=== PATIENT | female | born 1940 | race Caucasian/White ===

== ENCOUNTER 2019-07-27 06:00 | Emergency (ER) | payer MEDICARE, SELFPAY ==
[2019-07-27 06:01] VITALS: BP 126/104; PULSE 66; RESP 16; TEMP 36.8; O2SAT 97; BMI 24.3
[2019-07-27 06:46] LABS: Absolute Lymphocyte Count 1.98 X10^3/uL (0.83-4.51); Basophil# 0.05 X10^3/uL; Basophil% 0.7 % (0-1); Eosinophil# 0.14 X10^3/uL; Eosinophils% 2.1 % (0-5); Hematocrit 36.8 % (37-47); Hemoglobin 12.5 g/dL (12.0-15.0); Lymphocyte # 1.98 X10^3/ul (4.0); Lymphocyte % 29.4 % (19-41); Mean Corpuscular Hgb 31.6 pg (27.0-32.0); Mean Corpuscular Volume 92.9 fL (81-99); Mean Platelet Vol. 10.2 fl (6.2-12.0); Monocyte# 0.56 X10^3/uL; Monocyte% 8.3 % (0-10); NRBC Flagged by Analyzer 0 % (0-5); Neutrophil # 3.98 X10^3/uL (2.7-7.7); Neutrophil % 59.2 % (47-70); Platelet Count 246 K/mm3 (150-450); RBC Distribution Width CV 11.9 % (11.6-14.6); RBC Distribution Width SD 40.7 fl (35.1-43.9); Red Blood Count 3.96 M/mm3 (4.2-5.4); White Blood Count 6.7 K/mm3 (4.4-11.0)
[2019-07-27 06:58] LABS: AST(SGOT) 17 U/L (15-37); Alanine Aminotransfer ALT/SGPT 24 U/L (13-56); Albumin, Serum 3.3 g/dL (3.2-5.0); Alkaline Phosphatase 53 U/L (45-117); Anion Gap 8 (5-15); BUN 13 mg/dL (7-18); Calcium,Total 8.3 mg/dL (8.5-10.1); Chloride 110 mmol/L (98-107); Creatinine, Serum 0.93 mg/dL (0.55-1.02); EST Glomerular Filtration Rate 62 mL/min (>60); Est Glom Filt Rate - Afr Amer 75 mL/min (>60); Estimated Creatinine Clearance 44.86 ml/min; Globulin 3.4 g/dL (2.2-4.2); Glucose 111 mg/dL (74-106); Protein, Total 6.7 g/dL (6.4-8.2); Sodium Level 143 mmol/L (136-145)
--- NOTE | 2019-07-27 07:15 | CT_ITS ---
STUDY: CT ABDOMEN AND PELVIS WITHOUT CONTRAST REASON FOR EXAM: Female, 79 years old. Lower abdominal pain and painful urination RADIATION DOSAGE (If Supplied By Facility): CTDIvol = ( 6.55 ) mGy, DLP = ( 311.01 ) mGycm TECHNIQUE: Transaxial images were obtained from the dome of the diaphragm to the symphysis pubis without oral contrast, and without intravenous contrast. Sagittal and coronal images were reconstructed. Individualized dose optimization techniques were used for this CT. COMPARISON: None. FINDINGS: The visualized lung bases are unremarkable. The visualized portions of the heart are within normal limits. Small hiatal hernia. Normal liver. There are surgical clips in the gallbladder fossa consistent with a prior cholecystectomy. Normal spleen. Normal pancreas. Normal bilateral adrenal glands. Normal right kidney. Normal left kidney. Normal visualized stomach. Normal small intestine. Acute sigmoid diverticulitis. No free air or abscess is seen. The appendix is visualized and appears normal. Normal abdominal aorta. Normal inferior vena cava. Normal retroperitoneum. Normal urinary bladder. Normal abdominal wall. Normal osseous structures. CT/Abdomen/Pelvis without Cont IMPRESSION: Acute sigmoid diverticulitis. No free air or abscess is seen. Electronically Signed: Tunde Benedict MD at 7:50 EST Tel , Service support ,
[2019-07-27 07:22] LABS: Bacteria 0 SEEN /hpf (None Seen); Mucous, Urine 0 SEEN /hpf (<or=2+); Red Blood Cells-Urine 0 SEEN /hpf (0-5); Squamous Epithelial Cells - UA 0 SEEN /hpf (5-10); White Blood Cells 0 SEEN /hpf (0-5)
--- NOTE | 2019-07-27 07:43 | ED.DCSUM_ITS ---
- ER Visit Summary Date of Service: 07/27/19 Chief Complaint: [Abdominal pain] History of Present Illness: The patient is a 79 F [presents to the emergency department complaint of abdominal pain that started mostly last evening around midnight. Patient states that she has had some mild discomfort for several days. Patient describes the pain as severe and rates it a 10 out of 10. Patient states the pain is left lower quadrant. At times she feels the pain in her back. Patient has some discomfort in her abdomen with bowel movements as well as with urination. She said no fevers. She said some nausea but no vomiting. She denies any diarrhea. She denies any blood in her stool or black tarry stools. Patient does have prior history of kidney stones. Patient had prior history of diverticulitis. Patient had prior cholecystectomy and hysterectomy.] Physical Examination: [HEENT-PERRLA, EOMI. Cranial nerves II through XII grossly intact. TMs clear. Mucous membranes moist. No adenopathy. Cardiovascular-regular rate and rhythm without murmur or ectopy Lungs-clear to auscultation, chest wall stable without crepitus or subcu emphysema Abdomen-normoactive bowel sounds, soft. Patient has tenderness palpation over the left lower quadrant with some guarding. There is no rebound, rigidity, or perineal signs. Extremities-intact ?4, normal range of motion, normal pulses, atraumatic] Test Results: [CBC with differential obtained showing a 6.7, hemoglobin 12.5, hematocrit 37, placed 246. Chemistries unremarkable. LFTs were normal.] Urinalysis was normal. CT scan of the M pelvis showed acute sigmoid diverticulitis without evidence of perforation or abscess. Emergency Department Course and Treatment: [Patient was given normal saline on arrival and was started on morphine and Zofran for pain control. Patient started on Cipro and Flagyl.] Treatment Plan: [She will be given a prescription for [place] as well as prescription for Cipro and Flagyl. Patient advised to follow-up with her primary care physician within next 3 to 5 days. Patient advised to return if worsening pain, fever, vomiting, or condition should worsen in any way.] Disposition: [Discharged home in stable condition] Impression: [Acute sigmoid diverticulitis] This note was generated with [employer] software. It may contain incorrect words, spelling, and punctuation that were not noted in review of the chart prior to signing ED Disposition - Plan for ED Patient: Referrals: Hugo Serrato MD [Primary Care Provider] -
[2019-07-27 07:47] LABS: Color, Urine Yellow (Yellow); Glucose, Dipstick Normal (Normal); Ketone-Dipstick Negative (Negative); Leukocyte Esterase-Dipstick Negative /ul (Negative); Nitrite-Dipstick Negative (Negative); Occult Blood-Urine Negative /ul (Negative); Protein-Dipstick Negative (Negative); Urine Bilirubin Dipstick Negative (Negative); Urine Clarity Clear (Clear); Urine Urobilinogen Normal (Normal)
[2019-07-27] MEDS: Morphine 4 MG/ML Syringe IV (08:04)
[2019-07-27] MEDS: Ondansetron 4 MG/2 ML Vial IV (08:05)
--- NOTE | 2019-07-27 08:07 | ED.DEP ---
ED Disposition - Plan for ED Patient: Instructions: Diverticulitis Prescriptions: Ciprofloxacin [Cipro] 500 mg PO BID #20 tab Prescription Printed metroNIDAZOLE [Flagyl] 500 mg PO Q8H #30 tab Prescription Printed Hydrocodone Bitart/Apap 5-325 [[place] 5MG-325MG] 1 tab PO Q4H PRN PRN 2 Days #14 tab PRN Reason: Pain Prescription Printed Referrals: Hugo Serrato MD [Primary Care Provider] - 3-5 Days
--- NOTE | 2019-07-27 08:09 | ED.DEP ---
ED Disposition - Plan for ED Patient: Instructions: Diverticulitis Prescriptions: Ciprofloxacin [Cipro] 500 mg PO BID #20 tab Prescription Printed metroNIDAZOLE [Flagyl] 500 mg PO Q8H #30 tab Prescription Printed Hydrocodone Bitart/Apap 5-325 [[place] 5MG-325MG] 1 tab PO Q4H PRN PRN 2 Days #14 tab PRN Reason: Pain Prescription Printed Referrals: uHgo Serrato MD [Primary Care Provider] - 3-5 Days
[2019-07-27] MEDS: metroNIDAZOLE 500 MG Tablet PO (08:33)
[2019-07-27] MEDS: Ciprofloxacin 500 MG Tablet PO (08:33)
[2019-07-27 08:36] VITALS: BP 126/54; PULSE 54; RESP 16; O2SAT 97
[2019-07-27] MEDS: Ondansetron ODT 4 MG Tablet PO (09:23)
== END 2019-07-27 09:17 | disposition home or self-care (01) ==
LOC: ED 07:21
PROVIDERS: Emergency Provider Emergency Medicine; Family Provider Family Medicine; PCP Family Medicine
DX: K57.32 Diverticulitis of large intestine without perforation or abscess without bleeding (principal); Z87.442 Personal history of urinary calculi
CPT/HCPCS: 74176; 80053; 81001; 85025; 96374; 96375; 99284; A4216; J2405

== ENCOUNTER 2020-10-05 14:06 | Outpatient (RCR) | payer MEDICARE, SELFPAY | END 2020-10-05 23:59 | LOC: IMMUN 14:06 | PROVIDERS: PCP Family Medicine; Referring Provider Family Medicine; Visit Provider Family Medicine | DX: Z23 Encounter for immunization (principal) | CPT/HCPCS: 0011A; 0012A ==

== ENCOUNTER 2020-11-12 17:26 | Observation (INO) | payer MEDICARE, SELFPAY ==
[2020-11-12] VITALS (10 sets, daily range): BP systolic 151–190; BP diastolic 64–89; PULSE 66–79; RESP 14–22; TEMP 36.2–36.7; O2SAT 96–98; BMI 23.3; BMI 23.4
--- NOTE | 2020-11-12 17:40 | EKG12_ITS ---
Test Reason : SYNCOPE Blood Pressure : / mmHG Vent. Rate : 073 BPM Atrial Rate : 073 BPM P-R Int : 218 ms QRS Dur : 072 ms QT Int : 424 ms P-R-T Axes : 022 -34 055 degrees QTc Int : 467 ms Sinus rhythm with 1st degree A-V block Left axis deviation Septal infarct , age undetermined Abnormal ECG Confirmed by MARY GRACE DELAROSA, [place] ([id number]), editor index NELDA MERCHANT ([id number]) on 11/14/2020 10:15:27 AM Referred By: KEARA Confirmed By:AZ BRODY MD
--- NOTE | 2020-11-12 17:40 | CT_ITS ---
STUDY: CT BRAIN WITHOUT CONTRAST REASON FOR EXAM: Female, 80 years old. Neuro deficit, acute, stroke suspected RADIATION DOSAGE (If Supplied By Facility): CTDIvol = ( 44.99 ) mGy, DLP = ( 779.24 ) mGycm TECHNIQUE: Transaxial CT imaging of the brain was performed without administration of intravenous contrast material. Individualized dose optimization techniques were used for this CT. COMPARISON: No relevant priors. FINDINGS: Normal soft tissue structures. Normal calvarium. There is moderate cerebral atrophy with widening of the extra-axial spaces and ventricular dilatation. There are areas of decreased attenuation within the white matter tracts of the supratentorial brain, consistent with microvascular disease changes. Normal basal ganglia and thalami. Normal brainstem. Normal cerebellum. There is no intracranial hemorrhage. There are no findings of an acute ischemic infarction. Normal visualized paranasal sinuses. CT/Brain/Head without Contrast IMPRESSION: Chronic involutional changes of the brain. Electronically Signed: Vj Duarte MD at 18:25 EDT Tel , Service support ,
--- NOTE | 2020-11-12 17:42 | ED.VIS.GEN ---
History of Present Illness Chief Complaint: Syncope Informant: Patient Onset: Today Context: Sudden Onset Current Severity: Mild Maximum Severity: Moderate Narrative: Patient is a 80-year-old female medical history significant for hypertension hyperlipidemia who presents to the emergency department with 2 episodes where she states she had transient weakness in her right leg, tingling in her right hand, and difficulty standing. She states it first happened when she was at lunch today. She states she tried to do from the table noticed that she was leaning to her right. She states she had a difficult time finding her right foot in space. She states it lasted only a few minutes. She drove home and was sitting at her kitchen table. She states she went to get up, and had the return of the weakness. She states this time involved both her right leg and her right hand. She states that she lowered herself to the ground and felt very lightheaded. Since then, her symptoms have totally resolved. She has no history of coronary vascular disease. She has no history of prior stroke. She is otherwise been in her normal state of health. Prior similar symptoms: No Recent Illness/Hospitalization: No Past Medical History - Allergies and Home Meds Allergies/Adverse Reactions: Allergies cephalexin monohydrate [From Keflex] Allergy (Verified 11/12/20 17:31) Nausea promethazine HCl [From Phenergan] Allergy (Verified 11/12/20 17:31) Other trimethoprim Allergy (Verified 11/12/20 17:31) Nausea Prior records reviewed: Yes Past Medical History: - - Hypertension, hyperlipidemia, osteoporosis Surgical History: noncontributory Smoking Status: Never smoker Review of Systems General: Denies: Chills, Fever, Sweats Eyes: Denies: Visual changes - bilaterally, Diplopia ENT: Denies: Rhinorrhea, Sore throat Cardiovascular: Denies: Chest pain, Palpitations Respiratory: Denies: Dyspnea, Cough, Dyspnea on exertion Gastrointestinal: Denies: Abdominal pain, Nausea, Vomiting, Diarrhea, Melena, Hematochezia Genitourinary: Denies: Dysuria, Hematuria, Frequency Musculoskeletal: Denies: Back pain, Extremity Pain Skin: Denies: Rash, Wounds Neurological: Denies: Headache, Weakness, Numbness Physical Exam Vital Signs/Narrative: Vital Signs Temp Pulse Resp BP Pulse Ox 11/12/20 17:27 97.8 F 79 15 190/81 H 98 Inital Vital Signs reviewed: Yes General: Well nourished, Well developed, No Acute Distress Head: Normocephalic, Atraumatic Eyes: Perrl, EOMI ENT: Moist mucous membranes, No rhinorrhea Neck: Supple, Nontender Cardiovascular: Regular rate, Regular rhythm, No murmurs Respiratory: No distress, CTA bilaterally, Chest nontender Abdomen: Soft, Nontender, Nondistended, Normal bowel sounds Back: Nontender, Normal Inspection Extremities: Nontender, No edema Skin: Normal color, No rash Neurological: Alert, Oriented x3, Cranial nerves II-XII grossly intact, Normal Strength, Normal Sensation Psychological: Normal affect, Normal Mood Diagnostic/Tx/Re-eval Clinical Impression(s) from Imaging Studies Brain CT 11/12/20 17:40 IMPRESSION: Chronic involutional changes of the brain. Electronically Signed: Vj Duarte MD at 18:25 EDT Tel , Service support , Chest X-Ray 11/12/20 18:05 IMPRESSION: Normal x-ray examination of the chest. Electronically Signed: Vj Duarte MD at 18:22 EDT Tel , Service support , Abnormal Lab Results 11/12/20 11/12/20 11/12/20 17:48 18:00 18:00 WBC 6.8 RBC 4.41 Hgb 13.6 Hct 41.5 MCV 94.1 MCH 30.8 MCHC 32.8 RDW Std Deviation 43.9 RDW Coeff of Nico 12.5 Plt Count 333 MPV 9.6 Immature Gran % (Auto) 0.300 Neut % (Auto) 71.6 H Lymph % (Auto) 20.3 [place] % (Auto) 4.9 Eos % (Auto) 1.6 Baso % (Auto) 1.3 H Absolute Neuts (auto) 4.8 Absolute Lymphs (auto) 1.37 Nucleated RBC % 0 PT Cancelled INR Cancelled APTT Cancelled Sodium Potassium Chloride Carbon Dioxide Anion Gap BUN Creatinine Estim Creat Clear Calc Est GFR (MDRD) Af Amer Est GFR (MDRD) Non-Af BUN/Creatinine Ratio Glucose Calcium Troponin I POC Glucose 174 H 11/12/20 18:00 WBC RBC Hgb Hct MCV MCH MCHC RDW Std Deviation RDW Coeff of Nico Plt Count MPV Immature Gran % (Auto) Neut % (Auto) Lymph % (Auto) [place] % (Auto) Eos % (Auto) Baso % (Auto) Absolute Neuts (auto) Absolute Lymphs (auto) Nucleated RBC % PT INR APTT Sodium 140 Potassium 3.3 L Chloride 106 Carbon Dioxide 27.0 Anion Gap 7 BUN 13 Creatinine 1.07 H Estim Creat Clear Calc 38.36 Est GFR (MDRD) Af Amer 64 Est GFR (MDRD) Non-Af 53 L BUN/Creatinine Ratio 12.1 Glucose 168 H Calcium 8.7 Troponin I < 0.015 POC Glucose - Rhythm Strip Rhythm Strip: Sinus Rhythm Rate: 80 Ectopy: None - EKG Initial EKG Interpretation: Sinus Rhythm, No Acute Injury Pattern Prior: No Prior - Medical Decision Making The patient symptoms are consistent with TIA. On arrival, her NIH is 0. She has no ataxia or nystagmus. There is no visual field cut. Patient was sent for noncontrast head CT. This was unremarkable for acute process. Chest x-ray reviewed by both myself and the radiologist shows no evidence of focal infiltrative process, pneumothorax, or evidence of volume overload. EKG was obtained. It was sinus rhythm with first-degree AV block. Metabolic work-up was unremarkable. At this point, given the patient's age and symptoms I do feel that she would benefit from admission for TIA work-up. She is comfortable with this plan of care. Impression 1. TIA ED Disposition - Plan for ED Patient:
[2020-11-12 18:01] LABS: Bedside Glucose 174 mg/dL (70-110)
--- NOTE | 2020-11-12 18:05 | RAD_ITS ---
STUDY: X-RAY CHEST REASON FOR EXAM: Female, 80 years old. Neuro deficit, acute, stroke suspected TECHNIQUE: Single AP portable view of the chest. COMPARISON: None. FINDINGS: The lungs are clear and expanded. There is no demonstrated pleural abnormality. Normal size heart. Normal mediastinum and lyssa. Normal visualized pulmonary arteries. Normal visualized aortic arch and descending thoracic aorta. Normal visualized thoracic spine. Normal visualized ribs, clavicles, and shoulders. There is no demonstrated abnormality of the visualized soft tissue structures of the upper abdomen. RAD/Chest 1 View IMPRESSION: Normal x-ray examination of the chest. Electronically Signed: Vj Duarte MD at 18:22 EDT Tel , Service support ,
[2020-11-12 18:11] LABS: Absolute Lymphocyte Count 1.37 X10^3/uL (0.83-4.51); Absolute Neutrophil Count 4.8 X10^3/uL (2.0-7.7); Basophil# 0.09 X10^3/uL; Basophil% 1.3 % (0-1); Eosinophil# 0.11 X10^3/uL; Eosinophils% 1.6 % (0-5); Hematocrit 41.5 % (37-47); Hemoglobin 13.6 g/dL (12.0-15.0); Lymphocyte # 1.37 X10^3/ul (4.0); Lymphocyte % 20.3 % (19-41); Mean Corp Hgb Conc 32.8 g/dL (32-36); Mean Corpuscular Hgb 30.8 pg (27.0-32.0); Mean Corpuscular Volume 94.1 fL (81-99); Mean Platelet Vol. 9.6 fl (6.2-12.0); Monocyte# 0.33 X10^3/uL; Monocyte% 4.9 % (0-10); NRBC Flagged by Analyzer 0 % (0-5); Neutrophil # 4.83 X10^3/uL (2.7-7.7); Neutrophil % 71.6 % (47-70); Platelet Count 333 K/mm3 (150-450); RBC Distribution Width CV 12.5 % (11.6-14.6); RBC Distribution Width SD 43.9 fl (35.1-43.9); Red Blood Count 4.41 M/mm3 (4.2-5.4); White Blood Count 6.8 K/mm3 (4.4-11.0)
[2020-11-12 18:30] LABS: Anion Gap 7 (5-15); BUN 13 mg/dL (7-18); BUN/Creat Ratio 12.1 RATIO (10-20); Calcium,Total 8.7 mg/dL (8.5-10.1); Chloride 106 mmol/L (98-107); Creatinine, Serum 1.07 mg/dL (0.55-1.02); EST Glomerular Filtration Rate 53 mL/min (>60); Est Glom Filt Rate - Afr Amer 64 mL/min (>60); Estimated Creatinine Clearance 38.36 ml/min; Glucose 168 mg/dL (74-106); Potassium 3.3 mmol/L (3.5-5.1); Sodium Level 140 mmol/L (136-145)
--- NOTE | 2020-11-12 19:23 | HP.PCM_ITS ---
Problem List (1) TIA (transient ischemic attack) Status: Acute (2) Depression Status: Chronic Qualifiers: Depression Type: unspecified Qualified Code(s): F32.9 - Major depressive disorder, single episode, unspecified (3) Hypertension Status: Chronic Qualifiers: Hypertension type: essential hypertension Qualified Code(s): I10 - Ess ential (primary) hypertension History of Present Illness Date of Admission: 11/12/20 Chief Complaint: Right lower leg weakness The patient is a 80 year old F with PMHx of Hypertension, hyperlipidemia who comes in with complaints of right lower leg weakness. She states that she was checked in a prayer group and was getting ready to go home when she felt weakness in her right lower extremity. She denied any tingling or numbness in her extremities. She felt slightly lightheaded but did not pass out. The right lower leg weakness seemed to improve after a few minutes. She was helped to her car and she drove home. Whilst at home, standing up, she felt weakness in the right lower extremity again. She felt her extremities were weak and she had to help it as she moved. She laid on the floor for about 5 minutes. She then got up and went to lie on the bed. She then called her to help her get to the emergency room. In the emergency room, her temperature was 97.8 F, heart rate 79, blood pressure 190/81, respiratory rate 15, SPO2 is 98% on room air. Her admitting blood work was unremarkable except for potassium of 3.3, creatinine of 1.07. Previous creatinine in [address] of the brain was unremarkable. Chest x-ray was also unremarkable. Patient symptoms appear to have resolved at the time of being seen. Past Medical History Past Medical History (Chronic Problems): Chronic Problems Depression (Chronic) Hypertension (Chronic) Allergies cephalexin monohydrate [From Keflex] Allergy (Verified 11/12/20 17:31) Nausea promethazine HCl [From Phenergan] Allergy (Verified 11/12/20 17:31) Other trimethoprim Allergy (Verified 11/12/20 17:31) Nausea Home Medications: Ambulatory Orders Medication Instructions Recorded Colestipol Tablet [Colestid Tablet] 1 gm PO BID 02/17/15 Ergocalciferol [Vitamin D] 50,000 unit PO MO 02/17/15 Nadolol [Corgard] 20 mg PO DAILY 02/17/15 Paroxetine HCl 10 mg PO DAILY 11/12/20 Surgical History: hysterectomy Psychiatric History: No pertinent psych hx 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 IMPERSONATOR 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 Denies: Chest Pain, Claudication, Orthopnea, Palpitations, Paroxysmal Noc. Dyspnea Respiratory: Denies: Cough, Hemoptysis, Shortness of breath at rest, Shortness of breath upon exertion, Sputum production Gastrointestinal: Denies: Abdominal Pain, Hematemesis, Hematochezia, Nausea, Vom iting Genitourinary: Denies: Dysuria, Frequency, Incontinence Musculoskeletal: Denies: Joint Pain, Joint stiffness, Joint swelling, Joint Tenderness Skin: Denies: Rash, Wounds Neurological: Reports: Focal weakness. Denies: Balance problems, Blurred vision, Slurred speech, Confusion, Numbness, Tingling, Tremor Psychiatric: Denies: Anxiety, Depression, Homicidal Ideations, Suicidal Ideations Hematologic/ Lymphatic: Denies: Easy Bruising, Easy Bleeding VTE Information - Inpt Only VTE Present on Admission: No VTE Pharm Prophylaxis ordered?: Yes - Physical Exam Vitals/I&O's: Vital Signs Temp Pulse Resp BP Pulse Ox 97.8 F 71 18 159/74 H 98 11/12/20 17:27 11/12/20 19:00 11/12/20 19:00 11/12/20 19:00 11/12/20 19:00 Oxygen Delivery Method Room Air Weight: 63.503 kg Body Mass Index (BMI) 23.3 Finger Stick Blood Glucose 174 General: Alert, Oriented x3, Cooperative, No apparent distress HEENT: Atraumatic, PERRLA, EOMI, Normocephalic Oral: Moist Mucosa Neck: Supple Lungs: Clear to auscultation, Normal air movement Cardiovascular: Regular rate, Regular Rhythm, Normal S1, Normal S2, No murmurs Abdomen: Bowel Sounds Present, Soft, Non Tender, Non-Distended, No Hepato- splenomegaly Extremities: No edema Skin: No rashes Musculoskeletal: No Tenderness to Palpation of Joints or Extremities Lymphatic: No Cervical, Supraclavicular, or Inguinal Adenopathy Neurological: Cranial nerves II-XII grossly intact, Neuro grossly intact Psych/Mental Status: Normal Affect, Appropriate Laboratory Results 11/12/20 17:48: POC Glucose 174 H 11/12/20 18:00: WBC 6.8, RBC 4.41, Hgb 13.6, Hct 41.5, MCV 94.1, MCH 30.8, MCHC 32.8, RDW Std Deviation 43.9, RDW Coeff of Nico 12.5, Plt Count 333, MPV 9.6, Immature Gran % (Auto) 0.300, Neut % (Auto) 71.6 H, Lymph % (Auto) 20.3, [place] % (Auto) 4.9, Eos % (Auto) 1.6, Baso % (Auto) 1.3 H, Absolute Neuts (auto) 4.8, Absolute Lymphs (auto) 1.37, Nucleated RBC % 0 11/12/20 18:00: PT Cancelled, INR Cancelled, APTT Cancelled 11/12/20 18:00: Sodium 140, Potassium 3.3 L, Chloride 106, Carbon Dioxide 27.0, Anion Gap 7, BUN 13, Creatinine 1.07 H, Estim Creat Clear Calc 38.36, Est GFR (MDRD) Af Amer 64, Est GFR (MDRD) Non-Af 53 L, BUN/Creatinine Ratio 12.1, Glucos e 168 H, Calcium 8.7, Troponin I < 0.015 Current Medications Labetalol HCl (Labetalol (Prefilled) 20 Mg/4 Ml) 20 mg IV X1 PRN PRN Reason: Blood Pressure Assessment/Plan All Active Problems TIA (transient ischemic attack) (Acute) 1. Acute transient right lower leg weakness, concerning for TIA Patient's initial CT of the brain was unremarkable Symptoms appear to have resolved at time of exam Admit to PCU, monitor on telemetry, MRI of the brain, MRA of the head and neck 2D echo, teleneurology consult, Lipid profile in am, HbA1c 2. Hypertension, uncontrolled, allowing for permissive hypertension Patient's home nadolol on hold 3. Acute kidney injury, admitting creatinine is 1.07, previous creatinine 0.93 Continue on IV fluids, repeat blood work in a.m. 4. Hyperlipidemia, continue on colestipol Would add atorvastatin 40 mg QHS 5. Depression, continue on Paxil 6. DVT prophylaxis?heparin subcu 7. Code Status?DNR CCA I discussed and explained in details the various types of CODE STATUS-full code, DNR CCA, DNR CC. Patient chose to be DNR CCA. She has a living will and would not like to be intubated or kept on artificial life support. Time spent discussing CODE STATUS 16 minutes OBSV E&M: [id number] Initial observation care L3 Procedures: [id number] Advncd Care Plan 30 Min
--- NOTE | 2020-11-12 20:05 | ECHOD_ITS ---
Reason For Study: TIA/CVA Procedure This was a 2D Doppler, Color Flow transthoracic echocardiogram. Exam performed portable in patient room. Left Ventricle Normal left ventricle. The estimated ejection fraction is EF 55-60% %. Right Ventricle Normal systolic function. Atria The left atrium is mildly enlarged. Normal right atrium. Mitral Valve There is mild mitral annular calcification. Tricuspid Valve Unable to estimate RV systolic pressure due to insufficient tricuspid regurgitant envelope. Aortic Valve Aortic sclerosis, no stenosis. Pulmonic Valve The pulmonic valve is not well visualized. Great Vessels Normal aortic root. Pericardium/Pleural No pericardial effusion. Medication Performed a rapid injection of agitated mix of 9 cc saline and 1cc air to assess for atrial septal defect. MMode/2D Measurements & Calculations LVIDd: 4.1 cm IVSd: 0.95 cm Ao root diam: 2.8 cm LVIDs: 2.7 cm LVPWd: 0.91 cm RVDd: 2.9 cm FS: 32.5 % LAV(MOD-bp): 65.3 ml LVAd ap4: 21.1 cm2 SV(MOD-sp4): 33.5 ml LAV(MOD-bp) Indexed: 38.4 ml/m2 EDV(MOD-sp4): 56.5 ml LAV(MOD-sp2): 65.8 ml EDV(sp4-el): 57.7 ml LAV(MOD-sp4): 60.6 ml LVAs ap4: 12.1 cm2 ESV(MOD-sp4): 23.0 ml ESV(sp4-el): 23.0 ml EF(MOD-sp4): 59.3 % EF(sp4-el): 60.1 % SV(sp4-el): 34.7 ml LA A4 area: 19.8 cm2 LA dimension(2D): 3.8 cm RA A4 area: 13.5 cm2 Time Measurements MV dec time: 0.23 sec Doppler Measurements & Calculations MV E max curt: 85.8 cm/sec Lat Peak E' Curt: 7.0 cm/sec Med Peak E' Curt: 5.4 cm/sec MV A max curt: 82.6 cm/sec E/E' lat: 12.2 E/E' med: 16.0 MV E/A: 1.0 Ao V2 max: 115.4 cm/sec LV V1 max: 80.1 cm/sec PA V2 max: 89.4 cm/sec Ao max P.3 mmHg LV V1 max P.6 mmHg TR max curt: 230.0 cm/sec TR max P.9 mmHg Interpretation Summary LV systolic function is Normal The estimated ejection fraction is EF 55-60% %. The left atrium is mildly enlarged. Ordering Physician: Anita Segura Referring Physician: CHRIS SCHMITZ Performed By: Lindsay Garcia, MABEL, RVT
[2020-11-12 20:39] LABS: AST(SGOT) 22 U/L (15-37); Alanine Aminotransfer ALT/SGPT 31 U/L (13-56); Albumin, Serum 3.8 g/dL (3.2-5.0); Alkaline Phosphatase 63 U/L (45-117); Bilirubin, Direct 0.08 mg/dL (0.00-0.30); Globulin 3.7 g/dL (2.2-4.2); Magnesium 2.1 mg/dL (1.6-2.6); Protein, Total 7.5 g/dL (6.4-8.2)
[2020-11-12 20:45] LABS: Hemoglobin A1c 5.8 % (3.8-5.6)
[2020-11-12] MEDS: 0.9% Normal Saline 1,000 ML 100 ML IV (21:19)
[2020-11-12] MEDS: Potassium Chloride Oral Tablet 20 MEQ 40 MEQ PO (21:30)
[2020-11-12] MEDS: Heparin Injection (Vial) 5,000 UNIT/ML VIAL 5000 UNIT SC (21:31)
[2020-11-12] MEDS: Atorvastatin Calcium 40 MG Tablet PO (21:31)
[2020-11-12] MEDS: 0.9% Saline Lock 10 ML Syringe IV (23:15)
[2020-11-13] VITALS (9 sets, daily range): BP systolic 142–175; BP diastolic 66–86; PULSE 60–70; RESP 16–18; TEMP 36.3–36.8; O2SAT 95–99
[2020-11-13] MEDS: Acetaminophen 325 MG Tablet 650 MG PO (00:46)
[2020-11-13 06:58] LABS: Absolute Neutrophil Count 2.5 X10^3/uL (2.0-7.7); Basophil# 0.07 X10^3/uL; Basophil% 1.3 % (0-1); Eosinophil# 0.14 X10^3/uL; Eosinophils% 2.7 % (0-5); Hematocrit 37.3 % (37-47); Hemoglobin 12.3 g/dL (12.0-15.0); Lymphocyte % 39.8 % (19-41); Mean Platelet Vol. 9.6 fl (6.2-12.0); Monocyte# 0.42 X10^3/uL; NRBC Flagged by Analyzer 0 % (0-5); Neutrophil # 2.54 X10^3/uL (2.7-7.7); Platelet Count 273 K/mm3 (150-450); RBC Distribution Width CV 12.4 % (11.6-14.6); RBC Distribution Width SD 42.7 fl (35.1-43.9); Red Blood Count 3.97 M/mm3 (4.2-5.4); White Blood Count 5.3 K/mm3 (4.4-11.0)
[2020-11-13 07:30] LABS: AST(SGOT) 17 U/L (15-37); Alanine Aminotransfer ALT/SGPT 22 U/L (13-56); Alkaline Phosphatase 48 U/L (45-117); Anion Gap 6 (5-15); BUN 10 mg/dL (7-18); BUN/Creat Ratio 11.8 RATIO (10-20); Calcium,Total 8.1 mg/dL (8.5-10.1); Chloride 111 mmol/L (98-107); Cholesterol 202 mg/dL (200); Creatinine, Serum 0.85 mg/dL (0.55-1.02); EST Glomerular Filtration Rate 69 mL/min (>60); Est Glom Filt Rate - Afr Amer 83 mL/min (>60); Estimated Creatinine Clearance 48.29 ml/min; Globulin 3.1 g/dL (2.2-4.2); Glucose 108 mg/dL (74-106); High Density Lipoprotein 54 mg/dL; Potassium 3.7 mmol/L (3.5-5.1); Protein, Total 6.1 g/dL (6.4-8.2); Sodium Level 141 mmol/L (136-145); Triglycerides 188 mg/dL; Very Low Density Lipoprotein 38 mg/dL (5-40)
[2020-11-13] MEDS: Aspirin 81 MG TAB.CHEW PO (09:00)
[2020-11-13] MEDS: Multivitamins,Therapeutic Tablet 1 TABLET PO (09:01)
[2020-11-13] MEDS: PARoxetine 10 MG Tablet PO (09:04)
[2020-11-13] MEDS: Heparin Injection (Vial) 5,000 UNIT/ML VIAL 5000 UNIT SC (09:10)
--- NOTE | 2020-11-13 09:30 | MRI_ITS ---
STUDY: MRI BRAIN WITHOUT CONTRAST REASON FOR EXAM: Female, 80 years old. neuro deficit, TIA/CVA work-up TECHNIQUE: Standardized multiplanar fat and water weighted pulse sequences were obtained. COMPARISON: CT 11/12/2020 FINDINGS: There is moderate cerebral atrophy with widening of the extra-axial spaces and ventricular dilatation. There are multiple white matter hyperintensities, distributed throughout the deep white matter tracts of the cerebral hemispheres, consistent with moderate chronic white matter ischemic changes. There is no evidence for recent intracranial ischemia or other cause of cytotoxic edema on diffusion weighted imaging (DWI). Normal T2* images of the brain without demonstrated susceptibility artifact. There is no demonstrated hemosiderin stain. Normal bilateral basal ganglia. Normal thalami. There is no extra-axial fluid accumulation. Normal flow voids within the major intracranial circulation suggesting patency by spin echo criteria. Normal sella turcica, pituitary gland, infundibular stalk, optic chiasm and hypothalamus. Normal tectal plate and pineal gland. Normal midbrain, katie and medulla. Normal cerebellum. Normal basal cisterns. Normal bilateral temporal bones. Normal bilateral internal auditory canals. There are bilateral ocular lens implants with otherwise normal intraorbital contents. Normal visualized paranasal sinuses. Normal calvarium and skull base. Normal visualized soft tissue structures. Normal visualized upper cervical spine. MRI/Brain without Contrast IMPRESSION: Involutional changes of the brain, as described above. No acute infarct. Electronically Signed: Vj Duarte MD at 13:49 EDT Tel , Service support ,
--- NOTE | 2020-11-13 09:30 | MRI_ITS ---
STUDY: MRA NECK WITH AND WITHOUT CONTRAST REASON FOR EXAM: Female, 80 years old. neuro deficit TECHNIQUE: 3-D nmsp-ly-sxzpyh (TOF) imaging was performed in an 1.5 T MRI scanner. IV DOTAREM 12ML was administered for the contrast enhanced images. COMPARISON: None. FINDINGS: RIGHT CAROTID ARTERIES: Normal right common carotid artery (CCA). Normal right common carotid bulb. Normal origin of the right internal carotid (ICA) artery without a hemodynamically significant stenosis. Normal visualized cervical portion of the right internal carotid artery. Normal origin of the right external carotid artery (ECA). LEFT CAROTID ARTERIES: Normal left common carotid artery (CCA). Normal left common carotid bulb. Normal origin of the left internal carotid (ICA) artery without a hemodynamically significant stenosis. Normal visualized cervical portion of the left internal carotid artery. Normal origin of the left external carotid artery (ECA). VERTEBRAL ARTERIES: There is antegrade flow within the bilateral vertebral arteries with a small right vertebral artery, and a dominant left vertebral artery. MRI/MRA Neck WITH and W/O Contrast IMPRESSION: Normal bilateral cervical carotid and vertebral arteries. Electronically Signed: Vj Duarte MD at 13:51 EDT Tel , Service support ,
--- NOTE | 2020-11-13 09:30 | MRI_ITS ---
STUDY: MRA OF THE HEAD WITHOUT CONTRAST REASON FOR EXAM: Female, 80 years old. neuro deficit TECHNIQUE: 3-D jigo-oh-ocjedj (TOF) imaging was performed with MIPs. The study was performed unenhanced. COMPARISON: None. FINDINGS: Normal bilateral petrous carotid arteries. Normal right cavernous carotid artery with a normal supraclinoid bifurcation. Normal left cavernous carotid artery with a normal supraclinoid bifurcation. Normal right A1 segments of the anterior cerebral artery. Normal left A1 segments of the anterior cerebral artery. Normal intact anterior communicating artery (ACOM). Normal bilateral A2 segments of the anterior cerebral arteries. Normal right M1 and M2 segments of the middle cerebral arteries, with a normal M1 bifurcation. Normal left M1 and M2 segments of the middle cerebral arteries, with a normal M1 bifurcation. Normal right posterior communicating artery (PCOM). Normal left posterior communicating artery (PCOM). Normal bilateral vertebral arteries. Normal basilar artery with a normal basilar bifurcation. The visualized bilateral superior cerebellar (SCA) arteries are normal. Normal bilateral P1, P2 and visualized P3 segments of the posterior cerebral arteries. There is no demonstrated aneurysm of the [place]. There is no major vessel occlusion or hemodynamically significant stenosis. There is no demonstrated abnormality of the visualized brain. MRI/MRA Head ONLY without Contrast IMPRESSION: Normal MRA of the head Electronically Signed: Vj Duarte MD at 13:50 EDT Tel , Service support ,
--- NOTE | 2020-11-13 09:53 | PN_ITS ---
Patient Problems: Active and Suspected Problems TIA (transient ischemic attack) (Acute) Reason for Visit: 1. Transient ischemic attack 2. Hypertension 3. Depression 4.Hyperlipidemia Subjective: Patient seen and examined. Patient symptoms have resolved. Patient denies any lightheadedness or weakness this morning. No new complaints this morning. Blood pressure 157/86, heart rate 67. Vitals/I&O's: Vital Signs Temp Pulse Resp BP Pulse Ox 97.8 F 65 17 157/86 H 96 11/13/20 08:14 11/13/20 08:35 11/13/20 08:14 11/13/20 08:14 11/13/20 08:14 Oxygen Delivery Method Room Air Weight: 145 lb 1.027 oz Body Mass Index (BMI) 23.3 Finger Stick Blood Glucose 174 Intake and Output for Last 24 Hours 11/11/20 11/12/20 11/13/20 23:59 23:59 23:59 Intake Total 496.67 / 496.67 1103.33 / 1103.33 Balance 496.67 / 496.67 1103.33 / 1103.33 General: Alert, Oriented x3, Cooperative HEENT: Atraumatic, PERRLA, EOMI, Normocephalic Neck: Supple, No JVD, Negative Carotid Bruits Lungs: Clear to auscultation, Normal air movement Cardiovascular: Regular rate, Regular Rhythm, Normal S1, Normal S2, No murmurs Abdomen: Bowel Sounds Present, Soft, Non Tender Extremities: No edema, Capillary Refill Less than 3 Seconds Skin: No rashes, No breakdown Musculoskeletal: No Tenderness to Palpation of Joints or Extremities Neurological: Cranial nerves II-XII grossly intact Psych/Mental Status: Normal Affect, Appropriate Laboratory Results 11/12/20 17:48: POC Glucose 174 H 11/12/20 18:00: WBC 6.8, RBC 4.41, Hgb 13.6, Hct 41.5, MCV 94.1, MCH 30.8, MCHC 32.8, RDW Std Deviation 43.9, RDW Coeff of Nico 12.5, Plt Count 333, MPV 9.6, Immature Gran % (Auto) 0.300, Neut % (Auto) 71.6 H, Lymph % (Auto) 20.3, [place] % (Auto) 4.9, Eos % (Auto) 1.6, Baso % (Auto) 1.3 H, Absolute Neuts (auto) 4.8, Absolute Lymphs (auto) 1.37, Nucleated RBC % 0 11/12/20 18:00: PT Cancelled, INR Cancelled, APTT Cancelled 11/12/20 18:00: Sodium 140, Potassium 3.3 L, Chloride 106, Carbon Dioxide 27.0, Anion Gap 7, BUN 13, Creatinine 1.07 H, Estim Creat Clear Calc 38.36, Est GFR (MDRD) Af Amer 64, Est GFR (MDRD) Non-Af 53 L, BUN/Creatinine Ratio 12.1, Glucose 168 H, Calcium 8.7, Troponin I < 0.015 11/12/20 18:00: Magnesium 2.1, Total Bilirubin 0.50, Direct Bilirubin 0.08, AST 22, ALT 31, Alkaline Phosphatase 63, Total Protein 7.5, Albumin 3.8, Globulin 3.7 11/12/20 18:00: Hemoglobin A1c 5.8 H 11/12/20 21:02: Troponin I < 0.015 11/13/20 00:20: Troponin I < 0.015 11/13/20 06:40: WBC 5.3, RBC 3.97 L, Hgb 12.3, Hct 37.3, MCV 94.0, MCH 31.0, MCHC 33.0, RDW Std Deviation 42.7, RDW Coeff of Nico 12.4, Plt Count 273, MPV 9.6, Immature Gran % (Auto) 0.200, Neut % (Auto) 48.0, Lymph % (Auto) 39.8, [place] % (Auto) 8.0, Eos % (Auto) 2.7, Baso % (Auto) 1.3 H, Absolute Neuts (auto) 2.5, Absolute Lymphs (auto) 2.10, Nucleated RBC % 0 11/13/20 06:40: Sodium 141, Potassium 3.7, Chloride 111 H, Carbon Dioxide 24.0, Anion Gap 6, BUN 10, Creatinine 0.85, Estim Creat Clear Calc 48.29, Est GFR (MDRD) Af Amer 83, Est GFR (MDRD) Non-Af 69, BUN/Creatinine Ratio 11.8, Glucose 108 H, Calcium 8.1 L, Total Bilirubin 0.40, AST 17, ALT 22, Alkaline Phosphatase 48, Total Protein 6.1 L, Albumin 3.0 L, Globulin 3.1, Albumin/Globulin Ratio 1.0, Triglycerides 188, Cholesterol 202 H, LDL Cholesterol 110, VLDL Cholesterol 38, HDL Cholesterol 54 Current Medications Acetaminophen (Acetaminophen 325 Mg Tablet) 650 mg PO Q6H PRN PRN PRN Reason: Pain Score 1-10/Temp > 100.7 F Last Admin: 11/13/20 00:46 Dose: 650 mg Documented by: Aspirin (Aspirin 81 Mg Tab.Chew) 81 mg PO DAILY@0800 [facility] Last Admin: 11/13/20 09:00 Dose: 81 mg Documented by: Atorvastatin Calcium (Atorvastatin Calcium 40 Mg Tablet) 40 mg PO QHS [facility] Last Admin: 11/12/20 21:31 Dose: 40 mg Documented by: Colestipol HCl (Colestipol Hcl 1 Gm Tablet) 2 gm PO DAILY [facility] Last Admin: 11/13/20 09:03 Dose: 2 gm Documented by: Ergocalciferol (Ergocalciferol 50,000 Unit Capsule) 50,000 unit PO Q7D [facility] Heparin Sodium (Porcine) (Heparin Injection (Vial) 5,000 Unit/Ml Vial) 5,000 unit SC Q12 [facility] Last Admin: 11/13/20 09:10 Dose: 5,000 unit Documented by: Multivitamins (Multivitamins,Therapeutic Tablet) 1 tablet PO DAILY@0800 [facility] Last Admin: 11/13/20 09:01 Dose: 1 tablet Documented by: Ondansetron HCl (Ondansetron 4 Mg/2 Ml Vial) 4 mg IV Q8H PRN PRN PRN Reason: NAUSEA/VOMITING Paroxetine HCl (Paroxetine 10 Mg Tablet) 10 mg PO DAILY [facility] Last Admin: 11/13/20 09:04 Dose: 10 mg Documented by: Sodium Chloride (0.9% Saline Lock 10 Ml Syringe) 10 - 40 ml IV UD PRN PRN Reason: SALINE FLUSH Last Admin: 11/12/20 23:15 Dose: 10 ml Documented by: STROKE Vital Signs/Narrative: Vital Signs Temp Pulse Resp BP Pulse Ox 11/13/20 08:35 65 11/13/20 08:14 97.8 F 67 17 157/86 H 96 11/13/20 07:00 60 Medical Necessity - Tobacco Use Smoking Status: Never smoker Tobacco Use: Non-smoker Assessment/Plan All Active Problems TIA (transient ischemic attack) (Acute) 1. Transient ischemic attack- Patient symptoms have resolved. MRI and MRA ordered, as well as an echo. Teleneurology consult pending. Weight recommendations and imaging results. 2. Hypertension-nadolol on hold for permissive hypertension. 3. Depression-continue Paxil. 4. Hyperlipidemia-continue colestipol.
--- NOTE | 2020-11-13 12:52 | TELEMED_ITS ---
[facility] has confirmed receipt of a request for visit. This document confirms receipt of the order initiating the consult. To find the results of the consultation, please view the patient's reports for the scanned Telemed Consult.
--- NOTE | 2020-11-13 13:15 | CASEMGMT ---
SW completed a PHQ 9 with patient as she may have had a TIA. She scored a 3 which indicates minimal depression. She denied any need for counseling resources. Malina BETANCUR MSW
--- NOTE | 2020-11-13 14:07 | DCINST_ITS ---
- Discharge Diagnoses Current Active Problems: Current Active and Chronic Problems TIA (transient ischemic attack) (Acute) Depression (Chronic) Hypertension (Chronic) Reason(s) for Visit for Discharge Instructions: Leg weakness You will use the following diet at home:: Cardiac Your food should be the consistency of: Regular Your liquids should be the consistency of: Regular/Thin Discharge Activity: Return to Normal Activity, No Restrictions Weight Bearing Status: Weight bearing as tolerated Call your doctor if you observe: Numbness or Tingling, Dizziness, Fainting spells Allergies/Adverse Reactions: Allergies cephalexin monohydrate [From Keflex] Allergy (Verified 11/12/20 17:31) Nausea promethazine HCl [From Phenergan] Allergy (Verified 11/12/20 17:31) Other trimethoprim Allergy (Verified 11/12/20 17:31) Nausea Medications to take at Discharge Colestipol Tablet [Colestid Tablet] 1 gm PO BID 02/17/15 Ergocalciferol [Vitamin D] 50,000 unit PO MO 02/17/15 Nadolol [Corgard] 20 mg PO DAILY 02/17/15 Paroxetine HCl 10 mg PO DAILY 11/12/20 Primary Care Physician: Hugo Serrato MD [Primary Care Provider] - Please follow up with your Primary Care Physician in: 1-2 weeks Test Results: Test results from this visit will be discussed in further detail at your follow- up appointment, if applicable. Proposed Discharge Date: 11/13/20
--- NOTE | 2020-11-13 14:10 | DS.PCM_ITS ---
<Belgica Parnell - Last Filed: 11/13/20 14:10> Discharge Date and Diagnosis - Problem List Patient Problems: Active and Suspected Problems TIA (transient ischemic attack) (Acute) Date of Admission: 11/12/20 Date of Discharge: 11/13/20 - Primary Discharge Diagnosis Acute Problems: Active Problems TIA (transient ischemic attack) (Acute) - Secondary Discharge Diagnosis Chronic Problems: Chronic Problems Depression (Chronic) Hypertension (Chronic) Hospital Course and Treatment Imaging Results: 11/13/20 09:30 Brain without Contrast [MRI] Routine MRA Head ONLY without Contrast [MRI] Routine MRA Neck WITH and W/O Contrast [MRI] Routine Operations: None Procedures: EKG Summary of Care Provided: The patient is a 80 year old F presented yesterday with leg weakness. Patient underwent brain CT, brain MRI, head and neck MRA which were negative for acute findings. An echocardiogram was performed with findings of an EF of 55 to 60% and a mildly enlarged left atrium. Patient symptoms have since resolved and she now feels normal. Denies further lower extremity weakness or lightheadedness. Patient Problems: Active and Suspected Problems TIA (transient ischemic attack) (Acute) - Physical Exam Vitals/I&O's: Vital Signs Temp Pulse Resp BP Pulse Ox 98.0 F 65 17 158/81 H 99 11/13/20 13:36 11/13/20 13:36 11/13/20 13:36 11/13/20 13:36 11/13/20 13:36 Oxygen Delivery Method Room Air Weight: 145 lb 1.027 oz Body Mass Index (BMI) 23.3 Finger Stick Blood Glucose 174 Intake and Output for Last 24 Hours 11/11/20 11/12/20 11/13/20 23:59 23:59 23:59 Intake Total 496.67 / 496.67 1343.33 / 1343.33 Balance 496.67 / 496.67 1343.33 / 1343.33 General: Alert, Oriented x3, Cooperative HEENT: Atraumatic, PERRLA, EOMI, Normocephalic Neck: Supple, No JVD, Negative Carotid Bruits Lungs: Clear to auscultation, Normal air movement Cardiovascular: Regular rate, Regular Rhythm, Normal S1, Normal S2, No murmurs Abdomen: Bowel Sounds Present, Soft, Non Tender Extremities: No edema, Capillary Refill Less than 3 Seconds Skin: No rashes, No breakdown Musculoskeletal: No Tenderness to Palpation of Joints or Extremities Neurological: Cranial nerves II-XII grossly intact Psych/Mental Status: Normal Affect, Appropriate Laboratory Results 11/12/20 17:48: POC Glucose 174 H 11/12/20 18:00: WBC 6.8, RBC 4.41, Hgb 13.6, Hct 41.5, MCV 94.1, MCH 30.8, MCHC 32.8, RDW Std Deviation 43.9, RDW Coeff of Nico 12.5, Plt Count 333, MPV 9.6, Immature Gran % (Auto) 0.300, Neut % (Auto) 71.6 H, Lymph % (Auto) 20.3, Lewis % (Auto) 4.9, Eos % (Auto) 1.6, Baso % (Auto) 1.3 H, Absolute Neuts (auto) 4.8, Absolute Lymphs (auto) 1.37, Nucleated RBC % 0 11/12/20 18:00: PT Cancelled, INR Cancelled, APTT Cancelled 11/12/20 18:00: Sodium 140, Potassium 3.3 L, Chloride 106, Carbon Dioxide 27.0, Anion Gap 7, BUN 13, Creatinine 1.07 H, Estim Creat Clear Calc 38.36, Est GFR ( MDRD) Af Amer 64, Est GFR (MDRD) Non-Af 53 L, BUN/Creatinine Ratio 12.1, Glucose 168 H, Calcium 8.7, Troponin I < 0.015 11/12/20 18:00: Magnesium 2.1, Total Bilirubin 0.50, Direct Bilirubin 0.08, AST 22, ALT 31, Alkaline Phosphatase 63, Total Protein 7.5, Albumin 3.8, Globulin 3.7 11/12/20 18:00: Hemoglobin A1c 5.8 H 11/12/20 21:02: Troponin I < 0.015 11/13/20 00:20: Troponin I < 0.015 11/13/20 06:40: WBC 5.3, RBC 3.97 L, Hgb 12.3, Hct 37.3, MCV 94.0, MCH 31.0, MCHC 33.0, RDW Std Deviation 42.7, RDW Coeff of Nico 12.4, Plt Count 273, MPV 9.6, Immature Gran % (Auto) 0.200, Neut % (Auto) 48.0, Lymph % (Auto) 39.8, Lewis % (Auto) 8.0, Eos % (Auto) 2.7, Baso % (Auto) 1.3 H, Absolute Neuts (auto) 2.5, Absolute Lymphs (auto) 2.10, Nucleated RBC % 0 11/13/20 06:40: Sodium 141, Potassium 3.7, Chloride 111 H, Carbon Dioxide 24.0, Anion Gap 6, BUN 10, Creatinine 0.85, Estim Creat Clear Calc 48.29, Est GFR (MDRD) Af Amer 83, Est GFR (MDRD) Non-Af 69, BUN/Creatinine Ratio 11.8, Glucose 108 H, Calcium 8.1 L, Total Bilirubin 0.40, AST 17, ALT 22, Alkaline Phosphatase 48, Total Protein 6.1 L, Albumin 3.0 L, Globulin 3.1, Albumin/Globulin Ratio 1.0, Triglycerides 188, Cholesterol 202 H, LDL Cholesterol 110, VLDL Cholesterol 38, HDL Cholesterol 54 Current Medications Aspirin (Aspirin 81 Mg Tab.Chew) 81 mg PO DAILY@0800 [facility] Last Admin: 11/13/20 09:00 Dose: 81 mg Documented by: Atorvastatin Calcium (Atorvastatin Calcium 40 Mg Tablet) 40 mg PO QHS [facility] Last Admin: 11/12/20 21:31 Dose: 40 mg Documented by: Colestipol HCl (Colestipol Hcl 1 Gm Tablet) 1 gm PO 0700,1900 [facility] Ergocalciferol (Ergocalciferol 50,000 Unit Capsule) 50,000 unit PO Q7D [facility] Multivitamins (Multivitamins,Therapeutic Tablet) 1 tablet PO DAILY@0800 [facility] Last Admin: 11/13/20 09:01 Dose: 1 tablet Documented by: Paroxetine HCl (Paroxetine 10 Mg Tablet) 10 mg PO DAILY [facility] Last Admin: 11/13/20 09:04 Dose: 10 mg Documented by: Discharge Diet: No Restrictions Discharge Activity: Return to Normal Activity, No Restrictions Weight Bearing Status: Weight bearing as tolerated Call your doctor if you observe: Numbness or Tingling, Dizziness, Fainting spells Home Medications: Medications to take at Discharge Colestipol Tablet [Colestid Tablet] 1 gm PO BID 02/17/15 Ergocalciferol [Vitamin D] 50,000 unit PO MO 02/17/15 Nadolol [Corgard (Beta Tra)] 20 mg PO DAILY 02/17/15 Paroxetine HCl 10 mg PO DAILY 11/12/20 Aspirin [Aspirin, Baby] 81 mg PO DAILY@0800 30 Days #30 tab.chew 11/13/20 Atorvastatin Calcium [Lipitor] 40 mg PO QHS 30 Days #30 tablet 11/13/20 Multivitamins,Therapeutic [Multivitamin] 1 tablet PO DAILY@0800 30 Days #30 tablet 11/13/20 Following Prescriptions Were Given to Patient: Aspirin [Aspirin, Baby] 81 mg PO DAILY@0800 30 Days #30 tab.chew Transmission Status: Received by TERESA MCCORMICK [facility] Atorvastatin Calcium [Lipitor] 40 mg PO QHS 30 Days #30 tablet Transmission Status: Received by TERESA MCCORMICK [facility] Multivitamins,Therapeutic [Multivitamin] 1 tablet PO DAILY@0800 30 Days #30 tablet Transmission Status: Received by TERESA MCCORMICK [facility] Primary Care Physician: Hugo Serrato MD [Primary Care Provider] - Please follow up with your Primary Care Physician in: 1-2 weeks Disposition: Home Minutes spent on discharge:: 35 Patient Condition:: Good Medical Necessity - Tobacco Use Smoking Status: Never smoker Tobacco Use: Non-smoker Meaningful Use Info Meaningful Use Diagnoses (Choose all that apply): None applicable <Gagandeep Ortega - Last Filed: 11/13/20 14:57> Discharge Date and Diagnosis - Primary Discharge Diagnosis Acute Problems: Active Problems TIA (transient ischemic attack) (Acute) - Secondary Discharge Diagnosis Chronic Problems: Chronic Problems Depression (Chronic) Hypertension (Chronic) Hospital Course and Treatment Imaging Results: 11/13/20 09:30 Brain without Contrast [MRI] Routine MRA Head ONLY without Contrast [MRI] Routine MRA Neck WITH and W/O Contrast [MRI] Routine Clinical Impression(s) from Imaging Studies Brain CT 11/12/20 17:40 IMPRESSION: Chronic involutional changes of the brain. Electronically Signed: Vj Duarte MD at 18:25 EDT Tel , Service support , Chest X-Ray 11/12/20 18:05 IMPRESSION: Normal x-ray examination of the chest. Electronically Signed: Vj Duarte MD at 18:22 EDT Tel , Service support , Brain MRI 11/13/20 09:30 IMPRESSION: Involutional changes of the brain, as described above. No acute infarct. Electronically Signed: Vj Duarte MD at 13:49 EDT Tel , Service support , Head MRA 11/13/20 09:30 IMPRESSION: Normal MRA of the head Electronically Signed: Vj Duarte MD at 13:50 EDT Tel , Service support , Neck MRA 11/13/20 09:30 IMPRESSION: Normal bilateral cervical carotid and vertebral arteries. Electronically Signed: Vj Duarte MD at 13:51 EDT Tel , Service support , Operations: None Summary of Care Provided: Patient seen and examined independently. Data reviewed. I agree with the above note by the nurse practitioner. The patient is a 80 year old F presents with the complaint of right leg weakness. Patient was in a meeting at her [employer] and was feeling slightly dizzy, stood up and felt very dizzy and felt her right leg slide out from her. Was sat back down with assistance by others. Patient said that she was at the meeting for roughly 3 hours and was sitting on a hard chair during that time. She shortly afterwards was able stand up walk out and drive herself home. While at home she was doing chores in her kitchen and her right leg slid out on her again and she was concerned and presented to the emergency room. Patient had normal strength and symptoms had resolved. Patient was noted to be hypertensive with a blood pressure 190/81. Patient dates that she is never had an issue with hypertension before. Patient was admitted and underwent a neurologic work- up with echocardiogram, that showed an EF of 55 to 60%; MRA of the head neck that was unremarkable; MRI of the brain that showed no evidence of a stroke. Spoke with the patient extensively about her symptoms. She said that during the latter part of their meeting there was a very difficult for her emotionally and said that she did get anxious with that. I informed the patient that the MRI results were normal and she was elated. I explained to her that the etiology of her right leg weakness is unclear but I am concerned it could be a transient peripheral neuropathy with her sitting on a hard chair for several hours. Other possibilities could be conversion disorder with the patient's anxiety and the topic was getting apparently uncomfortable for her. Fortunately, no evidence of a stroke. Patient be discharged home in stable condition with no further work-up. Patient was hypertensive and remained so during the hospitalization. For this may be related with anxiety. I advised her that she should follow-up with her primary care doctor to see if agents would be recommended for blood pressure control. Advised her to check her blood pressure at home as well as keep a record. [] - Physical Exam Vitals/I&O's: Vital Signs Temp Pulse Resp BP Pulse Ox 36.7 C 65 17 158/81 H 99 11/13/20 13:36 11/13/20 13:36 11/13/20 13:36 11/13/20 13:36 11/13/20 13:36 Oxygen Delivery Method Room Air Weight: 65.8 kg Body Mass Index (BMI) 23.3 Finger Stick Blood Glucose 174 Intake and Output for Last 24 Hours 11/11/20 11/12/20 11/13/20 23:59 23:59 23:59 Intake Total 496.67 / 496.67 1343.33 / 1343.33 Balance 496.67 / 496.67 1343.33 / 1343.33 General: Alert, Cooperative HEENT: Atraumatic, Normocephalic Psych/Mental Status: Normal Affect, Anxious Laboratory Results 11/12/20 17:48: POC Glucose 174 H 11/12/20 18:00: WBC 6.8, RBC 4.41, Hgb 13.6, Hct 41.5, MCV 94.1, MCH 30.8, MCHC 32.8, RDW Std Deviation 43.9, RDW Coeff of Nico 12.5, Plt Count 333, MPV 9.6, Immature Gran % (Auto) 0.300, Neut % (Auto) 71.6 H, Lymph % (Auto) 20.3, Lewis % (Auto) 4.9, Eos % (Auto) 1.6, Baso % (Auto) 1.3 H, Absolute Neuts (auto) 4.8, Absolute Lymphs (auto) 1.37, Nucleated RBC % 0 11/12/20 18:00: PT Cancelled, INR Cancelled, APTT Cancelled 11/12/20 18:00: Sodium 140, Potassium 3.3 L, Chloride 106, Carbon Dioxide 27.0, Anion Gap 7, BUN 13, Creatinine 1.07 H, Estim Creat Clear Calc 38.36, Est GFR (MDRD) Af Amer 64, Est GFR (MDRD) Non-Af 53 L, BUN/Creatinine Ratio 12.1, Glucose 168 H, Calcium 8.7, Troponin I < 0.015 11/12/20 18:00: Magnesium 2.1, Total Bilirubin 0.50, Direct Bilirubin 0.08, AST 22, ALT 31, Alkaline Phosphatase 63, Total Protein 7.5, Albumin 3.8, Globulin 3.7 11/12/20 18:00: Hemoglobin A1c 5.8 H 11/12/20 21:02: Troponin I < 0.015 11/13/20 00:20: Troponin I < 0.015 11/13/20 06:40: WBC 5.3, RBC 3.97 L, Hgb 12.3, Hct 37.3, MCV 94.0, MCH 31.0, MCHC 33.0, RDW Std Deviation 42.7, RDW Coeff of Nico 12.4, Plt Count 273, MPV 9.6, Immature Gran % (Auto) 0.200, Neut % (Auto) 48.0, Lymph % (Auto) 39.8, Lewis % (Auto) 8.0, Eos % (Auto) 2.7, Baso % (Auto) 1.3 H, Absolute Neuts (auto) 2.5, Absolute Lymphs (auto) 2.10, Nucleated RBC % 0 11/13/20 06:40: Sodium 141, Potassium 3.7, Chloride 111 H, Carbon Dioxide 24.0, Anion Gap 6, BUN 10, Creatinine 0.85, Estim Creat Clear Calc 48.29, Est GFR (MDRD) Af Amer 83, Est GFR (MDRD) Non-Af 69, BUN/Creatinine Ratio 11.8, Glucose 108 H, Calcium 8.1 L, Total Bilirubin 0.40, AST 17, ALT 22, Alkaline Phosphatase 48, Total Protein 6.1 L, Albumin 3.0 L, Globulin 3.1, Albumin/Globulin Ratio 1.0, Triglycerides 188, Cholesterol 202 H, LDL Cholesterol 110, VLDL Cholesterol 38, HDL Cholesterol 54 Current Medications Acetaminophen (Acetaminophen 325 Mg Tablet) 650 mg PO Q6H PRN PRN PRN Reason: Pain Score 1-10/Temp > 100.7 F Last Admin: 11/13/20 00:46 Dose: 650 mg Documented by: Aspirin (Aspirin 81 Mg Tab.Chew) 81 mg PO DAILY@0800 [facility] Last Admin: 11/13/20 09:00 Dose: 81 mg Documented by: Atorvastatin Calcium (Atorvastatin Calcium 40 Mg Tablet) 40 mg PO QHS [facility] Last Admin: 11/12/20 21:31 Dose: 40 mg Documented by: Colestipol HCl (Colestipol Hcl 1 Gm Tablet) 1 gm PO 0700,1900 [facility] Ergocalciferol (Ergocalciferol 50,000 Unit Capsule) 50,000 unit PO Q7D [facility] Heparin Sodium (Porcine) (Heparin Injection (Vial) 5,000 Unit/Ml Vial) 5,000 unit SC Q12 [facility] Last Admin: 11/13/20 09:10 Dose: 5,000 unit Documented by: Multivitamins (Multivitamins,Therapeutic Tablet) 1 tablet PO DAILY@0800 [facility] Last Admin: 11/13/20 09:01 Dose: 1 tablet Documented by: Ondansetron HCl (Ondansetron 4 Mg/2 Ml Vial) 4 mg IV Q8H PRN PRN PRN Reason: NAUSEA/VOMITING Paroxetine HCl (Paroxetine 10 Mg Tablet) 10 mg PO DAILY [facility] Last Admin: 11/13/20 09:04 Dose: 10 mg Documented by: Sodium Chloride (0.9% Saline Lock 10 Ml Syringe) 10 - 40 ml IV UD PRN PRN Reason: SALINE FLUSH Last Admin: 11/12/20 23:15 Dose: 10 ml Documented by: Discharge Diet: No Restrictions Discharge Activity: Return to Normal Activity, No Restrictions Weight Bearing Status: Weight bearing as tolerated Call your doctor if you observe: Numbness or Tingling, Dizziness, Fainting spells Disposition: Home Minutes spent on discharge:: 35 Patient Condition:: Good Medical Necessity - Tobacco Use Smoking Status: Never smoker Tobacco Use: Non-smoker Meaningful Use Info Meaningful Use Diagnoses (Choose all that apply): None applicable OBSV E&M: 96646 Observation care discharge
--- NOTE | 2020-11-13 14:17 | PHA.DC.MR ---
Pharmacy Service has performed discharge medication reconciliation for this patient. The patient's discharge medication list was reviewed for discrepancies and discrepancies were resolved. Home Medications Colestipol Tablet [Colestid Tablet] 1 gm PO BID 02/17/15 Ergocalciferol [Vitamin D] 50,000 unit PO MO 02/17/15 Nadolol [Corgard] 20 mg PO DAILY 02/17/15 Paroxetine HCl 10 mg PO DAILY 11/12/20
--- NOTE | 2020-11-13 14:32 | NURSING ---
Student nurse documentation reviewed.
== END 2020-11-13 14:05 | disposition home or self-care (01) ==
LOC: ED 18:19 → PCU 19:26
PROVIDERS: Admitting Provider Internal Medicine; Emergency Provider Emergency Medicine; PCP Family Medicine
DX: G45.9 Transient cerebral ischemic attack, unspecified (principal); E78.5 Hyperlipidemia, unspecified; I10 Essential (primary) hypertension; R53.1 Weakness; F32.9 Major depressive disorder, single episode, unspecified; Z79.899 Other long term (current) drug therapy; R94.31 Abnormal electrocardiogram [ECG] [EKG]; R20.2 Paresthesia of skin; R29.700 NIHSS score 0; I44.0 Atrioventricular block, first degree; Z66 Do not resuscitate
CPT/HCPCS: 36415; 70450; 70544; 70549; 70551; 71045; 80048; 80053; 80061; 80076; 82962; 83036; 83735; 84484; 85025; 92523; 93005; 93306; 96360; 96361; 96372; 97802; 99218; 99251; 99283; A9575; J7030; A4216; G0378; G0463

== ENCOUNTER → 2023-10-30 | Outpatient (CLI) | payer MEDICARE, SELFPAY ==
--- NOTE | 2023-10-30 09:45 | VDLE_ITS ---
Reason For Study: BLE Pain RIGHT LEFT GSV is normal. GSV is normal. CFV is compressible, spontaneous, phasic, CFV is compressible, spontaneous, phasic, competent and demonstrates normal competent, and demonstrates normal augmentation. augmentation. FV is compressible, spontaneous, phasic, FV is compressible, spontaneous, phasic, competent and demonstrates normal competent and demonstrates normal augmentation. augmentation. POP V is compressible, spontaneous, phasic, POP V is compressible, spontaneous, phasic, competent and demonstrates normal competent and demonstrates normal augmentation. augmentation. T/P Trunk is compressible. T/P Trunk is compressible. PTV is compressible. PTV is compressible. RT PerV is compressible. LT PerV is compressible. Procedure This is a venous duplex using B-mode, color flow and spectral Doppler. Exam performed in department. The exam was diagnostic. VL/Venous Duplex US - Andrew Extrem Interpretation Summary Deep veins of the bilateral lower extremities are patent and compressible segme ntally. There is no evidence of bilateral lower extremity deep vein thrombosis. The bilateral great saphenous veins appear patent and compressible segmentally. Ordering Physician: Tonny Ramirez Referring Physician: Tonny Ramirez Performed By: Kiko Brink, RVT
--- NOTE | 2023-10-30 09:46 | ART_ITS ---
Reason For Study: BLE Pain Procedure A bilateral lower extremity continuous wave Doppler with analog waveform analysis,segmental pressures,and ankle brachial indexes without exercise. Left Segmental Pressures Left brachial= 153mmHg. Left calf = 162mmHg. Left posterior tibial artery = 96mmHg. Left dorsalis pedis artery = 124mmHg. Left digit = 108 mmHg. The left posterior tibial artery waveforms are biphasic. The left dorsalis pedis waveforms are biphasic. Right Segmental Pressures Right brachial= 148mmHg. Right calf = 169mmHg. Right posterior tibial artery = 115mmHg. Right dorsalis pedis artery = 121mmHg. The right posterior tibial artery waveforms are biphasic. The right dorsalis pedis waveforms are biphasic. Indices The right ankle brachial index by the posterior tibial artery is 0.63. The right ankle brachial index by the dorsalis pedis is 0.81. The right digital-brachial index is 0.71. The left ankle brachial index by the posterior tibial artery is 0.75. The left ankle brachial index by the dorsalis pedis is 0.70. The left digital-brachial index is 0.79. VL/Lower Ext Art Exam w/o Exercis Interpretation Summary Right DENISE 0.81, moderate arterial insufficiency. Doppler/PVR waveforms and segm ental pressures reveal infrapopliteal disease Left DENISE 0.75, moderate arterial insufficiency. Doppler/PVR waveforms and segme ntal pressures reveal infrapopliteal disease Ordering Physician: Tonny Ramirez Referring Physician: MD Rojelio Hugo Performed By: Kiko Brink, RVT
--- OUTSIDE RECORDS SUMMARY | 2023-10-30 10:07 | XMS RPT_ITS | CCD ---
Author Name Unknown Address [address] [place] [address] Organization [facility] Care Team Providers Care Director Industrial Nursing Name Role Phone Chris Schmitz MD Primary Care Provider [phone] CHRIS SCHMITZ Primary Care Unavailable BELGICA PARNELL Referring Unavailable CHRIS SCHMITZ Primary Care Unavailable BELGICA PARNELL Referring Unavailable BELGICA PARNELL Referring Unavailable CHRIS SCHMITZ Primary Care Unavailable Chris Schmitz MD Primary Care Provider [phone] CHRIS SCHMITZ Primary Care Unavailable TENISHA ESPARZA Referring Unavailable CHRIS SCHMITZ Primary Care Unavailable TENISHA ESPARZA Attending Unavailable BELGICA PARNELL Attending Unavailable CHRIS SCHMITZ Primary Care Unavailable JORGE CALABRESE Attending Unavailable CHRIS SCHMITZ Primary Care Unavailable Allergies Allergy Classification Reported Allergen(s) Allergy Type Date of Onset Reaction(s) Facility (20 sources) Cephalexin; Translations: [CEPHALEXIN] Drug Allergy 08-05-2005 Intolerance [facility] (20 sources) Promethazine; Translations: [PROMETHAZINE HCL] Drug Allergy 08-05-2005 Mental Status Change [facility] Work Phone: (20 sources) Trimethoprim; Translations: [TRIMETHOPRIM] Drug Allergy 08-05-2005 Intolerance [facility] Medications Current Medications Medication Drug Class(es) Dates Sig (Normalized) Sig (Original) amoxicillin 875 mg / clavulanate 125 mg oral tablet (1 source) Penicillin-class Antibacterial Start: 12-01-2022 End: 12-06-2022 take 1 tablet by mouth twice daily amoxicillin-clav ulanic acid (AUGMENTIN) 875-125 mg per tablet Indications: Acute non-recurrent frontal sinusitis Take 1 tablet by mouth twice daily for 5 days. 10 tablet 0 12/01/2022 12/06/2022 Active Completed/Discontinued Medications Medication Drug Class(es) Dates Sig (Normalized) Sig (Original) cholestyramine resin 4000 mg powder for oral suspension (3 sources) Bile Acid Sequestrant Start: 12-26-2022 take 4 g by mouth twice daily at mealtime cholestyramine-s ucrose (QUESTRAN) 4 gram powder Take 4 g by mouth twice daily with meals. 348.6 g 2 12/26/2022 Active Problems Active Problems Problem Classification Problem Date Documented Da te Episodic/Chronic Abdominal pain (7 sources) Right lower quadrant pain; Translations: [Right lower quadrant pain] Onset: 2 Episodic Anxiety disorders (20 sources) Anxiety; Translations: [Anxiety disorder, unspecified] Onset: 0 07-03-2010 Chronic Disorders of lipid metabolism (19 sources) Hyperlipidemia; Translations: [Hyperlipidemia, unspecified] Onset: 2 04-08-2012 Chronic Esophageal disorders (19 sources) Gastroesophageal reflux disease; Translations: [Gastro-esophageal reflux disease without esophagitis] Onset: 0 07-03-2010 Chronic Genitourinary symptoms and ill-defined conditions (19 sources) Female stress incontinence; Translations: [Stress incontinence (female) (male)] Onset: 1 02-06-2011 Chronic Nutritional deficiencies (20 sources) Vitamin D deficiency; Translations: [Vitamin D deficiency, unspecified] Onset: 0 07-03-2010 Chronic Other connective tissue disease (1 source) Bursitis of olecranon of left elbow; Translations: [Olecranon bursitis, left elbow] Episodic Other gastrointestinal disorders (20 sources) Diarrhea; Translations: [Diarrhea, unspecified] Onset: 4 09-21-2013 Episodic Other inflammatory condition of skin (19 sources) Rosacea; Translations: [Rosacea, unspecified] Onset: 9 08-10-2009 Chronic Other upper respiratory disease (19 sources) Chronic rhinitis; Translations: [Chronic rhinitis] Onset: 0 07-03-2010 Chronic Other upper respiratory infections (1 source) Acute frontal sinusitis; Translations: [Acute frontal sinusitis, unspecified] Episodic Unclassified (19 sources) Herniated urinary bladder; Translations: [Cystocele] Onset: 02-06-2011 Past or Other Problems Problem Classification Problem Date Documented Da te Episodic/Chronic Cardiac dysrhythmias (19 sources) Palpitations; Translations: [Palpitations] Onset: 07-03-2010 07-03-2010 Episodic Other bone disease and musculoskeletal deformities (19 sources) Osteopenia; Translations: [Other specified disorders of bone density and structure, unspecified site] Onset: 07-03-2010 08-26-2021 Episodic Other gastrointestinal disorders (1 source) Diarrhea, unspecified; Translations: [Diarrhea, unspecified type] Onset: 09-21-2013 Episodic Other non-epithelial cancer of skin (19 sources) History of malignant neoplasm of skin; Translations: [Personal history of other malignant neoplasm of skin] Onset: 06-23-2006 06-23-2006 Episodic Viral infection (19 sources) Verruca vulgaris; Translations: [Viral wart, unspecified] Onset: 12-28-2013 12-28-2013 Episodic Results Test Name Value Interpretation Reference Range Facil ity Vital Signs Date Time Vital Sign Value Performing Clinician Faci lity 12-01-2022 15:35-0400 Body temperature 98.4 [degF] Belgica Parnell APRN.CNP Work Phone: [facility] 12-01-2022 15:35-0400 Body weight 62.14 kg Belgica Parnell APRN.CNP Work Phone: [facility] 12-01-2022 15:35-0400 Diastolic blood pressure 76 mm[Hg] Belgica Parnell APRN.CNP Work Phone: [facility] 12-01-2022 15:35-0400 Heart rate 75 /min Belgica Parnell APRN.HEAVY TRUCK TECHNICIAN Work Phone: [facility] 12-01-2022 15:35-0400 Respiratory rate 14 /min Belgica Parnell APRN.CNP Work Phone: [facility] 12-01-2022 15:35-0400 SaO2% (BldA) [Mass fraction] 99 % Belgica Parnell APRN.CNP Work Phone: [facility] 12-01-2022 15:35-0400 Systolic blood pressure 138 mm[Hg] Belgica Parnell PLANT BIOLOGY PROFESSOR.HEAVY TRUCK TECHNICIAN Work Phone: [facility] 11-06-2022 12:41-0500 Body weight 61.69 kg Jorge Villegashof PLANT BIOLOGY PROFESSOR.HEAVY TRUCK TECHNICIAN Work Phone: [facility] 11-06-2022 12:41-0500 Diastolic blood pressure 76 mm[Hg] Jorge Tannhof PLANT BIOLOGY PROFESSOR.HEAVY TRUCK TECHNICIAN Work Phone: [facility] 11-06-2022 12:41-0500 Heart rate 62 /min Jorge Villegashof PLANT BIOLOGY PROFESSOR.HEAVY TRUCK TECHNICIAN Work Phone: [facility] 11-06-2022 12:41-0500 Respiratory rate 16 /min Jorge Villegashof PLANT BIOLOGY PROFESSOR.HEAVY TRUCK TECHNICIAN Work Phone: [facility] 11-06-2022 12:41-0500 SaO2% (BldA) [Mass fraction] 99 % Jorge Villegashof PLANT BIOLOGY PROFESSOR.HEAVY TRUCK TECHNICIAN Work Phone: [facility] 11-06-2022 12:41-0500 Systolic blood pressure 150 mm[Hg] Jorge Villegashof PLANT BIOLOGY PROFESSOR.HEAVY TRUCK TECHNICIAN Work Phone: [facility] 08-18-2022 13:55-0500 Body weight 63.96 kg Belgica Parnell PLANT BIOLOGY PROFESSOR.HEAVY TRUCK TECHNICIAN Work Phone: [facility] 08-18-2022 13:55-0500 Diastolic blood pressure 76 mm[Hg] Belgica Parnell PLANT BIOLOGY PROFESSOR.HEAVY TRUCK TECHNICIAN Work Phone: [facility] 08-18-2022 13:55-0500 Heart rate 64 /min Belgica Mateooble PLANT BIOLOGY PROFESSOR.HEAVY TRUCK TECHNICIAN Work Phone: [facility] 08-18-2022 13:55-0500 Respiratory rate 14 /min Belgica Parmjit PLANT BIOLOGY PROFESSOR.HEAVY TRUCK TECHNICIAN Work Phone: [facility] 08-18-2022 13:55-0500 SaO2% (BldA) [Mass fraction] 99 % Belgica Parnell PLANT BIOLOGY PROFESSOR.HEAVY TRUCK TECHNICIAN Work Phone: [facility] 08-18-2022 13:55-0500 Systolic blood pressure 134 mm[Hg] Belgica Parnell APRN.HEAVY TRUCK TECHNICIAN Work Phone: [facility] 12-19-2021 13:50-0400 Body weight 63.96 kg Jorge Calabrese APRN.HEAVY TRUCK TECHNICIAN Work Phone: [facility] 12-19-2021 13:50-0400 Diastolic blood pressure 64 mm[Hg] Jorge Calabrese APRN.HEAVY TRUCK TECHNICIAN Work Phone: [facility] 12-19-2021 13:50-0400 Heart rate 62 /min Jorge Calabrese PLANT BIOLOGY PROFESSOR.HEAVY TRUCK TECHNICIAN Work Phone: [facility] 12-19-2021 13:50-0400 Respiratory rate 16 /min Jorge Calabrese APRN.HEAVY TRUCK TECHNICIAN Work Phone: [facility] 12-19-2021 13:50-0400 SaO2% (BldA) [Mass fraction] 96 % Jorge Calabrese APRN.HEAVY TRUCK TECHNICIAN Work Phone: [facility] 12-19-2021 13:50-0400 Systolic blood pressure 130 mm[Hg] Jorge Calabrese APRN.HEAVY TRUCK TECHNICIAN Work Phone: [facility] Encounters Encounter Date Encounter Type Care Provider Facility Start: 08-11-2023 End: 08-12-2023 [facility] Start: 08-10-2023 Telephone encounter Chris bill MD Work Phone: [facility] Procedures Date Procedure Procedure Detail Performing Clinician Start: 08-20-2022 Ct abdomen & pelvis w/contrast material Belgica Parnell APRN.HEAVY TRUCK TECHNICIAN Work Phone: Start: 05-20-2018 Adult depression screening assessment Jorge Calabrese APRN.HEAVY TRUCK TECHNICIAN Work Phone: Plan of Treatment Date Care Activity Detail Author Start: 11-08-2024 DIABETES SCREEN DIABETES SCREEN [facility] Start: 11-08-2024 Diabetes Screening Diabetes Screen[facility] Start: 07-27-2024 Covid-19 Vaccine ( season) Covid-19 Vaccine (2022-24 season) [facility] Immunizations Immunization Date Immunization Notes Care Provider Enmanuel meadows 06-18-2022 influenza virus vacc ine, unspecified formulation Chris Schmitz MD Work Phone: [facility] 06-17-2021 influenza, seasonal, injectable, preservative free Jorge Tannhof PLANT BIOLOGY PROFESSOR.HEAVY TRUCK TECHNICIAN Work Phone: [facility] Work Phone: 11-02-2020 COVID-19 vaccine, fu ll dose (MODERNA) Jorge Tannhof PLANT BIOLOGY PROFESSOR.HEAVY TRUCK TECHNICIAN Work Phone: [facility] 10-25-2020 COVID-19 vaccine, fu ll dose (MODERNA) Jorge Tannhof PLANT BIOLOGY PROFESSOR.HEAVY TRUCK TECHNICIAN Work Phone: [facility] 06-06-2020 influenza, seasonal, injectable, preservative free Jorge Tannhof PLANT BIOLOGY PROFESSOR.HEAVY TRUCK TECHNICIAN Work Phone: [facility] Work Phone: 07-04-2019 influenza, high dose seasonal, preservative-free Jorge Tannhof PLANT BIOLOGY PROFESSOR.HEAVY TRUCK TECHNICIAN Work Phone: [facility] 07-04-2019 influenza, seasonal, injectable, preservative free Jorge Tannhof PLANT BIOLOGY PROFESSOR.HEAVY TRUCK TECHNICIAN Work Phone: [facility] Work Phone: 06-14-2018 influenza, seasonal, injectable, preservative free Jorge Tannhof PLANT BIOLOGY PROFESSOR.HEAVY TRUCK TECHNICIAN Work Phone: [facility] Work Phone: 06-05-2017 influenza, seasonal, injectable, preservative free Jorge Tannhof PLANT BIOLOGY PROFESSOR.HEAVY TRUCK TECHNICIAN Work Phone: [facility] Work Phone: 05-30-2016 influenza, seasonal, injectable, preservative free Jorge Tannhof PLANT BIOLOGY PROFESSOR.HEAVY TRUCK TECHNICIAN Work Phone: [facility] Work Phone: 09-22-2014 pneumococcal conjuga te vaccine, 13 valent Jorge Tannhof PLANT BIOLOGY PROFESSOR.HEAVY TRUCK TECHNICIAN Work Phone: [facility] 01-08-2007 diphtheria and tetan us toxoids, adsorbed for pediatric use Jorgejess Calabrese PLANT BIOLOGY PROFESSOR.HEAVY TRUCK TECHNICIAN Work Phone: [facility] Work Phone: 01-08-2007 pneumococcal polysaccharide vaccine, 23 valent Jorge Bharati PLANT BIOLOGY PROFESSOR.HEAVY TRUCK TECHNICIAN Work Phone: [facility] Work Phone: Payers Date Payer Category Payer Medicare [employer] TH[employer] [facility] [id number] 2007-Present [phone] [address] [place] [address] [facility] [id number] 2007 Medicare [employer] MEDICARE TH[employer] [facility] [id number] 2007-Present [phone] [address] [place] [address] [facility] [id number] 2007 Unknown [id number] Social History Date Type Detail Facility Start: 11-06-2022 Tobacco smoking stat [facility] Never smoked tobacco [facility] Start: 12-19-2021 End: 07-27-2023 Alcohol intake Current non-drinker of alcohol (finding) [facility] Start: 1940 Sex Assigned At Not on file [facility] Start: 12-08-2021 End: 12-18-2021 Exposure to SARS-CoV-2 (event) Not sure [facility] Start: 11-06-2022 Tobacco use and exposure Smoke less tobacco non-user [facility] Start: 09-26-2022 End: 11-06-2022 History of Social function [facility] Start: 09-26-2022 End: 11-06-2022 Tobacco use panel [facility] Adult Depression Scr eening Assessment 0 [facility] Clinical Notes 11-29-2021 to 08-10-2023 Telephone Encounter - Mar Santos RN - 08/10/2023 5:58 PM ESTTelephone Encounter - Abigail Borja RN - 08/10/2023 4:39 PM ESTTelephone Encounter - Luis Arora Millicent - 08/04/2023 4:29 PM EST Note Date & Type Note Facility 08-10-2023 Miscellaneous Notes Spoke with patient. Given message from provider's office. Patient verbalizes understanding. Transferred to heater helper for CT scan. Made patient aware lab needs to be done before the CT scan. Mar Santos RN Called and left a voicemail for the Patient to call back and ask for a nurse to receive the providers message. Abigail Borja RN First, I would like to get stool samples to test for infection cause of diarrhea. This is all ordered. Especially with recent antibiotic use, C-diff could be a possibility. I have also ordered CT scan to further evaluate abd, especially LLQ pain. Needs creatinine as ordered first. Thank you, Tenisha Esparza APRN.HEAVY TRUCK TECHNICIAN Pt called in and reports she has been using Imodium four times a day for 2-3 days. She states she is still having diarrhea and a little pain, but diarrhea is starting to get thicker. Pt wants to know how long she should give the Imodium to work. She was also asking if she was too old to have a Colonoscopy done, she states her son was worried about her and wanted to know. Pt states Tenisha Esparza SEMICONDUCTOR ENGINEER had also talked about doing a CT when she had seen her. Please call and advise. documented in this encounter [facility] 08-04-2023 Miscellaneous Notes Detailed message left on pt identified VM. Millicent Smith Ma I would recommend using OTC Imodium for tht diarrhea and see if it improves in the next 3-4 days Chris Schmitz MD Pt seen by Tenisha Esparza CNP on 07/27/23. Provider out of the office today. Please advise. Raya Bennett Ma Patient is calling in to let provider know sharp pain is gone but she does still have the diarrhea and is asking what she should do. Please advise the patient. documented in this encounter [facility] 07-27-2023 Note HNO ID: [id number] Author: Tenisha Esparza APRN.ROBBIE Service: ? Author Type: Nurse Practitioner Type: Progress Notes Filed: 07/27/2023 10:46 AM Note Text: divChief Complaint Patient presents with: Pain: Pain in left lower abdomin for past 2 weeks . Pt states has had some accidents just could not help. Been a long time ago bouts with diverticulitis. HPI Carissa Doll is a 83 year old female who presents here today for Above Complaints.. Jeri is an established patient of Dr. Rojelio MD. She is a new patient to me today. Concerns today... Abd pain --- Pt reports intermittent LLQ abd pain x 2 weeks with diarrhea. No control when diarrhea urgently hits, 1 episode of incontinence while shopping. No blood in stool. Last diarrhea episode was > 3 days ago. Pt reports baseline BM 3-4x per day. Last night, LLQ abd pain suddenly worsened to a sharp stabbing pain. Was unable to sleep all night due to pain. Feels similar to diverticulitis episode numerous years ago. No fever/chills. Denies eating anything with seeds recently. Very tender to touch LLQ. No other concerns or complaints. Past medical history, appointments, medications, allergies reviewed. Previous Medical History PAST MEDICAL HISTORY Diagnosis Date Anxiety state, unspecified Diverticulosis of colon with hemorrhage Dysplasia of cervix, unspecified Other and unspecified hyperlipidemia Unspecified hemorrhoids without mention of complication Previous Surgical History PAST SURGICAL HISTORY Procedure Laterality Date CATARACT SURGERY, COMPLEX Right eye COLONOSCOPY FLX DX W/COLLJ SPEC WHEN PFRMD Colonoscopy COLONOSCOPY FLX DX W/COLLJ SPEC WHEN PFRMD 10/06/2013 repeat due 2023 LAPAROSCOPY SURG CHOLECYSTECTOMY Cholecystectomy, lap LASER BENIGN LESIONS On-going Several Moles Removed (benign) LIG/TRNSXJ FLP TUBE ABDL/VAG APPR UNI/BI Tubal ligation SALPINGO-OOPHORECTOMY COMPL/PRTL UNI/BI SPX Salpingo-oophorectomy/ BILATERAL TOTAL ABDOMINAL HYSTERECT W/WO RMVL TUBE OVARY Hysterectomy, REY Family History FAMILY HISTORY Problem Relation Age of Onset Breast Cancer Mother Ovarian Heart Father Pacemaker Stroke Father Bowel Blockage () Patient Allergies ALLERGIES Allergen Reactions Phenergan [Prometha* Mental Status Change Oculogyric Crisis Keflex [Cephalexin] Intolerance Trimpex [Trimethopr* Intolerance Current Medications Current Outpatient Medications on File Prior to Visit Medication Sig PARoxetine (PAXIL) 20 mg tablet Take 1 tablet by mouth once daily. colestipol (COLESTID) 1 gram tablet Take 1 tablet by mouth twice daily. nadolol (CORGARD) 20 mg tablet Take 1 tablet by mouth once daily. cholestyramine-sucrose (QUESTRAN) 4 gram powder Take 4 g by mouth twice daily with meals. VITAMIN D2 1,250 mcg (50,000 unit) capsule take 1 capsule by mouth every week colestipol (COLESTID) 1 gram tablet Take 2 tablets by mouth once daily. ketoconazole (NIZORAL) 2 % cream Apply 1 application to affected area once daily. Apply to rash and surrounding area No current facility-administered medications on file prior to visit. Social History Social History Tobacco Use Smoking status: Never Smokeless tobacco: Never Vaping Use Vaping Use: Never used Substance Use Topics Alcohol use: No Drug use: No REVIEW OF SYSTEMS: as above Reviewed relevant PMHx, PSHx, Social Hx, current medications and allergies. Review of Symptoms REVIEW OF SYSTEMS See HPI. EXAM: BP 112/60 (BP Site: Left Arm, BP Position: Sitting, BP Cuff Size: Regular Adult) Pulse 64 Resp 12 Wt 64.9 kg (143 lb) BMI 23.80 kg/m? General Appearance: Well appearing, alert, in no acute distress, well-hydrated, well nourished.. Skin: Skin color, texture, turgor normal, no suspicious rashes or lesions. Head: Normocephalic, no masses, lesions, tenderness or abnormalities. Lungs: Lungs clear to auscultation. No wheezing, rhonchi, rales.. Heart: RRR without murmur, gallop, or rubs. No ectopy. Abdomen: Positive findings: tenderness moderate and involuntary guarding LLQ. Health Maintenance List Shingrix Vaccine(1 of 2) Never done RSV Vaccine(1 - 1-dose 60+ series) Never done DTaP,Tdap,Td Vaccine(2 - Tdap) due on 01/08/2017 Advance Directive Discussion Never done Depression Assessment Never done Covid-19 Vaccine(2022- season) due on 05/01/2023 Diabetes Screening due on 11/08/2024 Bone Density Screening Completed Influenza Vaccine Completed Pneumococcal Vaccine: 65+ Completed Colorectal Cancer Screening Discontinued ASSESSMENT/PLAN: 1. LLQ abdominal pain - ICD9: 789.04, ICD10: R10.32 Likely Diverticulitis due to presentation and prior history of this. Start with antibiotic treatment of Cipro and flagyl PO. If no resolution of symptoms, will consider CT scan to further investigate. Pt agreeable to plan and opted to wait on CT scan due to radiation concern and treat rega (more content not included)... [facility] 07-13-2023 Miscellaneous Notes The following approved medication requests have been transmitted electronically. Requested Prescriptions Pending Prescriptions Disp Refills PARoxetine (PAXIL) 20 mg tablet 90 tablet 1 Sig: Take 1 tablet by mouth once daily. Farhat Hernandez APRN.ROBBIE Last office visit: 12/01/22 F/u scheduled: none Millicent Smith Ma Patient has been identified by name and date of : Yes Requested Prescriptions Pending Prescriptions Disp Refills PARoxetine (PAXIL) 20 mg tablet 90 tablet 1 Sig: Take 1 tablet by mouth once daily. RX INSTRUCTIONS: Patient aware RX will be sent to pharmacy. No need to notify patient. Gracie Carmona documented in this encounter [facility] 03-05-2023 Miscellaneous Notes The following approved medication requests have been transmitted electronically. Requested Prescriptions Signed Prescriptions Disp Refills colestipol (COLESTID) 1 gram tablet 180 tablet 3 Sig: Take 1 tablet by mouth twice daily. Authorizing Provider: CHRIS SCHMITZ MA OK to refill as ordered Chris Schmitz MD Medication refill requested by Patient Please review and advise. Requested Prescriptions Pending Prescriptions Disp Refills colestipol (COLESTID) 1 gram tablet Sig: Take 1 tablet by mouth twice daily. Last encounter with this provider: 12/01/2022 Next appt: Visit date not found Last 1 Encounter BP Readings: Date: BP: 12/01/2022 138/76 WBC (k/uL) Date Value 08/18/2022 6.81 Hemoglobin (g/dL) Date Value 08/18/2022 13.1 Platelet Count (k/uL) Date Value 08/18/2022 286 Glucose (mg/dL) Date Value 11/08/2021 151 (H) BUN (mg/dL) Date Value 11/08/2021 13 Creatinine (mg/dL) Date Value 08/18/2022 0.93 Sodium (mmol/L) Date Value 11/08/2021 141 Potassium (mmol/L) Date Value 11/08/2021 3.8 Calcium, Total (mg/dL) Date Value 11/08/2021 9.3 Alkaline Phosphatase (U/L) Date Value 11/08/2021 58 Bilirubin, Total (mg/dL) Date Value 11/08/2021 0.4 AST (U/L) Date Value 11/08/2021 16 ALT (U/L) Date Value 11/08/2021 11 Cholesterol, Total (mg/dL) Date Value 03/08/2021 254 (H) Triglyceride (mg/dL) Date Value 03/08/2021 233 (H) TSH (uU/mL) Date Value 05/01/2018 4.240 Preethi Apple RN documented in this encounter [facility] 12-26-2022 Miscellaneous Notes Pt notified via identified VM. Millicent Smith Ma OK for Questran powder as ordered Chris Schmitz MD Pt called in and reports [facility] is out of Colestipol until mid-December and had called in to have a short term supply sent to [facility], but it was sent to [facility] instead, and now [facility] is out until mid-December. She is asking if there is something that could be substituted for it and sent to [facility] for 30 days, until they have it back in stock. Pt asking if a message can be left on her cell # if she doesn't answer. documented in this encounter [facility] 12-23-2022 Miscellaneous Notes OK to refill as ordered Chris Schmitz MD Last OV: 11/06/22 Pt calls to report [facility] does not have colestipol in stock and will not until mid December. Pt is asking if a short term can be sent to [facility]. Patient has been identified by name and date of : Yes Requested Prescriptions Pending Prescriptions Disp Refills colestipol (COLESTID) 1 gram tablet 60 tablet 0 Sig: Take 1 tablet by mouth twice daily. RX INSTRUCTIONS: Patient aware RX will be sent to pharmacy. No need to notify patient. June Durant LPN documented in this encounter [facility] 12-01-2022 Note HNO ID: [id number] Author: Belgica Parnell APRN.HEAVY TRUCK TECHNICIAN Service: ? Author Type: Nurse Practitioner Type: Progress Notes Filed: 12/01/2022 3:48 PM Note Text: Chief Complaint Patient presents with: Sinusitis HPI Carissa Doll is a 82 year old female who presents here today for Above Complaints.. Patient presents for sinus congestion. Patient reports symptoms have been ongoing for 9 days. Patient states she has been taking coricidin but has not had any improvement. Past medical history, appointments, medications, allergies reviewed. Previous Medical History PAST MEDICAL HISTORY Diagnosis Date Anxiety state, unspecified Diverticulosis of colon with hemorrhage Dysplasia of cervix, unspecified Other and unspecified hyperlipidemia Unspecified hemorrhoids without mention of complication Previous Surgical History PAST SURGICAL HISTORY Procedure Laterality Date CATARACT SURGERY, COMPLEX Right eye COLONOSCOPY FLX DX W/COLLJ SPEC WHEN PFRMD Colonoscopy COLONOSCOPY FLX DX W/COLLJ SPEC WHEN PFRMD 10/06/2013 repeat due 2023 LAPAROSCOPY SURG CHOLECYSTECTOMY Cholecystectomy, lap LASER BENIGN LESIONS On-going Several Moles Removed (benign) LIG/TRNSXJ FLP TUBE ABDL/VAG APPR UNI/BI Tubal ligation SALPINGO-OOPHORECTOMY COMPL/PRTL UNI/BI SPX Salpingo-oophorectomy/ BILATERAL TOTAL ABDOMINAL HYSTERECT W/WO RMVL TUBE OVARY Hysterectomy, REY Family History FAMILY HISTORY Problem Relation Age of Onset Breast Cancer Mother Ovarian Heart Father Pacemaker Stroke Father Bowel Blockage () Patient Allergies ALLERGIES Allergen Reactions Phenergan [Prometha* Mental Status Change Oculogyric Crisis Keflex [Cephalexin] Intolerance Trimpex [Trimethopr* Intolerance Current Medications Current Outpatient Medications on File Prior to Visit Medication Sig PARoxetine (PAXIL) 20 mg tablet Take 1 tablet by mouth once daily. VITAMIN D2 1,250 mcg (50,000 unit) capsule take 1 capsule by mouth every week colestipol (COLESTID) 1 gram tablet Take 2 tablets by mouth once daily. nadolol (CORGARD) 20 mg tablet take 1 tablet by mouth once daily ketoconazole (NIZORAL) 2 % cream Apply 1 application to affected area once daily. Apply to rash and surrounding area No current facility-administered medications on file prior to visit. Social History Social History Tobacco Use Smoking status: Never Smokeless tobacco: Never Vaping Use Vaping Use: Never used Substance Use Topics Alcohol use: No Drug use: No Review of Symptoms REVIEW OF SYSTEMS SEE HPI EXAM: BP 138/76 Pulse 75 Temp 36.9 ?C (98.4 ?F) Resp 14 Wt 62.1 kg (137 lb) SpO2 99% BMI 22.80 kg/m? General Appearance: Well appearing, alert, in no acute distress, well-hydrated, well nourished.. Ears: External ears normal, canals clear. Nose/Sinuses: Positive findings: mucosa erythematous and swollen. Oropharynx: Lips, mucosa, and tongue normal, teeth and gums normal, oropharynx normal. Lungs: Lungs clear to auscultation. No wheezing, rhonchi, rales.. Heart: RRR without murmur, gallop, or rubs. No ectopy. Health Maintenance List SHINGRIX VACCINE(1 of 2) Never done DTAP,TDAP,TD(2 - Tdap) due on 01/08/2017 COVID-19 VACCINE(5 - Booster) due on 09/10/2021 ADVANCE DIRECTIVE DISCUSSION Never done DEPRESSION ASSESSMENT Never done DIABETES SCREEN due on 11/08/2024 BONE DENSITY Completed INFLUENZA Completed PNEUMOCOCCAL: 65+ Completed ASSESSMENT/PLAN: 1. Acute non-recurrent frontal sinusitis - ICD9: 461.1, ICD10: J01.10 - Will begin treatment with Augmentin 875 mg PO BID for 5 days - The patient should also be given OTC decongestants prn for the first 5-7 days of treatment. - Supportive care with plenty of fluids, rest, and analgesia prn. - Follow up in 3-5 days if symptoms persist or worsen. - AMOXICILLIN 875 MG-POTASSIUM CLAVULANATE 125 MG TABLET Belgica Parnell APRN.CNP [facility] 12-01-2022 Instructions Belgica Parnell APRN.CNP - 12/01/2022 3:48 PM EDT Start augmentin Follow up if no improvement in 5 days documented in this encounter [facility] 12-01-2022 History of Presen t illness Narrative Chief Complaint Patient presents with: Sinusitis HPI Carissa Doll is a 82 year old female who presents here today for Above Complaints.. Patient presents for sinus congestion. Patient reports symptoms have been ongoing for 9 days. Patient states she has been taking coricidin but has not had any improvement. Past medical history, appointments, medications, allergies reviewed. Previous Medical History PAST MEDICAL HISTORY Diagnosis Date Anxiety state, unspecified Diverticulosis of colon with hemorrhage Dysplasia of cervix, unspecified Other and unspecified hyperlipidemia Unspecified hemorrhoids without mention of complication Previous Surgical History PAST SURGICAL HISTORY Procedure Laterality Date CATARACT SURGERY, COMPLEX Right eye COLONOSCOPY FLX DX W/COLLJ SPEC WHEN PFRMD Colonoscopy COLONOSCOPY FLX DX W/COLLJ SPEC WHEN PFRMD 10/06/2013 repeat due 2023 LAPAROSCOPY SURG CHOLECYSTECTOMY Cholecystectomy, lap LASER BENIGN LESIONS On-going Several Moles Removed (benign) LIG/TRNSXJ FLP TUBE ABDL/VAG APPR UNI/BI Tubal ligation SALPINGO-OOPHORECTOMY COMPL/PRTL UNI/BI SPX Salpingo-oophorectomy/ BILATERAL TOTAL ABDOMINAL HYSTERECT W/WO RMVL TUBE OVARY Hysterectomy, REY Family History FAMILY HISTORY Problem Relation Age of Onset Breast Cancer Mother Ovarian Heart Father Pacemaker Stroke Father Bowel Blockage () Patient Allergies ALLERGIES Allergen Reactions Phenergan [Prometha* Mental Status Change Oculogyric Crisis Keflex [Cephalexin] Intolerance Trimpex [Trimethopr* Intolerance Current Medications Current Outpatient Medications on File Prior to Visit Medication Sig PARoxetine (PAXIL) 20 mg tablet Take 1 tablet by mouth once daily. VITAMIN D2 1,250 mcg (50,000 unit) capsule take 1 capsule by mouth every week colestipol (COLESTID) 1 gram tablet Take 2 tablets by mouth once daily. nadolol (CORGARD) 20 mg tablet take 1 tablet by mouth once daily ketoconazole (NIZORAL) 2 % cream Apply 1 application to affected area once daily. Apply to rash and surrounding area No current facility-administered medications on file prior to visit. Social History Social History Tobacco Use Smoking status: Never Smokeless tobacco: Never Vaping Use Vaping Use: Never used Substance Use Topics Alcohol use: No Drug use: No Review of Symptoms REVIEW OF SYSTEMS SEE HPI EXAM: BP 138/76 Pulse 75 Temp 36.9 C (98.4 F) Resp 14 Wt 62.1 kg (137 lb) SpO2 99% BMI 22.80 kg/m General Appearance: Well appearing, alert, in no acute distress, well-hydrated, well nourished.. Ears: External ears normal, canals clear. Nose/Sinuses: Positive findings: mucosa erythematous and swollen. Oropharynx: Lips, mucosa, and tongue normal, teeth and gums normal, oropharynx normal. Lungs: Lungs clear to auscultation. No wheezing, rhonchi, rales.. Heart: RRR without murmur, gallop, or rubs. No ectopy. Health Maintenance List SHINGRIX VACCINE(1 of 2) Never done DTAP,TDAP,TD(2 - Tdap) due on 01/08/2017 COVID-19 VACCINE(5 - Booster) due on 09/10/2021 ADVANCE DIRECTIVE DISCUSSION Never done DEPRESSION ASSESSMENT Never done DIABETES SCREEN due on 11/08/2024 BONE DENSITY Completed INFLUENZA Completed PNEUMOCOCCAL: 65+ Completed ASSESSMENT/PLAN: 1. Acute non-recurrent frontal sinusitis - ICD9: 461.1, ICD10: J01.10 - Will begin treatment with Augmentin 875 mg PO BID for 5 days - The patient should also be given OTC decongestants prn for the first 5-7 days of treatment. - Supportive care with plenty of fluids, rest, and analgesia prn. - Follow up in 3-5 days if symptoms persist or worsen. - AMOXICILLIN 875 MG-POTASSIUM CLAVULANATE 125 MG TABLET Belgica Parnell APRN.HEAVY TRUCK TECHNICIAN documented in this encounter [facility] 11-06-2022 Note HNO ID: [id number] Author: Jorge Calabrese APRN.CNP Service: ? Author Type: Nurse Practitioner Type: Progress Notes Filed: 11/06/2022 1:01 PM Note Text: This is a 82 year old female who presents today with: No chief complaint on file. HISTORY OF PRESENT ILLNESS: Carissa Doll is a 82 year old female. No chief complaint on file. Here in the office to discuss anxiety. and dog just . History of anxiety in the past, currently taking Paxil 10 mg daily. Increased in anxiety with finalizing things and doing finances. Refers she is feeling well but would like to increase Paxil if possible. Seeing counseling through hospice care. No SI/HI. PAST MEDICAL HISTORY: PAST MEDICAL HISTORY Diagnosis Date Anxiety state, unspecified Diverticulosis of colon with hemorrhage Dysplasia of cervix, unspecified Other and unspecified hyperlipidemia Unspecified hemorrhoids without mention of complication PAST SURGICAL HISTORY Procedure Laterality Date CATARACT SURGERY, COMPLEX Right eye COLONOSCOPY FLX DX W/COLLJ SPEC WHEN PFRMD Colonoscopy COLONOSCOPY FLX DX W/COLLJ SPEC WHEN PFRMD 10/06/2013 repeat due 2023 LAPAROSCOPY SURG CHOLECYSTECTOMY Cholecystectomy, lap LASER BENIGN LESIONS On-going Several Moles Removed (benign) LIG/TRNSXJ FLP TUBE ABDL/VAG APPR UNI/BI Tubal ligation SALPINGO-OOPHORECTOMY COMPL/PRTL UNI/BI SPX Salpingo-oophorectomy/ BILATERAL TOTAL ABDOMINAL HYSTERECT W/WO RMVL TUBE OVARY Hysterectomy, REY ALLERGIES Phenergan [Promethazine Hcl], Keflex [Cephalexin], and Trimpex [Trimethoprim] MEDICATIONS Current Outpatient Medications Medication Sig VITAMIN D2 1,250 mcg (50,000 unit) capsule take 1 capsule by mouth every week PARoxetine (PAXIL) 10 mg tablet take 1 tablet by mouth once daily colestipol (COLESTID) 1 gram tablet Take 2 tablets by mouth once daily. nadolol (CORGARD) 20 mg tablet take 1 tablet by mouth once daily ketoconazole (NIZORAL) 2 % cream Apply 1 application to affected area once daily. Apply to rash and surrounding area No current facility-administered medications for this visit. FAMILY HISTORY Problem Relation Age of Onset Breast Cancer Mother Ovarian Heart Father Pacemaker Stroke Father Bowel Blockage () Social History Tobacco Use Smoking status: Never Smokeless tobacco: Never Vaping Use Vaping Use: Never used Substance Use Topics Alcohol use: No Drug use: No REVIEW OF SYSTEMS GENERAL: No weight loss, malaise or fevers/chills HEENT: Negative for frequent or significant headaches, No changes in hearing or vision. NECK: Negative for lumps, goiter, pain and significant neck swelling RESPIRATORY: Negative for cough, hemoptysis, wheezing, dyspnea or shortness of breath CARDIOVASCULAR: Negative for chest pain, leg swelling, orthopnea, or palpitations GI: No nausea, vomiting, or diarrhea/constipation. No hematochezia/melena. No heartburn or reflux symptoms. : No history of dysuria, frequency or incontinence MUSCULOSKELETAL: Negative for joint pain or swelling. SKIN: Negative for lesions, rash, and itching ENDOCRINE: Negative for cold or heat intolerance, polyuria, polydipsia and goiter NEURO: No history of headaches, syncope, paralysis, seizures or tremors MOOD: + Anxiety/Grief EXAM: BP 150/76 Pulse 62 Resp 16 Wt 61.7 kg (136 lb) SpO2 99% BMI 22.63 kg/m? PHYSICAL EXAM: General Appearance: Well appearing, alert, in no acute distress, well-hydrated, well nourished. Skin: Skin color, texture, turgor normal, no suspicious rashes or lesions. Head: Normocephalic, no masses, lesions, tenderness or abnormalities. Eyes: Anicteric sclera. Extraocular movements are intact. Lungs: Lungs clear to auscultation. No wheezing, rhonchi, rales. Heart: RRR without murmur, gallop, or rubs. No ectopy. Extremities: No deformities, edema, skin discoloration, clubbing or cyanosis. Good capillary refill. Peripheral Pulses: Normal, Capillary refill <2secs, strong peripheral pulses, Pulses palpable. Neurologic: Gait normal. Sensation grossly intact. Mood: pleasant, good eye contact, engaged. ASSESSMENT/PLAN: 1. 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 - Continue therapy through hospice. - Follow-up in 1 month - PAROXETINE 20 MG TABLET Follow-up in 1 month or sooner as needed. Discussed treatment plan and patient voices understanding. Patient's questions answered appropriately. Medications and potential side effects were discussed and patient voices understanding. Jorge Calabrese APRN.ROBBIE This note was partially generated using Manflu voice recognition system. Note was reviewed for accuracy. There may be minor misspellings or grammar miscues with [employer] voice recognition. [facility] 11-06-2022 Instructions Jorge Calabrese APRN.ROBBIE - 11/06/2022 12:54 PM EST Increase Paxil 20 mg daily. Continue with counseling with hospice. Follow up in 1 month, may be a phone or virtual visit. documented in this encounter [facility] 11-06-2022 History of Presen t illness Narrative This is a 82 year old female who presents today with: No chief complaint on file. HISTORY OF PRESENT ILLNESS: Carissa Doll is a 82 year old female. No chief complaint on file. Here in the office to discuss anxiety. and dog just . History of anxiety in the past, currently taking Paxil 10 mg daily. Increased in anxiety with finalizing things and doing finances. Refers she is feeling well but would like to increase Paxil if possible. Seeing counseling through hospice care. No SI/HI. PAST MEDICAL HISTORY: PAST MEDICAL HISTORY Diagnosis Date Anxiety state, unspecified Diverticulosis of colon with hemorrhage Dysplasia of cervix, unspecified Other and unspecified hyperlipidemia Unspecified hemorrhoids without mention of complication PAST SURGICAL HISTORY Procedure Laterality Date CATARACT SURGERY, COMPLEX Right eye COLONOSCOPY FLX DX W/COLLJ SPEC WHEN PFRMD Colonoscopy COLONOSCOPY FLX DX W/COLLJ SPEC WHEN PFRMD 10/06/2013 repeat due 2023 LAPAROSCOPY SURG CHOLECYSTECTOMY Cholecystectomy, lap LASER BENIGN LESIONS On-going Several Moles Removed (benign) LIG/TRNSXJ FLP TUBE ABDL/VAG APPR UNI/BI Tubal ligation SALPINGO-OOPHORECTOMY COMPL/PRTL UNI/BI SPX Salpingo-oophorectomy/ BILATERAL TOTAL ABDOMINAL HYSTERECT W/WO RMVL TUBE OVARY Hysterectomy, REY ALLERGIES Phenergan [Promethazine Hcl], Keflex [Cephalexin], and Trimpex [Trimethoprim] MEDICATIONS Current Outpatient Medications Medication Sig VITAMIN D2 1,250 mcg (50,000 unit) capsule take 1 capsule by mouth every week PARoxetine (PAXIL) 10 mg tablet take 1 tablet by mouth once daily colestipol (COLESTID) 1 gram tablet Take 2 tablets by mouth once daily. nadolol (CORGARD) 20 mg tablet take 1 tablet by mouth once daily ketoconazole (NIZORAL) 2 % cream Apply 1 application to affected area once daily. Apply to rash and surrounding area No current facility-administered medications for this visit. FAMILY HISTORY Problem Relation Age of Onset Breast Cancer Mother Ovarian Heart Father Pacemaker Stroke Father Bowel Blockage () Social History Tobacco Use Smoking status: Never Smokeless tobacco: Never Vaping Use Vaping Use: Never used Substance Use Topics Alcohol use: No Drug use: No REVIEW OF SYSTEMS GENERAL: No weight loss, malaise or fevers/chills HEENT: Negative for frequent or significant headaches, No changes in hearing or vision. NECK: Negative for lumps, goiter, pain and significant neck swelling RESPIRATORY: Negative for cough, hemoptysis, wheezing, dyspnea or shortness of breath CARDIOVASCULAR: Negative for chest pain, leg swelling, orthopnea, or palpitations GI: No nausea, vomiting, or diarrhea/constipation. No hematochezia/melena. No heartburn or reflux symptoms. : No history of dysuria, frequency or incontinence MUSCULOSKELETAL: Negative for joint pain or swelling. SKIN: Negative for lesions, rash, and itching ENDOCRINE: Negative for cold or heat intolerance, polyuria, polydipsia and goiter NEURO: No history of headaches, syncope, paralysis, seizures or tremors MOOD: + Anxiety/Grief EXAM: BP 150/76 Pulse 62 Resp 16 Wt 61.7 kg (136 lb) SpO2 99% BMI 22.63 kg/m PHYSICAL EXAM: General Appearance: Well appearing, alert, in no acute distress, well-hydrated, well nourished. Skin: Skin color, texture, turgor normal, no suspicious rashes or lesions. Head: Normocephalic, no masses, lesions, tenderness or abnormalities. Eyes: Anicteric sclera. Extraocular movements are intact. Lungs: Lungs clear to auscultation. No wheezing, rhonchi, rales. Heart: RRR without murmur, gallop, or rubs. No ectopy. Extremities: No deformities, edema, skin discoloration, clubbing or cyanosis. Good capillary refill. Peripheral Pulses: Normal, Capillary refill <2secs, strong peripheral pulses, Pulses palpable. Neurologic: Gait normal. Sensation grossly intact. Mood: pleasant, good eye contact, engaged. ASSESSMENT/PLAN: 1. 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 - Continue therapy through hospice. - Follow-up in 1 month - PAROXETINE 20 MG TABLET Follow-up in 1 month or sooner as needed. Discussed treatment plan and patient voices understanding. Patient's questions answered appropriately. Medications and potential side effects were discussed and patient voices understanding. Jorge Calabrese APRN.ROBBIE This note was partially generated using Manflu voice recognition system. Note was reviewed for accuracy. There may be minor misspellings or grammar miscues with [employer] voice recognition. documented in this encounter [facility] 11-05-2022 Miscellaneous Notes Spoke to patient an appointment made Emily Schuster Ma Patient called to report that she has been experiencing increased anxiety in the evenings since her spouse one week ago. Please notify the patient of plan of care. documented in this encounter [facility] 08-22-2022 Miscellaneous Notes Patient returned call and went over results, notes from Belgica Parnell SEMICONDUCTOR ENGINEER with understanding. Patient said her abdominal pain is not as bad, rated at a 2 today. Left message for patient to return call to office Naty Ramos Cma Please let patient know that her abdominal CT is negative. Has her pain resolved? documented in this encounter [facility] 08-18-2022 Instructions Belgica Parnell APRN.CNP - 08/18/2022 2:[address] Complete lab work documented in this encounter [facility] 08-18-2022 History of Presen t illness Narrative Chief Complaint Patient presents with: RLQ pain HPI Carissa Doll is a 82 year old female who presents here today for Above Complaints.. Patient presents with a intermittent sharp RLQ pain. Pain is worse when walking throughout the day and only occurs with movement. Patient reports that her recently had a stroke and was helping moving him around prior to onset of pain. Patient states that the pain does not occur when she is lying or sitting still. Patient reports taking tylenol this am but otherwise has not taken anything. Denies fevers, chills, n/v/d, constipation, bruising to area. Past medical history, appointments, medications, allergies reviewed. Previous Medical History PAST MEDICAL HISTORY Diagnosis Date Anxiety state, unspecified Diverticulosis of colon with hemorrhage Dysplasia of cervix, unspecified Other and unspecified hyperlipidemia Unspecified hemorrhoids without mention of complication Previous Surgical History PAST SURGICAL HISTORY Procedure Laterality Date CATARACT SURGERY, COMPLEX Right eye COLONOSCOPY FLX DX W/COLLJ SPEC WHEN PFRMD Colonoscopy COLONOSCOPY FLX DX W/COLLJ SPEC WHEN PFRMD 10/06/2013 repeat due 2023 LAPAROSCOPY SURG CHOLECYSTECTOMY Cholecystectomy, lap LASER BENIGN LESIONS On-going Several Moles Removed (benign) LIG/TRNSXJ FLP TUBE ABDL/VAG APPR UNI/BI Tubal ligation SALPINGO-OOPHORECTOMY COMPL/PRTL UNI/BI SPX Salpingo-oophorectomy/ BILATERAL TOTAL ABDOMINAL HYSTERECT W/WO RMVL TUBE OVARY Hysterectomy, REY Family History FAMILY HISTORY Problem Relation Age of Onset Breast Cancer Mother Ovarian Heart Father Pacemaker Stroke Father Bowel Blockage () Patient Allergies ALLERGIES Allergen Reactions Phenergan [Prometha* Mental Status Change Oculogyric Crisis Keflex [Cephalexin] Intolerance Trimpex [Trimethopr* Intolerance Current Medications Current Outpatient Medications on File Prior to Visit Medication Sig VITAMIN D2 1,250 mcg (50,000 unit) capsule take 1 capsule by mouth every week PARoxetine (PAXIL) 10 mg tablet take 1 tablet by mouth once daily colestipol (COLESTID) 1 gram tablet Take 2 tablets by mouth once daily. nadolol (CORGARD) 20 mg tablet take 1 tablet by mouth once daily ketoconazole (NIZORAL) 2 % cream Apply 1 application to affected area once daily. Apply to rash and surrounding area No current facility-administered medications on file prior to visit. Social History Social History Tobacco Use Smoking status: Never Smokeless tobacco: Never Vaping Use Vaping Use: Never used Substance Use Topics Alcohol use: No Drug use: No Review of Symptoms REVIEW OF SYSTEMS SEE HPI EXAM: BP 134/76 Pulse 64 Resp 14 Wt 64 kg (141 lb) SpO2 99% BMI 23.46 kg/m General Appearance: Well appearing, alert, in no acute distress, well-hydrated, well nourished.. Lungs: Lungs clear to auscultation. No wheezing, rhonchi, rales.. Heart: RRR without murmur, gallop, or rubs. No ectopy. Abdomen: Tender with palpation of right and lower quadrants, pain increased with walking. No palpable masses, normoactive bowel sounds. Health Maintenance List SHINGRIX VACCINE(1 of 2) Never done DTAP,TDAP,TD(2 - Tdap) due on 01/08/2017 ADVANCE DIRECTIVE DISCUSSION Never done DEPRESSION ASSESSMENT Never done COVID-19 VACCINE(5 - Booster) due on 09/10/2021 DIABETES SCREEN due on 11/08/2024 BONE DENSITY Completed INFLUENZA Completed PNEUMOCOCCAL: 65+ Completed ASSESSMENT/PLAN: 1. Right lower quadrant abdominal pain - ICD9: 789.03, ICD10: R10.31 Differential Diagnosis includes Diverticulitis and Appendicitis - Work up with CT Abdomen/Pelvis - CBC + DIFF - CT ABD/PEL W IVCON - IV CONTRAST (RADIOLOGY PROCEDURE) - ENTERIC CONTRAST (RADIOLOGY PROCEDURE) - CREATININE BLD -Red flag symptoms discussed with patient including increased pain, consistent pain, n/v/d, or fever would indicate need for ER evaluation. Belgica Parnell APRN.CNP documented in this encounter [facility] 08-18-2022 Miscellaneous Notes Patient call in for right abdominal pain. Patient states that pain comes and goes for 3 days. Patient describes pain as a sharp shooting pain that gets better when patient puts pressure on it.. Patient denies nausea vomiting. Nurse Triage assessment completed with protocol recommending for disposition of See PCP in 24 hours. Care advice reviewed with patient, patient stated understanding. Patient advised to contact office or seek evaluation in urgent care or ER if symptoms persist or gets worse. Patient has appointment with Belgica garcia 08/18/2022. Reason for Disposition [1] MODERATE pain (e.g., interferes with normal activities) AND [2] pain comes and goes (cramps) AND [3] present > 24 hours (Exception: pain with Vomiting or Diarrhea - see that Guideline) Answer Assessment - Initial Assessment Questions 1. LOCATION: Right lower abdomen 2. RADIATION: Shoots to back 3. ONSET: 3 days ago 4. SUDDEN: Came on all of the sudden but it is gradually getting getting worse 5. PATTERN ) Comes and goes 6. SEVERITY: Rates pain 8 out of 10 when it comes 7. RECURRENT SYMPTOM: Denies having pain before. 8. CAUSE: Unsure 9. RELIEVING/AGGRAVATING FACTORS: Push on it makes it better 10. OTHER SYMPTOMS: Back pain Protocols used: Abdominal Pain - [id number] documented in this encounter [facility] 05-26-2022 Miscellaneous Notes The following approved medication requests have been transmitted electronically. Requested Prescriptions Pending Prescriptions Disp Refills VITAMIN D2 1,250 mcg (50,000 unit) capsule [Pharmacy Med Name: VITAMIN D2 1.25MG(50,000 UNIT)] 12 capsule 3 Sig: take 1 capsule by mouth every week Farhat Hernandez APRN.CNP Patient phones requesting refills as follows: Requested Prescriptions Pending Prescriptions Disp Refills VITAMIN D2 1,250 mcg (50,000 unit) capsule [Pharmacy Med Name: VITAMIN D2 1.25MG(50,000 UNIT)] 12 capsule 3 Sig: take 1 capsule by mouth every week SEKOU-12/19/21 Labs-11/08/21 NOV-none med filled 06/24/21 Please review and advise. Allyson Nicholas LPN documented in this encounter [facility] 05-08-2022 Miscellaneous Notes The following approved medication requests have been transmitted electronically. Requested Prescriptions Pending Prescriptions Disp Refills PARoxetine (PAXIL) 10 mg tablet [Pharmacy Med Name: PAROXETINE HCL 10 MG TABLET] 90 tablet 3 Sig: take 1 tablet by mouth once daily Farhat Hernandez APRN.ROBBIE Patient phones requesting refills as follows: Requested Prescriptions Pending Prescriptions Disp Refills PARoxetine (PAXIL) 10 mg tablet [Pharmacy Med Name: PAROXETINE HCL 10 MG TABLET] 90 tablet 3 Sig: take 1 tablet by mouth once daily SEKOU-12/19/21 Labs-11/08/21 NOV-none med filled 04/18/21 Please review and advise. Allyson Nicholas LPN documented in this encounter [facility] 05-02-2022 Miscellaneous Notes Noted Chris Schmitz MD Patient calling she had done a COVID home test Saturday 04/28 and was positive. She said her symptoms began Thursday during the night 04/27 sore throat, headache, runny nose, fever, diarrhea. She was asking what were the CDC guidelines, which I told her. She said her fever has gone away. She just wanted to make sure she would not go around anybody before she was allowed. Aware note is being sent to her PCP. documented in this encounter [facility] 03-25-2022 Miscellaneous Notes Pt called in and reported that her Colestipol went up to $170 through her insurance. Look up Pts medication on [employer] and it was $67.95 at [employer]. Pt is going to go over to her sons and have him help her print the coupon and go this route at this time. She is also going to look at the other medication coupon companies to see if any are cheaper. documented in this encounter [facility] 12-19-2021 Instructions Jorge Calabrese APRN.ROBBIE - 12/19/2021 1:59 PM EDT 1.) Schedule appointment with orthopedics to evaluate left elbow. 2.) May try NSAIDs (Ibuprofen) to help with pain/swelling, may try elbow sleeve, reduce pressure to the area. 3.) Follow up as needed. documented in this encounter [facility] 12-19-2021 History of Presen t illness Narrative This is a 81 year old female who presents today with: Patient presents with: Acute Visit: fluid filled bump on left elbow HISTORY OF PRESENT ILLNESS: Carissa Doll is a 81 year old female. Patient presents with: Acute Visit: fluid filled bump on left elbow Here in the office for complaints of left elbow pain and swelling. Noticed tenderness yesterday. No injury to the area. Has not tried any treatments. Pain only with pressure on the area. 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 PAST MEDICAL HISTORY: PAST MEDICAL HISTORY Diagnosis Date Anxiety state, unspecified Diverticulosis of colon with hemorrhage Dysplasia of cervix, unspecified Other and unspecified hyperlipidemia Unspecified hemorrhoids without mention of complication PAST SURGICAL HISTORY Procedure Laterality Date CATARACT SURGERY, COMPLEX Right eye COLONOSCOPY FLX DX W/COLLJ SPEC WHEN PFRMD Colonoscopy COLONOSCOPY FLX DX W/COLLJ SPEC WHEN PFRMD 10/06/2013 repeat due 2023 LAPAROSCOPY SURG CHOLECYSTECTOMY Cholecystectomy, lap LASER BENIGN LESIONS On-going Several Moles Removed (benign) LIG/TRNSXJ FLP TUBE ABDL/VAG APPR UNI/BI Tubal ligation SALPINGO-OOPHORECTOMY COMPL/PRTL UNI/BI SPX Salpingo-oophorectomy/ BILATERAL TOTAL ABDOMINAL HYSTERECT W/WO RMVL TUBE OVARY Hysterectomy, REY ALLERGIES Phenergan [Promethazine Hcl], Keflex [Cephalexin], and Trimpex [Trimethoprim] MEDICATIONS Current Outpatient Medications Medication Sig colestipol (COLESTID) 1 gram tablet Take 2 tablets by mouth once daily. nadolol (CORGARD) 20 mg tablet take 1 tablet by mouth once daily ergocalciferol 50,000 unit capsule (VITAMIN D2, DRISDOL) Take 1 capsule by mouth one time a week. PARoxetine (PAXIL) 10 mg tablet Take 1 tablet by mouth once daily. ketoconazole (NIZORAL) 2 % cream Apply 1 application to affected area once daily. Apply to rash and surrounding area No current facility-administered medications for this visit. FAMILY HISTORY Problem Relation Age of Onset Breast Cancer Mother Ovarian Heart Father Pacemaker Stroke Father Bowel Blockage () Social History Tobacco Use Smoking status: Never Smoker Smokeless tobacco: Never Used Vaping Use Vaping Use: Never used Substance Use Topics Alcohol use: No Drug use: No REVIEW OF SYSTEMS GENERAL: No weight loss, malaise or fevers/chills HEENT: Negative for frequent or significant headaches, No changes in hearing or vision. NECK: Negative for lumps, goiter, pain and significant neck swelling RESPIRATORY: Negative for cough, hemoptysis, wheezing, dyspnea or shortness of breath CARDIOVASCULAR: Negative for chest pain, leg swelling, orthopnea, or palpitations GI: No nausea, vomiting, or diarrhea/constipation. No hematochezia/melena. No heartburn or reflux symptoms. : No history of dysuria, frequency or incontinence MUSCULOSKELETAL: + Left Elbow Swelling/pain SKIN: Negative for lesions, rash, and itching ENDOCRINE: Negative for cold or heat intolerance, polyuria, polydipsia and goiter NEURO: No history of headaches, syncope, paralysis, seizures or tremors MOOD: Negative for depression, anxiety, or suicidal ideation. EXAM: BP 130/64 Pulse 62 Resp 16 Wt 64 kg (141 lb) SpO2 96% BMI 23.46 kg/m PHYSICAL EXAM: General Appearance: Well appearing, alert, in no acute distress, well-hydrated, well nourished. Skin: Skin color, texture, turgor normal, no suspicious rashes or lesions. Head: Normocephalic, no masses, lesions, tenderness or abnormalities. Eyes: Anicteric sclera. Extraocular movements are intact. Lungs: Lungs clear to auscultation. No wheezing, rhonchi, rales. Heart: RRR without murmur, gallop, or rubs. No ectopy. Extremities: No deformities, edema, skin discoloration, clubbing or cyanosis. Good capillary refill. Musculoskeletal: Positive findings: Olecranon bursitis on left. No erythema. Peripheral Pulses: Normal, Capillary refill <2secs, strong peripheral pulses, Pulses palpable. ASSESSMENT/PLAN: 1. Olecranon bursitis of left elbow - ICD9: 726.33, ICD10: M70.22 - Supportive care with NSAIDS. Elbow sleeve, and rest. - May schedule appointment with Orthopedics for further evaluation. - CONSULT TO ORTHOPAEDICS Up as needed or sooner if symptoms get worse or do not improve. Discussed treatment plan and patient voices understanding. Patient's questions answered appropriately. Medications and potential side effects were discussed and patient voices understanding. Jorge Calabrese APRN.ROBBIE This note was partially generated using Manflu voice recognition system. Note was reviewed for accuracy. There may be minor misspellings or grammar miscues with [employer] voice recognition. documented in this encounter [facility] documented as of this encounter (statuses as of 12/19/2021) [facility]04-01-2022 History of Past illness Narrative* Problem Noted Date Resolved Date Dermatochalasis of both upper eyelids 11/29/2021 11/29/2021 Cutaneous skin tags 09/09/2013 11/27/2016 Irritated//Inflamed Seborrheic Keratosis 013 11/27/2016 Other Seborrheic Keratoses 05/25/201311/27 Postinflammatory skin changes 04/02/2012 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 05/25/2013 Actinic skin damage 02/19/2012 11/27/2016 Other and unspecified hyperlipidemia 07/03/2010 09/22/2014 HTN (hypertension) 07/03/2010 07/03/2010 Solar Lentigines 08/10/2009 11/27/2016 Perioral dermatitis 08/10/2009 11/27/2016 Dyschromia, unspecified 02/28/2008 05/25/20 13 Sebaceous cyst 09/24/2007 05/25/2013 SEBORRHEIC KERATOSES IRRITATED//INFLAMED 007 05/25/2013 Viral warts, unspecified 04/12/2007 013 Keloid scar 09/24/2006 05/25/2013 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 09/22/2014 Other seborrheic keratosis 06/23/200605/25 Scar condition and fibrosis of skin 06/23/2006 05/25/2013 ACTINIC DAMAGE///CHR SOLAR SKIN DAMAGE NOS 06/2305/25/2013 SOLAR LENTIGINES 06/23/2006 05/25/2013 documented as of this encounter (statuses as of 03/25/2022) [facility] History of Past illness Narrative* Problem Noted Date Resolved Date Dermatochalasis of both upper eyelids 11/29/2021 11/29/2021 Cutaneous skin tags 09/09/2013 11/27/2016 Irritated//Inflamed Seborrheic Keratosis 013 11/27/2016 Other Seborrheic Keratoses 05/25/201311/27 Postinflammatory skin changes 04/02/2012 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 05/25/2013 Actinic skin damage 02/19/2012 11/27/2016 Other and unspecified hyperlipidemia 07/03/2010 09/22/2014 HTN (hypertension) 07/03/2010 07/03/2010 Solar Lentigines 08/10/2009 11/27/2016 Perioral dermatitis 08/10/2009 11/27/2016 Dyschromia, unspecified 02/28/2008 05/25/20 13 Sebaceous cyst 09/24/2007 05/25/2013 SEBORRHEIC KERATOSES IRRITATED//INFLAMED 007 05/25/2013 Viral warts, unspecified 04/12/2007 013 Keloid scar 09/24/2006 05/25/2013 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 09/22/2014 Other seborrheic keratosis 06/23/200605/25 Scar condition and fibrosis of skin 06/23/2006 05/25/2013 ACTINIC DAMAGE///CHR SOLAR SKIN DAMAGE NOS 06/2305/25/2013 SOLAR LENTIGINES 06/23/2006 05/25/2013 documented as of this encounter (statuses as of 05/02/2022) [facility] History of Past illness Narrative* Problem Noted Date Resolved Date Dermatochalasis of both upper eyelids 11/29/2021 11/29/2021 Cutaneous skin tags 09/09/2013 11/27/2016 Irritated//Inflamed Seborrheic Keratosis 013 11/27/2016 Other Seborrheic Keratoses 05/25/201311/27 Postinflammatory skin changes 04/02/2012 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 05/25/2013 Actinic skin damage 02/19/2012 11/27/2016 Other and unspecified hyperlipidemia 07/03/2010 09/22/2014 HTN (hypertension) 07/03/2010 07/03/2010 Solar Lentigines 08/10/2009 11/27/2016 Perioral dermatitis 08/10/2009 11/27/2016 Dyschromia, unspecified 02/28/2008 05/25/20 13 Sebaceous cyst 09/24/2007 05/25/2013 SEBORRHEIC KERATOSES IRRITATED//INFLAMED 007 05/25/2013 Viral warts, unspecified 04/12/2007 013 Keloid scar 09/24/2006 05/25/2013 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 09/22/2014 Other seborrheic keratosis 06/23/200605/25 Scar condition and fibrosis of skin 06/23/2006 05/25/2013 ACTINIC DAMAGE///CHR SOLAR SKIN DAMAGE NOS 06/2305/25/2013 SOLAR LENTIGINES 06/23/2006 05/25/2013 documented as of this encounter (statuses as of 05/08/2022) [facility] History of Past illness Narrative* Problem Noted Date Resolved Date Dermatochalasis of both upper eyelids 11/29/2021 11/29/2021 Cutaneous skin tags 09/09/2013 11/27/2016 Irritated//Inflamed Seborrheic Keratosis 013 11/27/2016 Other Seborrheic Keratoses 05/25/201311/27 Postinflammatory skin changes 04/02/2012 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 05/25/2013 Actinic skin damage 02/19/2012 11/27/2016 Other and unspecified hyperlipidemia 07/03/2010 09/22/2014 HTN (hypertension) 07/03/2010 07/03/2010 Solar Lentigines 08/10/2009 11/27/2016 Perioral dermatitis 08/10/2009 11/27/2016 Dyschromia, unspecified 02/28/2008 05/25/20 13 Sebaceous cyst 09/24/2007 05/25/2013 SEBORRHEIC KERATOSES IRRITATED//INFLAMED 007 05/25/2013 Viral warts, unspecified 04/12/2007 013 Keloid scar 09/24/2006 05/25/2013 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 09/22/2014 Other seborrheic keratosis 06/23/200605/25 Scar condition and fibrosis of skin 06/23/2006 05/25/2013 ACTINIC DAMAGE///CHR SOLAR SKIN DAMAGE NOS 06/2305/25/2013 SOLAR LENTIGINES 06/23/2006 05/25/2013 documented as of this encounter (statuses as of 05/26/2022) [facility] History of Past illness Narrative* Problem Noted Date Resolved Date Dermatochalasis of both upper eyelids 11/29/2021 11/29/2021 Cutaneous skin tags 09/09/2013 11/27/2016 Irritated//Inflamed Seborrheic Keratosis 013 11/27/2016 Other Seborrheic Keratoses 05/25/201311/27 Postinflammatory skin changes 04/02/2012 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 05/25/2013 Actinic skin damage 02/19/2012 11/27/2016 Other and unspecified hyperlipidemia 07/03/2010 09/22/2014 HTN (hypertension) 07/03/2010 07/03/2010 Solar Lentigines 08/10/2009 11/27/2016 Perioral dermatitis 08/10/2009 11/27/2016 Dyschromia, unspecified 02/28/2008 05/25/20 13 Sebaceous cyst 09/24/2007 05/25/2013 SEBORRHEIC KERATOSES IRRITATED//INFLAMED 007 05/25/2013 Viral warts, unspecified 04/12/2007 013 Keloid scar 09/24/2006 05/25/2013 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 09/22/2014 Other seborrheic keratosis 06/23/200605/25 Scar condition and fibrosis of skin 06/23/2006 05/25/2013 ACTINIC DAMAGE///CHR SOLAR SKIN DAMAGE NOS 06/2305/25/2013 SOLAR LENTIGINES 06/23/2006 05/25/2013 documented as of this encounter (statuses as of 08/18/2022) [facility] History of Past illness Narrative* Problem Noted Date Resolved Date Dermatochalasis of both upper eyelids 11/29/2021 11/29/2021 Cutaneous skin tags 09/09/2013 11/27/2016 Irritated//Inflamed Seborrheic Keratosis 013 11/27/2016 Other Seborrheic Keratoses 05/25/201311/27 Postinflammatory skin changes 04/02/2012 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 05/25/2013 Actinic skin damage 02/19/2012 11/27/2016 Other and unspecified hyperlipidemia 07/03/2010 09/22/2014 HTN (hypertension) 07/03/2010 07/03/2010 Solar Lentigines 08/10/2009 11/27/2016 Perioral dermatitis 08/10/2009 11/27/2016 Dyschromia, unspecified 02/28/2008 05/25/20 13 Sebaceous cyst 09/24/2007 05/25/2013 SEBORRHEIC KERATOSES IRRITATED//INFLAMED 007 05/25/2013 Viral warts, unspecified 04/12/2007 013 Keloid scar 09/24/2006 05/25/2013 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 09/22/2014 Other seborrheic keratosis 06/23/200605/25 Scar condition and fibrosis of skin 06/23/2006 05/25/2013 ACTINIC DAMAGE///CHR SOLAR SKIN DAMAGE NOS 06/2305/25/2013 SOLAR LENTIGINES 06/23/2006 05/25/2013 documented as of this encounter (statuses as of 08/20/2022) [facility] History of Past illness Narrative* Problem Noted Date Resolved Date Dermatochalasis of both upper eyelids 11/29/2021 11/29/2021 Cutaneous skin tags 09/09/2013 11/27/2016 Irritated//Inflamed Seborrheic Keratosis 013 11/27/2016 Other Seborrheic Keratoses 05/25/201311/27 Postinflammatory skin changes 04/02/2012 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 05/25/2013 Actinic skin damage 02/19/2012 11/27/2016 Other and unspecified hyperlipidemia 07/03/2010 09/22/2014 HTN (hypertension) 07/03/2010 07/03/2010 Solar Lentigines 08/10/2009 11/27/2016 Perioral dermatitis 08/10/2009 11/27/2016 Dyschromia, unspecified 02/28/2008 05/25/20 13 Sebaceous cyst 09/24/2007 05/25/2013 SEBORRHEIC KERATOSES IRRITATED//INFLAMED 007 05/25/2013 Viral warts, unspecified 04/12/2007 013 Keloid scar 09/24/2006 05/25/2013 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 09/22/2014 Other seborrheic keratosis 06/23/200605/25 Scar condition and fibrosis of skin 06/23/2006 05/25/2013 ACTINIC DAMAGE///CHR SOLAR SKIN DAMAGE NOS 06/2305/25/2013 SOLAR LENTIGINES 06/23/2006 05/25/2013 documented as of this encounter (statuses as of 08/21/2022) [facility] History of Past illness Narrative* Problem Noted Date Resolved Date Dermatochalasis of both upper eyelids 11/29/2021 11/29/2021 Cutaneous skin tags 09/09/2013 11/27/2016 Irritated//Inflamed Seborrheic Keratosis 013 11/27/2016 Other Seborrheic Keratoses 05/25/201311/27 Postinflammatory skin changes 04/02/2012 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 05/25/2013 Actinic skin damage 02/19/2012 11/27/2016 Other and unspecified hyperlipidemia 07/03/2010 09/22/2014 HTN (hypertension) 07/03/2010 07/03/2010 Solar Lentigines 08/10/2009 11/27/2016 Perioral dermatitis 08/10/2009 11/27/2016 Dyschromia, unspecified 02/28/2008 05/25/20 13 Sebaceous cyst 09/24/2007 05/25/2013 SEBORRHEIC KERATOSES IRRITATED//INFLAMED 007 05/25/2013 Viral warts, unspecified 04/12/2007 013 Keloid scar 09/24/2006 05/25/2013 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 09/22/2014 Other seborrheic keratosis 06/23/200605/25 Scar condition and fibrosis of skin 06/23/2006 05/25/2013 ACTINIC DAMAGE///CHR SOLAR SKIN DAMAGE NOS 06/2305/25/2013 SOLAR LENTIGINES 06/23/2006 05/25/2013 documented as of this encounter (statuses as of 08/21/2022) [facility] History of Past illness Narrative* Problem Noted Date Resolved Date Dermatochalasis of both upper eyelids 11/29/2021 11/29/2021 Cutaneous skin tags 09/09/2013 11/27/2016 Irritated//Inflamed Seborrheic Keratosis 013 11/27/2016 Other Seborrheic Keratoses 05/25/201311/27 Postinflammatory skin changes 04/02/2012 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 05/25/2013 Actinic skin damage 02/19/2012 11/27/2016 Other and unspecified hyperlipidemia 07/03/2010 09/22/2014 HTN (hypertension) 07/03/2010 07/03/2010 Solar Lentigines 08/10/2009 11/27/2016 Perioral dermatitis 08/10/2009 11/27/2016 Dyschromia, unspecified 02/28/2008 05/25/20 13 Sebaceous cyst 09/24/2007 05/25/2013 SEBORRHEIC KERATOSES IRRITATED//INFLAMED 007 05/25/2013 Viral warts, unspecified 04/12/2007 013 Keloid scar 09/24/2006 05/25/2013 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 09/22/2014 Other seborrheic keratosis 06/23/200605/25 Scar condition and fibrosis of skin 06/23/2006 05/25/2013 ACTINIC DAMAGE///CHR SOLAR SKIN DAMAGE NOS 06/2305/25/2013 SOLAR LENTIGINES 06/23/2006 05/25/2013 documented as of this encounter (statuses as of 08/23/2022) [facility] History of Past illness Narrative* Problem Noted Date Resolved Date Dermatochalasis of both upper eyelids 11/29/2021 11/29/2021 Cutaneous skin tags 09/09/2013 11/27/2016 Irritated//Inflamed Seborrheic Keratosis 013 11/27/2016 Other Seborrheic Keratoses 05/25/201311/27 Postinflammatory skin changes 04/02/2012 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 05/25/2013 Actinic skin damage 02/19/2012 11/27/2016 Other and unspecified hyperlipidemia 07/03/2010 09/22/2014 HTN (hypertension) 07/03/2010 07/03/2010 Solar Lentigines 08/10/2009 11/27/2016 Perioral dermatitis 08/10/2009 11/27/2016 Dyschromia, unspecified 02/28/2008 05/25/20 13 Sebaceous cyst 09/24/2007 05/25/2013 SEBORRHEIC KERATOSES IRRITATED//INFLAMED 007 05/25/2013 Viral warts, unspecified 04/12/2007 013 Keloid scar 09/24/2006 05/25/2013 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 09/22/2014 Other seborrheic keratosis 06/23/200605/25 Scar condition and fibrosis of skin 06/23/2006 05/25/2013 ACTINIC DAMAGE///CHR SOLAR SKIN DAMAGE NOS 06/2305/25/2013 SOLAR LENTIGINES 06/23/2006 05/25/2013 documented as of this encounter (statuses as of 11/05/2022) [facility] History of Past illness Narrative* Problem Noted Date Resolved Date Dermatochalasis of both upper eyelids 11/29/2021 11/29/2021 Cutaneous skin tags 09/09/2013 11/27/2016 Irritated//Inflamed Seborrheic Keratosis 013 11/27/2016 Other Seborrheic Keratoses 05/25/201311/27 Postinflammatory skin changes 04/02/2012 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 05/25/2013 Actinic skin damage 02/19/2012 11/27/2016 Other and unspecified hyperlipidemia 07/03/2010 09/22/2014 HTN (hypertension) 07/03/2010 07/03/2010 Solar Lentigines 08/10/2009 11/27/2016 Perioral dermatitis 08/10/2009 11/27/2016 Dyschromia, unspecified 02/28/2008 05/25/20 13 Sebaceous cyst 09/24/2007 05/25/2013 SEBORRHEIC KERATOSES IRRITATED//INFLAMED 007 05/25/2013 Viral warts, unspecified 04/12/2007 013 Keloid scar 09/24/2006 05/25/2013 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 09/22/2014 Other seborrheic keratosis 06/23/200605/25 Scar condition and fibrosis of skin 06/23/2006 05/25/2013 ACTINIC DAMAGE///CHR SOLAR SKIN DAMAGE NOS 06/2305/25/2013 SOLAR LENTIGINES 06/23/2006 05/25/2013 documented as of this encounter (statuses as of 11/06/2022) [facility] History of Past illness Narrative* Problem Noted Date Resolved Date Dermatochalasis of both upper eyelids 11/29/2021 11/29/2021 Cutaneous skin tags 09/09/2013 11/27/2016 Irritated//Inflamed Seborrheic Keratosis 013 11/27/2016 Other Seborrheic Keratoses 05/25/201311/27 Postinflammatory skin changes 04/02/2012 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 05/25/2013 Actinic skin damage 02/19/2012 11/27/2016 Other and unspecified hyperlipidemia 07/03/2010 09/22/2014 HTN (hypertension) 07/03/2010 07/03/2010 Solar Lentigines 08/10/2009 11/27/2016 Perioral dermatitis 08/10/2009 11/27/2016 Dyschromia, unspecified 02/28/2008 05/25/20 13 Sebaceous cyst 09/24/2007 05/25/2013 SEBORRHEIC KERATOSES IRRITATED//INFLAMED 007 05/25/2013 Viral warts, unspecified 04/12/2007 013 Keloid scar 09/24/2006 05/25/2013 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 09/22/2014 Other seborrheic keratosis 06/23/200605/25 Scar condition and fibrosis of skin 06/23/2006 05/25/2013 ACTINIC DAMAGE///CHR SOLAR SKIN DAMAGE NOS 06/2305/25/2013 SOLAR LENTIGINES 06/23/2006 05/25/2013 documented as of this encounter (statuses as of 12/02/2022) [facility] History of Past illness Narrative* Problem Noted Date Resolved Date Dermatochalasis of both upper eyelids 11/29/2021 11/29/2021 Cutaneous skin tags 09/09/2013 11/27/2016 Irritated//Inflamed Seborrheic Keratosis 013 11/27/2016 Other Seborrheic Keratoses 05/25/201311/27 Postinflammatory skin changes 04/02/2012 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 05/25/2013 Actinic skin damage 02/19/2012 11/27/2016 Other and unspecified hyperlipidemia 07/03/2010 09/22/2014 HTN (hypertension) 07/03/2010 07/03/2010 Solar Lentigines 08/10/2009 11/27/2016 Perioral dermatitis 08/10/2009 11/27/2016 Dyschromia, unspecified 02/28/2008 05/25/20 13 Sebaceous cyst 09/24/2007 05/25/2013 SEBORRHEIC KERATOSES IRRITATED//INFLAMED 007 05/25/2013 Viral warts, unspecified 04/12/2007 013 Keloid scar 09/24/2006 05/25/2013 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 09/22/2014 Other seborrheic keratosis 06/23/200605/25 Scar condition and fibrosis of skin 06/23/2006 05/25/2013 ACTINIC DAMAGE///CHR SOLAR SKIN DAMAGE NOS 06/2305/25/2013 SOLAR LENTIGINES 06/23/2006 05/25/2013 documented as of this encounter (statuses as of 12/24/2022) [facility] History of Past illness Narrative* Problem Noted Date Resolved Date Dermatochalasis of both upper eyelids 11/29/2021 11/29/2021 Cutaneous skin tags 09/09/2013 11/27/2016 Irritated//Inflamed Seborrheic Keratosis 013 11/27/2016 Other Seborrheic Keratoses 05/25/201311/27 Postinflammatory skin changes 04/02/2012 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 05/25/2013 Actinic skin damage 02/19/2012 11/27/2016 Other and unspecified hyperlipidemia 07/03/2010 09/22/2014 HTN (hypertension) 07/03/2010 07/03/2010 Solar Lentigines 08/10/2009 11/27/2016 Perioral dermatitis 08/10/2009 11/27/2016 Dyschromia, unspecified 02/28/2008 05/25/20 13 Sebaceous cyst 09/24/2007 05/25/2013 SEBORRHEIC KERATOSES IRRITATED//INFLAMED 007 05/25/2013 Viral warts, unspecified 04/12/2007 013 Keloid scar 09/24/2006 05/25/2013 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 09/22/2014 Other seborrheic keratosis 06/23/200605/25 Scar condition and fibrosis of skin 06/23/2006 05/25/2013 ACTINIC DAMAGE///CHR SOLAR SKIN DAMAGE NOS 06/2305/25/2013 SOLAR LENTIGINES 06/23/2006 05/25/2013 documented as of this encounter (statuses as of 12/26/2022) [facility] History of Past illness Narrative* Problem Noted Date Resolved Date Dermatochalasis of both upper eyelids 11/29/2021 11/29/2021 Cutaneous skin tags 09/09/2013 11/27/2016 Irritated//Inflamed Seborrheic Keratosis 013 11/27/2016 Other Seborrheic Keratoses 05/25/201311/27 Postinflammatory skin changes 04/02/2012 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 05/25/2013 Actinic skin damage 02/19/2012 11/27/2016 Other and unspecified hyperlipidemia 07/03/2010 09/22/2014 HTN (hypertension) 07/03/2010 07/03/2010 Solar Lentigines 08/10/2009 11/27/2016 Perioral dermatitis 08/10/2009 11/27/2016 Dyschromia, unspecified 02/28/2008 05/25/20 13 Sebaceous cyst 09/24/2007 05/25/2013 SEBORRHEIC KERATOSES IRRITATED//INFLAMED 007 05/25/2013 Viral warts, unspecified 04/12/2007 013 Keloid scar 09/24/2006 05/25/2013 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 09/22/2014 Other seborrheic keratosis 06/23/200605/25 Scar condition and fibrosis of skin 06/23/2006 05/25/2013 ACTINIC DAMAGE///CHR SOLAR SKIN DAMAGE NOS 06/2305/25/2013 SOLAR LENTIGINES 06/23/2006 05/25/2013 documented as of this encounter (statuses as of 03/05/2023) [facility] History of Past illness Narrative* Problem Noted Date Diagnosed Date Resolved Date Dermatochalasis of both upper eyelids 11/29/2021 11/29/2021 Cutaneous skin tags 09/09/2013 11/28/19 17 Irritated//Inflamed Seborrheic Keratosis 05/25/2013 11/27/2016 Other Seborrheic Keratoses 05/25/2013 0 11/27/2016 Postinflammatory skin changes 04/02/2012 11/27/2016 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 2 05/25/2013 Actinic skin damage 02/19/2012 11/28/19 17 Other and unspecified hyperlipidemia 07/03/2010 09/22/2014 HTN (hypertension) 07/03/2010 0 Solar Lentigines 08/10/2009 11/27/2016 Perioral dermatitis 08/10/2009 11/28/19 17 Dyschromia, unspecified 02/28/200805/02 Sebaceous cyst 09/24/2007 05/25/2013 SEBORRHEIC KERATOSES IRRITATED//INFLAMED 04/12/2007 05/25/2013 Viral warts, unspecified 04/12/2007 Keloid scar 09/24/2006 05/25/2013 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 09/22/2014 Other seborrheic keratosis 06/23/2006 0 05/25/2013 Scar condition and fibrosis of skin 06/23/2006 05/25/2013 ACTINIC DAMAGE///CHR SOLAR SKIN DAMAGE NOS 06/23/2006 05/25/2013 SOLAR LENTIGINES 06/23/2006 05/25/2013 documented as of this encounter (statuses as of 07/13/2023) [facility] History of Past illness Narrative* Problem Noted Date Diagnosed Date Resolved Date Dermatochalasis of both upper eyelids 11/29/2021 11/29/2021 Cutaneous skin tags 09/09/2013 11/28/19 17 Irritated//Inflamed Seborrheic Keratosis 05/25/2013 11/27/2016 Other Seborrheic Keratoses 05/25/2013 0 11/27/2016 Postinflammatory skin changes 04/02/2012 11/27/2016 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 2 05/25/2013 Actinic skin damage 02/19/2012 11/28/19 17 Other and unspecified hyperlipidemia 07/03/2010 09/22/2014 HTN (hypertension) 07/03/2010 0 Solar Lentigines 08/10/2009 11/27/2016 Perioral dermatitis 08/10/2009 11/28/19 17 Dyschromia, unspecified 02/28/200805/02 Sebaceous cyst 09/24/2007 05/25/2013 SEBORRHEIC KERATOSES IRRITATED//INFLAMED 04/12/2007 05/25/2013 Viral warts, unspecified 04/12/2007 Keloid scar 09/24/2006 05/25/2013 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 09/22/2014 Other seborrheic keratosis 06/23/2006 0 05/25/2013 Scar condition and fibrosis of skin 06/23/2006 05/25/2013 ACTINIC DAMAGE///CHR SOLAR SKIN DAMAGE NOS 06/23/2006 05/25/2013 SOLAR LENTIGINES 06/23/2006 05/25/2013 documented as of this encounter (statuses as of 08/05/2023) [facility] History of Past illness Narrative* Problem Noted Date Diagnosed Date Resolved Date Dermatochalasis of both upper eyelids 11/29/2021 11/29/2021 Cutaneous skin tags 09/09/2013 11/28/19 17 Irritated//Inflamed Seborrheic Keratosis 05/25/2013 11/27/2016 Other Seborrheic Keratoses 05/25/2013 0 11/27/2016 Postinflammatory skin changes 04/02/2012 11/27/2016 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 2 05/25/2013 Actinic skin damage 02/19/2012 11/28/19 17 Other and unspecified hyperlipidemia 07/03/2010 09/22/2014 HTN (hypertension) 07/03/2010 0 Solar Lentigines 08/10/2009 11/27/2016 Perioral dermatitis 08/10/2009 11/28/19 17 Dyschromia, unspecified 02/28/200805/02 Sebaceous cyst 09/24/2007 05/25/2013 SEBORRHEIC KERATOSES IRRITATED//INFLAMED 04/12/2007 05/25/2013 Viral warts, unspecified 04/12/2007 Keloid scar 09/24/2006 05/25/2013 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 09/22/2014 Other seborrheic keratosis 06/23/2006 0 05/25/2013 Scar condition and fibrosis of skin 06/23/2006 05/25/2013 ACTINIC DAMAGE///CHR SOLAR SKIN DAMAGE NOS 06/23/2006 05/25/2013 SOLAR LENTIGINES 06/23/2006 05/25/2013 documented as of this encounter (statuses as of 08/11/2023) [facility] Diagnosis Olecranon bursitis of left elbow- Primary Olecranon bursitis [facility] Diagnosis Vitamin D deficiency Unspecified vitamin D deficiency [facility] Diagnosis Right lower quadrant abdominal pain- Primary Abdominal pain, right lower quadrant [facility] Diagnosis Right lower quadrant abdominal pain Abdominal pain, right lower quadrant [facility] Diagnosis Anxiety with depression- Primary documented in this encounter [facility] note* Diagnosis Acute non-recurrent frontal sinusitis- Primary documented in this encounter [facility] note* Diagnosis Anxiety with depression documented in this encounter [facility] note* Diagnosis Diarrhea, unspecified type- Primary LLQ abdominal pain Abdominal pain, left lower quadrant Left lower quadrant abdominal pain documented in this encounter [facility] Summary Purpose Family History No Family History Records FoundNo Family History Records FoundNo Family History Records Found Advance Directives No Advanced Directives Records FoundDocuments on File Type Date Recorded 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 Advance Directive(s) 11/29/2021 10:57 AM Documents on File Type Date Recorded 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 Advance Directive(s) 11/29/2021 10:57 AM Reason for Referral Specialty Diagnoses / Procedures Referred By Buffyac t Referred To Contact Orthopedics Diagnoses Olecranon bursitis of left elbow Procedures CONSULT TO ORTHOPAEDICS OFFICE/OUTPATIENT [facility] 60-74 MINUTES Jorge Calabrese, PLANT BIOLOGY PROFESSOR.HEAVY TRUCK TECHNICIAN [address] [place] [address] Referral ID Status Reason Start Date Expiration Date Visits Requested Visits Authorized [id number] Authorized PCP Requested Referral 12/19/2021 12/19/2022 1 1 Specialty Diagnoses / Procedures Referred By Claire t Referred To Contact CT IMAGING Diagnoses Right lower quadrant abdominal pain Procedures CT ABD/PEL W IVCON CT ABD & PELVIS W/CONTRAST Belgica Parnell, PLANT BIOLOGY PROFESSOR.HEAVY TRUCK TECHNICIAN [address] [place] [address] Ct Imaging Referral ID Status Reason Start Date Expiration Date Visits Requested Visits Authorized [id number] Pending Review Auto-Genera brianne Referral Patient Cleared - Admin/Chair man/Directo r advise to proceed 2 09/17/2023 1 1 Referral ID Status Reason Start Date Expiration Date Visits Requested Visits Authorized [id number] Authorized Auto-Generat ed Referral Patient Cleared - Admin/Chairm an/Director advise to proceed 2 10/03/2022 4 4 Specialty Diagnoses / Procedures Referred By Contac t Referred To Contact CT IMAGING Diagnoses Left lower quadrant abdominal pain Procedures CT ABD/PEL W IVCON CT ABD & PELVIS W/CONTRAST Tenisha Esparza, PLANT BIOLOGY PROFESSOR.HEAVY TRUCK TECHNICIAN [address] [facility] [place] [address] [place] [id number] Referral ID Status Reason Start Date Expiration Date Visits Requested Visits Authorized [id number] Pending Review Auto-Generat ed Referral 3 09/08/2024 1 1 Additional Source Comments INFORMATION SOURCE (unrecogn ized section and content) DATE CREATED AUTHOR AUTHOR'S ORGANIZ ATION 08/23/2022 [facility] DATE CREATED AUTHOR AUTHOR'S ORGANIZ ATION 08/29/2023 [facility] Source Comments (unrecognize d section and content) In the event this informatio n is protected by the Federal Confidentiality of Alcohol and Drug Abuse Patient Records regulations: The Federal rules restrict any use of the information to criminally investigate or prosecute any alcohol or drug abuse patient.[facility] the event this information is protected by the Federal Confidentiality of Alcohol and Drug Abuse Patient Records regulations: The Federal rules restrict any use of the information to criminally investigate or prosecute any alcohol or drug abuse patient.[facility] the event this information is protected by the Federal Confidentiality of Alcohol and Drug Abuse Patient Records regulations: The Federal rules restrict any use of the information to criminally investigate or prosecute any alcohol or drug abuse patient.[facility] the event this information is protected by the Federal Confidentiality of Alcohol and Drug Abuse Patient Records regulations: The Federal rules restrict any use of the information to criminally investigate or prosecute any alcohol or drug abuse patient.[facility] the event this information is protected by the Federal Confidentiality of Alcohol and Drug Abuse Patient Records regulations: The Federal rules restrict any use of the information to criminally investigate or prosecute any alcohol or drug abuse patient.[facility] the event this information is protected by the Federal Confidentiality of Alcohol and Drug Abuse Patient Records regulations: The Federal rules restrict any use of the information to criminally investigate or prosecute any alcohol or drug abuse patient.[facility] the event this information is protected by the Federal Confidentiality of Alcohol and Drug Abuse Patient Records regulations: The Federal rules restrict any use of the information to criminally investigate or prosecute any alcohol or drug abuse patient.[facility] the event this information is protected by the Federal Confidentiality of Alcohol and Drug Abuse Patient Records regulations: The Federal rules restrict any use of the information to criminally investigate or prosecute any alcohol or drug abuse patient.[facility] the event this information is protected by the Federal Confidentiality of Alcohol and Drug Abuse Patient Records regulations: The Federal rules restrict any use of the information to criminally investigate or prosecute any alcohol or drug abuse patient.[facility] the event this information is protected by the Federal Confidentiality of Alcohol and Drug Abuse Patient Records regulations: The Federal rules restrict any use of the information to criminally investigate or prosecute any alcohol or drug abuse patient.[facility] the event this information is protected by the Federal Confidentiality of Alcohol and Drug Abuse Patient Records regulations: The Federal rules restrict any use of the information to criminally investigate or prosecute any alcohol or drug abuse patient.[facility] the event this information is protected by the Federal Confidentiality of Alcohol and Drug Abuse Patient Records regulations: The Federal rules restrict any use of the information to criminally investigate or prosecute any alcohol or drug abuse patient.[facility] the event this information is protected by the Federal Confidentiality of Alcohol and Drug Abuse Patient Records regulations: The Federal rules restrict any use of the information to criminally investigate or prosecute any alcohol or drug abuse patient.[facility] the event this information is protected by the Federal Confidentiality of Alcohol and Drug Abuse Patient Records regulations: The Federal rules restrict any use of the information to criminally investigate or prosecute any alcohol or drug abuse patient.[facility] the event this information is protected by the Federal Confidentiality of Alcohol and Drug Abuse Patient Records regulations: The Federal rules restrict any use of the information to criminally investigate or prosecute any alcohol or drug abuse patient.[facility] the event this information is protected by the Federal Confidentiality of Alcohol and Drug Abuse Patient Records regulations: The Federal rules restrict any use of the information to criminally investigate or prosecute any alcohol or drug abuse patient.[facility] the event this information is protected by the Federal Confidentiality of Alcohol and Drug Abuse Patient Records regulations: The Federal rules restrict any use of the information to criminally investigate or prosecute any alcohol or drug abuse patient.[facility] the event this information is protected by the Federal Confidentiality of Alcohol and Drug Abuse Patient Records regulations: The Federal rules restrict any use of the information to criminally investigate or prosecute any alcohol or drug abuse patient.[facility] the event this information is protected by the Federal Confidentiality of Alcohol and Drug Abuse Patient Records regulations: The Federal rules restrict any use of the information to criminally investigate or prosecute any alcohol or drug abuse patient.[facility] Reason for Visit (unrecogniz ed section and content) Reason Comments Medication Problem Reason Comments Patient Update Reason Comments Refill Request Reason Comments RLQ pain Reason Comments Right Lower abdomen Pain Specialty Diagnoses / Procedures Referred By Contac t Referred To Contact CT IMAGING Diagnoses Right lower quadrant abdominal pain Procedures CT ABD/PEL W IVCON CT ABD & PELVIS W/CONTRAST Belgica Parnell, JEN.HEAVY TRUCK TECHNICIAN [address] [place] [address] Ct Imaging Referral ID Status Reason Start Date Expiration Date Visits Requested Visits Authorized [id number] Authorized Auto-Generat ed Referral Patient Cleared - Admin/Chairm an/Director advise to proceed 2 10/03/2022 4 4 Reason Comments Results Reason Comments Medication Request Reason Comments Acute Visit anxiety, Reason Comments Sinusitis Reason Onset Date Comments Refill Request 12/23/2022 Reason Onset Date Comments Refill Request 03/04/2023 Reason Onset Date Comments Refill Request 07/13/2023 SEE RX NOTES Reason Comments Patient Update Patient Question Care Teams (unrecognized sec tion and content) Director Industrial Nursing Relationship Specialty Start Date End Date Chris Schmitz MD [address] [place], [place] [id number] PCP - General Family Practice 10/07/16 Director Industrial Nursing Relationship Specialty Start Date End Date Chris Schmitz MD [address] [place] [address] PCP - General Family Practice 10/07/16 Director Industrial Nursing Relationship Specialty Start Date End Date Chris Schmitz MD [address] [facility] [place] [address] PCP - General Family Medicine 10/07/16 Director Industrial Nursing Relationship Specialty Start Date End Date Chris Schmitz MD [address] [facility] [place] [address] PCP - General Family Medicine 10/07/16 Director Industrial Nursing Relationship Specialty Start Date End Date Chris Schmitz MD [address] [facility] [place] [address] PCP - General Family Medicine 10/07/16 Director Industrial Nursing Relationship Specialty Start Date End Date Chris Schmitz MD [address] [facility] [place] [address] PCP - General Family Medicine 10/07/16 Director Industrial Nursing Relationship Specialty Start Date End Date Chris Schmitz MD [address] [facility] [place] [address] PCP - General Family Medicine 10/07/16 Director Industrial Nursing Relationship Specialty Start Date End Date Chris Schmitz MD [address] [facility] [place] [address] PCP - General Family Medicine 10/07/16 Director Industrial Nursing Relationship Specialty Start Date End Date Chris Schmitz MD [address] [facility] [place] [address] PCP - General Family Medicine 10/07/16 Director Industrial Nursing Relationship Specialty Start Date End Date Chris Schmitz MD [address] [facility] [place] [address] PCP - General Family Medicine 10/07/16 Director Industrial Nursing Relationship Specialty Start Date End Date Chris Schmizt MD [address] [facility] [place] [address] PCP - General Family Medicine 10/07/16 Director Industrial Nursing Relationship Specialty Start Date End Date Chris Schmitz MD [address] [place], [place] [id number] PCP - General [facility] 10/07/16 Director Industrial Nursing Relationship Specialty Start Date End Date Chris Schmitz MD [address] [place], [place] [address] PCP - General [facility] 10/07/16 Director Industrial Nursing Relationship Specialty Start Date End Date Chris Schmitz MD [address] [place], [place] [address] PCP - General Family [facility] 10/07/16 FOR RECORDS PERTAINING TO PATIENTS WHO ARE OR HAVE BEEN ENROLLED IN A CHEMICAL DEPENDENCY/SUBSTANCEABUSE PROGRAM, SOME INFORMATION MAY BE OMITTED. This clinical summary was aggregated from multiple sources. Caution should be exercised in using it in the provision of clinical care. This summary normalizes information from multiple sources, and as a consequence, information in this document may materially change the coding, format and clinical context of patient data. In addition, data may be omitted in some cases. CLINICAL DECISIONS SHOULD BE BASED ON THE PRIMARY CLINICAL RECORDS. [facility] [employer] provides no warranty or guarantee of the accuracy or completeness of information in this document.
== END | disposition home or self-care (01) ==
PROVIDERS: PCP Family Medicine; Referring Provider Podiatrist Foot & Ankle Surgery; Visit Provider Podiatrist Foot & Ankle Surgery
DX: I73.89 Other specified peripheral vascular diseases (principal); M79.605 Pain in left leg; M79.604 Pain in right leg
CPT/HCPCS: 93923; 93970

== ENCOUNTER 2023-12-31 13:14 | Emergency (ER) | payer MEDICARE, SELFPAY ==
[2023-12-31 13:15] VITALS: BP 167/65; PULSE 64; RESP 16; TEMP 36.6; O2SAT 98; BMI 22.5
--- NOTE | 2023-12-31 13:30 | EX.ED.UPPERE ---
HPI History of Present Illness Chief Complaint: Upper Extremity Injury Narrative Narrative: Patient presenting today with pain to her right wrist after an injury that occurred this afternoon. She reports that she was standing on a stool trying to hang up a plant when the stool broke and she fell onto an outstretched right hand. She did not hit her head, there was no LOC, she is not on any blood thinners. She denies any other injury. She is right-handed. PFSH PFSH Home Medications colestipol 1 gram tablet (Colestid) 1 g PO BID cholesterol 02/17/15 [History Last Taken 11/12/20] ergocalciferol (vitamin D2) 1,250 mcg (50,000 unit) capsule (Vitamin D2) 50,000 unit PO MO supplement 02/17/15 [History Last Taken 11/12/20] nadolol 20 mg tablet 20 mg PO DAILY heart 02/17/15 [History Last Taken 11/12/20] Paroxetine Hcl 10 mg PO DAILY depression 11/12/20 [History Last Taken 11/12/20] oxycodone 5 mg tablet 5 mg PO Q8H PRN pain 3 days #7 tabs 12/31/23 [Rx Last Taken Unknown] Allergy/AdvReac Type Severity Reaction Status Date / Time cephalexin monohydrate Allergy Nausea Verified 12/31/23 13:16 [From Keflex] promethazine HCl Allergy Other Verified 12/31/23 13:16 [From Phenergan] trimethoprim Allergy Nausea Verified 12/31/23 13:16 Social History Smoking Status: Never smoker ROS ROS ED Constitutional Constitutional ED: Denies chills or fever(s) Cardiovascular Cardiovascular: Denies chest pain Respiratory/Chest Respiratory/Chest: Denies cough or dyspnea Gastrointestinal Gastrointestinal: Denies abdominal pain, nausea or vomiting Musculoskeletal Musculoskeletal: Reports arthralgias; Denies myalgias Integumentary Denies Abrasions Neurologic Neurologic: Denies paresthesias EXAM Physical Exam Const Vital Signs: 12/31/23 13:15 Temperature 97.8 F Temperature Source Temporal Pulse Rate 64 Respiratory Rate 16 Blood Pressure 167/65 H Blood Pressure Mean 99 Pulse Ox 98 Oxygen Delivery Method Room Air Positive well nourished, well developed and no apparent distress General Appearance ED: well developed HEENT Reports normocephalic and head/scalp atraumatic Mouth ED: Yes moist mucous membranes normal Eyes PERRL and EOMs intact bilaterally Neck full ROM and supple Chest Wall inspection of chest normal Resp normal respiratory effort and clear to auscultation bilaterally Cardio regular rate and regular rhythm GI soft to palpation, non-tender, non-distended and no masses Back/Spine normal ROM and normal to inspection Extremity normal to inspection and full ROM Extremity Narrative: Swelling and pain to the radial and dorsal aspect of the right wrist. Limited range of motion to the right wrist due to pain. Right radial pulse 2+, good capillary refill, sensation intact. Neuro oriented x3, CN's II-XII intact bilaterally, moves all extremities, no focal motor deficits and no sensory deficits noted Sensorium / Orientation: awake and alert Psych mental status grossly normal and thought process normal Skin no rashes or lesions noted and no wounds MDM MDM MDM Narrative Medical decision making narrative: Patient presenting today due to a right wrist injury after falling off of a stool onto an outstretched right arm. No head injury. She has swelling and pain to the radial aspect of the right wrist. X-ray obtained to rule out fracture, she has a comminuted right distal radial metaphysis fracture. She was placed in a AP well-padded splint, good capillary refill post splint. RICE instructions discussed. She will be given a prescription for oxycodone to use in addition to Tylenol as needed. She has been given an orthopedic referral and will be discharged home in stable condition. Procedures Upper Extremity Splints Upper Extremity Splint: Orthoglass and - (AP) Location: Right Discharge Plan Triage Chief Complaint: Upper Extremity Injury ED Midlevel Provider: Padmini Brambila ED Provider: Cass Rose Dx/Rx/DC Orders Clinical Impression: Right wrist fracture, Fall Instructions: ED Fracture, Wrist, General Prescriptions: New oxycodone 5 mg tablet 5 mg PO Q8H PRN (Reason: pain) 3 Days Qty: 7 0RF No Action nadolol 20 MG tablet 20 mg PO DAILY ergocalciferol (vitamin D2) [Vitamin D2] 50,000 UNIT capsule 50,000 unit PO MO colestipol [Colestid] 1 GM tablet 1 g PO BID Paroxetine Hcl 10 MG tablet 10 mg PO DAILY Primary Care Provider: Hugo Serrato Referrals: Hugo Serrato MD [Primary Care Provider] - Deshaun Richards DO [Med Staff - Active Staff] - 5-7 Days Activity Restrictions/Additional Instructions: Follow-up with orthopedics. You can take 650 mg Tylenol as needed for your pain every 6 hours. You can take the oxycodone every 8 hours as needed. Keep your arm elevated, return for any worsening of your symptoms. Disposition Disposition: Home, Self Care
[2023-12-31] MEDS: Acetaminophen 325 MG Tablet 650 MG PO (13:35)
--- NOTE | 2023-12-31 13:36 | RAD_ITS ---
STUDY: X-RAY - RIGHT WRIST REASON FOR EXAM: Female, 83 years old. Injury. TECHNIQUE: 3 view(s) of the wrist were obtained. COMPARISON: None. FINDINGS: There is evidence of a comminuted transverse fracture of the distal radial metaphysis. The alignment is maintained. Normal radiocarpal articulation. Normal distal radioulnar articulation. Normal carpal bones. Normal carpal articulations. There is degenerative arthrosis of the carpometacarpal articulation of the thumb. Normal second through fifth carpometacarpal articulations. Normal visualized metacarpal bones. Soft tissue swelling. RAD/Wrist min 3 Views IMPRESSION: Comminuted transverse fracture of the distal radial metaphysis. The alignment is maintained. Soft tissue swelling. Electronically Signed: Natanael Delgado MD at 14:03 EDT ,
--- NOTE | 2023-12-31 15:02 | ED.RN ---
pt refused sling
[2023-12-31 15:06] VITALS: BP 158/76; PULSE 97; RESP 14; TEMP 36.6; O2SAT 100
== END 2023-12-31 15:06 | disposition home or self-care (01) ==
PROVIDERS: Emergency Provider Emergency Medicine; PCP Family Medicine; Visit Provider Emergency Medicine
DX: S52.351A Displaced comminuted fracture of shaft of radius, right arm, initial encounter for closed fracture (principal); W08.XXXA Fall from other furniture, initial encounter
CPT/HCPCS: 73110; 99282

== ENCOUNTER 2025-07-18 20:00 | Emergency (ER) | payer MEDICARE, SELFPAY ==
[2025-07-18 20:02] VITALS: BP 138/102; PULSE 80; RESP 18; TEMP 36.2; O2SAT 99; BMI 23.6
[2025-07-18 20:06] VITALS: BP 192/79
[2025-07-18 20:08] VITALS: BP 184/79
--- NOTE | 2025-07-18 21:43 | EKG12_ITS ---
Test Reason : DYSRHYTHMIA Blood Pressure : */* mmHG Vent. Rate : 66 BPM Atrial Rate : 66 BPM P-R Int : 256 ms QRS Dur : 70 ms QT Int : 444 ms P-R-T Axes : 66 -36 118 degrees QTcB Int : 465 ms Sinus rhythm with 1st degree A-V block Left axis deviation Septal infarct (cited on or before 12-Nov-2020) Abnormal ECG Confirmed by MARY GRACE DELAROSA, [place] ([id number]), newspaper editor managing REN OLSEN ([id number]) on 07/19/2025 7:31:19 AM Referred By: Confirmed By: [place] BRODY MD
--- NOTE | 2025-07-18 21:43 | CT_ITS ---
PROCEDURE: STROKE BRAIN/HEAD WITHOUT CONT; STROKE CTA HEAD AND NECK W/CON 07/18/2025 REASON FOR EXAM: NEURO DEFICIT, ACUTE, STROKE SUSPECTED TECHNIQUE: Procedure Code: CTBR.ST; CTCTA.ST.HN Modality: CT Procedure: STROKE BRAIN/HEAD WITHOUT CONT; STROKE CTA HEAD AND NECK W/CON 97 mL of Isovue 370. 3D reformations were utilized. Coronal and Sagittal reconstruction series were provided. One or more dose reduction techniques were used (e.g., Automated exposure control, adjustment of the mA and/or kV according to patient size, use of iterative reconstruction technique. RADIATION DOSE SUMMARY: CTDlvol: 44+ 13+ 12 mGy DLP: 846+ 6+ 476 mGycm FINDINGS: CT head: Mild global parenchymal atrophy. Periventricular white matter hypodensity likely representing moderate chronic microvascular ischemia. No evidence of acute hemorrhage or infarction. No extra-axial blood or fluid collections. The paranasal sinuses and mastoid air cells are clear. The calvarial vault and skull base are intact. CTA head and neck: Mild atherosclerosis of the aortic arch. The common carotid arteries are patent. Atherosclerosis of the proximal right internal carotid artery with a proximally 50% stenosis. Atherosclerosis of the proximal left internal carotid artery with less than 50% stenosis. Dominant left cervical vertebral artery, an anatomic variant. The bilateral cervical vertebral arteries are patent. Atherosclerosis of the carotid siphons with less than 50% stenosis. The anterior cerebral, anterior communicating, middle cerebral, and posterior cerebral arteries are patent. The superior cerebellar, anterior inferior, and posterior inferior cerebellar arteries are patent. The lung apices are clear. CT/STROKE Brain/Head without Cont IMPRESSION: No acute intracranial abnormality. No acute arterial abnormality of the head or neck. Atherosclerosis as above. Critical results were communicated to Dr. Levi at 11:18 p.m.. Reading Location: [address]
--- NOTE | 2025-07-18 21:44 | CT_ITS ---
PROCEDURE: STROKE BRAIN/HEAD WITHOUT CONT; STROKE CTA HEAD AND NECK W/CON 07/18/2025 REASON FOR EXAM: NEURO DEFICIT, ACUTE, STROKE SUSPECTED TECHNIQUE: Procedure Code: CTBR.ST; CTCTA.ST.HN Modality: CT Procedure: STROKE BRAIN/HEAD WITHOUT CONT; STROKE CTA HEAD AND NECK W/CON 97 mL of Isovue 370. 3D reformations were utilized. Coronal and Sagittal reconstruction series were provided. One or more dose reduction techniques were used (e.g., Automated exposure control, adjustment of the mA and/or kV according to patient size, use of iterative reconstruction technique. RADIATION DOSE SUMMARY: CTDlvol: 44+ 13+ 12 mGy DLP: 846+ 6+ 476 mGycm FINDINGS: CT head: Mild global parenchymal atrophy. Periventricular white matter hypodensity likely representing moderate chronic microvascular ischemia. No evidence of acute hemorrhage or infarction. No extra-axial blood or fluid collections. The paranasal sinuses and mastoid air cells are clear. The calvarial vault and skull base are intact. CTA head and neck: Mild atherosclerosis of the aortic arch. The common carotid arteries are patent. Atherosclerosis of the proximal right internal carotid artery with a proximally 50% stenosis. Atherosclerosis of the proximal left internal carotid artery with less than 50% stenosis. Dominant left cervical vertebral artery, an anatomic variant. The bilateral cervical vertebral arteries are patent. Atherosclerosis of the carotid siphons with less than 50% stenosis. The anterior cerebral, anterior communicating, middle cerebral, and posterior cerebral arteries are patent. The superior cerebellar, anterior inferior, and posterior inferior cerebellar arteries are patent. The lung apices are clear. CT/STROKE CTA Head AND Neck W/Con IMPRESSION: No acute intracranial abnormality. No acute arterial abnormality of the head or neck. Atherosclerosis as above. Critical results were communicated to Dr. Levi at 11:18 p.m.. Reading Location: [id number]
--- NOTE | 2025-07-18 21:46 | EX.ED.DYSGE1 ---
HPI History of Present Illness Chief Complaint: Hypertension Informant: patient Onset/Context/Timing Onset: Today Context: Sudden Onset Timing: Continuous Narrative Narrative: 85-year-old female history of hypertension anxiety. Said today around 3:00 she had some dizziness. She describes as lightheadedness. Not vertiginous. Not room spinning. She denies recent illness. She denies any nausea vomiting diarrhea. She denies headache. She denies chest pain. She denies shortness of breath. She denies any vision change or trouble speaking. Prior similar symptoms: Yes Recent Illness/Hospitalization: No PFSH PFSH Home Medications ?Medication ?Instructions ?Recorded ?Last Taken ?Type colestipol 1 gram tablet (Colestid) 1 g PO BID cholesterol 02/17/15 11/12/20 History ergocalciferol (vitamin D2) 1,250 50,000 unit PO MO supplement 02/17/15 11/12/20 History mcg (50,000 unit) capsule (Vitamin D2) nadolol 20 mg tablet 20 mg PO DAILY heart 02/17/15 11/12/20 History Paroxetine Hcl 10 mg PO DAILY depression 11/12/20 11/12/20 History oxycodone 5 mg tablet 5 mg PO Q8H PRN pain 3 days #7 tabs 12/31/23 Unknown Rx Allergy/AdvReac Type Severity Reaction Status Date / Time cephalexin monohydrate (From Allergy Nausea Verified 07/18/25 20:02 Keflex) promethazine HCl (From Allergy Other Verified 07/18/25 20:02 Phenergan) trimethoprim Allergy Nausea Verified 07/18/25 20:02 Social History Smoking Status: Never smoker ROS ROS ED ROS Narrative Denies recent illness. Constitutional Constitutional ED: Denies chills or fever(s) Eyes Eyes: Denies blurry vision ENT ENT ED: Denies ear pain Cardiovascular Cardiovascular: Denies chest pain Respiratory/Chest Respiratory/Chest: Denies cough or dyspnea Gastrointestinal Gastrointestinal: Denies abdominal pain Genitourinary Genitourinary ED: Denies dysuria or hematuria Musculoskeletal Musculoskeletal: Denies arthralgias Integumentary Denies abscess or Abrasions Neurologic Neurologic: Denies headache(s) Psychiatric Psychiatric: Reports anxiety Endocrine Endocrinology: Denies cold intolerance Hematologic/Lymphatic Hematologic/Lymphatic: Reports none Allergic/Immunologic Allergic/Immunologic ED: Denies mouth swelling, tongue swelling or urticaria EXAM Physical Exam Narrative Exam Narrative: 85-year-old female vital signs stable afebrile initial blood pressure 138/102. She does not look septic toxic or in acute distress her pulse ox 99% on room air. Family at bedside. H EENT exam pupils round react to light. Moist mucous membranes. No facial droop. Normal speech. No trauma to her face or scalp. Neck nontender no JVD no lymphadenopathy. Back nontender. Lungs clear to auscultation bilaterally. Heart regular rhythm rate about 80 no murmur. Chest wall ribs nontender. Abdomen soft nontender. Moving all 4 extremities. 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 Dorsi plantarflexion intact. Neurologic exam normal NIH 0. Fingertip to nose within normal limits no drift of either upper or lower extremities. Negative Hallpike maneuver. TMs unremarkable bilaterally. Const Vital Signs: 07/18/25 20:02 07/18/25 20:06 07/18/25 20:08 Temperature 97.2 F L Temperature Source Temporal Pulse Rate 80 Respiratory Rate 18 Respiratory Effort Respiratory Pattern Blood Pressure 138/102 H 192/79 H 184/79 H Blood Pressure Mean 114 116 114 Pulse Ox 99 Oxygen Delivery Method Room Air 07/18/25 21:23 07/18/25 22:01 07/18/25 22:37 Temperature Temperature Source Pulse Rate 64 Respiratory Rate 18 Respiratory Effort Normal Respiratory Pattern Normal Blood Pressure 153/81 H Blood Pressure Mean 105 Pulse Ox 96 Oxygen Delivery Method Room Air Room Air MDM MDM MDM Narrative Medical decision making narrative: 85-year-old female with lightheadedness and dizziness today at 3:00 exam benign no signs of stroke NIH 0. She undergo stroke workup. Repeat exam around 11:25 PM. Patient doing well. Ambulated to bathroom without any difficulty. Her initial test look good we are waiting on her chemistry panel. Repeat neurologic exam is normal. Repeat exam at 11:59 PM patient is doing well. Awake alert. Repeat neurologic exam normal. Again she ambulated without any difficulty. We discussed differential diagnosis for dizziness. We do not have a specific cause. She has no signs of a stroke. She be discharged to home with close follow-up with her primary care physician. She knows to return if worse. If she has continued symptoms without improvement she may need an MRI. She and her son is with her comfortable with the plan. I ambulated in the hallway and she did well. History & Record Review Discussion w/independent historian: Patient and Family Additional record(s) reviewed:: Prior outpatient record, Prior ED visit and Prior labs Lab Data Attestation: I reviewed the patient's lab results. Lab results narrative: CBC shows white count 6. H&H 11.9 and 36. Platelets 223. BMP unremarkable. Gap 12. BUN and creatinine are normal at 17 and 0.9. Glucose 99. Initial troponin is less than 6. CT brain and CTA head and neck read as negative per the radiologist. Chronic changes. Labs: Laboratory Results - last 24 hr 07/18/25 07/18/25 07/18/25 22:25 23:00 23:20 WBC 6.3 RBC 3.84 L Hgb 11.9 L Hct 36.0 L MCV 93.8 MCH 31.0 MCHC 33.1 RDW Std Deviation 42.7 RDW Coeff of Nico 12.4 Plt Count 223 MPV 9.8 Immature Gran % (Auto) 0.200 Neut % (Auto) 48.8 Lymph % (Auto) 38.3 Tripp % (Auto) 9.5 Eos % (Auto) 2.2 Baso % (Auto) 1.0 Absolute Neuts (auto) 3.1 Absolute Lymphs (auto) 2.41 Nucleated RBC % 0 PT 13.4 INR 1.0 APTT 25.2 Sodium Cancelled 137 Potassium Cancelled 4.4 Chloride Cancelled 103 Carbon Dioxide Cancelled 21.9 Anion Gap Cancelled 12 BUN Cancelled 17 Creatinine Cancelled 0.95 Estim Creat Clear Calc Not Reportable 39.67 L Est GFR (MDRD) Non-Af Cancelled 59 L BUN/Creatinine Ratio Cancelled 18.0 Glucose Cancelled 99 Calcium Cancelled 8.8 Troponin T High Sens < 6 Radiography Diagnostic Testing: Clinical Impression(s) from Imaging Studies Brain CT 07/18/25 21:43 IMPRESSION: No acute intracranial abnormality. No acute arterial abnormality of the head or neck. Atherosclerosis as above. Critical results were communicated to Dr. Levi at 11:18 p.m.. Reading Location: [address] Head/Neck CTA 11/18/25 21:44 IMPRESSION: No acute intracranial abnormality. No acute arterial abnormality of the head or neck. Atherosclerosis as above. Critical results were communicated to Dr. Levi at 11:18 p.m.. Reading Location: [address] Rhythm Strip Rhythm Strip: Sinus Rhythm Rate: 66 Ectopy: None EKG Initial EKG: Attestation: I personally reviewed and interpreted this EKG as follows: Interpretation: Sinus Rhythm and No Acute Injury Pattern Comments: Normal sinus rhythm rate of 66 no acute signs of NH or ischemia. First-degree AV block CT interval 256. Discharge Plan Triage Chief Complaint: Hypertension ED Provider: Yg Levi Dx/Rx/DC Orders Clinical Impression: Dizziness, nonspecific, History of hypertension Instructions: ED Dizziness, Uncertain Cause Prescriptions: No Action nadolol 20 MG tablet 20 mg PO DAILY ergocalciferol (vitamin D2) [Vitamin D2] 50,000 UNIT capsule 50,000 unit PO MO colestipol [Colestid] 1 GM tablet 1 g PO BID Paroxetine Hcl 10 MG tablet 10 mg PO DAILY oxycodone 5 mg tablet 5 mg PO Q8H PRN (Reason: pain) 3 Days Qty: 7 0RF Primary Care Provider: Hugo Serrato Referrals: Hugo Serrato MD [Primary Care Provider, Family Practice] - As soon as possible Activity Restrictions/Additional Instructions: No specific cause for your dizziness. Your exam is normal. Your CAT scan of your head and the CAT scan of your head and neck show no signs of stroke or acute abnormality. Your lab work and EKG look good. This should progressively improve. If not you may need an MRI. Follow-up your primary care physician for repeat evaluation. If you get worse return to the emergency department. Print Language: Argentine Disposition Disposition: Home, Self Care
--- OUTSIDE RECORDS SUMMARY | 2025-07-18 21:52 | XMS RPT_ITS | CCD ---
Author Organization [facility] Care Team Providers Care Construction Manager Name Role Phone Chris Serrato MD Primary Care Provider CHRIS SERRATO Primary Care Unavailable DELROY KATZ Referring Unavailable CHRIS SERRATO Primary Care Unavailable DELROY KATZ Referring Unavailable DELROY KATZ Referring Unavailable CHRIS SERRATO Primary Care Unavailable Chris Serrato MD Primary Care Provider Dr. Chris Serrato Primary Care Provider Dr. Gagandeep Stinson Attending Provider Chris Serrato MD Primary Care Provider Dr. Chris Serrato Primary Care Provider Dr. Gagandeep Stinson Attending Provider Dr. Tonny Ramirez Referring Provider Tonny Ramirez Referring Unavailable Gagandeep Stinson Attending Unavailable Chris Serrato Primary Care Unavailable Tonny Ramirez Attending Unavailable Chris Serrato Primary Care Unavailable Tonny Ramirez Referring Unavailable Chris Serrato Primary Care Unavailable Cass Rose Attending Unavailable Tannhosharon MITER SAW OPERATOR.Shaista AVALOS Unavailable David MITER SAW OPERATOR.ROBBIE Farhat Unavailable Tannhof MITER SAW OPERATOR.ROBBIE, Shaista Unavailable JUSTINA ADAMS Referring Unavailable CHRIS SERRATO Primary Care Unavailable FLAQUITA VEGA Attending Unavailable CHRIS SERRATO Primary Care Unavailable ROSALBA MCWILLIAMSSSE Attending Unavailable CHRIS SERRATO Primary Care Unavailable CHRIS SERRATO Referring Unavailable CHRIS SERRATO Primary Care Unavailable CHRIS SERRATO Primary Care Unavailable CHRIS SERRATO Attending Unavailable SELF Referring Unavailable ELVIRACHRIS WILSON Primary Care Unavailable ELVIRACHRIS WILSON Primary Care Unavailable VIKTORIYA IGLESIAS Attending Unavailable ELVIRACHRIS WILSON Primary Care Unavailable MIMI GROSS Attending Unavailable MIMI GROSS Referring Unavailable ELDERKATIE, CHRIS Carrillo Primary Care Unavailable CHRIS SERRATO Attending Unavailable CHRIS SERRATO Primary Care Unavailable JOSEPH STUART Attending Unavailable CHRIS SERRATO Primary Care Unavailable KALESSA, JUSTINA Attending Unavailable SWCADENCE JOSEPH Referring Unavailable NADIR, CHRIS D Primary Care Unavailable KALESSA, JUSTINA Referring Unavailable ELVIRAKATIE CHRIS D Primary Care Unavailable KALESSA, JUSTINA Referring Unavailable CHRIS SERRATO D Primary Care Unavailable Allergies Allergy Classification Reported Allergen(s) Allergy Type Date of Onset Reaction(s) Facility Cephalosporins (antibiotic) (2 sources) Cephalexin Drug Allergy 5 Intolerance Dihydrofolate Reductase Inhibitors (antibiotic) (2 sources) Trimethoprim Drug Allergy 5 Intolerance Promethazine (2 sources) Promethazine Drug Allergy 5 Mental Status Change Work Phone: (20 sources) Cephalexin; Translations: [CEPHALEXIN] Drug Allergy 5 Intolerance (20 sources) Promethazine; Translations: [PROMETHAZINE HCL] Drug Allergy 5 Mental Status Change Work Phone: (20 sources) Trimethoprim; Translations: [TRIMETHOPRIM] Drug Allergy 5 Intolerance (3 sources) Cephalexin; Translations: [cephalexin monohydrate] Drug Allergy 1 Nausea [facility] (1 source) Promethazine Drug Allergy 4 [facility] Repository (1 source) Trimethoprim Drug Allergy 4 [facility] Repository Medications Current Medications Medication Drug Class(es) Dates Sig (Normalized) Sig (Original) amoxicillin 875 mg / clavulanate 125 mg oral tablet (2 sources) Penicillin-class Antibacterial Start: 12-23-2023 End: 12-28-2023 take 1 tablet by mouth twice daily amoxicillin-clav ulanate potassium (AUGMENTIN) 875-125 mg per tablet Take 1 tablet by mouth two times a day for 5 days. 10 tablet 0 12/23/2023 12/28/2023 Active Start: 12-01-2022 End: 12-06-2022 take 1 tablet by mouth twice daily amoxicillin-clavulanic acid (AUGMENTIN) 875-125 mg per tablet Indications: Acute non-recurrent frontal sinusitis Take 1 tablet by mouth twice daily for 5 days. 10 tablet 0 12/01/2022 12/06/2022 Active Comment on above: Take 1 tablet by [facility] twice daily for 5 days. azithromycin 250 mg oral tablet (2 sources) Macrolide Antimicrobial Start: End: take 2 tablets by mouth once daily, then take 1 tablet by mouth once daily azithromycin (ZITHROMAX) 250 mg tablet Indications: Rhinosinusitis Take 2 tablets by mouth once daily for 1 day, THEN 1 tablet once daily for 4 days. 6 tablet 09/23/2024 09/28/2024 Active budesonide 0.032 mg/actuat metered dose nasal spray (2 sources) Corticosteroid Start: End: take 2 spray(s) by mouth once daily budesonide (RHINOCORT AQ) 32 mcg/actuation nasal spray Indications: Rhinosinusitis Use 2 Sprays in each nostril once daily for 14 days. Rinse mouth after use. 8.43 mL 09/23/2024 10/07/2024 Active colestipol hydrochloride 1000 mg oral tablet (20 sources) Bile Acid Sequestrant Start: take 2 tablets by mouth once daily colestipol (COLESTID) 1 gram tablet Take 2 tablets by mouth once daily. 180 tablet 3 12/17/2021 Active Start: 10-17-2019 End: 11-28-2020 take 2 tablets by mouth once daily colestipol (COLESTID) 1 gram tablet Take 2 tablets by mouth once daily. 180 tablet 3 10/17/2019 11/28/2020 Discontinued Start: 02-17-2015 End: 02-27-2025 take 1 tablet by mouth twice daily colestipol (COLESTID) 1 gram tablet Take 1 tablet by mouth two times a day. 180 tablet 3 02/27/2025 Active Comment on above: Take 2 tablets by mo arh once daily. Take 1 tablet by randa th twice daily. doxycycline hyclate 100 mg oral tablet (2 sources) Tetracycline-clas s Drug Start: 5 End: 5 take 1 tablet by mouth twice daily doxycycline (VIBRA-TABS) 100 mg tablet Indications: Sinobronchitis Take 1 tablet by mouth two times a day for 10 days. 20 tablet 09/16/2024 09/26/2024 Active enteric contrast (will be provided with radiology test) (2 sources) Start: 3 End: 3 enteric contrast (will be provided with radiology test) For CT CHESTABD/PEL W IVCON Routine order Administer, As Directed One Time Only, via Oral, Rectal, both Oral and Rectal, Enteric Tube, Stoma or Indwelling Catheter, Enteric Contrast as designated per enteric contrast guidelines 1 Each 0 08/10/2023 08/11/2023 Active Start: 08-18-2022 End: 08-19-2022 enteric contrast (will be pr ovided with radiology test) Indications: Right lower quadrant abdominal pain For CT ABD/PEL W IVCON Routine order Administer, As Directed One Time Only, via Oral, Rectal, both Oral and Rectal, Enteric Tube, Stoma or Indwelling Catheter, Enteric Contrast as designated per enteric contrast guidelines 1 Each 0 08/18/2022 08/19/2022 Active Comment on above: For CT ABD/PEL W IVC ON Routine order Administer, As Directed One Time Only, via Oral, Rectal, both Oral and Rectal, Enteric Tube, Stoma or Indwelling Catheter, Enteric Contrast as designated per enteric contrast guidelines For CT CHESTABD/PEL W IVCON Routine order Administer, As Directed One Time Only, via Oral, Rectal, both Oral and Rectal, Enteric Tube, Stoma or Indwelling Catheter, Enteric Contrast as designated per enteric contrast guidelines iv contrast (will be provided with radiology test) (2 sources) Start: 08-10-2023 End: 08-11-2023 iv contrast (will be provided with radiology test) CT Chest ABD/PEL-Inject, intravenously, once for 1 dose.No IV access, insert saline lock prior to the beginning of sedation, infusion, injection of imaging exam. Discontinue saline lock post exam. If Pt. has a central line or IVAD, may access for administration according to line specific nursing protocol. Once exam is complete flush line and de-access according to line specific nursing protocol in the CT contrast administration guidelines link. 1 Each 0 08/10/2023 08/11/2023 Active Start: 08-18-2022 End: 08-19-2022 iv contrast (will be provide d with radiology test) Indications: Right lower quadrant abdominal pain CT ABD/PEL -Inject, intravenously, once for 1 dose.No IV access, insert saline lock prior to the beginning of sedation, infusion, injection of imaging exam. Discontinue saline lock post exam. If Pt. has a central line or IVAD, may access for administration according to line specific nursing protocol. Once exam is complete flush line and de-access according to line specific nursing protocol in the CT contrast administration guidelines link. 1 Each 0 08/18/2022 08/19/2022 Active Comment on above: CT ABD/PEL -Inject, intravenously, once for 1 dose.No IV access, insert saline lock prior to the beginning of sedation, infusion, injection of imaging exam. Discontinue saline lock post exam. If Pt. has a central line or IVAD, may access for administration according to line specific nursing protocol. Once exam is complete flush line and de-access according to line specific nursing protocol in the CT contrast administration guidelines link. CT Chest ABD/PEL-Inj ect, intravenously, once for 1 dose.No IV access, insert saline lock prior to the beginning of sedation, infusion, injection of imaging exam. Discontinue saline lock post exam. If Pt. has a central line or IVAD, may access for administration according to line specific nursing protocol. Once exam is complete flush line and de-access according to line specific nursing protocol in the CT contrast administration guidelines link. loratadine 10 mg oral tablet (10 sources) Start: 09-23-19 25 take 1 tablet by mouth once daily loratadine (CLARITIN) 10 mg tablet Indications: Rhinosinusitis Take 1 tablet by mouth once daily. 30 tablet 11 09/23/2024 Active nadolol 20 mg oral tablet (20 sources) beta-Adrenergic Tra Start: 02-15-20 24 End: 02-28-20 25 take 1 tablet by mouth once daily nadolol (CORGARD) 20 mg tablet Indications: Palpitations Take 1 tablet by mouth once daily. 90 tablet 3 02/27/2025 Active Start: 02-17-2015 End: 02-12-2024 take 1 tablet by mouth once daily nadolol (CORGARD) 20 mg tablet Indications: Palpitations Take 1 tablet by mouth once daily. 90 tablet 3 07/05/2019 10/17/2020 Discontinued Comment on above: take 1 tablet by randa th once daily Take 1 tablet by randa th once daily. nitrofurantoin, macrocrystals 25 mg / nitrofurantoin, monohydrate 75 mg oral capsule (2 sources) Nitrofuran Antibacterial Start: 01-10-20 End: 01-15-20 take 1 capsule by mouth twice daily nitrofurantoin monohydrate and macrocrystal (MACROBID) 100 mg capsule Take 1 capsule by mouth two times a day for 5 days. 10 capsule 01/09/2025 01/14/2025 Active oxyCODONE hydrochloride 5 mg oral tablet (1 source) Opioid Agonist Start: 12-31-19 take 5 mg by mouth every eight hours Oxycodone Active 5 MG PO Q8H 7 December 31, 2023 PARoxetine hydrochloride 20 mg oral tablet (20 sources) Serotonin Reuptake Inhibitor Start: 05-15-20 End: 11-12-19 take 1 tablet by mouth once daily PARoxetine (PAXIL) 20 mg tablet Indications: Anxiety with depression Take 1 tablet by mouth once daily. 90 tablet 1 05/15/2025 11/11/2025 Active Start: 02-15-2024 End: 05-11-2025 take 1 tablet by mouth once daily PARoxetine (PAXIL) 20 mg tablet Indications: Anxiety with depression Take 1 tablet by mouth once daily. 90 tablet 1 09/07/2024 05/11/2025 Discontinued Start: 11-06-2022 End: 02-12-2024 take 1 tablet by mouth once daily PARoxetine (PAXIL) 20 mg tablet Indications: Anxiety with depression Take 1 tablet by mouth once daily. 90 tablet 1 07/13/2023 02/12/2024 Discontinued Start: 11-12-2020 take 10 mg by mouth once daily Paroxetine Hcl Active 10 MG PO DAILY November 12, 2020 12:00am Start: 02-13-2020 End: 11-06-2022 take 1 tablet by mouth once daily PARoxetine (PAXIL) 10 mg tablet take 1 tablet by mouth once daily 90 tablet 3 05/08/2022 11/06/2022 Discontinued Comment on above: Take 1 tablet by randa th once daily. take 1 tablet by randa th once daily predniSONE 10 mg oral tablet (2 sources) Start: 09-27-2024 End: 10-06-2024 predniSONE (DELTASONE) 10 mg tablet Indications: Acute non-recurrent frontal sinusitis Take 4 tabs daily for 3 days, then 2 tabs daily for 3 days, then 1 tab daily for 3 days with food. 21 tablet 09/27/2024 10/06/2024 Active Start: 09-16-2024 End: 09-21-2024 take 2 tablets by mouth once daily at mealtime predniSONE (DELTASONE) 20 mg tablet Indications: Sinobronchitis Take 2 tablets by mouth once daily for 5 days. Take daily with food. 10 tablet 09/16/2024 09/21/2024 Active Completed/Discontinued Medications Medication Drug Class(es) Dates Sig (Normalized) Sig (Original) aspirin 81 mg chewable tablet (2 sources) Platelet Aggregation Inhibitor, Nonsteroidal Anti-inflammatory Drug Start: 11-13-2020 End: 12-13-2020 take 81 mg by mouth once daily Aspirin Discontinued 81 MG PO DAILY@0800 30 November 13, 2020 12:00am December 13, 2020 12:03am atorvastatin 40 mg oral tablet (2 sources) HMG-CoA Reductase Inhibitor Start: 11-13-2020 End: 12-13-2020 take 40 mg by mouth at bedtime Atorvastatin Discontinued 40 MG PO AT BEDTIME November 13, 2020 12:00am December 13, 2020 12:03am bismuth subsalicylate 262 mg chewable tablet (20 sources) Bismuth Start: 08-12-2023 End: 03-31-2025 take 1 tablet by mouth four times daily bismuth subsalicylate (PEPTO-BISMOL) 262 mg chewable tablet Indications: H. pylori infection Take 1 tablet by mouth four times daily for 10 days. 40 tablet 08/12/2023 03/31/2025 Discontinued Comment on above: Take 1 tablet by randa th four times daily for 10 days. cholestyramine resin 4000 mg powder for oral suspension (3 sources) Bile Acid Sequestrant Start: 12-26-2022 take 4 g by mouth twice daily at mealtime cholestyramine-suc sumaya (QUESTRAN) 4 gram powder Take 4 g by mouth twice daily with meals. 348.6 g 2 12/26/2022 Active Comment on above: Take 4 g by mouth tw ice daily with meals. ergocalciferol 1.25 mg oral capsule (20 sources) Provitamin D2 Compound Start: 04-11-2020 End: 05-26-2022 take 1 capsule by mouth every week VITAMIN D2 1,250 mcg (50,000 unit) capsule Indications: Vitamin D deficiency take 1 capsule by mouth every week 12 capsule 3 05/26/2022 Active Start: 02-17-2015 take 1 capsule by mouth once E rgocalciferol (Vitamin D2) (Vitamin D2) 50,000 UNIT capsule Active 07474 UNIT PO MO February 17, 2015 12:00am Comment on above: Take 1 capsule by mo ut one time a week. take 1 capsule by mo ut every week hydrocortisone 25 mg/ml topical cream (1 source) Corticosteroid Start: End: hydrocortisone (ANUSOL-HC) 2.5 % rectal cream by RECTAL route twice daily. 60 g 08/04/2019 03/15/2021 Discontinued (Course of therapy completed) ketoconazole 20 mg/ml topical cream (18 sources) Azole Antifungal Start: End: ketoconazole (NIZORAL) 2 % cream Apply 1 application to affected area once daily. Apply to rash and surrounding area 30 g 11/11/2018 07/27/2023 Discontinued Comment on above: Apply 1 application to affected area once daily. Apply to rash and surrounding area Multivitamin preparation (2 sources) Start: End: take 1 tablet by mouth once daily Multivitamin Discontinued 1 TABLET PO DAILY@0800 30 November 13, 2020 12:00am December 13, 2020 12:03am Start: 11-13-2020 End: 12-13-2020 take 1 tablet by mouth once daily Multivitamin Discontinued 1 TABLET PO DAILY@0800 30 30 November 12, 2020 11:00pm December 12, 2020 11:03pm Xtqfuodtivbdo-Inkeypzw-Cimvy n (CENTRUM SILVER) ORAL Tab (1 source) Start: 12-31-2006 End: 11-29-2021 take 1 tablet by mouth once daily Bkzckqvwgbkqx-Oxcpjjsq-Nharsv (CENTRUM SILVER) ORAL Tab Take one(1) tablet daily. 1 0 12/31/2006 11/29/2021 Discontinued pantoprazole 40 mg delayed release oral tablet (4 sources) Proton Pump Inhibit or Start: 08-12-2023 End: 02-20-2024 take 1 tablet by mouth twice daily pantoprazole DR (PROTONIX) 40 mg tablet Indications: H. pylori infection Take 1 tablet by mouth two times a day for 10 days. 20 tablet 0 08/12/2023 02/20/2024 Discontinued Comment on above: Take 1 tablet by randa th two times a day for 10 days. Problems Active Problems Problem Classification Problem Date Documented Date Episodic/Chronic Abdominal pain (8 sources) Right lower quadrant pain; Translations: [Right lower quadrant pain] Onset: 08-19-2022 Episodic Anxiety disorders (20 sources) Anxiety; Translations: [Anxiety disorder, unspecified] Onset: 07-03-2010 07-03-2010 Chronic Chronic kidney disease (1 source) Chronic kidney disease; Translations: [Stage 3a chronic kidney disease (HCC)] Onset: 06-28-2025 Disorders of lipid metabolism (20 sources) Hyperlipidemia; Translations: [Hyperlipidemia, unspecified] Onset: 07-03-2010 Resolved: 09-22-2014 04-08-2012 Chronic Esophageal disorders (20 sources) Gastroesophageal reflux disease; Translations: [Gastro-esophageal reflux disease without esophagitis] Onset: 07-03-2010 07-03-2010 Chronic Esophageal disorders (1 source) Esophageal disorders; Translations: [Gastroesophageal reflux disease with esophagitis without hemorrhage] Onset: 07-03-2010 Fracture of upper limb (2 sources) Fracture at wrist and/or hand level; Translations: [Fracture of unspecified carpal bone, right wrist, initial encounter for closed fracture] Onset: 01-07-2024 12-31-2023 Episodic Genitourinary symptoms and ill-defined conditions (20 sources) Female stress incontinence; Translations: [Stress incontinence (female) (male)] Onset: 02-06-2011 02-06-2011 Chronic Genitourinary symptoms and ill-defined conditions (4 sources) Increased frequency of urination; Translations: [Frequency of micturition] Onset: 01-09-2025 01-09-2025 Episodic Mood disorders (2 sources) Depressive disorder; Translations: [Depression] 11-12-2020 Chronic Nutritional deficiencies (20 sources) Vitamin D deficiency; Translations: [Vitamin D deficiency, unspecified] Onset: 07-03-2010 07-03-2010 Chronic Osteoarthritis (1 source) Bilateral primary osteoarthritis of knee; Translations: [Primary osteoarthritis of both knees] Onset: 06-28-2025 Chronic Other circulatory disease (1 source) Other specified peripheral vascular diseases; Translations: [Other specified peripheral vascular diseases] Onset: 11-04-2023 Chronic Other connective tissue disease (1 source) Bursitis of olecranon of left elbow; Translations: [Olecranon bursitis, left elbow] Episodic Other inflammatory condition of skin (20 sources) Rosacea; Translations: [Rosacea, unspecified] Onset: 08-10-2009 08-10-2009 Chronic Other injuries and conditions due to external causes (1 source) Injury of left knee; Translations: [Unspecified injury of left lower leg, initial encounter] 09-13-2020 Episodic Other nervous system disorders (2 sources) Other chronic pain; Translations: [Abdominal pain, chronic, generalized] Onset: 06-12-2025 Chronic Other non-traumatic joint disorders (1 source) Pain in right knee; Translations: [Acute pain of both knees] Onset: 06-28-2025 Episodic Other non-traumatic joint disorders (1 source) Pain in left knee; Translations: [Acute pain of both knees] Onset: 06-28-2025 Episodic Other screening for suspected conditions (not mental disorders or infectious disease) (3 sources) Patient encounter status; Translations: [Encounter for screening for osteoporosis] 03-10-2024 Episodic Other upper respiratory disease (20 sources) Chronic rhinitis; Translations: [Chronic rhinitis] Onset: 07-03-2010 07-03-2010 Chronic Other upper respiratory infections (2 sources) Chronic sinusitis; Translations: [Chronic sinusitis, unspecified] 09-16-2024 Chronic Transient cerebral ischemia (2 sources) Transient cerebral ischemia; Translations: [Transient cerebral ischemic attack, unspecified] 11-12-2020 Chronic Unclassified (20 sources) Herniated urinary bladder; Translations: [Cystocele] Onset: 02-06-2011 02-06-2011 Past or Other Problems Problem Classification Problem Date Documented Da te Episodic/Chronic Allergic reactions (20 sources) Radiation-induced dermatosis; 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 radiation] Onset: 06-23-2006 Resolved: 11-27-2016 05-25-2013 Episodic Cardiac dysrhythmias (20 sources) Palpitations; Translations: [Palpitations] Onset: 07-03-2010 07-03-2010 Episodic Diabetes mellitus without complication (4 sources) Increased glucose level; Translations: [Other abnormal glucose] Onset: 09-22-2024 02-20-2024 Episodic E Codes: Fall (4 sources) Fall; Translations: [Unspecified fall, initial encounter] Onset: 01-15-2025 12-31-2023 Episodic E Codes: Fall (3 sources) Fall on same level from slipping, tripping or stumbling 01-15-2025 Essential hypertension (20 sources) Hypertensive disorder; Translations: [Essential (primary) hypertension] Onset: 07-03-2010 Resolved: 07-03-2010 11-12-2020 Chronic Neoplasms of unspecified nature or uncertain behavior (20 sources) Neoplasm of uncertain behavior of skin; Translations: [Neoplasm of uncertain behavior of skin] Onset: 02-19-2012 Resolved: 05-25-2013 05-25-2013 Episodic Other bone disease and musculoskeletal deformities (20 sources) Osteopenia; Translations: [Other specified disorders of bone density and structure, unspecified site] Onset: 07-03-2010 08-26-2021 Episodic Other eye disorders (20 sources) Dermatochalasis of right upper eyelid; Translations: [Dermatochalasis] Onset: 11-29-2021 Resolved: 11-29-2021 11-29-2021 Episodic Other gastrointestinal disorders (20 sources) Diarrhea; Translations: [Diarrhea, unspecified] Onset: 09-21-2013 09-21-2013 Episodic Other gastrointestinal disorders (1 source) Diarrhea, unspecified; Translations: [Diarrhea, unspecified type] Onset: 09-21-2013 Episodic Other inflammatory condition of skin (20 sources) Perioral dermatitis; Translations: [Perioral dermatitis] Onset: 08-10-2009 Resolved: 11-27-2016 11-27-2016 Chronic Other non-epithelial cancer of skin (20 sources) History of malignant neoplasm of skin; Translations: [Personal history of other malignant neoplasm of skin] Onset: 06-23-2006 06-23-2006 Episodic Other skin disorders (20 sources) Actinic keratosis; Translations: [Actinic keratosis] Onset: 06-23-2006 Resolved: 09-22-2014 09-22-2014 Episodic Other skin disorders (20 sources) Seborrheic keratosis; Translations: [Other seborrheic keratosis] Onset: 06-23-2006 Resolved: 11-27-2016 05-25-2013 Episodic Other skin disorders (20 sources) Scar conditions and fibrosis of skin; Translations: [Scar conditions and fibrosis of skin] Onset: 06-23-2006 Resolved: 05-25-2013 05-25-2013 Episodic Other skin disorders (20 sources) Disorder of skin pigmentation; Translations: [Disorder of pigmentation, unspecified] Onset: 06-23-2006 Resolved: 05-25-2013 05-25-2013 Episodic Other skin disorders (20 sources) Keloid scar; Translations: [Hypertrophic scar] Onset: 09-24-2006 Resolved: 05-25-2013 05-25-2013 Episodic Other skin disorders (20 sources) Inflamed seborrheic keratosis; Translations: [Inflamed seborrheic keratosis] Onset: 04-12-2007 Resolved: 11-27-2016 05-25-2013 Episodic Other skin disorders (20 sources) Sebaceous cyst of skin; Translations: [Sebaceous cyst] Onset: 09-24-2007 Resolved: 05-25-2013 05-25-2013 Episodic Other skin disorders (20 sources) Disorder of pigmentation; Translations: [Disorder of pigmentation, unspecified] Onset: 02-28-2008 Resolved: 05-25-2013 05-25-2013 Episodic Other skin disorders (20 sources) Solar lentigo; Translations: [Other melanin hyperpigmentation] Onset: 08-10-2009 Resolved: 11-27-2016 11-27-2016 Episodic Other skin disorders (20 sources) Changes in skin texture; Translations: [Other skin changes] Onset: 04-02-2012 Resolved: 11-27-2016 11-27-2016 Episodic Other skin disorders (20 sources) Skin tag; Translations: [Other hypertrophic disorders of the skin] Onset: 09-09-2013 Resolved: 11-27-2016 11-27-2016 Episodic Other upper respiratory infections (5 sources) Acute frontal sinusitis; Translations: [Acute frontal sinusitis, unspecified] Onset: 09-16-2024 Episodic Urinary tract infections (2 sources) Urinary tract infectious disease; Translations: [Urinary tract infection, site not specified] Onset: 01-09-2025 01-09-2025 Episodic Viral infection (20 sources) Verruca vulgaris; Translations: [Viral wart, unspecified] Onset: 04-12-2007 Resolved: 05-25-2013 12-28-2013 Episodic Results Test Name Value Interpretation Reference Range Facility OV 06-28-2025 [facility] Office Visit ([facility] ) RUPERT DOLL ([id number]) 1940 F Date Time Provider Department 06/28/25 3:00 PM FLAQUITA VEGA During your visit today, we recorded the following information about you: Pulse Blood pressure Weight 72/minute 128/72 63 kg Flaquita Vega 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 No injury. Recording using Mor.sl software for draft documentation of the visit was discussed with the patient/authorized canvas products sales representative; all questions welcomed and answered. Patient/authorized canvas products sales representative agreed to proceed SUBJECTIVE: This is a 85 year old that is here today for Above Complaints. TOYA Doll is an 85-year-old female presenting with bilateral knee pain. Bilateral Knee Pain: - Onset: Approximately 1.5 weeks ago. - Location: Posterior aspect of both knees. - Quality: Described as very sharp and throbbing. - Aggravating Factors: Standing up, bending over. - Alleviating Factors: Tylenol provides minimal relief. - Associated Symptoms: Burning sensation; denies swelling or bruising. - Recent Activity: Spent 1.5 hours cutting hostas, involving repetitive bending and reaching. - Treatment: Taking two extra strength Tylenol tablets once daily for the past two days. - Denies previous knee problems or surgeries. - Recent Fall: Fell in December, resulting in wrist fracture; denies knee injury at that time. - Recent Imaging: X-rays of both knees in December showed moderate tricompartmental osteoarthritis; no fractures or dislocations. PAST MEDICAL HISTORY Diagnosis Date Anxiety state, unspecified Diverticulosis of colon with hemorrhage Dysplasia of cervix, unspecified Other and unspecified hyperlipidemia Unspecified hemorrhoids without mention of complication ALLERGIES Phenergan [Promethazine Hcl], Keflex [Cephalexin], and Trimpex [Trimethoprim] MEDICATIONS Current Outpatient Medications Medication Sig PARoxetine (PAXIL) 20 mg tablet Take 1 tablet by mouth once daily. colestipol (COLESTID) 1 gram tablet Take 1 tablet by mouth two times a day. nadolol (CORGARD) 20 mg tablet Take 1 tablet by mouth once daily. loratadine (CLARITIN) 10 mg tablet Take 1 tablet by mouth once daily. (Patient not taking: Reported on 03/31/2025) No current facility-administered medications for this visit. Medications and allergies reviewed by this provider. SOCIAL HISTORY SOCIAL HISTORY[1] REVIEW OF SYSTEMS All other reviewed and negative other than HPI. OBJECTIVE: BP 128/72 Pulse 72 Wt 63 kg (139 lb) SpO2 97% BMI 23.13 kg/m? . Vital signs reviewed by this provider. APPEARANCE Well appearing, alert, in no acute distress, well-hydrated, well nourished. KNEE: No obvious deformity, swelling or ecchymosis. FROM without difficulty. Negative anterior/posterior drawer test. Negative Sree. No crepitus EXTREMITIES Extremities normal, No deformities, No skin discoloration, No edema, SKIN Skin color, texture, turgor normal, no suspicious rashes or lesions 1. Acute pain of both knees (M25.561) 2. Primary osteoarthritis of both knees (M17.0) - Bilateral posterior knee pain for 1.5 weeks, sharp and throbbing, worsened by standing and bending; no swelling or bruising. - Recent overuse injury likely from prolonged gardening activity; reviewed prior X-rays from January 22 showing moderate tricompartmental osteoarthritis in both knees. - Advised against NSAIDs due to CKD; instructed on safe use of Tylenol Extra Strength 500 mg, 2 tablets every 6 hours, not to exceed 6 tablets (3 grams) per day. - Recommended topical muscle cream (e.g., Biofreeze, Bengay) and application of heat or ice for 15 minutes to each knee, with topical applied after heat/ice. - Advised to continue stationary biking but avoid activities that strain the knees; explained expected course of muscle strain and when to seek further evaluation. 3. Stage 3a chronic kidney disease (HCC) (N18.31) - Advised to avoid NSAIDs (ibuprofen, naproxen, Motrin) due to risk of worsening renal function. - Explained difference between Tylenol (liver metabolism) and NSAIDs (renal metabolism) and rationale for avoiding NSAIDs. Flaquita Podlogar, MITER SAW OPERATOR.TOLL COLLECTOR SUPERVISOR Prescription instructions reviewed with patient as applicable. Patient advised if symptoms do not improve or if symptoms worsen sooner, to contact their primary care physician. Potential red flag symptoms discussed with the patient. Reviewed appropriate action plan to take if red flag symptoms occur. Patient agreeable to treatment plan. 47[address] OVERALL COMPLEXITY Problem Complexity: Moderate Data Level: Straightforward Risk Level: Low Overall MDM complexity (2/3 must be met or exceeded): Low PROBLEMS SECTION: 1. Acute pain of both knees - Acute, uncomplicated illness or injury 2 (more content not included)... Normal [facility] CT ABD/PEL W IVCONon 06-27-[address] ABD/PEL W IVCON * * *Final Report* * * DATE OF EXAM: Jun 27 2025 11:11AM [facility] 0530 - CT ABD/PEL W IVCON / PROCEDURE REASON: multiple diagnoses * * * * Physician Interpretation * * * * EXAMINATION: CT ABDOMEN AND PELVIS WITH IV CONTRAST CLINICAL HISTORY: Generalized abdominal pain. TECHNIQUE: CT of the abdomen and pelvis was performed using standard technique, scanning from just above the dome of the diaphragm to the symphysis pubis. MQ: CTAP_3 Contrast: IV: 100 ml of Omnipaque 350 Oral: 10 ml of Omni 240 10-25ml diluted with water CT Radiation dose: Integrated Dose-length product (DLP) for this visit = 427 mGy*cm. CT Dose Reduction Employed: Automated exposure control(AEC) and iterative recon COMPARISON: CT 2021. RESULT: Liver: No mass. Mild hepatic steatosis. Biliary: No bile duct dilation. Cholecystectomy. Spleen: No mass. No splenomegaly. Pancreas: No mass or duct dilation. Adrenals: No mass. Kidneys: No solid mass, calculus or hydronephrosis. GI tract: Small hiatal hernia. No dilation or wall thickening. Colonic diverticulosis without acute diverticulitis. Normal appendix. Lymph nodes: No enlarged abdominal or pelvic lymphadenopathy. Mesentery/Peritoneum: No ascites or mass. Retroperitoneum: No mass. Vasculature: - Abdominal aorta and iliac arteries: Atherosclerotic calcifications without aneurysm. - Celiac and SMA: Atherosclerotic calcifications at the origins. - Portal venous system (SMV, splenic vein, portal vein and branches): Patent. - Hepatic veins: Patent. Pelvis: No mass, ascites or fluid collection. Hysterectomy. Bones/Soft Tissues: Degenerative changes. Lower thorax: Unremarkable. Localizer images: No additional findings. IMPRESSION: No acute abdominopelvic process. Aitchbone Breaker: ELISA Transcribe Date/Time: Jul 03 2025 12:50A Dictated by : KIRTI LIZAMA MD This examination was interpreted and the report reviewed and electronically signed by: KIRTI LIZAMA MD on Jul 03 2025 1:00AM EST [id number] Normal [facility]UPERT [facility] ([id number]) 1940 F Date Time Provider Department 06/22/25 [facility] During your visit today, we recorded the following information about you: Irma Vasquez RN 06/22/2025 8:59 AM Signed Patient is currently taking Cipro and flagyl and has developed a yeast infection (burning, itching, discharge). Patient asking if provider would send a prescription to [facility] for something. Pended fluconazole. NARAYAN Cruz Mark D, MD 06/22/2025 10:07 AM Signed OK for Diflucan as ordered Chris Serrato MD Allergies As of Date: 06/22/2025 Noted Allergy Reaction PHENERGAN (PROMETHAZINE HCL) 08/05/2005 1 - Mental Status Change Comments: Oculogyric Crisis KEFLEX (CEPHALEXIN) 08/05/2005 5 - Intolerance TRIMPEX (TRIMETHOPRIM) 08/05/2005 5 - Intolerance Date Reviewed: 06/12/2025 Reviewed by: Justina Adams APRN.TOLL COLLECTOR SUPERVISOR - Fully Assessed Reason for Visit: Patient Update [1234] Order(s):fluconazole (DIFLUCAN) 150 mg tabletTake 1 tablet by mouth one time only for 1 dose.Disp: 1 tabletRfl: 0 Prescriptions as of 06/22/2025 - fluconazole (DIFLUCAN) 150 mg tablet Take 1 tablet by mouth one time only for 1 dose. - metroNIDAZOLE (FLAGYL) 500 mg tablet Take 1 tablet by mouth three times a day for 10 days. - ciprofloxacin HCl (CIPRO) 500 mg tablet Take 1 tablet by mouth two times a day for 10 days. - PARoxetine (PAXIL) 20 mg tablet Take 1 tablet by mouth once daily. - colestipol (COLESTID) 1 gram tablet Take 1 tablet by mouth two times a day. - nadolol (CORGARD) 20 mg tablet Take 1 tablet by mouth once daily. - loratadine (CLARITIN) 10 mg tablet Take 1 tablet by mouth once daily. 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] 06/23/2006 09/22/2014 PERS HX SKIN MALIGNANCY NEC [Z85.828] 06/23/2006 Other seborrheic keratosis [L82.1] 06/23/2006 05/25/2013 Scar condition and fibrosis of skin [L90.5] 06/23/2006 05/25/2013 ACTINIC DAMAGE///CHR SOLAR SKIN DAMAGE NOS [L57*06/23/2006 05/25/2013 SOLAR LENTIGINES [L81.9] 06/23/2006 05/25/2013 Keloid scar [L91.0] 09/24/2006 05/25/2013 SEBORRHEIC KERATOSES IRRITATED//INFLAMED [L82.0]04/12/2007 05/25/2013 Viral warts, unspecified [B07.9] 04/12/2007 05/25/2013 Sebaceous cyst [L72.3] 09/24/2007 05/25/2013 Dyschromia, unspecified [L81.9] 02/28/2008 05/25/2013 Solar Lentigines [L81.4] 08/10/2009 11/27/2016 Rosacea [L71.9] 08/10/2009 Perioral dermatitis [L71.0] 08/10/2009 11/27/2016 Other and unspecified hyperlipidemia [E78.5] 07/03/2010 09/22/2014 Vitamin D deficiency [E55.9] 07/03/2010 Osteopenia [M85.80] 07/03/2010 HTN (hypertension) [I10] 07/03/2010 07/03/2010 Anxiety [F41.9] 07/03/2010 Chronic rhinitis [J31.0] 07/03/2010 GERD (gastroesophageal reflux disease) [K21.9] 07/03/2010 Palpitations [R00.2] 07/03/2010 Cystocele [QZR6555] 02/06/2011 Female stress incontinence [N39.3] 02/06/2011 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 [D*02/19/2012 05/25/2013 Actinic skin damage [L57.8] 02/19/2012 11/27/2016 Postinflammatory skin changes [R23.8] 04/02/2012 11/27/2016 Hyperlipidemia [E78.5] 04/08/2012 Irritated//Inflamed Seborrheic Keratosis [L82.0]05/25/2013 11/27/2016 Other Seborrheic Keratoses [L82.1] 05/25/2013 11/27/2016 Cutaneous skin tags [L91.8] 09/09/2013 11/27/2016 Diarrhea [R19.7] 09/21/2013 Viral wart [B07.9] 12/28/2013 Dermatochalasis of both upper eyelids [H02.831,*11/29/2021 11/29/2021 Abdominal pain, chronic, generalized [R10.84, G*06/12/2025 Prescriptions ordered this encounter Disp Refills Start End FLUCONAZOLE 150 MG TABLET 1 ta* 0 06/22/2025 06/22/2025 Route: PO Sig: Take 1 tablet by mouth one time only for 1 dose. Encounter Status:Closed by MILLICENT SMITH on 06/22/25 Normal [facility] Creatinine and Glomerular fi ltration rate.predicted panel (S/P/Bld)on 06-22-2025 Creatinine [Mass/Vol] 1.15 mg/dL High 0.58-0.96 [facility] Comment on above: Order Comment: Speci pierce Type: BLOOD SPECIMENOrdering Facility: [facility] Address: [address] [place] [address] Performed By: #### 4 5066-8 ####[facility] LABIA [id number] [address] [place] eGFRcr SerPlBld CKD-EPI 2020 47 mL/min/1.73m??? Low >=60 [facility] Comment on above: Order Comment: Specflorecita pelayo Type: BLOOD SPECIMENOrdering Facility: [facility] Address: [address] [place] [address] Result Comment: Floridalma mated Glomerular Filtration Rate (eGFR) is calculated using the 2020 CKD-EPI creatinine equation. This equation utilizes serum creatinine, sex, and age as parameters. The creatinine assay has traceable calibration to isotope dilution-mass spectrometry. Refer to KDIGO guidelines for clinical interpretation. In patients with unstable renal function, e.g. those with acute kidney injury, the eGFR may not accurately reflect actual GFR. Performed By: #### 4 5066-8 ####[facility] LABIA [id number] [address] [facility] CNPScarlett 06-19-2025 CNPN Telephone (ASCNOR) RUPERT DOLL ([id number]) 1940 F Date Time Provider Department 06/19/25 JUSTINA ADAMS During your visit today, we recorded the following information about you: Kendall CarmonaCaridadni 06/19/2025 8:46 AM Signed Patient called she's having burning , watery diarrhea, she thinks the Cipro and Flagyl are the cause. Please contact patient for recommendations. Justina Adams APRN.ROBBIE 06/21/2025 10:59 AM Signed We should know more if patient has diverticulitis after her CT scan that is coming up. Patient has an allergy to keflex, therefore unable to use Augmentin, or bactrim. She can still keep taking the flagyl (metronidazole). If things are worsening she should go to the ED for evaluation. Justina Adams, MSN, MITER SAW OPERATOR, MAIL EXAMINER-C Certified Family Nurse Practitioner [facility]astro[facility]ology Office June 21, 2025 10:42 AM Nannette Cosme RN 06/21/2025 11:14 AM Signed LVM for pt with advice from Justina below To call back with questions Nannette Cosme RN 06/21/2025 2:22 PM Signed Pt lvm that diarrhea has subsided and stomach pain is almost gone. She is going tomorrow to get lab work done No further questions Allergies As of Date: 06/19/2025 Noted Allergy Reaction PHENERGAN (PROMETHAZINE HCL) 08/05/2005 1 - Mental Status Change Comments: Oculogyric Crisis KEFLEX (CEPHALEXIN) 08/05/2005 5 - Intolerance TRIMPEX (TRIMETHOPRIM) 08/05/2005 5 - Intolerance Date Reviewed: 06/12/2025 Reviewed by: Justina Adams APRN.TOLL COLLECTOR SUPERVISOR - Fully Assessed Reason for Visit: Medication Problem [65] Prescriptions as of 06/21/2025 - metroNIDAZOLE (FLAGYL) 500 mg tablet Take 1 tablet by mouth three times a day for 10 days. - ciprofloxacin HCl (CIPRO) 500 mg tablet Take 1 tablet by mouth two times a day for 10 days. - PARoxetine (PAXIL) 20 mg tablet Take 1 tablet by mouth once daily. - colestipol (COLESTID) 1 gram tablet Take 1 tablet by mouth two times a day. - nadolol (CORGARD) 20 mg tablet Take 1 tablet by mouth once daily. - loratadine (CLARITIN) 10 mg tablet Take 1 tablet by mouth once daily. 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] 06/23/2006 09/22/2014 PERS HX SKIN MALIGNANCY NEC [Z85.828] 06/23/2006 Other seborrheic keratosis [L82.1] 06/23/2006 05/25/2013 Scar condition and fibrosis of skin [L90.5] 06/23/2006 05/25/2013 ACTINIC DAMAGE///CHR SOLAR SKIN DAMAGE NOS [L57*06/23/2006 05/25/2013 SOLAR LENTIGINES [L81.9] 06/23/2006 05/25/2013 Keloid scar [L91.0] 09/24/2006 05/25/2013 SEBORRHEIC KERATOSES IRRITATED//INFLAMED [L82.0]04/12/2007 05/25/2013 Viral warts, unspecified [B07.9] 04/12/2007 05/25/2013 Sebaceous cyst [L72.3] 09/24/2007 05/25/2013 Dyschromia, unspecified [L81.9] 02/28/2008 05/25/2013 Solar Lentigines [L81.4] 08/10/2009 11/27/2016 Rosacea [L71.9] 08/10/2009 Perioral dermatitis [L71.0] 08/10/2009 11/27/2016 Other and unspecified hyperlipidemia [E78.5] 07/03/2010 09/22/2014 Vitamin D deficiency [E55.9] 07/03/2010 Osteopenia [M85.80] 07/03/2010 HTN (hypertension) [I10] 07/03/2010 07/03/2010 Anxiety [F41.9] 07/03/2010 Chronic rhinitis [J31.0] 07/03/2010 GERD (gastroesophageal reflux disease) [K21.9] 07/03/2010 Palpitations [R00.2] 07/03/2010 Cystocele [RTV2105] 02/06/2011 Female stress incontinence [N39.3] 02/06/2011 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 [D*02/19/2012 05/25/2013 Actinic skin damage [L57.8] 02/19/2012 11/27/2016 Postinflammatory skin changes [R23.8] 04/02/2012 11/27/2016 Hyperlipidemia [E78.5] 04/08/2012 Irritated//Inflamed Seborrheic Keratosis [L82.0]05/25/2013 11/27/2016 Other Seborrheic Keratoses [L82.1] 05/25/2013 11/27/2016 Cutaneous skin tags [L91.8] 09/09/2013 11/27/2016 Diarrhea [R19.7] 09/21/2013 Viral wart [B07.9] 12/28/2013 Dermatochalasis of both upper eyelids [H02.831,*11/29/2021 11/29/2021 Abdominal pain, chronic, generalized [R10.84, G*06/12/2025 Encounter Status:Closed by JUSTINA ADAMS on 06/21/25 [facility] CNOVon 06-12-2025 CNOV Office Visit (GSTNOR ) RUPERT DOLL ([id number]) 1940 Date Time Provider Department 06/12/25 2:15 PM JUSTINA ADAMS GSTNOR During your visit today, we recorded the following information about you: Pulse Blood pressure Weight Height 60/minute 118/68 63 kg 1.651 m Justina Adams APRN.CNP 06/12/2025 2:53 PM Signed [facility] New Patient Consult June 12, 2025 CHIEF COMPLAINT: Patient presents with: GERD Abdominal Pain This consult was requested by Joseph Stuart APRN.CNP for an opinion regarding abdominal pain. My final recommendations will be communicated to the requesting health care provider by way of the shared medical record for internal providers or letter via the [employer] for external providers. Rupert Doll is a 84 year old female who presents for GERD and Abdominal Pain. HPI: The patient is an 84-year-old female with a history of diverticulitis, presenting for evaluation of abdominal pain. Abdominal Pain: - Dull abdominal pain localized to the LLQ, x2 weeks. - Similar feeling and pain to previous episodes of diverticulitis. - Last episode of diverticulitis was treated with antibiotics flagyl and cipro; no surgery required. - she reports that her last episode was from eating chocolate covered peanuts. - Last colonoscopy in 2013 was unremarkable. - Denies diarrhea. - she reports some abdominal bloating. - she has BM's 3-4 times a day, that are number 4 on the bristool. Colonosocpy: 2013: Status post cholecystectomy Diverticula RESULT: Liver: No mass. Biliary: No bile duct dilation. Status post cholecystectomy. Spleen: No mass. No splenomegaly. Pancreas: No mass or duct dilation. Adrenals: No mass. Kidneys: No renal or ureteral stone. No hydronephrosis seen on either side. Renal parenchyma appears unremarkable. GI tract: No dilation or wall thickening. Appendix is visualized and is unremarkable. Multiple diverticula are seen in the cecum and ascending colon. No radiographic evidence for acute diverticulitis. Multiple diverticula seen in the descending and sigmoid colon. No radiographic evidence for acute diverticulitis. Sliding-type hiatal hernia. Lymph nodes: No abdominal or pelvic lymphadenopathy. Mesentery/Peritoneum: No ascites or mass. Retroperitoneum: No mass. Vasculature: Abdominal aorta is not aneurysmally dilated. The celiac artery, SMA, renal arteries, and PEEWEE are patent. Portal vein, hepatic veins, splenic vein, and SMV are patent. Pelvis: No mass, ascites or fluid collection. Status post hysterectomy. Bones/Soft Tissues: No significant additional findings. Lower thorax: No significant additional findings. Fur Machine Operator (topogram) images: No significant additional findings. 08/20/2022 11:45 AM - Radiology, Oru In Impression IMPRESSION: 1. Diverticula noted throughout the ascending, descending, and sigmoid colon without radiographic evidence for acute diverticulitis. 2. The appendix is visualized and is unremarkable. 3. Status post cholecystectomy. 4. No acute findings noted within the abdomen and pelvis. Record Review: [facility] / Outside records reviewed. PAST MEDICAL HISTORY Diagnosis Date Anxiety state, [...] HYSTERECT W/WO RMVL TUBE OVARY Hysterectomy, REY Allergies: ALLERGIES Allergen Reactions Phenergan [Prometha* Mental Status Change Oculogyric Crisis Keflex [Cephalexin] Intolerance Trimpex [Trimethopr* Intolerance Medications: PARoxetine (PAXIL) 20 mg tablet Take 1 tablet by mouth once daily. colestipol (COLESTID) 1 gram tablet Take 1 tablet by mouth two times a day. nadolol (CORGARD) 20 mg tablet Take 1 tablet by mouth once daily. iv contrast (will be provided with radiology test) CT ABD/PEL -Inject, intravenously, once for 1 dose.No IV access, insert saline lock prior to the beginning of sedation, infusion, injection of imaging exam. Discontinue saline lock post exam. If Pt. has a central line or IVAD, may access for administration according to line specific nursing protocol. Once exam is complete flush line and de-access according to line specific nursing protocol in theCT contrast administration guidelines (more content not included)... Normal [facility] Bacteria Ur Culton Bacteria identified Cx Nom (U) ORGANISM ID: 1 <10,000 CFU/ml Normal urogenital brittnee Normal [facility] Comment on above: Performed By: #### 6 30-4 ####[facility] LABCLIA [id number] [place] [address] [place] CNOVon 06-11-2025 CNOV Office Visit (WOUCA) ODESSARUPERT STOVER ([id number]) 1940 F Date Time Provider Department 06/11/25 1:15 PM JOSEPH STUART During your visit today, we recorded the following information about you: Temperature Pulse Respiration Blood pressure 98 degrees 66/minute 16/minute 118/70 Weight 63.1 kg Joseph Stuart APRN.TOLL COLLECTOR SUPERVISOR 06/11/2025 2:26 PM Signed [facility] Subjective Rupert Doll is a 84 year old female. Patient presents with: UTI UTI The patient is an 84-year-old female presenting with generalized lower abdominal pain. Generalized Lower Abdominal Pain: - Location: Generalized lower abdomen, has come and gone for multiple months. History of IBS but has not seen anyone for it. Dr. Serrato is retiring. - Diarrhea and constipation, history of GERD does not take anything for it. Denies any blood in her stools. - Intermittent episodes lasting a few seconds, occurring sporadically. - Denies dysuria, urinary retention, or changes in bowel movements. - PMHx of IBS during a divorce 30 years ago Gastrointestinal: (+) lower abdominal pain, (-) change in bowel habits Genitourinary: (+) urinary frequency, (-) dysuria, (-) incomplete bladder emptying PAST MEDICAL HISTORY Diagnosis Date Anxiety state, [...] Hcl], Keflex [Cephalexin], and Trimpex [Trimethoprim] MEDICATIONS PARoxetine (PAXIL) 20 mg tablet Take 1 tablet by mouth once daily. colestipol (COLESTID) 1 gram tablet Take 1 tablet by mouth two times a day. nadolol (CORGARD) 20 mg tablet Take 1 tablet by mouth once daily. loratadine (CLARITIN) 10 mg tablet Take 1 tablet by mouth once daily. (Patient not taking: Reported on 03/31/2025) FAMILY HISTORY Problem Relation Age of Onset Breast Cancer Mother Ovarian Heart Father Pacemaker Stroke Father Bowel Blockage () SOCIAL HISTORY[1] Objective BP 118/70 Pulse 66 Temp 36.7 ?C (98 ?F) (Tympanic) Resp 16 Wt 63.1 kg (139 lb 1.8 oz) SpO2 99% BMI 23.88 kg/m? Physical Exam Constitutional: General: She is not in acute distress. Appearance: Normal appearance. She is normal weight. She is not ill-appearing or toxic-appearing. HENT: Head: Normocephalic and atraumatic. Eyes: Pupils: Pupils are equal, round, and reactive to light. Cardiovascular: Rate and Rhythm: Normal rate and regular rhythm. Pulses: Normal pulses. Heart sounds: Normal heart sounds. Pulmonary: Effort: Pulmonary effort is normal. Breath sounds: Normal breath sounds. Abdominal: General: Abdomen is flat. Bowel sounds are normal. There is no distension. Palpations: Abdomen is soft. There is no mass. Tenderness: There is no abdominal tenderness. There is no right CVA tenderness, left CVA tenderness, guarding or rebound. Hernia: No hernia is present. Lymphadenopathy: Cervical: No cervical adenopathy. Neurological: Mental Status: She is alert. { 1. Dysuria (R30.0) - Urinalysis negative for leukocytes and nitrites; no evidence of urinary tract infection. 2. Gastroesophageal reflux disease with esophagitis without hemorrhage (K21.00) 3. Abdominal pain, chronic, generalized (R10.84) - Lower abdominal pain rated 5/10, intermittent, present for one week; no dysuria, no sensation of incomplete bladder emptying, and no irregular bowel movements. - Referred to GI specialist within the System for further evaluation; appointment scheduled for tomorrow at 2:00 PM in [place]. - Discussed that further imaging may be necessary to determine the cause of abdominal pain. and Recording using Mor.sl software for draft documentation of the visit was discussed with the patient/authorized canvas products sales representative; all questions welcomed and answered. Patient/authorized canvas products sales representative agreed to proceed Disposition The patient was discharged. Transfer to ED was considered. Reason for not transferring: Abdominal exam normal, patient declined ER tranfer disucssed risk and benefits and if worsening to seek emergency care. [1] Social History Tobacco Use Smoking status: Never Smokeless tobacco: Never Vaping Use (more content not included)... [facility] [facility]OVon 03-31-2025 CNOV Office Visit (FAMPWS ) RUPERT DOLL ([id number]) 1940 F Date Time Provider Department 03/31/25 2:00 PM [facility] During your visit today, we recorded the following information about you: Pulse Respiration Blood pressure Weight 78/minute 14/minute 122/70 62.5 kg Chris Serrato MD 03/31/2025 2:31 PM Signed Chief Complaint Patient presents with: 6 Month Exam HPI TOYA Romero Rodrickdandy is a 84-year-old female presenting for a 6-month follow-up visit. TOYA reports a decline in balance, noting that if she begins to fall, she is unable to stop herself. She has experienced falls at home, including one incident where she tripped over a loose object on a stable in the dark, resulting in minor injuries. She attributes her balance issues to aging and the need to be more cautious of her surroundings, including the shoes she wears and the presence of her cat, which she has nearly tripped over several times. She denies performing specific balance exercises but does ride a stationary bike at home and can get up and down from the floor without difficulty. She is currently taking Paxil 20 mg for anxiety, which she has been on since experiencing a severe anxiety attack in the . She reports that the medication is effective in managing her anxiety. She is also taking nadolol for heart-related issues and colestipol for cholesterol and diarrhea, noting that the colestipol is effective in managing her bowel movements, which occur approximately four times a day. She recently experienced food poisoning, which caused significant illness for a day. She was previously taking Claritin for allergies but was unable to obtain it from her new pharmacy and did not know which alternative to choose. She has a sweet tooth but does eat vegetables and salads. She has recently gained weight and is pleased with this. She has recently started using hearing aids, which she finds very helpful. Past medical history, appointments, medications, allergies reviewed. [...] on File Prior to Visit Medication Sig colestipol (COLESTID) 1 gram tablet Take 1 tablet by mouth two times a day. nadolol (CORGARD) 20 mg tablet Take 1 tablet by mouth once daily. loratadine (CLARITIN) 10 mg tablet Take 1 tablet by mouth once daily. PARoxetine (PAXIL) 20 mg tablet Take 1 tablet by mouth once daily. bismuth subsalicylate (PEPTO-BISMOL) 262 mg chewable tablet Take 1 tablet by mouth four times daily for 10 days. (Patient not taking: Reported on 01/15/2025) No current facility-administered medications on file prior to visit. Social History Social History Tobacco Use Smoking status: Never Smokeless tobacco: Never Vaping Use Vaping status: Never Used Substance Use Topics Alcohol use: No Drug use: No EXAM: BP 122/70 Pulse 78 Resp 14 Wt 62.5 kg (137 lb 12.6 oz) BMI 23.65 kg/m? General Appearance: Well appearing, alert, in no acute distress, well-hydrated, well nourished.. Lungs: Lungs clear to auscultation. No wheezing, rhonchi, rales.. Heart: RRR without murmur, gallop, or rubs. No ectopy. Health Maintenance List Shingrix Vaccine(1 of 2) Never done RSV Vaccine(1 - 1-dose 75+ series) Never done DTaP,Tdap,Td Vaccine(2 - Tdap) due on 01/08/2017 Advance Directive Discussion Never done Influenza Vaccine(1) due on 05/01/2025 Depression Screening due on 09/27/2025 Diabetes Screening due on 09/22/2027 Bone Density Screening Completed Medicare Advantage Annual Wellness Visit Completed Pneumococcal Vaccine: 50+ Completed Colorectal Cancer Screening Discontinued Data reviewed none 1. Other hyperlipid (more content not included)... Normal [facility] XR KNEE 4V AP/PA BOTH+LAT/ME R LTon 01-16-2025 XR KNEE 4V AP/PA BOTH+LAT/MARS LT * * *Final Report* * * DATE OF EXAM: Jan 16 2025 8:42AM WOX 5202 - XR KNEE 4V AP/PA BOTH+LAT/MARS LT / PROCEDURE REASON: Fall on same level from slipping, tripping and stumbling without subsequent stri * * * * Physician Interpretation * * * * PROCEDURE: Left knee INDICATION: Fall on same level from slipping, tripping and stumbling without subsequent striking against object, initial encounter .posterior left knee pain x 2 days. Pt fell and twister her knee. TECHNIQUE: XR KNEE 4V AP/PA BOTH+LAT/MARS LT COMPARISON: 09/13/2020 FINDINGS: Moderate tricompartment osteoarthritis, showing only mild interval progression. No fracture or dislocation. No joint effusion. Moderate tricompartment right knee osteoarthrosis as well. IMPRESSION: No acute abnormality Aitchbone Breaker: PSCB Transcribe Date/Time: Jan 16 2025 8:48A Dictated by : GINNY PATRICK MD This examination was interpreted and the report reviewed and electronically signed by: GINNY APTRICK MD on Jan 16 2025 8:49AM EST [id number] Normal [facility] XR Knee - left 4 Viewson IMPRESSION: No acute abnormality Aitchbone Breaker: PSCB Transcribe Date/Time: Jan 16 2025 8:48A Dictated by : GINNY PATRICK MD This examination was interpreted and the report reviewed and electronically signed by: GINNY PATRICK MD on Jan 16 2025 8:49AM EST DIVISION OF RADIOLOGY * * *Final Report* * * DATE OF EXAM: Jan 16 2025 8:42AM WOX 5202 - XR KNEE 4V AP/PA BOTH+LAT/MARS LT / PROCEDURE REASON: Fall on same level from slipping, tripping and stumbling without subsequent stri * * * * Physician Interpretation * * * * PROCEDURE: Left knee INDICATION: Fall on same level from slipping, tripping and stumbling without subsequent striking against object, initial encounter .posterior left knee pain x 2 days. Pt fell and twister her knee. TECHNIQUE: XR KNEE 4V AP/PA BOTH+LAT/MARS LT COMPARISON: 09/13/2020 FINDINGS: Moderate tricompartment osteoarthritis, showing only mild interval progression. No fracture or dislocation. No joint effusion. Moderate tricompartment right knee osteoarthrosis as well. DIVISION OF RADIOLOGY Provider, [facility] - 01/16/2025 * * *Final Report* * * DATE OF EXAM: Jan 16 2025 8:42AM WOX 5202 - XR KNEE 4V AP/PA BOTH+LAT/MARS LT / PROCEDURE REASON: Fall on same level from slipping, tripping and stumbling without subsequent stri * * * * Physician Interpretation * * * * PROCEDURE: Left knee INDICATION: Fall on same level from slipping, tripping and stumbling without subsequent striking against object, initial encounter .posterior left knee pain x 2 days. Pt fell and twister her knee. TECHNIQUE: XR KNEE 4V AP/PA BOTH+LAT/MARS LT COMPARISON: 09/13/2020 FINDINGS: Moderate tricompartment osteoarthritis, showing only mild interval progression. No fracture or dislocation. No joint effusion. Moderate tricompartment right knee osteoarthrosis as well. IMPRESSION IMPRESSION: No acute abnormality Aitchbone Breaker: ELISA Transcribe Date/Time: Jan 16 2025 8:48A Dictated by : GINNY PATRICK MD This examination was interpreted and the report reviewed and electronically signed by: GINNY PATRICK MD on Jan 16 2025 8:49AM EST Radiology Study observation (narrative) XR Knee - left 4 ViewsOrdere d By: [facility] Provider on 01-16-2025 CNOVon 01-15-2025 CNOV Office Visit (UCWSTR ) RUPERT DOLL ([id number]) 1940 F Date Time Provider Department 01/15/25 11:00 AM MIMI GROSS [facility] During your visit today, we recorded the following information about you: Temperature Pulse Respiration Blood pressure 98.9 degrees 81/minute 20/minute 134/71 Weight 63 kg Mimi Gross APRN.[facility] 01/15/2025 11:35 AM Signed [facility] Subjective Rupertluis Mensahtamekasara is a 84 year old female. Patient presents with: Fall: States she fell last night and L knee twisted, pain, swelling in area HPI Left Knee Pain: - Fell last night at 23:00 while wearing Crocs, tripping on carpet. - Landed on left knee, twisting it during the fall. - Reports severe pain in the left knee, especially in the posterior aspect. - Pain is exacerbated by both extension and flexion, with flexion causing more discomfort. - No pain in the right knee. - Denies numbness, tingling, or weakness in the legs. - No hip pain; able to sit cross-legged without discomfort. - Denies having loose rugs in the house. Review of Systems Musculoskeletal: (+) left knee pain, (+) left knee swelling, (+) back pain, (-) hip pain Neurological: (+) gait imbalance, (-) numbness, (-) tingling, (-) weakness Objective BP 134/71 Pulse 81 Temp 37.2 ?C (98.9 ?F) Resp 20 Wt 63 kg (138 lb 14.2 oz) SpO2 98% BMI 23.84 kg/m? Physical Exam General: No acute distress. MSK/Ext: Left knee swelling; tenderness in posterior and inferior anterior aspects of left knee; pain with flexion and extension of left knee, worse with flexion; negative anterior drawer test. {1. Fall on same level from slipping, tripping and stumbling without subsequent striking against object, initial encounter (W01.0XXA) - Patient experienced a fall at home last night, resulting in left knee pain and swelling, particularly in the posterior aspect. No numbness, tingling, or weakness reported. - Physical exam reveals mild swelling on the left knee, with tenderness primarily in the posterior region. Pain is exacerbated by both extension and flexion, with greater discomfort during flexion. - Anterior drawer test elicited significant pain, raising concern for potential ligament or tendon involvement. - Ordered X-ray of the left knee to be performed tomorrow morning at 08:00 at the current facility. - Referral to orthopedics for further evaluation and management of potential ligament or tendon injury. - Advised patient on the importance of wearing sturdy, well-fitting shoes to prevent future falls. - Patient understands and agrees with the treatment plan. and Recording using Mor[employer]sl software for draft documentation of the visit was discussed with the patient/authorized canvas products sales representative; all questions welcomed and answered. Patient/authorized [employer] products sales representative agreed to proceed I did put an orthopedic referral and patient will make her own appointment. Patient will come in on Thursday and get the x-ray of the knee. If anything is wrong and requires treatment sooner than her follow-up is scheduled please treat accordingly. MDM Procedures Allergies As of Date: 01/15/2025 Noted Allergy Reaction PHENERGAN (PROMETHAZINE HCL) 08/05/2005 1 - Mental Status Change Comments: Oculogyric Crisis KEFLEX (CEPHALEXIN) 08/05/2005 5 - Intolerance TRIMPEX (TRIMETHOPRIM) 08/05/2005 5 - Intolerance Date Reviewed: 01/15/2025 Reviewed by: Hallie Juarez LPN - Fully Assessed Reason for Visit: Fall [218] Cmt: States she fell last night and L knee twisted, pain, swelling in area Visit Diagnosis:Fall on same level from slipping, tripping and stumbling without subsequent striking against object, initial encounter [W01.0XXA] Order(s):XR KNEE GENERAL 4V AP BOTH/PA BOTH/LAT/MERC LEFT [7251222] Order #: [id number] FUTURE CONSULT PANEL TO ORTHOPAEDICS [803445] Order #: [id number]: 1 FUTURE Prescriptions as of 01/15/2025 - loratadine (CLARITIN) 10 mg tablet Take 1 tablet by mouth once daily. - PARoxetine (PAXIL) 20 mg tablet Take 1 tablet by mouth once daily. - colestipol (COLESTID) 1 gram tablet Take 1 tablet by mouth two times a day. - nadolol (CORGARD) 20 mg tablet Take 1 tablet by mouth once daily. - bismuth subsalicylate (PEPTO-BISMOL) 262 mg chewable tablet Take 1 tablet by mouth four times daily for 10 days. 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 Normal [facility] Bacteria Ur Culton 5 Bacteria identified Cx Nom (U) ORGANISM ID: 1 <10,000 CFU/ml Normal urogenital brittnee Normal [facility] Comment on above: Performed By: #### 6 30-4 ####[facility] MAGUI [id number] KATINA ARVIZU [address] [place] [facility] CNOVon 01-09-2025 CNOV Office Visit (UCWSTR ) RUPERT DOLL ([id number]) 1940 F Date Time Provider Department 01/09/25 5:15 PM VIKTORIYA IGLESIAS WS During your visit today, we recorded the following information about you: Temperature Pulse Respiration Blood pressure 98.8 degrees 80/minute 18/minute 142/82 Weight 64.1 kg Viktoriya Iglesias APRN.TOLL COLLECTOR SUPERVISOR 01/09/2025 6:46 PM Signed Subjective Patient ID: TOYA is a 84 year old female who presents for Urinary Frequency (Frequency, lower back pain and pressure x 2 days). Patient presents to clinic with UTI s/s x2d h/o HLD, HTN and anxiety/panic attack The history is provided by the patient. No reverberatory skimmer was used. +burning with urination +frequency +tenderness in lower abd and lower back Denies OTC meds, N/V/D LBM today Denies sexual activity Denies fever, chills nor body aches PAST MEDICAL HISTORY Diagnosis Date Anxiety state, [...] Hcl], Keflex [Cephalexin], and Trimpex [Trimethoprim] MEDICATIONS loratadine (CLARITIN) 10 mg tablet Take 1 tablet by mouth once daily. PARoxetine (PAXIL) 20 mg tablet Take 1 tablet by mouth once daily. colestipol (COLESTID) 1 gram tablet Take 1 tablet by mouth two times a day. (Patient taking differently: Take 1 g by mouth once daily.) nadolol (CORGARD) 20 mg tablet Take 1 tablet by mouth once daily. bismuth subsalicylate (PEPTO-BISMOL) 262 mg chewable tablet Take 1 tablet by mouth four times daily for 10 days. FAMILY HISTORY Problem Relation Age of Onset Breast Cancer Mother Ovarian Heart Father Pacemaker Stroke Father Bowel Blockage () Social History Tobacco Use Smoking status: Never Smokeless tobacco: Never Vaping Use Vaping status: Never Used Substance Use Topics Alcohol use: No Drug use: No Objective BP 142/82 Pulse 80 Temp 37.1 ?C (98.8 ?F) (Tympanic) Resp 18 Wt 64.1 kg (141 lb 5 oz) SpO2 98% BMI 24.26 kg/m? Physical Exam Constitutional: Appearance: Normal appearance. She is normal weight. HENT: Head: Normocephalic. Nose: Nose normal. Mouth/Throat: Mouth: Mucous membranes are moist. Eyes: Extraocular Movements: Extraocular movements intact. Conjunctiva/sclera: Conjunctivae normal. Pupils: Pupils are equal, round, and reactive to light. Cardiovascular: Rate and Rhythm: Normal rate. Pulses: Normal pulses. Heart sounds: Normal heart sounds. Pulmonary: Effort: Pulmonary effort is normal. Breath sounds: Normal breath sounds and air entry. Abdominal: General: Bowel sounds are normal. Palpations: Abdomen is soft. Tenderness: There is abdominal tenderness in the right lower quadrant, suprapubic area and left lower quadrant. Genitourinary: Vagina: No vaginal discharge. Musculoskeletal: General: Normal range of motion. Cervical back: Normal range of motion. Skin: General: Skin is warm and dry. Capillary Refill: Capillary refill takes less than 2 seconds. Neurological: General: No focal deficit present. Mental Status: She is alert and oriented to person, place, and time. Psychiatric: Mood and Affect: Mood normal. Behavior: Behavior normal. Thought Content: Thought content normal. Judgment: Judgment normal. Assessment AND Plan Urinary frequency Orders: UA DIP, URINE (POC) Urinary tract infection with hematuria, site unspecified ASSESSMENT/PLAN: 1. Urinary frequency - ICD9: 788.41, ICD10: R35.0 (primary diagnosis) acute - UA positive for hematuria and proteinuria - Patient education for prevention given - UA DIP, URINE (POC) - BACTERIAL CULTURE, URINE 2. Urinary tract infection with hematuria, site unspecified - ICD9: 599.0, 599.70, ICD10: N39.0, R31.9 acute - UA positive for bilirubin, hematuria and proteinuria - Begin treatment with Macrobid 100 mg BID for 5 days - Patient education for prevention given Yeny Martínez TEACHING PROVIDER (Physician/PA/MITER SAW OPERATOR) NOTE OF PERSONAL INVOLVEMENT IN CARE: I have personally seen and examined the patient and performed the medical decision-making components. I have reviewed the Advanced Practice Registered Nurse (MITER SAW OPERATOR) Student's docum (more content not included)... Normal [facility] UA DIP, URINE (POC)on 2024 BILIRUBIN UA (POCT) Small Abnormal Negative [facility] CLARITY UA (POCT) Clear [facility] COLOR UA (POCT) Yellow GLUCOSE UA (POCT) Negative Negative mg/dL [facility] Hemoglobin Ql (U) Trace-intact Abnormal Negative [facility] Interpretation and review of laboratory results Abnormal KETONE UA (POCT) Negative Negative mg/dL [facility] LEUKOCYTES UA (POCT) Negative Negative [facility] NITRITE UA (POCT) Negative Negative [facility] PH UA (POCT) 5.5 4.5 - 8.0 Protein Ql (U) 30 mg/dL Abnormal Negative SPECIFIC GRAVITY UA (POCT) >=1.030 1.005 - 1.030 UROBILINOGEN UA (POCT) 0.2 Normal E.U./dL Location:[address], [place], [place], [address] [place] [address] POINT OF CARE CNOVon 09-27-2024 CNOV Office Visit (FAMPWS ) RUPERT DOLL ([id number]) 1940 F Date Time Provider Department 09/27/24 1:20 PM CHRIS SERRATO FAMPWS During your visit today, we recorded the following information about you: Pulse Respiration Blood pressure Weight 70/minute 16/minute 130/80 62.3 kg Height 1.626 m Chris Serrato MD 09/27/2024 2:08 PM Signed Rupert Nick Doll is a 84 year old female here for a Medicare wellness visit. Medicare Health Risk Assessment General Health Good Exercise: Minutes/Day 10 min Exercise: Days/Week 7 days Alcohol: Daily Use Never Alcohol: Drinks/Day Patient does not drink Alcohol: 6 or more drinks Never Feel off balance No Concerns: Teeth/Dentures No Concerns: Sexual function No Troubled by feelings Lonely Frequency: Eating healthy diet Several days ADLs requiring help None of the above Safety precautions in home/vehicle Yes Smoke, vape, chews tobacco No Difficulty hearing Yes, I wear a hearing aid Difficulty seeing No Current Providers Specialists: I have reviewed specialist-related care of the patient in the medical record. Current care team: Patient Care Team: Chris Serrato MD as PCP - General (Family Medicine) Shaista Calabrese APRN.CNP as Activities Attendant (Family Medicine) Farhat Mcwilliams APRN.CNP as Activities Attendant (Family Medicine) Outside specialists seen: Dr. Pham-Twin and Dr. Malik-Eye Medical/Family history review Reviewed and updated problem list, medical/surgical/famil y/social history, medications, and allergies. Opioid use review Opioid Medications (last 90 days) No data to display Anxiety/Depression screening PHQ-2 Score: 0 (Lower risk for depression) Recommendation: no further intervention at this time Cognitive screening Mini Cog Score: 3 Cognitive screening reviewed and No further action needed (score 3-5). Functional Observation Was the patient's Timed Up AND Go test unsteady or >= 12 seconds? No Advance Care Planning Surrogate decision maker and/or advance care plan documented Measurements BP 130/80 Pulse 70 Resp 16 Ht 162.6 cm (5' 4) Wt 62.3 kg (137 lb 5.6 oz) SpO2 96% BMI 23.58 kg/m? Vision Screening: Follows with optometry/ophthalmolog y Assessment/Plan Medicare annual wellness visit, initial () - Counseled on healthy diet and regular exercise - Fall avoidance information provided - Personalized prevention plan provided Chief Complaint Medicare Wellness and follow up HPI Rupert Doll is a 84 year old female who presents here today for follow up, cough/sinus. No bowel, Gi, or urinary issues. She feels that the Colestid helps with the loose stools, better controlled when taking 2 a day. Pt states she has been ill x 1 month. Pt was in UC on 09/23/24 for sore throat, tested for strep. No covid, flu, or RSV test was done. She was treated with zpak which she will finish today, allergy pill, and nasal spray. Saw Farhat Mcwilliams on 09/16/24, was treated with Prednisone 20 mg 2 pills once daily x 5 days and Doxycycline 100 mg 1 pill BID x 10 days. She stated that she didn't realize she was supposed to take Doxycycline twice a day, was only taking it once a day. She was feeling better up until this morning. Started with sore throat but has not had any further issues with that. She has some head congestion, headache, facial pressure, cough, ear popping but no pain. She denies any fevers. She states that the air is dry in her house and at night she seems to get worse with the coughing. Wonders if she should use a humidifier. She doesn't really feel sick but doesn't have much energy. Pt felt that the prednisone did help. Lipid: Has been taking Colestid 1 gram once a day, she cut back from twice a day about 4 months ago. Is trying to watch diet. She does like sweets but she tries to eat healthy. Drinks Gatorade. Could drink more water. She admits she should eat more fruit. She eats frozen meals that have portions of vegetables and fruits. Depression/VADIM: Stable, taking Paxil 20 mg daily. Comfortable at this dose, would like to stay on this. Taking Nadolol 20 mg daily. Denies any chest pains, dizziness, SOB, Palpitations. Past medical history, appointments, medications, allergies reviewed. [...] CHOLECYSTECTOMY Cholecystectomy, lap LASER BENIGN LESIONS On-going Severa (more content not included)... Normal [facility] CNOVon 09-23-2024 CNOV Office Visit (UCWSTR ) RUPERT DOLL ([id number]) 1940 F Date Time Provider Department 09/23/24 4:15 PM MIMI GROSS [facility] During your visit today, we recorded the following information about you: Temperature Pulse Respiration Blood pressure 97.2 degrees 86/minute 16/minute 147/84 Weight 62.1 kg Mimi Gross APRN.TOLL COLLECTOR SUPERVISOR 09/23/2024 4:56 PM Addendum CC: Patient presents with: Cough: With sinus pressure AND congestion x2 weeks HPI: Rupert Doll is a 84 year old female who presents to the office with complaint of head congestion, sore throat, and sinus symptoms for 2 weeks. Symptoms are worsening Associated symptoms includes nasal congestion and facial pain/pressure. Denies wheezing, dyspnea, nausea, vomiting , and diarrhea. Treatments tried include nothing so far. with no relief of symptoms. Sick contacts: unknown. History of asthma, frequent episodes of bronchitis, chronic bronchitis, bronchiectasis or COPD: No Smoker: No Seasonal/environmental allergies: No The ROS is otherwise negative. The patient's pmh, medications, allergies, and past visits are reviewed. PHYSICAL EXAM: BP 147/84 Pulse 86 Temp 36.2 ?C (97.2 ?F) (Left Tympanic) Resp 16 Wt 62.1 kg (136 lb 14.5 oz) SpO2 97% BMI 22.78 kg/m? General appearance: alert, cooperative, pleasant, in no acute distress Head: Normocephalic Eyes: EOM's intact, conjunctiva pink and moist, no icterus, sclera white, non-injected Ears: Right ear: External ear/canal- Normal, TM - clear with good landmarks. Left ear: External ear/canal- Normal, TM - clear with good landmarks Oropharynx:mild erythema, without exudates present Heart: Negative. RRR without obvious murmur, gallop, or rubs. No ectopy. Lungs: clear to auscultation, without rales or wheeze, good air exchange PAST MEDICAL HISTORY Diagnosis Date Anxiety state, [...] Hcl], Keflex [Cephalexin], and Trimpex [Trimethoprim] MEDICATIONS doxycycline (VIBRA-TABS) 100 mg tablet Take 1 tablet by mouth two times a day for 10 days. PARoxetine (PAXIL) 20 mg tablet Take 1 tablet by mouth once daily. colestipol (COLESTID) 1 gram tablet Take 1 tablet by mouth two times a day. (Patient taking differently: Take 1 g by mouth once daily.) nadolol (CORGARD) 20 mg tablet Take 1 tablet by mouth once daily. bismuth subsalicylate (PEPTO-BISMOL) 262 mg chewable tablet Take 1 tablet by mouth four times daily for 10 days. FAMILY HISTORY Problem Relation Age of Onset Breast Cancer Mother Ovarian Heart Father Pacemaker Stroke Father Bowel Blockage () Social History Tobacco Use Smoking status: Never Smokeless tobacco: Never Vaping Use Vaping status: Never Used Substance Use Topics Alcohol use: No Drug use: No ASSESSMENT/PLAN: 1. Sore throat - ICD9: 462, ICD10: J02.9 (primary diagnosis) - STREP A MOLECULAR (POC) - neg 2. Rhinosinusitis - ICD9: 473.9, ICD10: J32.9 - BUDESONIDE 32 MCG/ACTUATION NASAL SPRAY - LORATADINE 10 MG TABLET Changed her antibiotic to a Z-David. Patient had only been taking the doxycycline once a day. I believe this is why she has not had significant improvement. Hopefully the Z-David will be a little more simple. Prescription instructions reviewed with patient as applicable. Potential red flag symptoms discussed with the patient. Reviewed appropriate action plan to take if red flag symptoms occur. Patient agreeable to treatment plan. Mimi Gross APRN.Mimi Connor APRN.CNP 09/23/2024 4:56 PM Signed Addended by: MIMI GROSS on: 09/23/2024 04:56 PM Modules accepted: Orders Allergies As of Date: 09/23/2024 Noted Allergy Reaction PHENERGAN (PROMETHAZINE HCL) 08/05/2005 1 - Mental Status Change Comments: Oculogyric Crisis KEFLEX (CEPHALEXIN) 08/05/2005 5 - Intolerance TRIMPEX (TRIMETHOPRIM) 08/05/2005 5 - Intolerance Date Reviewed: 09/23/2024 Reviewed by: Naty Solitario MA - Fully Assessed Reason for Visit: Cough [28] Cmt: With sinus pressure AND congestion x2 weeks Primary Visit Diagnosis:Sore throat [J02.9] Other Visit Diagnosis:Rhinosinusit is [J3 (more content not included)... Normal [facility] STREP A MOLECULAR (POC)on Procedural Control Valid [facility] Strep A (POCT) Negative Negative [facility] Comprehensive metabolic 2000 panelon 09-22-2024 Albumin [Mass/Vol] 4.2 g/dL Normal 3.9-4.9 [facility] Comment on above: Order Comment: Speci men Type: BLOOD SPECIMENOrdering Facility: [facility] Address: [address] [id number] Performed By: #### 2 4331-1, 69792-6 ####[facility] LABCLIA [id number] [place] [address] [place] ALP [Catalytic activity/Vol] 61 U/L Normal 34-123 [facility] Comment on above: Order Comment: Speci men Type: BLOOD SPECIMENOrdering Facility: [facility] Address: [address] [place] [address] Performed By: #### 2 4331-1, ####[facility] LABCLIA [id number] [place] [address] [place] ALT [Catalytic activity/Vol] 14 U/L Normal 7-38 [facility] Comment on above: Order Comment: Speci men Type: BLOOD SPECIMENOrdering Facility: [facility] Address: [address] [place], [place] [address] Performed By: #### 2 4331-1, 30245-5 ####[facility] LABCLIA [id number] [place] [address] [place] Anion gap [Moles/Vol] 12 mmol/L Normal 8-15 [facility] Comment on above: Order Comment: Speci men Type: BLOOD SPECIMENOrdering Facility: [facility] Address: [address] [place] [address] Performed By: #### 2 4331-1, 99110-1 ####[facility] LABCLIA [id number] [place] [address] [place] AST [Catalytic activity/Vol] 13 U/L Normal 13-35 [facility] Comment on above: Order Comment: Speci men Type: BLOOD SPECIMENOrdering Facility: [facility] Address: [address] [place] [address] Performed By: #### 2 4331-1, ####[facility] LABCLIA [id number] [address] [address] [place] Bilirubin [Mass/Vol] 0.6 mg/dL Normal 0.2-1.3 [facility] Comment on above: Order Comment: Speci men Type: BLOOD SPECIMENOrdering Facility: [facility] Address: [address] [place], [place] [address] Performed By: #### 2 433-, ####[facility] LABCLIA [id number] [place] [address] [place] Calcium [Mass/Vol] 9.4 mg/dL Normal 8.5-10.2 [facility] Comment on above: Order Comment: Speci men Type: BLOOD SPECIMENOrdering Facility: [facility] Address: [address] [place] [address] Performed By: #### 2 43308-31, ####[facility] LABCLIA [id number] [place] [address] [place] Chloride [Moles/Vol] 101 mmol/L Normal 98-107 [facility] Comment on above: Order Comment: Speci men Type: BLOOD SPECIMENOrdering Facility: [facility] Address: [address] [place], [place] [address] Performed By: #### 2 43308-31, ####[facility] LABCLIA [id number] [place] [id number] [place] CO2 [Moles/Vol] 27 mmol/L Normal 22-30 [facility] Comment on above: Order Comment: Speci men Type: BLOOD SPECIMENOrdering Facility: [facility] Address: [address] [place], [place] [address] Performed By: #### 2 4331-1, 01319-6 ####[facility] LABCLIA [id number] [place] [address] [place] Creatinine [Mass/Vol] 1.17 mg/dL High 0.58-0.96 [facility] Comment on above: Order Comment: Abigail pelayo Type: BLOOD SPECIMENOrdering Facility: [facility] Address: [address] [place] [address] Performed By: #### 2 4331-1, 58576-8 ####[facility] [id number] [address] Creatinine and Glomerular filtration rate.predicted panel (S/P/Bld) 46 mL/min/1.73m??? Low >=60 [facility] Comment on above: Order Comment: Abigail pelayo Type: BLOOD SPECIMENOrdering Facility: [facility] Address: [address] [place] [address] Result Comment: Floridalma mated Glomerular Filtration Rate (eGFR) is calculated using the 2020 CKD-EPI creatinine equation. This equation utilizes serum creatinine, sex, and age as parameters. The creatinine assay has traceable calibration to isotope dilution-mass spectrometry. Refer to KDIGO guidelines for clinical interpretation. In patients with unstable renal function, e.g. those with acute kidney injury, the eGFR may not accurately reflect actual GFR. Performed By: #### 2 4331-1, 09303-2 ####[facility] LABIA [id number] [place] [address] [place] Glucose [Mass/Vol] 110 mg/dL High 74-99 [facility] Comment on above: Order Comment: Abigail pelayo Type: BLOOD SPECIMENOrdering Facility: [facility] Address: [address] [place] [address] Result Comment: The [place] Diabetes Association (ADA) provides guidance for cutoff values for fasting glucose and random glucose. The ADA defines fasting as no caloric intake for at least 8 hours. Fasting plasma glucose results between 100 to 125 mg/dL indicate increased risk for diabetes (prediabetes). Fasting plasma glucose results greater than or equal to 126 mg/dL meet the criteria for diagnosis of diabetes. In the absence of unequivocal hyperglycemia, results should be confirmed by repeat testing. In a patient with classic symptoms of hyperglycemia or hyperglycemic crisis, random plasma glucose results greater than or equal to 200 mg/dL meet the criteria for diagnosis of diabetes. Reference: Standards of Medical Care in Diabetes 2016, [place] Diabetes Association. Diabetes Care. 2016.39(Suppl 1). Performed By: #### 2 4331-1, ####[facility] LABCLIA [id number] [place] [address] [place] Potassium [Moles/Vol] 4.2 mmol/L Normal 3.7-5.1 [facility] Comment on above: Order Comment: Speci men Type: BLOOD SPECIMENOrdering Facility: [facility] Address: [address] [place] [address] Performed By: #### 2 4331-, ####[facility] LABCLIA [id number] [place] [address] [place] Protein [Mass/Vol] 7.2 g/dL Normal 6.3-8.0 [facility] Comment on above: Order Comment: Speci men Type: BLOOD SPECIMENOrdering Facility: [facility] Address: [address] [place] [address] Performed By: #### 2 433-, ####[facility] LABCLIA [id number] [place] [address] [place] Sodium [Moles/Vol] 140 mmol/L Normal 136-144 [facility] Comment on above: Order Comment: Speci men Type: BLOOD SPECIMENOrdering Facility: [facility] Address: [address] [place] [address] Performed By: #### 2 4331-, ####[facility] LABCLIA [id number] [address] [address] [place] Urea nitrogen [Mass/Vol] 21 mg/dL Normal 7-21 [facility] Comment on above: Order Comment: Speci men Type: BLOOD SPECIMENOrdering Facility: [facility] Address: [address] [place] [address] Performed By: #### 2 4331-1, 39135-6 ####[facility] LABCLIA [id number] [place] [address] [place] HbA1c (Bld)on 09-22-2024 Average glucose Estimated from glycated hemoglobin (Bld) [Mass/Vol] 128 mg/dL Normal [facility] Comment on above: Order Comment: Speci men Type: BLOOD SPECIMENOrdering Facility: [facility] Address: [address] [place] [address] Result Comment: eAG: (Estimated average glucose) is a calculated value from HgbA1c and is canvas products sales representative of the average blood glucose level in the last 2-3 month period. Performed By: #### 5 5454-3 ####[facility] LABIA [id number] [place] [address] [place] HbA1c (Bld) [Mass fraction] 6.1 % High 4.3-5.6 [facility] Comment on above: Order Comment: Abigail [facility] Type: BLOOD SPECIMENOrdering Facility: [facility] Address: [address] [place] [address] Result Comment: [place] Diabetes Association guidelines indicate that patients with HgbA1c in the range 5.7-6.4% are at increased risk for development of diabetes, and intervention by lifestyle modification may be beneficial. HgbA1c greater or equal to 6.5% is considered diagnostic of diabetes. Performed By: #### 5 5454-3 ####[facility] LABIA [id number] [place] [address] [place] Lipid 1996 panelon Cholesterol [Mass/Vol] 258 mg/dL High <200 [facility] Comment on above: Order Comment: Abigail men Type: BLOOD SPECIMENOrdering Facility: [facility] Address: [address] [place] [address] Result Comment: <200 mg/dL, Desirable 200-239 mg/dL, Borderline high >239 mg/dL, High Performed By: #### 2 4331-1, ####[facility] LABCLIA [id number] [place] [address] [place] Cholesterol in HDL [Mass/Vol] 66 mg/dL Normal >39 [facility] Comment on above: Order Comment: Speci men Type: BLOOD SPECIMENOrdering Facility: [facility] Address: [address] [place] [address] Result Comment: 40-5 9 mg/dL, Acceptable >59 mg/dL, High: Negative risk factor for coronary heart disease <40 mg/dL, Low: Positive risk factor for coronary heart disease Performed By: #### 2 4331-1, ####[facility] LABCLIA [id number] [address] [place] Cholesterol in LDL [Mass/Vol] 147 mg/dL High <100 [facility] Comment on above: Order Comment: Abigail [facility] Type: BLOOD SPECIMENOrdering Facility: [facility] Address: [address] [place] [address] Result Comment: <100 mg/dL, Optimal 100-129 mg/dL, Near optimal/above optimal 130-159 mg/dL, Borderline high 160-189 mg/dL, High >189 mg/dL, Very high Secondary prevention optimal LDL Cholesterol levels are recommended to be < 70 mg/dL Performed By: #### 2 4331-1, ####[facility] LABCLIA [id number] [address] [place] Cholesterol in LDL/Cholesterol in HDL [Mass ratio] 2.23 {ratio} Normal <2.54 [facility] Comment on above: Order Comment: Speci men Type: BLOOD SPECIMENOrdering Facility: [facility] Address: [address] [place] [address] Result Comment: Refe rence: 1. National Cholesterol Education Program ATP III Guideline At-A-Glance Quick Desk Reference: National Heart, Lung, and Blood Moneta. National Institutes of Health. 2001: NIH Publication No. 01-3305. 2. An International Atherosclerosis Society position paper: global recommendations for the management of dyslipidemia: executive summary, Atherosclerosis. 2014: 232(2):410-413. Performed By: #### 2 433-1, ####[facility] LABCLIA [id number] [address] [address] [place] Cholesterol in VLDL [Mass/Vol] 45 mg/dL High <30 [facility] Comment on above: Order Comment: Speci men Type: BLOOD SPECIMENOrdering Facility: [facility] Address: [address] [place] [address] Performed By: #### 2 4330-, ####[facility] LABCLIA [id number] [address] [place] Cholesterol non HDL [Mass/Vol] 192 mg/dL High <130 [facility] Comment on above: Order Comment: Tali men Type: BLOOD SPECIMENOrdering Facility: [facility] Address: [address] [place] [address] Result Comment: <130 mg/dL, Optimal 130-159 mg/dL, Near optimal/above optimal 160-189 mg/dL, Borderline high 190-219 mg/dL, High >219 mg/dL, Very high Secondary prevention optimal non HDL Cholesterol levels are recommended to be <100 mg/dL Performed By: #### 2 433-, ####[facility] LABCLIA [id number] [address] [address] [place] Cholesterol.total/Ch olesterol in HDL [Mass ratio] 3.91 {ratio} Normal <5.10 [facility] Comment on above: Order Comment: Tali men Type: BLOOD SPECIMENOrdering Facility: [facility] Address: [address] [place] [address] Performed By: #### 2 4331-1, ####[facility] LABCLIA [id number] [place] [id number] [place] FASTING TIME 12 hrs Normal [facility] Comment on above: Order Comment: Speci men Type: BLOOD SPECIMENOrdering Facility: [facility] Address: [address] [place] [address] Performed By: #### 2 4331-1, 32718-2 ####[facility] LABCLIA [id number] [address] [place] Triglyceride [Mass/Vol] 227 mg/dL High <150 [facility] Comment on above: Order Comment: Speci men Type: BLOOD SPECIMENOrdering Facility: [facility] Address: [address] [place] [address] Result Comment: <150 mg/dL, Normal 150-199 mg/dL, Borderline high 200-499 mg/dL, High >499 mg/dL, Very high Performed By: #### 2 4331-1, 09659-1 ####[facility] LABCLIA [id number] [address] [facility] CNOVon 09-16-2024 CNOV Office Visit (FAMPWS ) RUPERT DOLL ([id number]) 1940 F Date Time Provider Department 09/16/24 1:40 PM FARHAT MCWILLIAMS FAMPWS During your visit today, we recorded the following information about you: Temperature Pulse Respiration Blood pressure 98.6 degrees 93/minute 18/minute 140/88 Weight 62.6 kg Farhat Mcwilliams APRN.TOLL COLLECTOR SUPERVISOR 09/16/2024 1:38 PM Signed Chief Complaint Patient presents with: Cough: With sinus issues, PAULINO, no energy, fatigue x 1 week HPI Rupert Doll is a 84 year old female who presents here today for above complaints. ENT: Patient complains of sinus pressure. Duration: 1 week Fever: No. Headache: Yes. Pressure behind/below both eyes Sore throat: No. Ear pain: No. Nasal drainage: Yes. Cough: Yes Shortness of breath: No. Nausea: No. Vomiting: No. Diarrhea: No. Previous treatment: No. Treating at home with Coricidin and Mucinex DM Co-worker came to work with similar symptoms last week and then she developed symptoms. Past medical history, appointments, medications, allergies reviewed. EXAM: BP 140/88 Pulse 93 Temp 37 ?C (98.6 ?F) Resp 18 Wt 62.6 kg (138 lb) SpO2 98% BMI 22.96 kg/m? General Appearance: Well appearing, alert, in no acute distress, well-hydrated, well nourished.. Head: Normocephalic, no masses, lesions, tenderness or abnormalities. Eyes: Anicteric sclera. Pupils are equally round and reactive to light. Extraocular movements are intact. . Ears: External ears normal, canals clear. Nose/Sinuses: Positive findings: mucosa erythematous and swollen, tenderness of the maxillary sinus . Oropharynx: Lips, mucosa, and tongue normal, teeth and gums normal, oropharynx normal. Neck: Supple, no adenopathy Lungs: Lungs clear to auscultation. No wheezing, rhonchi, rales.. Cough Heart: RRR without murmur, gallop, or rubs. No ectopy. ASSESSMENT/PLAN: 1. Sinobronchitis - ICD9: 473.9, 490, ICD10: J32.9, J40 - Will begin treatment with Doxycycline - The patient should also be given OTC decongestants prn, OTC cough and cold meds as needed, and warm salt water gargles, throat lozenges and/or OTC throat spray as needed for the first 5-7 days of treatment. - Supportive care with plenty of fluids, rest, and analgesia prn. - DOXYCYCLINE HYCLATE 100 MG TABLET - PREDNISONE 20 MG TABLET Farhat Mcwilliams APRN.TOLL COLLECTOR SUPERVISOR RTO as scheduled on 09/27 for routine care. Sooner if needed. This note was partly generated using [employer] voice recognition dictation and may contain some misspelled or inaccurate words missed on review. Allergies As of Date: 09/16/2024 Noted Allergy Reaction PHENERGAN (PROMETHAZINE HCL) 08/05/2005 1 - Mental Status Change Comments: Oculogyric Crisis KEFLEX (CEPHALEXIN) 08/05/2005 5 - Intolerance TRIMPEX (TRIMETHOPRIM) 08/05/2005 5 - Intolerance Date Reviewed: 09/16/2024 Reviewed by: She Wu LPN - Fully Assessed Reason for Visit: Cough [28] Cmt: With sinus issues, PAULINO, no energy, fatigue x 1 week Primary Visit Diagnosis:Sinobronchit is [J32.9, J40] Order(s):doxycycline (VIBRA-TABS) 100 mg tabletTake 1 tablet by mouth two times a day for 10 days.Disp: 20 tabletRfl: 0 predniSONE (DELTASONE) 20 mg tabletTake 2 tablets by mouth once daily for 5 days. Take daily with food.Disp: 10 tabletRfl: 0 Prescriptions as of 09/16/2024 - doxycycline (VIBRA-TABS) 100 mg tablet Take 1 tablet by mouth two times a day for 10 days. - predniSONE (DELTASONE) 20 mg tablet Take 2 tablets by mouth once daily for 5 days. Take daily with food. - PARoxetine (PAXIL) 20 mg tablet Take 1 tablet by mouth once daily. - colestipol (COLESTID) 1 gram tablet Take 1 tablet by mouth two times a day. - nadolol (CORGARD) 20 mg tablet Take 1 tablet by mouth once daily. - bismuth subsalicylate (PEPTO-BISMOL) 262 mg chewable tablet Take 1 tablet by mouth four times daily for 10 days. 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] 06/23/2006 09/22/2014 PERS HX SKIN MALIGNANCY NEC [Z85.828] 06/23/2006 Other seborrheic keratosis [L82.1] 06/23/2006 05/25/2013 Scar condition and fibrosis of skin [L90.5] 06/23/2006 05/25/2013 ACTINIC DAMAGE///CHR SOLAR SKIN DAMAGE NOS [L57*06/23/2006 05/25/2013 SOLAR LENTIGINES [L81.9] 06/23/2006 05/25/2013 Keloid scar [L91.0] 09/24/2006 05/25/2013 SEBORRHEIC KERATOSES IRRITATED//INFLAMED [L82.0]04/12/2007 05/25/2013 Viral warts, unspecified [B07.9] 04/12/2007 05/25/2013 Sebaceous cyst [L72.3] 09/24/2007 05/25/2013 Dyschromia, unspecified [L81.9] 02/28/2008 05/25/2013 Solar Lentigines [L81.4] 08/10/2009 11/27/2016 Rosacea [L71.9] 08/10/2009 Perioral dermatitis [L71.0] 08/10/2009 11/27/2016 Other and unspecified hyperlipidemia [E78.5] 07/03/2010 09/22/2014 Vitamin D deficiency [E55.9] 07/03/2010 Osteopenia [M85.80] 07/03/2010 HTN (hypertension) [I10] 07/03/2010 11 (more content not included)... Normal [facility] RUPERT [facility]LL ([id number]) 1940 F Date Time Provider Department 07/04/24 [facility] During your visit today, we recorded the following information about you: Chris Serrato MD 07/04/2024 6:28 PM Signed Please notify patient that her bone density test looks OK; some thinning of her bones but not quite to the point of osteoporosis. Nothing further needs done at this time. MD Luis Chandra Kathryn, MA 07/05/2024 8:51 AM Signed Message left for pt to call back for results. June Petty MA, LPN 07/05/2024 9:42 AM Signed Pt notified of results and provider message. June Chase LPN Allergies As of Date: 07/04/2024 Noted Allergy Reaction PHENERGAN (PROMETHAZINE HCL) 08/05/2005 1 - Mental Status Change Comments: Oculogyric Crisis KEFLEX (CEPHALEXIN) 08/05/2005 5 - Intolerance TRIMPEX (TRIMETHOPRIM) 08/05/2005 5 - Intolerance Date Reviewed: 02/20/2024 Reviewed by: Allyson Nicholas LPN - Fully Assessed Reason for Visit: Results [95] Prescriptions as of 07/05/2024 - colestipol (COLESTID) 1 gram tablet Take 1 tablet by mouth two times a day. - nadolol (CORGARD) 20 mg tablet Take 1 tablet by mouth once daily. - PARoxetine (PAXIL) 20 mg tablet Take 1 tablet by mouth once daily. - bismuth subsalicylate (PEPTO-BISMOL) 262 mg chewable tablet Take 1 tablet by mouth four times daily for 10 days. 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] 06/23/2006 09/22/2014 PERS HX SKIN MALIGNANCY NEC [Z85.828] 06/23/2006 Other seborrheic keratosis [L82.1] 06/23/2006 05/25/2013 Scar condition and fibrosis of skin [L90.5] 06/23/2006 05/25/2013 ACTINIC DAMAGE///CHR SOLAR SKIN DAMAGE NOS [L57*06/23/2006 05/25/2013 SOLAR LENTIGINES [L81.9] 06/23/2006 05/25/2013 Keloid scar [L91.0] 09/24/2006 05/25/2013 SEBORRHEIC KERATOSES IRRITATED//INFLAMED [L82.0]04/12/2007 05/25/2013 Viral warts, unspecified [B07.9] 04/12/2007 05/25/2013 Sebaceous cyst [L72.3] 09/24/2007 05/25/2013 Dyschromia, unspecified [L81.9] 02/28/2008 05/25/2013 Solar Lentigines [L81.4] 08/10/2009 11/27/2016 Rosacea [L71.9] 08/10/2009 Perioral dermatitis [L71.0] 08/10/2009 11/27/2016 Other and unspecified hyperlipidemia [E78.5] 07/03/2010 09/22/2014 Vitamin D deficiency [E55.9] 07/03/2010 Osteopenia [M85.80] 07/03/2010 HTN (hypertension) [I10] 07/03/2010 07/03/2010 Anxiety [F41.9] 07/03/2010 Chronic rhinitis [J31.0] 07/03/2010 GERD (gastroesophageal reflux disease) [K21.9] 07/03/2010 Palpitations [R00.2] 07/03/2010 Cystocele [HPH6665] 02/06/2011 Female stress incontinence [N39.3] 02/06/2011 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 [D*02/19/2012 05/25/2013 Actinic skin damage [L57.8] 02/19/2012 11/27/2016 Postinflammatory skin changes [R23.8] 04/02/2012 11/27/2016 Hyperlipidemia [E78.5] 04/08/2012 Irritated//Inflamed Seborrheic Keratosis [L82.0]05/25/2013 11/27/2016 Other Seborrheic Keratoses [L82.1] 05/25/2013 11/27/2016 Cutaneous skin tags [L91.8] 09/09/2013 11/27/2016 Diarrhea [R19.7] 09/21/2013 Viral wart [B07.9] 12/28/2013 Dermatochalasis of both upper eyelids [H02.831,*11/29/2021 11/29/2021 Encounter Status:Closed by JUNE CHASE on 07/05/24 Normal [facility] Emergency Department Summary on 12-31-2023 Emergency Department Summary [facility] Medical Records Department [address] [place] [address] Emergency Department Summary 12/31/23 MR#: [id number] Acct: [id number] Name: RUPERT DOLL Rep #: [id number] : 1940 83 From: Padmini WAGONER PCP: Dr. Chris Serrato MD Status:DEP ER Location: ED I have personally performed a face to face assessment of the patient and have reviewed the ARMIDA Note. Patient present secondary to right wrist injury. Patient states she was standing on a small stool to hang a plant when the stool broke and she fell landing on her right outstretched arm. She is right-hand dominant. She states she did hit her head slightly but has no headache. She does not take anticoagulants. She did drive herself to the emergency room. Patient sitting upright in bed no acute distress. Head neck examination unremarkable with no external sign of trauma. Heart is regular rate and rhythm. Lung sounds are clear. Abdomen is soft and nontender. Right upper extremity examination feels mild tenderness and edema at the right wrist. She does have good range of motion. Good cap refill and sensation distally. No tenderness at the elbow. Right wrist x-rays per my interpretation reveal distal radius fracture. Radiology interpretation reviewed and agrees. Test results discussed with the patient and imaging reviewed with her. She is placed in an AP splint. She will follow-up with orthopedics. Return instructions provided. HPI History of Present Illness Chief Complaint: Upper Extremity Injury Narrative Narrative: Patient presenting today with pain to her right wrist after an injury that occurred this afternoon. She reports that she was standing on a stool trying to hang up a plant when the stool broke and she fell onto an outstretched right hand. She did not hit her head, there was no LOC, she is not on any blood thinners. She denies any other injury. She is right-handed. [facility] Home Medications colestipol 1 gram tablet (Colestid) 1 g PO BID cholesterol 02/17/15 [History Last Taken 11/12/20] ergocalciferol (vitamin D2) 1,250 mcg (50,000 unit) capsule (Vitamin D2) 50,000 unit PO MO supplement 02/17/15 [History Last Taken 11/12/20] nadolol 20 mg tablet 20 mg PO DAILY heart 02/17/15 [History Last Taken 11/12/20] Paroxetine Hcl 10 mg PO DAILY depression 11/12/20 [History Last Taken 11/12/20] oxycodone 5 mg tablet 5 mg PO Q8H PRN pain 3 days #7 tabs 12/31/23 [Rx Last Taken Unknown] Allergy/AdvReac Type Severity Reaction Status Date / Time cephalexin monohydrate Allergy Nausea Verified 12/31/23 13:16 [From Keflex] promethazine HCl Allergy Other Verified 12/31/23 13:16 [From Phenergan] trimethoprim Allergy Nausea Verified 12/31/23 13:16 Social History Smoking Status: Never smoker ROS ROS ED Constitutional Constitutional ED: Denies chills or fever(s) Cardiovascular Cardiovascular: Denies chest pain Respiratory/Chest Respiratory/Chest: Denies cough or dyspnea Gastrointestinal Gastrointestinal: Denies abdominal pain, nausea or vomiting Musculoskeletal Musculoskeletal: Reports arthralgias; Denies myalgias Integumentary Denies Abrasions Neurologic Neurologic: Denies paresthesias EXAM Physical Exam Const Vital Signs: 12/31/23 13:15 Temperature 97.8 F Temperature Source Temporal Pulse Rate 64 Respiratory Rate 16 Blood Pressure 167/65 H Blood Pressure Mean 99 Pulse Ox 98 Oxygen Delivery Method Room Air Positive well nourished, well developed and no apparent distress General Appearance ED: well developed HEENT Reports normocephalic and head/scalp atraumatic Mouth ED: Yes moist mucous membranes normal Eyes PERRL and EOMs intact bilaterally Neck full ROM and supple Chest Wall inspection of chest normal Resp normal respiratory effort and clear to auscultation bilaterally Cardio regular rate and regular rhythm GI soft to palpation, non-tender, non-distended and no masses Back/Spine normal ROM and normal to inspection Extremity normal to inspection and full ROM Extremity Narrative: Swelling and pain to the radial and dorsal aspect of the right wrist. Limited range of motion to the right wrist due to pain. Right radial pulse 2+, good capillary refill, sensation intact. Neuro oriented x3, CN's II-XII intact bilaterally, moves all extremities, no focal motor deficits and no sensory deficits noted Sensorium / Orientation: awake and alert Psych mental status grossly normal and thought process normal Skin no rashes or lesions noted and no wounds MDM MDM MDM Narrative Medical decision making narrative: Patient presenting today due to a right wrist injury after falling off of a stool onto an outstretched right arm. No head injury. She h (more content not included)... Normal [facility] Wrist min 3 Viewson 12-31-19 24 Wrist min 3 Views [facility] Imaging Services [address] [place] [address] Wrist min 3 Views MR#: [id number] Acct: [id number] Name: RUPERT DOLL Rep #: [id number] : 1940 F 83 From: Natanael garcia MD PCP: Dr. Chris Serrato MD Status: REG ER Study: Wrist min 3 Views Date of Exam: 12/31/23 Exam# [id number] Ordering Dr: Padmini Brambila [id number] STUDY: X-RAY - RIGHT WRIST REASON FOR EXAM: Female, 83 years old. Injury. TECHNIQUE: 3 view(s) of the wrist were obtained. COMPARISON: None. FINDINGS: There is evidence of a comminuted transverse fracture of the distal radial metaphysis. The alignment is maintained. Normal radiocarpal articulation. Normal distal radioulnar articulation. Normal carpal bones. Normal carpal articulations. There is degenerative arthrosis of the carpometacarpal articulation of the thumb. Normal second through fifth carpometacarpal articulations. Normal visualized metacarpal bones. Soft tissue swelling. RAD/Wrist min 3 Views IMPRESSION: Comminuted transverse fracture of the distal radial metaphysis. The alignment is maintained. Soft tissue swelling. Electronically Signed: Natanael Delgado MD at 14:03 EDT , CC: Dr. Chris Serrato MD; CIARAN Pereira Aitchbone Breaker: Signed Normal [facility] Lower Ext Art Exam w/o Exerc jj 10-30-2023 Lower Ext Art Exam w/o Exercis [facility] [address] [place] [address] Lower Ext Art Exam w/o Exercis 10/30/23 1008 MR#: [id number] Acct: [id number] Name: RUPERT DOLL Rep #: [id number] : 1940 83 From: Gagandeep Stinson MD Attending Dr: Dr. Tonny Ramirez DPM Status: RE G CLI Ordering Dr: Tonny Ramirez DPM Date: 10/30/23 Location: [facility] Sex: F C Admitted: Reason For Study: BLE Pain Procedure A bilateral lower extremity continuous wave Doppler with analog waveform analysis,segmental pressures,and ankle brachial indexes without exercise. Left Segmental Pressures Left brachial= 153mmHg. Left calf = 162mmHg. Left posterior tibial artery = 96mmHg. Left dorsalis pedis artery = 124mmHg. Left digit = 108 mmHg. The left posterior tibial artery waveforms are biphasic. The left dorsalis pedis waveforms are biphasic. Right Segmental Pressures Right brachial= 148mmHg. Right calf = 169mmHg. Right posterior tibial artery = 115mmHg. Right dorsalis pedis artery = 121mmHg. The right posterior tibial artery waveforms are biphasic. The right dorsalis pedis waveforms are biphasic. Indices The right ankle brachial index by the posterior tibial artery is 0.63. The right ankle brachial index by the dorsalis pedis is 0.81. The right digital-brachial index is 0.71. The left ankle brachial index by the posterior tibial artery is 0.75. The left ankle brachial index by the dorsalis pedis is 0.70. The left digital-brachial index is 0.79. VL/Lower Ext Art Exam w/o Exercis Interpretation Summary Right DENISE 0.81, moderate arterial insufficiency. Doppler/PVR waveforms and segmental pressures reveal infrapopliteal disease Left DENISE 0.75, moderate arterial insufficiency. Doppler/PVR waveforms and segmental pressures reveal infrapopliteal disease Ordering Physician: Tonny Ramirez Referring Physician: MD Chris Serrato Performed By: Kiko Brink, RVT 11/02/23 0751 Date Gagandeep Stinson MD CC: DPM Dr. Tonny Ramirez; Dr. Chris Serrato MD Date Dictated: 10/30/23 1008 Date Transcribed: 11/02/23 0751 Aitchbone Breaker: Signed Normal [facility] Venous Duplex US - Andrew Extre mon 10-30-2023 Venous Duplex US - Andrew Extrem [facility] [address] [place] [address] Venous Duplex US - Andrew Extrem 10/30/23 1012 MR#: [id number] Acct: [id number] Name: RUPERT DOLL Rep #: [id number] : 1940 83 From: Gagandeep Stinson MD Attending Dr: Dr. Tonny Ramirez, ARISTEOM Status: RE G CLI Ordering Dr: Tonny Ramirez DPM Date: 10/30/23 Location: [facility] Sex: F C Admitted: Reason For Study: BLE Pain RIGHT LEFT GSV is normal. GSV is normal. CFV is compressible, spontaneous, phasic, CFV is compressible, spontaneous, phasic, competent and demonstrates normal competent, and demonstrates normal augmentation. augmentation. FV is compressible, spontaneous, phasic, FV is compressible, spontaneous, phasic, competent and demonstrates normal competent and demonstrates normal augmentation. augmentation. POP V is compressible, spontaneous, phasic, POP V is compressible, spontaneous, phasic, competent and demonstrates normal competent and demonstrates normal augmentation. augmentation. T/P Trunk is compressible. T/P Trunk is compressible. PTV is compressible. PTV is compressible. RT PerV is compressible. LT PerV is compressible. Procedure This is a venous duplex using B-mode, color flow and spectral Doppler. Exam performed in department. The exam was diagnostic. VL/Venous Duplex US - Andrew Extrem Interpretation Summary Deep veins of the bilateral lower extremities are patent and compressible segmentally. There is no evidence of bilateral lower extremity deep vein thrombosis. The bilateral great saphenous veins appear patent and compressible segmentally. Ordering Physician: Tonny Ramirez Referring Physician: Tonny Ramirez Performed By: Kiko Brink, T 11/02/23751 Date Gagandeep Stinson MD CC: DPM Dr. Tonny Ramirez; Dr. Chris Serrato MD Date Dictated: 10/30/23 1012 Date Transcribed: 11/02/23751 Aitchbone Breaker: Signed [facility] CT ABD/PEL W IVCONon 022 CT ABD/PEL W IVCON * * *Final Report* * * DATE OF EXAM: Aug 20 2022 11:23AM [facility] 0530 - CT ABD/PEL W IVCON / PROCEDURE REASON: Right lower quadrant abdominal pain * * * * Physician Interpretation * * * * EXAMINATION: CT ABDOMEN AND PELVIS WITH IV CONTRAST CLINICAL HISTORY: Right lower quadrant pain. Nausea and vomiting. TECHNIQUE: CT of the abdomen and pelvis was performed using standard technique, scanning from just above the dome of the diaphragm to the symphysis pubis. MQ: CTAP_3 Contrast: IV: 100 ml of Omnipaque 300 Oral: 450 ml of Omni 300 10-25ml diluted with water CT Radiation dose: Integrated Dose-length product (DLP) for this visit = 304.10 mGy*cm. CT Dose Reduction Employed: Automated exposure control (AEC) COMPARISON: None. RESULT: Liver: No mass. Biliary: No bile duct dilation. Status post cholecystectomy. Spleen: No mass. No splenomegaly. Pancreas: No mass or duct dilation. Adrenals: No mass. Kidneys: No renal or ureteral stone. No hydronephrosis seen on either side. Renal parenchyma appears unremarkable. GI tract: No dilation or wall thickening. Appendix is visualized and is unremarkable. Multiple diverticula are seen in the cecum and ascending colon. No radiographic evidence for acute diverticulitis. Multiple diverticula seen in the descending and sigmoid colon. No radiographic evidence for acute diverticulitis. Sliding-type hiatal hernia. Lymph nodes: No abdominal or pelvic lymphadenopathy. Mesentery/Peritoneum: No ascites or mass. Retroperitoneum: No mass. Vasculature: Abdominal aorta is not aneurysmally dilated. The celiac artery, SMA, renal arteries, and PEEWEE are patent. Portal vein, hepatic veins, splenic vein, and SMV are patent. Pelvis: No mass, ascites or fluid collection. Status post hysterectomy. Bones/Soft Tissues: No significant additional findings. Lower thorax: No significant additional findings. Fur Machine Operator (topogram) images: No significant additional findings. IMPRESSION: 1. Diverticula noted throughout the ascending, descending, and sigmoid colon without radiographic evidence for acute diverticulitis. 2. The appendix is visualized and is unremarkable. 3. Status post cholecystectomy. 4. No acute findings noted within the abdomen and pelvis. Aitchbone Breaker[facility] Transcribe Date/Time: Aug 20 2022 11:35A Dictated by : DANIELLE LÓPEZ MD This examination was interpreted and the report reviewed and electronically signed by: DANIELLE LÓPEZ MD on Aug 20 2022 11:42AM EST [id number] Normal [facility] ANES POSTPROC EVALon 022 ANES POSTPROC EVAL HNO ID: [id number] Author: Valentín Masters MD Service: Anesthesiology Author Type: Anesthesiologist Type: Anesthesia Postprocedure Evaluation Filed: 11/29/2021 2:16 PM Note Text: POST ANESTHESIA EVALUATION NOTE : 1940 Procedure Summary Date: 11/29/21 Room / Location: [place] [address] [facility] Anesthesia Start: 1258 Anesthesia Stop: 1338 Procedure: BLEPHAROPLASTY UPPER MEDICALLY NECESSARY (Bilateral Eye lid) Diagnosis: Dermatochalasis of both upper eyelids (Dermatochalasis of both upper eyelids [H02.831, H02.834]) Surgeons: Jones Su MD Responsible Provider: Valentín Masters MD Anesthesia Type: MAC ASA Status: 3 Anesthesia Type: MAC Last Vitals Vitals Value Taken Time BP 142/61 11/29/21 1336 Temp 35.7 ?C (96.2 ?F) 11/29/21 1336 Pulse 59 11/29/21 1336 Resp 17 11/29/21 1336 SpO2 100 % 11/29/21 1336 Post Anesthesia Patient Status Patient Evaluation: PACU. PACU/ICU Patient Condition: stable. Anticipated Disposition: phase 2 then home. Neurological Status: aware and responsive. Pulmonary Status: breathing comfortably on room air Airway Control: returned to baseline unsupported. Cardiovascular Status: stable. Pain Management: clinically adequate - multimodal analgesia pain management approach Postoperative Hydration: acceptable. Intraoperative Events: no significant anesthesia events Recommendation: continue current plan of care. Anesthesia Observations No Documentation SIGNATURE: Valentín Masters MD PATIENT NAME: Rupert Doll DATE: November 29, 2021 TIME: 2:16 PM CSN: [id number] [facility] ANES PRE-OPon 11-29-2021 ANES PRE-OP HNO ID: [id number] Author: Valentín Masters MD Service: Anesthesiology Author Type: Anesthesiologist Type: Anesthesia Preprocedure Evaluation Filed: 11/29/2021 12:28 PM Note Text: ANESTHESIOLOGY DAY OF SURGERY NOTE : 1940 Procedure Information Date/Time: 11/29/21 1200 Procedure: BLEPHAROPLASTY UPPER MEDICALLY NECESSARY (Bilateral Eye lid) Location: [place] [address] [facility] Surgeons: Jones Su MD Estimated body mass index is 23.46 kg/m? as calculated from the following: Height as of this encounter: 165.1 cm (5' 5). Weight as of this encounter: 64 kg (141 lb). Most recent hematocrit and potassium results: Hematocrit 43.8 11/08/2021 Potassium 3.8 11/08/2021 Relevant Problems GI (+) GERD (gastroesophageal reflux disease) NEURO-PSYCH (+) Personal history of other malignant neoplasm of skin I - PHYSICAL EVALUATION AIRWAY Patient intubated: No. Tracheostomy tube not present Mallampati: II. TM distance: >3 FB. Neck ROM: full ROM without neurological symptoms. Mouth opening: adequate. Short neck: no. Thick neck: no DENTAL Dental findings: poor dentition. Additional exam findings: no II - ANESTHESIA PLAN ASA Score: 3 Anesthetic Plan: MAC NPO Status: adequate Monitoring plan: standard ASA. Postoperative analgesic plan: parenteral or oral opioids and multimodal analgesia. Patient / Surrogate agrees to blood products: blood products not planned Significant changes in the patient condition since the History and Physical, not otherwise documented in primary service progress note: no. Vitals Value Taken Time BP 141/57 11/29/21 1139 Pulse 58 11/29/21 1139 Resp 16 11/29/21 1139 Temp 36.3 ?C (97.4 ?F) 11/29/21 1139 SpO2 98 % 11/29/21 1139 Facility-Administered Medications as of 11/29/2021 Medication Dose Route Frequency - lactated ringers iv infusion 30 mL/hr INTRAVENOUS CONTINUOUS Outpatient Medications as of 11/29/2021 Medication Sig - ergocalciferol 50,000 unit capsule (VITAMIN D2, DRISDOL) Take 1 capsule by mouth one time a week. - PARoxetine (PAXIL) 10 mg tablet Take 1 tablet by mouth once daily. - doxycycline 20 mg tablet Take 20 mg by mouth twice daily. - triamcinolone acetonide (KENALOG) 0.1 % cream Apply 1 application to affected area twice daily. Apply to affected area. Location: chest wall, abdomen (Patient not taking: Reported on 11/08/2021 ) - aspirin, enteric coated (ADULT LOW DOSE ASPIRIN) 81 mg EC tablet Take 1 tablet by mouth once daily. Prescribed at [facility] (Patient not taking: Reported on 11/08/2021 ) - ketoconazole (NIZORAL) 2 % cream Apply 1 application to affected area once daily. Apply to rash and surrounding area - Multivitamins-Minerals -Lutein (CENTRUM SILVER) ORAL Tab Take one(1) tablet daily. I have interviewed and examined the patient. I have reviewed the medical record and/or the pre-anesthesia evaluation, pertinent labs, and test results. This contains updated information obtained within 48 hours of Surgery/Procedure. SIGNATURE: Valentín Masters MD PATIENT NAME: Rupert Doll DATE: November 29, 2021 TIME: 12:28 PM CSN: [id number] Normal [facility] HISTORY PHYSICALon HISTORY PHYSICAL HNO ID: [id number] Author: Jones Su MD Service: Ophthalmology Author Type: Physician Type: HANDP Filed: 11/29/2021 11:55 AM Note Text: UPDATED HISTORY AND PHYSICAL EXAMINATION SERVICE DATE: 11/29/2021 SERVICE TIME: 11:55 AM PHYSICAL EXAM MUST BE COMPLETED ON ADMISSION The History and Physical (completed in the past 30 days) has been reviewed and the patient has been examined. The contents accurately reflect the patient's condition with the following additions or revisions since the HANDP was completed. Examination indicates no changes. This HANDP can be found in the scanned documents dated 11/08/21. SIGNATURE: Jones Su MD PATIENT NAME: Rupert Doll DATE: November 29, 2021 TIME: 11:55 AM PAGER: [facility] OPERATIVE NOon 11-29-2021 OPERATIVE NO HNO ID: [id number] Author: Jones Su MD Service: Ophthalmology Author Type: Physician Type: Operative Report Filed: 11/29/2021 1:32 PM Note Text: OPERATIVE/PROCEDURE REPORT OPHTHAMOLOGY LOG ID: [id number] Surgery/Procedure Date: 11/29/2021 Incision/Procedure Start Time: 1:10 PM Incision Close/Procedure End Time: 1:31 PM Surgeon(s)/Procedurali st(s) and Chip Mucker(s): Surgeon(s) and Role: * Jones Su MD - Primary Procedure(s): Procedure(s) (LRB): BLEPHAROPLASTY UPPER MEDICALLY NECESSARY (Bilateral) Preoperative Diagnosis: Dermatochalasis of both upper eyelids [H02.831, H02.834] Postoperative Diagnosis: Same as Preop Operative Indications: The patient has a history of upper eyelid skin blocking their vision resulting in a visually significant scotoma of greater than 25 degrees which improves on eyelid taping. The skin hangs over the lid margins resulting in limited peripheral vision and difficulty with driving, along with fatigue with reading. Based on their symptoms, the surgery was planned. Blurry vision, fatigue with reading Anesthesia: Monitored Anesthesia Care Procedure Details: The patient was brought into the operating room, and placed under adequate local anesthesia following demarcation of the upper eyelids in the sitting position. A skin incision was made with a #15 blade, and the skin muscle flap was dissected from the temporal to nasal direction using unipolar cautery. Bleeding was controlled with bipolar cautery. Middle and medial fat pads were debulked. Several dog-ear adjustments were made along the medial aspect of the upper lid to achieve a good contour to the crease. Once this was done, the incision was closed using a combination of interrupted and running suture of 6-0 Prolene. A similar procedure was carried out on the opposite upper eyelid. Antibiotic ointment and ice compresses were placed over the eyes at the end of the case. The patient was returned to the recovery room in satisfactory condition. Estimated Blood Loss: Minimal unless noted here. Specimens: * No specimens in log * Implantable Devices: * No implants in log * Drains: None unless noted here. Complications: None I performed the entire procedure. SIGNATURE: Jones Su MD PATIENT NAME: Rupert Doll DATE: November 29, 2021 TIME: 1:32 PM PAGER/CONTACT #: [facility] XR Knee - left 4 Viewson IMPRESSION: No acute osseous abnormality. 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 Aitchbone Breaker: ELISA Transcribe Date/Time: Sep 13 2020 4:39P Dictated by : BRENNA GONZALEZ DO This examination was interpreted and the report reviewed and electronically signed by: BRENNA GONZALEZ DO on Sep 13 2020 4:42PM [facility] DIVISION OF RADIOLOGY * * *Final Report* * * DATE OF EXAM: Sep 13 2020 4:37PM WOX [id number] - XR KNEE 4V AP/PA BOTH+LAT/MARS LT / PROCEDURE REASON: Left knee injury, initial encounter * * * * Physician Interpretation * * * * EXAMINATION: XR KNEE 4V AP/PA BOTH+LAT/MARS LT PATIENT/TECHNOLOGIST PROVIDED HISTORY: Fell twisted left anterior patella injury CLINICAL INFORMATION: 80 years old Female with Left knee injury, initial encounter TECHNIQUE: XR KNEE 4V AP/PA BOTH+LAT/MARS LT Laterality: LEFT Number of different views (projections): 4 COMPARISON: Left knee radiographs 05/08/2020 RESULT: Small tricompartmental osteophytes with mild medial compartment joint space narrowing. Mild degenerative subchondral cystic change in the patella. No joint effusion. No fracture. Vascular calcifications. Bones appear demineralized. Images of the RIGHT knee demonstrate tricompartmental osteophytes with mild medial compartment joint space narrowing. DIVISION OF RADIOLOGY Provider, Chandni Greer [facility] - 09/13/2020 * * *Final Report* * * DATE OF EXAM: Sep 13 2020 4:37PM WOX 5202 - XR KNEE 4V AP/PA BOTH+LAT/MARS LT / PROCEDURE REASON: Left knee injury, initial encounter * * * * Physician Interpretation * * * * EXAMINATION: XR KNEE 4V AP/PA BOTH+LAT/MARS LT PATIENT/TECHNOLOGIST PROVIDED HISTORY: Fell twisted left anterior patella injury CLINICAL INFORMATION: 80 years old Female with Left knee injury, initial encounter TECHNIQUE: XR KNEE 4V AP/PA BOTH+LAT/MARS LT Laterality: LEFT Number of different views (projections): 4 COMPARISON: Left knee radiographs 05/08/2020 RESULT: Small tricompartmental osteophytes with mild medial compartment joint space narrowing. Mild degenerative subchondral cystic change in the patella. No joint effusion. No fracture. Vascular calcifications. Bones appear demineralized. Images of the RIGHT knee demonstrate tricompartmental osteophytes with mild medial compartment joint space narrowing. IMPRESSION IMPRESSION: No acute osseous abnormality. 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 Aitchbone Breaker: [facility] Transcribe Date/Time: Sep 13 2020 4:39P Dictated by : BRENNA GONZALEZ DO This examination was interpreted and the report reviewed and electronically signed by: BRENNA GONZALEZ DO on Sep 13 2020 4:42PM EST Radiology Study observation (narrative) XR Knee - left 4 ViewsOrdere d By: [facility] Provider on 09-13-2020 Vital Signs Date Time Vital Sign Value Performing Clinician Facility 03-31-2025 13:59-0400 Body mass index (BMI) [Ratio] 23.65 kg/m2 Chris Serrato MD Work Phone: 03-31-2025 13:59-0400 Body weight 62.5 kg Chris Serrato MD Work Phone: 03-31-2025 13:59-0400 Diastolic blood pressure 70 mm[Hg] Chris Serrato MD Work Phone: 03-31-2025 13:59-0400 Heart rate 78 /min Chris Serrato MD Work Phone: 03-31-2025 13:59-0400 Respiratory rate 14 /min Chris Serrato MD Work Phone: 03-31-2025 13:59-0400 Systolic blood pressure 122 mm[Hg] Chris Serrato MD Work Phone: 01-15-2025 11:20-0400 Body mass index (BMI) [Ratio] 23.84 kg/m2 Mimi Gross APRN.TOLL COLLECTOR SUPERVISOR Work Phone: 01-15-2025 11:20-0400 Body temperature 98.91 [degF] Mimi Gross APRN.TOLL COLLECTOR SUPERVISOR Work Phone: 01-15-2025 11:20-0400 Body weight 63 kg Mimi Gross APRN.TOLL COLLECTOR SUPERVISOR Work Phone: 01-15-2025 11:20-0400 Diastolic blood pressure 71 mm[Hg] Mimi Gross APRN.TOLL COLLECTOR SUPERVISOR Work Phone: 01-15-2025 11:20-0400 Heart rate 81 /min Mimi Gross APRN.TOLL COLLECTOR SUPERVISOR Work Phone: 01-15-2025 11:20-0400 Respiratory rate 20 /min Mimi Gross APRN.TOLL COLLECTOR SUPERVISOR Work Phone: 01-15-2025 11:20-0400 SaO2% (BldA) [Mass fraction] 98 % Mimi Gross APRN.TOLL COLLECTOR SUPERVISOR Work Phone: 01-15-2025 11:20-0400 Systolic blood pressure 134 mm[Hg] Mimi Gross APRN.TOLL COLLECTOR SUPERVISOR Work Phone: 01-09-2025 17:17-0400 Body mass index (BMI) [Ratio] 24.26 kg/m2 Viktoriya Iglesias APRN.TOLL COLLECTOR SUPERVISOR Work Phone: 01-09-2025 17:17-0400 Body temperature 98.8 [degF] Viktoriya Iglesias MITER SAW OPERATOR.TOLL COLLECTOR SUPERVISOR Work Phone: 01-09-2025 17:17-0400 Body weight 64.1 kg Viktoriya Iglesias MITER SAW OPERATOR.TOLL COLLECTOR SUPERVISOR Work Phone: 01-09-2025 17:17-0400 Diastolic blood pressure 82 mm[Hg] Viktoriya Iglesias MITER SAW OPERATOR.TOLL COLLECTOR SUPERVISOR Work Phone: 01-09-2025 17:17-0400 Heart rate 80 /min Viktoriya Iglesias MITER SAW OPERATOR.TOLL COLLECTOR SUPERVISOR Work Phone: 01-09-2025 17:17-0400 Respiratory rate 18 /min Viktoriya Iglesias MITER SAW OPERATOR.TOLL COLLECTOR SUPERVISOR Work Phone: 01-09-2025 17:17-0400 SaO2% (BldA) [Mass fraction] 98 % Viktoriya Iglesias MITER SAW OPERATOR.TOLL COLLECTOR SUPERVISOR Work Phone: 01-09-2025 17:17-0400 Systolic blood pressure 142 mm[Hg] Viktoriya Iglesias MITER SAW OPERATOR.TOLL COLLECTOR SUPERVISOR Work Phone: 09-27-2024 13:34-0500 Body height 162.6 cm Chris Serrato MD Work Phone: 09-27-2024 13:34-0500 Body mass index (BMI) [Ratio] 23.58 kg/m2 Chris Serrato MD Work Phone: 09-27-2024 13:34-0500 Body weight 62.3 kg Chris Serrato MD Work Phone: 09-27-2024 13:34-0500 Diastolic blood pressure 80 mm[Hg] hCris Serrato MD Work Phone: 09-27-2024 13:34-0500 Heart rate 70 /min Chris Serrato MD Work Phone: 01-28-2025 13:34-0500 Respiratory rate 16 /min Chris Serrato MD Work Phone: 09-27-2024 13:34-0500 SaO2% (BldA) [Mass fraction] 96 % Chris Serrato MD Work Phone: 09-27-2024 13:34-0500 Systolic blood pressure 130 mm[Hg] Chris Serrato MD Work Phone: 09-23-2024 16:08-0500 Body mass index (BMI) [Ratio] 22.78 kg/m2 Mimi Gross APRN.TOLL COLLECTOR SUPERVISOR Work Phone: 09-23-2024 16:08-0500 Body temperature 97.2 [degF] Mimi Gross APRN.TOLL COLLECTOR SUPERVISOR Work Phone: 09-23-2024 16:08-0500 Body weight 62.1 kg Mimi Gross APRN.TOLL COLLECTOR SUPERVISOR Work Phone: 09-23-2024 16:08-0500 Diastolic blood pressure 84 mm[Hg] Mimi Gross APRN.TOLL COLLECTOR SUPERVISOR Work Phone: 09-23-2024 16:08-0500 Heart rate 86 /min Mimi Gross APRN.TOLL COLLECTOR SUPERVISOR Work Phone: 09-23-2024 16:08-0500 Respiratory rate 16 /min Mimi Gross APRN.TOLL COLLECTOR SUPERVISOR Work Phone: 09-23-2024 16:08-0500 SaO2% (BldA) [Mass fraction] 97 % Mimi Gross APRN.TOLL COLLECTOR SUPERVISOR Work Phone: 09-23-2024 16:08-0500 Systolic blood pressure 147 mm[Hg] Mimi Gross APRN.TOLL COLLECTOR SUPERVISOR Work Phone: 09-16-2024 13:22-0500 Body mass index (BMI) [Ratio] 22.96 kg/m2 Farhat Mcwilliams APRN.TOLL COLLECTOR SUPERVISOR Work Phone: 09-16-2024 13:22-0500 Body temperature 98.6 [degF] Farhat David MITER SAW OPERATOR.TOLL COLLECTOR SUPERVISOR Work Phone: 09-16-2024 13:22-0500 Body weight 62.6 kg Farhat David MITER SAW OPERATOR.TOLL COLLECTOR SUPERVISOR Work Phone: 09-16-2024 13:22-0500 Diastolic blood pressure 88 mm[Hg] Farhat David MITER SAW OPERATOR.TOLL COLLECTOR SUPERVISOR Work Phone: 09-16-2024 13:22-0500 Heart rate 93 /min Farhat David MITER SAW OPERATOR.TOLL COLLECTOR SUPERVISOR Work Phone: 09-16-2024 13:22-0500 Respiratory rate 18 /min Afrhat David MITER SAW OPERATOR.TOLL COLLECTOR SUPERVISOR Work Phone: 09-16-2024 13:22-0500 SaO2% (BldA) [Mass fraction] 98 % Farhat David MITER SAW OPERATOR.TOLL COLLECTOR SUPERVISOR Work Phone: 09-16-2024 13:22-0500 Systolic blood pressure 140 mm[Hg] Farhat David MITER SAW OPERATOR.TOLL COLLECTOR SUPERVISOR Work Phone: 02-20-2024 09:23-0400 Body mass index (BMI) [Ratio] 23.13 kg/m2 Chris Serrato MD Work Phone: 02-20-2024 09:23-0400 Body weight 63.05 kg Chris Serrato MD Work Phone: 02-20-2024 09:23-0400 Diastolic blood pressure 66 mm[Hg] Chris Serrato MD Work Phone: 02-20-2024 09:23-0400 Heart rate 72 /min Chris Serrato MD Work Phone: 02-20-2024 09:23-0400 Respiratory rate 16 /min Chris Serrato MD Work Phone: 02-20-2024 09:23-0400 SaO2% (BldA) [Mass fraction] 97 % Chris Serrato MD Work Phone: 02-20-2024 09:23-0400 Systolic blood pressure 130 mm[Hg] Chris Serrato MD Work Phone: 12-31-2023 15:06-0400 Body temperature 98 [degF] Dr. Chris Serrato Work Phone: [facility] 12-31-2023 15:06-0400 Diastolic blood pressure 76 mm[Hg] Dr. Chris Serrato Work Phone: [facility] 12-31-2023 15:06-0400 Heart rate 97 /min Dr. Chris Serrato Work Phone: [facility] 12-31-2023 15:06-0400 Respiratory rate 14 /min Dr. Chris Serrato Work Phone: [facility] 12-31-2023 15:06-0400 SaO2% (BldA) [Mass fraction] 100 % Dr. Chris Serrato Work Phone: [facility] 12-31-2023 15:06-0400 Systolic blood pressure 158 mm[Hg] Dr. Chris Serrato Work Phone: [facility] 12-31-2023 13:15-0400 Body height 165.[address] Chris Serrato Work Phone: [facility] 12-31-2023 13:15-0400 Body mass index (BMI) [Ratio] 22.5 kg/m2 Dr. Chris Serrato Work Phone: [facility] 12-31-2023 13:15-0400 Body weight 61.[address] Chris Serrato Work Phone: [facility] 12-23-2023 18:59-0400 Body mass index (BMI) [Ratio] 23.3 kg/m2 Salvador Daniels MD Work Phone: 12-23-2023 18:59-0400 Body temperature 97.81 [degF] Salvador Daniels MD Work Phone: 12-23-2023 18:59-0400 Body weight 63.5 kg Salvador Daniels MD Work Phone: 12-23-2023 18:59-0400 Diastolic blood pressure 82 mm[Hg] Salvador Daniels MD Work Phone: 12-23-2023 18:59-0400 Heart rate 89 /min Salvador Daniels MD Work Phone: 12-23-2023 18:59-0400 Respiratory rate 18 /min Salvador Daniels MD Work Phone: 12-23-2023 18:59-0400 SaO2% (BldA) [Mass fraction] 98 % Salvador Daniels MD Work Phone: 12-23-2023 18:59-0400 Systolic blood pressure 142 mm[Hg] Salvador Daniels MD Work Phone: 12-01-2022 15:35-0400 Body temperature 98.4 [degF] Delroy Katz APRN.TOLL COLLECTOR SUPERVISOR Work Phone: 12-01-2022 15:35-0400 Body weight 62.14 kg Delroy Katz APRN.TOLL COLLECTOR SUPERVISOR Work Phone: 12-01-2022 15:35-0400 Diastolic blood pressure 76 mm[Hg] Delroy Katz APRN.TOLL COLLECTOR SUPERVISOR Work Phone: 12-01-2022 15:35-0400 Heart rate 75 /min Delroy Katz APRN.TOLL COLLECTOR SUPERVISOR Work Phone: 12-01-2022 15:35-0400 Respiratory rate 14 /min Delroy Katz APRN.TOLL COLLECTOR SUPERVISOR Work Phone: 12-01-2022 15:35-0400 SaO2% (BldA) [Mass fraction] 99 % Delroy Knoble MITER SAW OPERATOR.TOLL COLLECTOR SUPERVISOR Work Phone: 12-01-2022 15:35-0400 Systolic blood pressure 138 mm[Hg] Delroy Knoble MITER SAW OPERATOR.TOLL COLLECTOR SUPERVISOR Work Phone: 11-06-2022 12:41-0500 Body weight 61.69 kg Shaista Tannhof MITER SAW OPERATOR.TOLL COLLECTOR SUPERVISOR Work Phone: 11-06-2022 12:41-0500 Diastolic blood pressure 76 mm[Hg] Shaista Tannhof MITER SAW OPERATOR.TOLL COLLECTOR SUPERVISOR Work Phone: 11-06-2022 12:41-0500 Heart rate 62 /min Shaista Tannhof MITER SAW OPERATOR.TOLL COLLECTOR SUPERVISOR Work Phone: 11-06-2022 12:41-0500 Respiratory rate 16 /min Shaista Tannhof MITER SAW OPERATOR.TOLL COLLECTOR SUPERVISOR Work Phone: 11-06-2022 12:41-0500 SaO2% (BldA) [Mass fraction] 99 % Shaista Tannhof MITER SAW OPERATOR.TOLL COLLECTOR SUPERVISOR Work Phone: 11-06-2022 12:41-0500 Systolic blood pressure 150 mm[Hg] Shaista Tannhof MITER SAW OPERATOR.TOLL COLLECTOR SUPERVISOR Work Phone: 08-18-2022 13:55-0500 Body weight 63.96 kg Delroy Parmjit MITER SAW OPERATOR.TOLL COLLECTOR SUPERVISOR Work Phone: 08-18-2022 13:55-0500 Diastolic blood pressure 76 mm[Hg] Delroy Mateooble MITER SAW OPERATOR.TOLL COLLECTOR SUPERVISOR Work Phone: 08-18-2022 13:55-0500 Heart rate 64 /min Delroy Knoble MITER SAW OPERATOR.TOLL COLLECTOR SUPERVISOR Work Phone: 08-18-2022 13:55-0500 Respiratory rate 14 /min Delroy Knoble MITER SAW OPERATOR.TOLL COLLECTOR SUPERVISOR Work Phone: 08-18-2022 13:55-0500 SaO2% (BldA) [Mass fraction] 99 % Delroy Katz MITER SAW OPERATOR.TOLL COLLECTOR SUPERVISOR Work Phone: 08-18-2022 13:55-0500 Systolic blood pressure 134 mm[Hg] Delroy Katz MITER SAW OPERATOR.TOLL COLLECTOR SUPERVISOR Work Phone: 12-19-2021 13:50-0400 Body weight 63.96 kg Shaista Villegashof MITER SAW OPERATOR.TOLL COLLECTOR SUPERVISOR Work Phone: 12-19-2021 13:50-0400 Diastolic blood pressure 64 mm[Hg] Shaista Villegashof MITER SAW OPERATOR.TOLL COLLECTOR SUPERVISOR Work Phone: 12-19-2021 13:50-0400 Heart rate 62 /min Shaista Villegashof MITER SAW OPERATOR.TOLL COLLECTOR SUPERVISOR Work Phone: 12-19-2021 13:50-0400 Respiratory rate 16 /min Shaista Villegashof MITER SAW OPERATOR.TOLL COLLECTOR SUPERVISOR Work Phone: 12-19-2021 13:50-0400 SaO2% (BldA) [Mass fraction] 96 % Shaista Villegashof MITER SAW OPERATOR.TOLL COLLECTOR SUPERVISOR Work Phone: 12-19-2021 13:50-0400 Systolic blood pressure 130 mm[Hg] Shaista Villegashof MITER SAW OPERATOR.TOLL COLLECTOR SUPERVISOR Work Phone: Encounters Encounter Date Encounter Type Care Provider Facility Start: 06-28-2025 End: 06-28-2025 ambulatory FLAQUITA VALDEZLOGJOSE Facility:[facility] Start: 06-27-2025 ambulatory JUSTINA KALESSA Facilit y:[facility] Start: 06-22-2025 End: 06-22-2025 ambulatory JUSTINA KALESSA Facility:[facility] Start: 06-12-2025 End: 06-12-2025 ambulatory JUSTINA KALESSA Facility:[facility] Start: 06-11-2025 End: 06-11-2025 ambulatory JOSEPH STUART Facility:[facility] Start: 05-11-2025 End: 05-15-2025 Refmiranda Serrato MD Work Phone: [facility] [place] Comment on above: Refill Request Start: 03-31-2025 End: 03-31-2025 Office outpatient visit 25 minutes Chris Serrato MD Work Phone: [facility] [place] Comment on above: Other hyperlipidemia (Primary Dx); Anxiety; Palpitations; Diarrhea, unspecified type; Elevated glucose Start: 03-31-2025 End: 03-31-[address]25 [address] [facility] Facility:[facility] Start: 02-27-2025 End: 02-27-2025 Refill Chris Serrato MD Work Phone: [facility] [place] Comment on above: Refill Request Start: 01-16-2025 ambulatory MIMI GROSS Facilit y:[facility] Start: 01-16-2025 End: 01-16-2025 Subsequent hospital visit by physician Xr [facility] [place] Work Phone: Radiology Comment on above: Fall on same level f rom slipping, tripping and stumbling without subsequent striking against object, initial encounter [W01.0XXA] Start: 01-15-2025 End: 01-15-2025 Patient encounter procedure Mimi Gross MITER SAW OPERATOR.TOLL COLLECTOR SUPERVISOR Work Phone: [facility] Comment on above: Fall on same level f rom slipping, tripping and stumbling without subsequent striking against object, initial encounter Start: 01-15-2025 End: 01-15-2025 [address] [facility] Facility:[facility] Start: 01-11-2025 End: 01-11-2025 Follow-up encounter Berenice WAGONER Work Phone: [facility] Comment on above: Results Start: 01-09-2025 End: 01-09-2025 Patient encounter procedure Viktoriya Iglesias MITER SAW OPERATOR.TOLL COLLECTOR SUPERVISOR Work Phone: [facility] Comment on above: Urinary frequency (P rimary Dx); Urinary tract infection with hematuria, site unspecified Start: 01-09-2025 End: 01-09-2025 ambulatory Chris Serrato MD Work Phone: [facility] [place] Comment on above: UTI Start: 09-27-2024 End: 09-27-2024 ambulatory CHRIS SERRATO Facility:[facility] Start: 09-27-2024 End: 09-27-2024 Patient encounter procedure Chris Serrato MD Work Phone: [facility] Comment on above: Encounter for Medica re annual wellness exam (Primary Dx); Screening for depression; Anxiety; Palpitations; Other hyperlipidemia; Diarrhea, unspecified type; Acute non-recurrent frontal sinusitis Start: 09-23-2024 End: 09-23-2024 ambulatory CHRIS SERRATO Facility:[facility] Start: 09-23-2024 End: 09-23-2024 Patient encounter procedure Mimi Gross APRN.TOLL COLLECTOR SUPERVISOR Work Phone: [facility] Comment on above: Sore throat (Primary Dx); Rhinosinusitis Start: 09-22-2024 End: 09-22-2024 ambulatory CHRIS SERRATO Facility:[facility] Start: 09-16-2024 End: 09-16-2024 ambulatory FARHAT MCWILLIAMS Facility:[facility] Start: 09-16-2024 End: 09-16-2024 Office outpatient visit 15 minutes Farhat Mcwilliams APRN.TOLL COLLECTOR SUPERVISOR Work Phone: [facility] Comment on above: Sinobronchitis (Prim cecile Dx) Start: 09-14-2024 End: 09-14-2024 ambulatory Chris Serrato MD Work Phone: [facility] Comment on above: Sinus Congestion Start: 09-07-2024 End: 09-07-2024 Refill Chris Serrato MD Work Phone: [facility] Comment on above: Refill Request Start: 07-04-2024 End: 07-05-2024 Telephone encounter Chris Serrato MD Work Phone: [facility] Comment on above: Results Start: 06-27-2024 End: 06-27-2024 Subsequent hospital visit by physician Bone Density [facility] Work Phone: Radiology Comment on above: Screening for osteop orosis [Z13.820] Start: 05-16-2024 End: 05-16-2024 ambulatory Chris Serrato MD Work Phone: [facility] Comment on above: Covid19 Concern Start: 03-18-2024 ambulatory Chris cruz MD Work Phone: [facility] Comment on above: Headache Start: 03-10-2024 Telephone encounter Chris bill MD Work Phone: [facility] Comment on above: Information re: Dexa scan (Pt's insurance calling.) Start: 02-26-2024 Telephone encounter Chris bill MD Work Phone: [facility] Comment on above: Results Start: 02-20-2024 End: 02-20-2024 Patient encounter procedure Chris Serrato MD Work Phone: [facility] Comment on above: Other hyperlipidemia (Primary Dx); Palpitations; Anxiety with depression; Elevated glucose Start: 02-12-2024 Refill Chris cruz MD Work Phone: [facility] Comment on above: Refill Request Start: 01-09-2024 Refill Farhat JUAREZ RN.TOLL COLLECTOR SUPERVISOR Work Phone: [facility] Comment on above: Refill Request Start: 12-31-2023 End: 12-31-2023 Emergency department patient visit Chris Serrato Facility:[facility] Start: 12-31-2023 End: 12-31-2023 Emergency department patient visit Dr. Chris Serrato Work Phone: [facility] Work Phone: Start: 12-23-2023 End: 12-23-2023 Patient encounter procedure Salvador Daniels MD Work Phone: [facility] Comment on above: Acute non-recurrent sinusitis, unspecified location (Primary Dx) Start: 12-18-2023 ambulatory Chris cruz MD Work Phone: [facility] Comment on above: Cough Start: 10-30-2023 ambulatory Tonny Ramirez Facility: [facility] Start: 10-30-2023 Non-patient / Non-visit Dr. Ulysses Serrato Work Phone: [facility] Start: 10-30-2023 End: 10-30-[address] Chris Serrato Work Phone: [facility] Work Phone: Start: 10-30-2023 End: 10-30-[address] Chris Serrato Work Phone: [facility] Work Phone: Start: 08-10-2023 Telephone encounter Chris bill MD Work Phone: [facility] [place] Comment on above: Patient Update; Liudmila ent Question Start: 08-04-2023 Telephone encounter Chris bill MD Work Phone: [address] [place] [address] Comment on above: Patient Update Start: 07-13-2023 Refill Chris cruz MD Work Phone: [facility] Comment on above: Refill Request (SEE RX NOTES) Start: 03-04-2023 Refill Chris cruz MD Work Phone: [facility] Comment on above: Refill Request Start: 12-26-2022 Telephone encounter Chris bill MD Work Phone: [facility] [place] Comment on above: Medication Problem Start: 12-23-2022 Refill Chris cruz MD Work Phone: [facility] [place] Comment on above: Refill Request Start: 12-01-2022 End: 12-01-2022 Patient encounter procedure Delroy Katz APRN.TOLL COLLECTOR SUPERVISOR Work Phone: [facility] [place] Comment on above: Acute non-recurrent frontal sinusitis (Primary Dx) Start: 11-06-2022 End: 11-06-2022 Patient encounter procedure Shaista Calabrese APRN.TOLL COLLECTOR SUPERVISOR Work Phone: [facility] [place] Comment on above: Anxiety with depress ion (Primary Dx) Start: 11-05-2022 Telephone encounter Chris bill MD Work Phone: [facility] [place] Comment on above: Medication Request Start: 08-21-2022 Telephone encounter Delroy ashley APRN.TOLL COLLECTOR SUPERVISOR Work Phone: [facility] [place] Comment on above: Results Start: [facility] Start: 08-20-2022 End: 08-20-2022 Subsequent hospital visit by physician [facility] Comment on above: Right lower quadrant pain [R10.31] Right lower quadrant abdominal pain [R10.31] Start: 08-19-2022 ambulatory CHRIS SERRATO Facil ity:[facility] Start: 08-18-2022 ambulatory Chris cruz MD Work Phone: [facility] [place] Comment on above: Right Lower abdomen Pain Start: 08-18-2022 End: 08-18-2022 Patient encounter procedure Delroy Katz APRN.TOLL COLLECTOR SUPERVISOR Work Phone: [facility] Comment on above: Right lower quadrant abdominal pain (Primary Dx) Start: 05-25-2022 Refill Farhat JUAREZ RN.TOLL COLLECTOR SUPERVISOR Work Phone: [facility] Comment on above: Refill Request Start: 05-08-2022 Refill Shaista Calabrese APRN.TOLL COLLECTOR SUPERVISOR Work Phone: [facility] [place] Comment on above: Refill Request Start: 05-02-2022 Telephone encounter Chris bill MD Work Phone: [facility] [place] Comment on above: Patient Update Start: 03-25-2022 Telephone encounter Chris bill MD Work Phone: [facility] [place] Comment on above: Medication Problem Start: 12-19-2021 End: 12-19-2021 Patient encounter procedure Shaista Calabrese APRN.TOLL COLLECTOR SUPERVISOR Work Phone: [facility] [place] Comment on above: Olecranon bursitis o f left elbow (Primary Dx) Start: 09-13-2020 End: 09-13-2020 Subsequent hospital visit by physician Jaime [facility] [place] Work Phone: Radiology Comment on above: Left knee injury, in itial encounter [S89.92XA] Procedures Date Procedure Procedure Detail Performing Clinician Start: 01-16-2025 Radiologic exam knee complete 4/more views Mimi Gross APRN.TOLL COLLECTOR SUPERVISOR Work Phone: Start: 01-09-2025 Urnls dip stick/tabl et rgnt auto w/o microscopy Viktoriya Iglesias MITER SAW OPERATOR.TOLL COLLECTOR SUPERVISOR Work Phone: Start: 09-27-2024 Adult depression screening assessment Chris Serrato MD Work Phone: Start: 09-23-2024 STREP A MOLECULAR (POC) Mimi Gross APRN.TOLL COLLECTOR SUPERVISOR Work Phone: Start: 12-31-2023 Plain x-ray of wrist Dr James Serrato Work Phone: Start: 08-20-2022 Ct abdomen & pelvis w/contrast material Delroy Katz MITER SAW OPERATOR.TOLL COLLECTOR SUPERVISOR Work Phone: Start: 09-13-2020 Radiologic exam knee complete 4/more views Jaci Garza MITER SAW OPERATOR.TOLL COLLECTOR SUPERVISOR Work Phone: Start: 05-20-2018 Adult depression screening assessment Shaista Calabrese MITER SAW OPERATOR.TOLL COLLECTOR SUPERVISOR Work Phone: Plan of Treatment Date Care Activity Detail Author Start: 09-22-2027 Diabetes Screening Diabetes Screenin g Start: 02-23-2027 Diabetes Screening Diabetes Screenin g Start: 10-04-2025 End: 10-04-2025 Patient encounter procedure 10/04/2025 4:20 PM EST Office Visit [facility] [address] [place] [address] Parvin Sanches MD [address] [place] [id number] transfer care/6 month follow up [facility] Comment on above: transfer care/6 tamiko h follow up Start: 10-01-2025 End: 12-31-2025 Comprehensive metabolic 2000 panel - Serum or Plasma COMPREHENSIVE METABOLIC PANEL Lab Routine Other hyperlipidemia Elevated glucose Expected: 10/01/2025 (Approximate), Expires: 12/31/2025 [facility] Work Phone: Comment on above: Expected: 10/01/2025 (Approximate), Expires: 12/31/2025 Start: 10-01-2025 End: 12-31-2025 Hemoglobin A1c in Blood HEMOGLOBIN A1C Lab Routine Elevated glucose Expected: 10/01/2025 (Approximate), Expires: 12/31/2025 Comment on above: Expected: 10/01/2025 (Approximate), Expires: 12/31/2025 Start: 10-01-2025 End: 12-31-2025 Lipid 1996 panel - Serum or Plasma LIPID PANEL, FASTING Lab Routine Other hyperlipidemia Elevated glucose Expected: 10/01/2025 (Approximate), Expires: 12/31/2025 Comment on above: Expected: 10/01/2025 (Approximate), Expires: 12/31/2025 Start: 09-27-2025 Depression Screening Depression Scre ening Start: 05-01-2025 Influenza vaccination Influenza Vacc ine (#1) Start: 03-31-2025 End: 03-31-2025 Patient encounter procedure 03/31/2025 2:00 PM EDT Office Visit [facility] [address] [place] [id number] Chris Serrato MD [address] [place], [place] [id number] 6 month follow up [facility] Comment on above: 6 month follow up Start: 03-28-2025 End: 03-28-2025 Patient encounter procedure 03/28/2025 2:00 PM EDT Office Visit [facility] [address] [place] [id number] Chris Serrato MD [address] [facility] [place] [address] 6 month follow up [facility] Comment on above: 6 month follow up Start: 11-08-2024 DIABETES SCREEN DIABETES SCREEN [facility] Start: 11-08-2024 Diabetes Screening Diabetes Screenmirta casper Start: 09-27-2024 End: 09-27-2024 Patient encounter procedure 09/27/2024 1:20 PM EST Office Visit [facility] [place] [address] [place] [address] Chris Serrato MD [address] [facility] [place] [address] Physical [facility] [place] Comment on above: Physical Start: 09-15-2024 End: 09-15-2024 Patient encounter procedure 09/15/2024 11:40 AM EST Office Visit [facility] [place] [address] [place] [address] Shaista Calabrese, JEN.TOLL COLLECTOR SUPERVISOR [address] [place] [address] Sinus Congestion. See triage 09/14/2024 [facility] [place] Comment on above: Sinus Congestion. Se e triage 09/14/2024 Start: 08-31-2024 Advance Directive Discussion Advance Directive Discussion Start: 08-23-2024 End: 11-22-2024 Comprehensive metabolic 2000 panel - Serum or Plasma COMPREHENSIVE METABOLIC PANEL Lab Routine Other hyperlipidemia Elevated glucose Expected: 08/23/2024 (Approximate), Expires: 11/22/2024 Comment on above: Expected: 08/23/2024 (Approximate), Expires: 11/22/2024 Start: 08-23-2024 End: 11-22-2024 Hemoglobin A1c in Blood HEMOGLOBIN A1C Lab Routine Other hyperlipidemia Elevated glucose Expected: 08/23/2024 (Approximate), Expires: 11/22/2024 Comment on above: Expected: 08/23/2024 (Approximate), Expires: 11/22/2024 Start: 08-23-2024 End: 11-22-2024 Lipid 1996 panel - Serum or Plasma LIPID PANEL BASIC Lab Routine Other hyperlipidemia Elevated glucose Expected: 08/23/2024 (Approximate), Expires: 11/22/2024 [facility] Work Phone: Comment on above: Expected: 08/23/2024 (Approximate), Expires: 11/22/2024 Start: 08-22-2024 End: 08-22-2024 Patient encounter procedure 08/22/2024 1:00 PM EST Office Visit [facility] [place] [address] [place] [address] Chris Serrato MD [address] [place] [address] 6 month follow up [facility] [place] Comment on above: 6 month follow up Start: 08-21-2024 End: 11-20-2024 Comprehensive metabolic 2000 panel - Serum or Plasma COMPREHENSIVE METABOLIC PANEL Lab Routine Other hyperlipidemia Elevated glucose Expected: 08/21/2024 (Approximate), Expires: 11/20/2024 [facility] Work Phone: Comment on above: Expected: 08/21/2024 (Approximate), Expires: 11/20/2024 Start: 07-27-2024 Covid-19 Vaccine ( season) Covid-19 Vaccine ( - season) Comment on above: Postponed from 05/01 (Declined at this time) Start: 07-27-2024 RSV Vaccine (1 - 1-d ose 60+ series) RSV Vaccine (1 - 1-dose 60+ series) Comment on above: Postponed from 06/26 (Declined at this time) Start: 07-27-2024 RSV Vaccine (1 - 1-d ose 75+ series) RSV Vaccine (1 - 1-dose 75+ series) Comment on above: Postponed from 06/26 (Declined at this time) Start: 07-27-2024 Shingrix Vaccine (1 of 2) Shingrix Vaccine (1 of 2) Comment on above: Postponed from 06/26 (Declined at this time) Start: 07-27-2024 Urine microalbumin profile DTaP,Tdap,Td Vaccine (2 - Tdap) Comment on above: Postponed from 01/08 (Declined at this time) Start: 06-27-2024 End: 06-27-2024 Patient encounter procedure 06/27/2024 8:55 AM EDT Appointment Radiology [address] [place] [phone] DXA Axial Skeleton Radiology Comment on above: DXA Axial Skeleton Start: 05-20-2024 End: 05-20-2024 Patient encounter procedure 05/20/2024 3:25 PM EDT Appointment Radiology [address] [place] [phone] DXA Axial Skeleton Radiology Comment on above: DXA Axial Skeleton Start: 05-01-2024 Covid-19 Vaccine ( season) Covid-19 Vaccine () Start: 05-01-2024 Covid-19 Vaccine () Covid-19 Vaccine () Start: 05-01-2024 Influenza vaccination Influenza Vacc ine (#1) Start: 04-29-2024 End: 04-29-2024 Patient encounter procedure 04/29/2024 8:55 AM EDT Appointment Radiology [address] [place] [phone] Screening for osteoporosis [Z13.820] Radiology Comment on above: Screening for osteop orosis [Z13.820] Start: 02-20-2024 End: 05-21-2024 Hemoglobin A1c in Blood HEMOGLOBIN A1C Lab Routine Elevated glucose Expected: 02/20/2024, Expires: 05/21/2024 Comment on above: Expected: 02/20/2024 , Expires: 05/21/2024 Start: 02-20-2024 End: 05-21-2024 Lipid 1996 panel - Serum or Plasma LIPID PANEL BASIC Lab Routine Other hyperlipidemia Expected: 02/20/2024, Expires: 05/21/2024 Comment on above: Expected: 02/20/2024 , Expires: 05/21/2024 Start: 02-20-2024 End: 02-20-2024 Patient encounter procedure 02/20/2024 9:40 AM EDT Office Visit [facility] [address] [place] [address] Chris Serrato MD [address] [facility] [place] [address] Follow Up for refills [facility] Comment on above: Follow Up for refill s Start: 12-31-2023 [facility] Start: 08-31-2023 Advance Directive Discussion Advance Directive Discussion Start: 08-31-2023 Behavioral Health Screening Behavioral Health Screening Start: 08-10-2023 End: 11-09-2023 CREATININE BLD CREATININE BLD Lab Routine Diarrhea, unspecified type LLQ abdominal pain Expected: 08/10/2023, Expires: 11/09/2023 [facility] Work Phone: Comment on above: Expected: 08/10/2023 , Expires: 11/09/2023 Start: 05-01-2023 Covid-19 Vaccine () Covid-19 Vaccine () Start: 05-01-2023 Influenza vaccination C [facility] Start: 08-31-2022 ADVANCE DIRECTIVE DISCUSSION ADVANCE DIRECTIVE DISCUSSION Start: 08-31-2022 DEPRESSION ASSESSMENT DEPRESSION ASS ESSMENT Start: 08-18-2022 End: 10-18-2022 CBC W Auto Differential panel - Blood [facility] Work Phone: Comment on above: Expected: 08/18/2022 , Expires: 10/18/2022 Start: 08-18-2022 End: 10-18-2022 CREATININE BLD [facility] Work Phone: Comment on above: Expected: 08/18/2022 , Expires: 10/18/2022 Start: 05-01-2022 Influenza vaccination INFLUENZA (#1) Start: 09-10-2021 COVID-19 VACCINE (5 - Booster for Moderna series) COVID-19 VACCINE (5 - Booster for Moderna series) Start: 09-10-2021 COVID-19 VACCINE (5 - Booster) COVID-19 VACCINE (5 - Booster) Start: 08-31-2021 ADVANCE DIRECTIVE DISCUSSION ADVANCE DIRECTIVE DISCUSSION Start: 08-31-2021 DEPRESSION ASSESSMENT DEPRESSION ASS ESSMENT Start: 05-20-2019 Adult depression screening assessment DEPRESSION SCREENING Start: 01-08-2017 Urine microalbumin profile Start: 2016 RSV Vaccine (1 - 1-d ose 75+ series) RSV Vaccine (1 - 1-dose 75+ series) Start: 2001 RSV Vaccine (1 - 1-d ose 60+ series) RSV Vaccine (1 - 1-dose 60+ series) Start: 1991 SHINGRIX VACCINE (1 of 2) SHINGRIX VACCINE (1 of 2) Start: 1959 Depression Screening Depression Scre ening Bacteria identified in Urine by Culture BACTERIAL CULTURE, URINE Microbiology Routine Urinary frequency Ordered: 01/09/2025 [facility] Work Phone: Comment on above: Ordered: 01/09/2025 End: 04-09-2025 BD DXA TRABECULAR BONE SCORE (TBS) BD DXA TRABECULAR BONE SCORE (TBS) Radiology Routine Screening for osteoporosis 1 Occurrences starting 03/10/2024 until 04/09/2025 Comment on above: 1 Occurrences starti ng 03/10/2024 until 04/09/2025 BD DXA TRABECULAR JACKIE NE SCORE (TBS) BD DXA TRABECULAR BONE SCORE (TBS) Radiology Routine Screening for osteoporosis 06/27/2024 9:17 AM EDT Clostridioides diffi cile toxin genes [Presence] in Stool by LLOYD with probe detection C. DIFFICILE PCR Lab Routine Diarrhea, unspecified type LLQ abdominal pain Ordered: 08/10/2023 [facility] Work Phone: Comment on above: Ordered: 08/10/2023 End: 09-17-2023 Ct abdomen & pelvis w/contrast material CT ABD/PEL W IVCON Radiology STAT Right lower quadrant abdominal pain 1 Occurrences starting 08/18/2022 until 09/17/2023 [facility] Work Phone: Comment on above: 1 Occurrences starti ng 08/18/2022 until 09/17/2023 End: 09-08-2024 Ct abdomen & pelvis w/contrast material CT ABD/PEL W IVCON Radiology Routine Left lower quadrant abdominal pain 1 Occurrences starting 08/10/2023 until 09/08/2024 [facility] Work Phone: Comment on above: 1 Occurrences starti ng 08/10/2023 until 09/08/2024 End: 04-09-2025 DXA Skeletal system.axial Views for bone density DXA-AXIAL SKELETON Radiology Routine Screening for osteoporosis 1 Occurrences starting 03/10/2024 until 04/09/2025 [facility] Work Phone: Comment on above: 1 Occurrences starti ng 03/10/2024 until 04/09/2025 DXA Skeletal system.axial Views for bone density DXA-AXIAL SKELETON Radiology Routine Screening for osteoporosis 06/27/2024 9:17 AM EDT [facility] Work Phone: ENTERIC BACTERIAL PA LIBRA BY PCR ENTERIC BACTERIAL PANEL BY PCR Lab Routine Diarrhea, unspecified type LLQ abdominal pain Ordered: 08/10/2023 [facility] Work Phone: Comment on above: Ordered: 08/10/2023 Helicobacter pylori Ag [Presence] in Stool by Immunoassay H PYLORI AG BY EIA,STOOL Microbiology Routine Diarrhea, unspecified type LLQ abdominal pain Ordered: 08/10/2023 [facility] Work Phone: Comment on above: Ordered: 08/10/2023 Ova and parasites identified in Unspecified specimen by Light microscopy OVA + PARA MICROSCOPIC Microbiology Routine Diarrhea, unspecified type LLQ abdominal pain Ordered: 08/10/2023 [facility] Work Phone: Comment on above: Ordered: 08/10/2023 Patient Education ED Fracture, W rist, General [facility] Work Phone: Patient referral [facility] Work Phone: End: 02-14-2026 XR Knee - left 4 Views XR KNEE GENERAL 4V AP BOTH/PA BOTH/LAT/MERC LEFT Radiology STAT Fall on same level from slipping, tripping and stumbling without subsequent striking against object, initial encounter 1 Occurrences starting 01/15/2025 until 02/14/2026 [facility] Work Phone: Comment on above: 1 Occurrences starti ng 01/15/2025 until 02/14/2026 [facility] Immunizations Immunization Date Immunization Notes Care Provider Enmanuel emadows 06-20-2024 influenza virus vacc ine, unspecified formulation Chris Serrato MD Work Phone: 06-18-2023 influenza, injectabl e, quadrivalent, preservative free Dr. Chris Serrato Work Phone: [facility] 06-18-2023 influenza virus vacc ine, unspecified formulation Chris Serrato MD Work Phone: 06-18-2022 influenza, injectabl e, quadrivalent, preservative free Dr. Chris Serrato Work Phone: [facility] 06-18-2022 influenza virus vacc ine, unspecified formulation Chris Serrato MD Work Phone: 07-16-2021 Covid (Moderna) Dr. Chris bill Work Phone: [facility] 06-17-2021 influenza, injectabl e, quadrivalent, preservative free Dr. Chris Serrato Work Phone: [facility] 06-17-2021 influenza, seasonal, injectable, preservative free Shaista Calabrese MITER SAW OPERATOR.TOLL COLLECTOR SUPERVISOR Work Phone: Work Phone: 11-02-2020 COVID-19 vaccine, fu ll dose (MODERNA) Shaista Villegashosharon MITER SAW OPERATOR.TOLL COLLECTOR SUPERVISOR Work Phone: 10-25-2020 COVID-19 vaccine, fu ll dose (MODERNA) Shaista Villegashof MITER SAW OPERATOR.TOLL COLLECTOR SUPERVISOR Work Phone: 10-05-2020 Covid (Moderna) Dr. Chris bill Work Phone: [facility] 06-06-2020 influenza, injectabl e, quadrivalent, preservative free Dr. Chris Serrato Work Phone: [facility] 06-06-2020 influenza, seasonal, injectable, preservative free Shaista Tannhof MITER SAW OPERATOR.TOLL COLLECTOR SUPERVISOR Work Phone: Work Phone: 07-04-2019 influenza, high dose seasonal, preservative-free Shaista Tannhof MITER SAW OPERATOR.TOLL COLLECTOR SUPERVISOR Work Phone: 07-04-2019 influenza, injectabl e, quadrivalent, preservative free Dr. Chris Serrato Work Phone: [facility] 07-04-2019 influenza, seasonal, injectable, preservative free Shiasta Tannhof MITER SAW OPERATOR.TOLL COLLECTOR SUPERVISOR Work Phone: Work Phone: 06-14-2018 influenza, injectabl e, quadrivalent, preservative free Dr. Chris Serrato Work Phone: [facility] 06-14-2018 influenza, seasonal, injectable, preservative free Shaista Tannhof MITER SAW OPERATOR.TOLL COLLECTOR SUPERVISOR Work Phone: Work Phone: 06-05-2017 influenza, injectabl e, quadrivalent, preservative free Dr. Chris Serrato Work Phone: [facility] 06-05-2017 influenza, seasonal, injectable, preservative free Shaista Tannhof MITER SAW OPERATOR.TOLL COLLECTOR SUPERVISOR Work Phone: Work Phone: 05-30-2016 influenza, injectabl e, quadrivalent, preservative free Dr. Chris Serrato Work Phone: [facility] 05-30-2016 influenza, seasonal, injectable, preservative free Shaista Tannhof MITER SAW OPERATOR.TOLL COLLECTOR SUPERVISOR Work Phone: Work Phone: 09-22-2014 pneumococcal conjuga te vaccine, 13 valent [facility] MITER SAW OPERATOR.TOLL COLLECTOR SUPERVISOR Work Phone: 01-08-2007 diphtheria and tetan us toxoids, adsorbed for pediatric use Shaista Calabrese MITER SAW OPERATOR.TOLL COLLECTOR SUPERVISOR Work Phone: Work Phone: 01-08-2007 pneumococcal polysaccharide vaccine, 23 valent Shaista Calabrese MITER SAW OPERATOR.TOLL COLLECTOR SUPERVISOR Work Phone: Work Phone: Payers Date Payer Category Payer Self-pay [id number] 2007 Medicare [employer] [facility] [id number] 2007-Present [phone] [address] [place] [address] [facility] [id number] 2007 Medicare [employer] [place]IC[employer] [place] [facility] [place] [id number] 2007-Present [phone] [address] [place] [address] [facility] [id number] 2007 Medicare (Managed Care) [facility] [place] [id number] 2007 Unknown [id number] Medicare MEDICARE PART A B [id number] Unknown [id number] Unknown [id number] Unknown [id number] Social History Date Type Detail Facility Start: 11-06-2022 Tobacco smoking stat us [facility]IS Never smoked tobacco Start: 12-19-2021 End: 03-31-2025 Alcohol intake Current non-drinker of alcohol (finding) Start: 1940 Sex Assigned At Not on file [facility] Start: 08-14-2020 End: 12-18-2021 Exposure to SARS-CoV-2 (event) Not sure Start: 11-06-2022 Tobacco use and exposure Smokeless tobacco non-user Start: 11-06-2022 End: 02-20-2024 History of Social function Start: 11-06-2022 End: 02-20-2024 Tobacco use panel Start: 08-01-2012 Adult Depression Screening Assessment 0 Start: 11-13-2020 End: 12-31-2023 Tobacco smoking status NHIS Unknown if ever smoked [facility] Start: 11-12-2020 None [facility] Start: 11-12-2020 Spouse/ Signif icant Other [facility] Start: 11-13-2020 Non-smoker [facility] Start: 1940 Sex Assigned At Female [facility] How often to you hav e a drink containing alcohol? Never Functional Status Date Assessment Result Facility 03-16-2015 Are you deaf, or do you have serious difficulty hearing No 03/16/2015 7:39 AM Shaun Deal LPN No 03-16-2015 Are you blind, or do you have serious difficulty seeing, even when wearing glasses No 03/16/2015 7:39 AM Shaun Deal LPN No 03-16-2015 Do you have serious difficulty walking or climbing stairs No 03/16/2015 7:39 AM Shaun Deal LPN No 03-16-2015 Do you have difficul ty dressing or bathing No 03/16/2015 7:39 AM EDT Shaun Roberts LPN No 03-16-2015 Because of a physica l, mental, or emotional condition, do you have difficulty doing errands alone such as visiting a physician's office or shopping No 03/16/2015 7:39 AM EDT Shaun Roberts LPN No Mental Status Date Assessment Result Facility 03-16-2015 Because of a physica l, mental, or emotional condition, do you have serious difficulty concentrating, remembering, or making decisions No 03/16/2015 7:39 AM EDT Shaun Roberts LPN No Clinical Notes 09-13-2020 to 06-28-2025 Telephone Encounter - Farhat Mcwilliams APRN.ROBBIE - 05/15/2025 7:14 AM EDTTelephone Encounter - Farhat Mcwilliams APRN.ROBBIE - 05/15/2025 7:14 AM EDTPatient InstructionsPatient InstructionsPatient Instructions Note Date & Type Note Facility 06-28-2025 Note HNO ID: [id number] Author: PODFLAQUITA MCNALLY APRN.TOLL COLLECTOR SUPERVISOR Service: ? Author Type: Nurse Practitioner Type: Progress Notes Filed: 06/28/2025 16:11 Note Text: 06/28/2025 Patient presents with: Bilateral Knee Pain: For about a week and a half. No injury. Recording using Mor.sl software for draft documentation of the visit was discussed with the patient/authorized canvas products sales representative; all questions welcomed and answered. Patient/authorized canvas products sales representative agreed to proceed SUBJECTIVE: This is a 85 year old that is here today for Above Complaints. TOYA Doll is an 85-year-old female presenting with bilateral knee pain. Bilateral Knee Pain: - Onset: Approximately 1.5 weeks ago. - Location: Posterior aspect of both knees. - Quality: Described as very sharp and throbbing. - Aggravating Factors: Standing up, bending over. - Alleviating Factors: Tylenol provides minimal relief. - Associated Symptoms: Burning sensation; denies swelling or bruising. - Recent Activity: Spent 1.5 hours cutting hostas, involving repetitive bending and reaching. - Treatment: Taking two extra strength Tylenol tablets once daily for the past two days. - Denies previous knee problems or surgeries. - Recent Fall: Fell in December, resulting in wrist fracture; denies knee injury at that time. - Recent Imaging: X-rays of both knees in December showed moderate tricompartmental osteoarthritis; no fractures or dislocations. PAST MEDICAL HISTORY Diagnosis Date Anxiety state, unspecified Diverticulosis of colon with hemorrhage Dysplasia of cervix, unspecified Other and unspecified hyperlipidemia Unspecified hemorrhoids without mention of complication ALLERGIES Phenergan [Promethazine Hcl], Keflex [Cephalexin], and Trimpex [Trimethoprim] MEDICATIONS Current Outpatient Medications Medication Sig PARoxetine (PAXIL) 20 mg tablet Take 1 tablet by mouth once daily. colestipol (COLESTID) 1 gram tablet Take 1 tablet by mouth two times a day. nadolol (CORGARD) 20 mg tablet Take 1 tablet by mouth once daily. loratadine (CLARITIN) 10 mg tablet Take 1 tablet by mouth once daily. (Patient not taking: Reported on 03/31/2025) No current facility-administered medications for this visit. Medications and allergies reviewed by this provider. SOCIAL HISTORY SOCIAL HISTORY[1] REVIEW OF SYSTEMS All other reviewed and negative other than HPI. OBJECTIVE: BP 128/72 Pulse 72 Wt 63 kg (139 lb) SpO2 97% BMI 23.13 kg/m? . Vital signs reviewed by this provider. APPEARANCE Well appearing, alert, in no acute distress, well-hydrated, well nourished. KNEE: No obvious deformity, swelling or ecchymosis. FROM without difficulty. Negative anterior/posterior drawer test. Negative Sree. No crepitus EXTREMITIES Extremities normal, No deformities, No skin discoloration, No edema, SKIN Skin color, texture, turgor normal, no suspicious rashes or lesions 1. Acute pain of both knees (M25.561) 2. Primary osteoarthritis of both knees (M17.0) - Bilateral posterior knee pain for 1.5 weeks, sharp and throbbing, worsened by standing and bending; no swelling or bruising. - Recent overuse injury likely from prolonged gardening activity; reviewed prior X-rays from January 22 showing moderate tricompartmental osteoarthritis in both knees. - Advised against NSAIDs due to CKD; instructed on safe use of Tylenol Extra Strength 500 mg, 2 tablets every 6 hours, not to exceed 6 tablets (3 grams) per day. - Recommended topical muscle cream (e.g., Biofreeze, Bengay) and application of heat or ice for 15 minutes to each knee, with topical applied after heat/ice. - Advised to continue stationary biking but avoid activities that strain the knees; explained expected course of muscle strain and when to seek further evaluation. 3. Stage 3a chronic kidney disease (HCC) (N18.31) - Advised to avoid NSAIDs (ibuprofen, naproxen, Motrin) due to risk of worsening renal function. - Explained difference between Tylenol (liver metabolism) and NSAIDs (renal metabolism) and rationale for avoiding NSAIDs. Flaquita Podlogar, MITER SAW OPERATOR.TOLL COLLECTOR SUPERVISOR Prescription instructions reviewed with patient as applicable. Patient advised if symptoms do not improve or if symptoms worsen sooner, to contact their primary care physician. Potential red flag symptoms discussed with the patient. Reviewed appropriate action plan to take if red flag symptoms occur. Patient agreeable to treatment plan. 15[address] OVERALL COMPLEXITY Problem Complexity: Moderate Data Level: Straightforward Risk Level: Low Overall MDM complexity (2/3 must be met or exceeded): Low PROBLEMS SECTION: 1. Acute pain of both knees - Acute, uncomplicated illness or injury 2. Primary osteoarthritis of both knees - Stable, Chronic Illness 3. Stage 3a chronic kidney disease (HCC) - Stable, Chronic Illness Two or more stable chronic illnesses (Moderate complexity) Problem complexity level: Moderate DATA SECTIO (more content not included)... [facility] 06-27-2025 Note HNO ID: [id number] Author: MARK ELLIS RT(R) Service: ? Author Type: Residential Real Estate Sales Manager Type: Progress Notes Filed: 06/27/2025 12:52 Note Text: Radiology Service Progress Note DATE OF SERVICE: June 27, 2025 TIME: 12:51 PM PATIENT IDENTITY VERIFICATION COMPLETED USING TWO (2) STANDARD IDENTIFIERS: Name and Date of confirmed by patient verbally. FALL SCREENING: Has the patient had 2 falls in the last year or 1 fall with injury or currently using an Ambulatory Assistive Device (Walker, Cane, Wheelchair, Crutches, etc.)? No PATIENT GENDER DATA: Assigned female at . status: : No status: NO. PATIENT RELEVANT IMPLANT DATA REVIEWED: Yes PATIENT PRESENTS WITH AN IMPLANTABLE OR ATTACHED DRY COLOR TESTER: No ALLERGIES: Reviewed and unchanged CONTRAST ALLERGY: NO. EXAM: CT -CONTRAST INDUCED NEPHROPATHY RISK FACTORS: Patient age > 60 years CREATININE: Creatinine Date Value Ref Range Status 06/22/2025 1.15 (H) 0.58 - 0.96 mg/dL Final 09/22/2024 1.17 (H) 0.58 - 0.96 mg/dL Final 08/11/2023 1.15 (H) 0.58 - 0.96 mg/dL Final Estimated Glomerular Filtration Rate Date Value Ref Range Status 06/22/2025 47 (L) >=60 mL/min/1.73m? Final Comment: Estimated Glomerular Filtration Rate (eGFR) is calculated using the 2020 CKD-EPI creatinine equation. This equation utilizes serum creatinine, sex, and age as parameters. The creatinine assay has traceable calibration to isotope dilution-mass spectrometry. Refer to KDIGO guidelines for clinical interpretation. In patients with unstable renal function, e.g. those with acute kidney injury, the eGFR may not accurately reflect actual GFR. eGFR- Date Value Ref Range Status 03/08/2021 >60 Final P.O.C.T. RESULTS: POC done: Yes, See Lab Tab June 27, 2025 TREATMENT: N/A PERIPHERAL IV DATA: Ambulatory: A peripheral IV was started in the Right antecubital site with a Angio cath: 22 gauge. RADIOLOGY DEPARTMENT: CT; Exam(s) Completed: Abdomen/Pelvis . Anesthesia: No SIGNATURE: RT Cathryn(R) PATIENT NAME: Rupert Doll DATE: June 27, 2025 TIME: 12:51 PM [facility] 06-12-2025 Note HNO ID: [id number] Author: JUSTINA ADAMS APRN.CNP Service: ? Author Type: Nurse Practitioner Type: Progress Notes Filed: 06/12/2025 14:53 Note Text: [facility] New Patient Consult June 12, 2025 CHIEF COMPLAINT: Patient presents with: GERD Abdominal Pain This consult was requested by Joseph Stuart APRN.CNP for an opinion regarding abdominal pain. My final recommendations will be communicated to the requesting health care provider by way of the shared medical record for internal providers or letter via the [employer] for external providers. Rupert J Fairhurst is a 84 year old female who presents for GERD and Abdominal Pain. HPI: The patient is an 84-year-old female with a history of diverticulitis, presenting for evaluation of abdominal pain. Abdominal Pain: - Dull abdominal pain localized to the LLQ, x2 weeks. - Similar feeling and pain to previous episodes of diverticulitis. - Last episode of diverticulitis was treated with antibiotics flagyl and cipro; no surgery required. - she reports that her last episode was from eating chocolate covered peanuts. - Last colonoscopy in 2013 was unremarkable. - Denies diarrhea. - she reports some abdominal bloating. - she has BM's 3-4 times a day, that are number 4 on the bristool. Colonosocpy: 2014: Status post cholecystectomy Diverticula RESULT: Liver: No mass. Biliary: No bile duct dilation. Status post cholecystectomy. Spleen: No mass. No splenomegaly. Pancreas: No mass or duct dilation. Adrenals: No mass. Kidneys: No renal or ureteral stone. No hydronephrosis seen on either side. Renal parenchyma appears unremarkable. GI tract: No dilation or wall thickening. Appendix is visualized and is unremarkable. Multiple diverticula are seen in the cecum and ascending colon. No radiographic evidence for acute diverticulitis. Multiple diverticula seen in the descending and sigmoid colon. No radiographic evidence for acute diverticulitis. Sliding-type hiatal hernia. Lymph nodes: No abdominal or pelvic lymphadenopathy. Mesentery/Peritoneum: No ascites or mass. Retroperitoneum: No mass. Vasculature: Abdominal aorta is not aneurysmally dilated. The celiac artery, SMA, renal arteries, and PEEWEE are patent. Portal vein, hepatic veins, splenic vein, and SMV are patent. Pelvis: No mass, ascites or fluid collection. Status post hysterectomy. Bones/Soft Tissues: No significant additional findings. Lower thorax: No significant additional findings. Fur Machine Operator (topogram) images: No significant additional findings. 08/20/2022 11:45 AM - Radiology, Oru In Impression IMPRESSION: 1. Diverticula noted throughout the ascending, descending, and sigmoid colon without radiographic evidence for acute diverticulitis. 2. The appendix is visualized and is unremarkable. 3. Status post cholecystectomy. 4. No acute findings noted within the abdomen and pelvis. Record Review: [facility] / Outside records reviewed. PAST MEDICAL HISTORY Diagnosis Date Anxiety state, [...] HYSTERECT W/WO RMVL TUBE OVARY Hysterectomy, REY Allergies: ALLERGIES Allergen Reactions Phenergan [Prometha* Mental Status Change Oculogyric Crisis Keflex [Cephalexin] Intolerance Trimpex [Trimethopr* Intolerance Medications: PARoxetine (PAXIL) 20 mg tablet Take 1 tablet by mouth once daily. colestipol (COLESTID) 1 gram tablet Take 1 tablet by mouth two times a day. nadolol (CORGARD) 20 mg tablet Take 1 tablet by mouth once daily. iv contrast (will be provided with radiology test) CT ABD/PEL -Inject, intravenously, once for 1 dose.No IV access, insert saline lock prior to the beginning of sedation, infusion, injection of imaging exam. Discontinue saline lock post exam. If Pt. has a central line or IVAD, may access for administration according to line specific nursing protocol. Once exam is complete flush line and de-access according to line specific nursing protocol in theCT contrast administration guidelines link. enteric contrast (will be provided with radiology test) For CT ABD/PEL W IVCON Routine order Administer, As Directed One Time Only, via Oral, Rectal, both Oral and Rectal, Enteric Tube, Stoma or Indwelling Catheter, Enteric Contrast as designated (more content not included)... [facility] 06-11-2025 Note HNO ID: [id number] Author: JOSEPH STUART APRN.TOLL COLLECTOR SUPERVISOR Service: ? Author Type: Nurse Practitioner Type: Progress Notes Filed: 06/11/2025 14:26 Note Text: [facility] Doll is a 84 year old female. Patient presents with: UTI UTI The patient is an 84-year-old female presenting with generalized lower abdominal pain. Generalized Lower Abdominal Pain: - Location: Generalized lower abdomen, has come and gone for multiple months. History of IBS but has not seen anyone for it. Dr. Serrato is retiring. - Diarrhea and constipation, history of GERD does not take anything for it. Denies any blood in her stools. - Intermittent episodes lasting a few seconds, occurring sporadically. - Denies dysuria, urinary retention, or changes in bowel movements. - PMHx of IBS during a divorce 30 years ago Gastrointestinal: (+) lower abdominal pain, (-) change in bowel habits Genitourinary: (+) urinary frequency, (-) dysuria, (-) incomplete bladder emptying PAST MEDICAL HISTORY Diagnosis Date Anxiety state, [...] Hcl], Keflex [Cephalexin], and Trimpex [Trimethoprim] MEDICATIONS PARoxetine (PAXIL) 20 mg tablet Take 1 tablet by mouth once daily. colestipol (COLESTID) 1 gram tablet Take 1 tablet by mouth two times a day. nadolol (CORGARD) 20 mg tablet Take 1 tablet by mouth once daily. loratadine (CLARITIN) 10 mg tablet Take 1 tablet by mouth once daily. (Patient not taking: Reported on 03/31/2025) FAMILY HISTORY Problem Relation Age of Onset Breast Cancer Mother Ovarian Heart Father Pacemaker Stroke Father Bowel Blockage () SOCIAL HISTORY[1] Objective BP 118/70 Pulse 66 Temp 36.7 ?C (98 ?F) (Tympanic) Resp 16 Wt 63.1 kg (139 lb 1.8 oz) SpO2 99% BMI 23.88 kg/m? Physical Exam Constitutional: General: She is not in acute distress. Appearance: Normal appearance. She is normal weight. She is not ill-appearing or toxic-appearing. HENT: Head: Normocephalic and atraumatic. Eyes: Pupils: Pupils are equal, round, and reactive to light. Cardiovascular: Rate and Rhythm: Normal rate and regular rhythm. Pulses: Normal pulses. Heart sounds: Normal heart sounds. Pulmonary: Effort: Pulmonary effort is normal. Breath sounds: Normal breath sounds. Abdominal: General: Abdomen is flat. Bowel sounds are normal. There is no distension. Palpations: Abdomen is soft. There is no mass. Tenderness: There is no abdominal tenderness. There is no right CVA tenderness, left CVA tenderness, guarding or rebound. Hernia: No hernia is present. Lymphadenopathy: Cervical: No cervical adenopathy. Neurological: Mental Status: She is alert. { 1. Dysuria (R30.0) - Urinalysis negative for leukocytes and nitrites; no evidence of urinary tract infection. 2. Gastroesophageal reflux disease with esophagitis without hemorrhage (K21.00) 3. Abdominal pain, chronic, generalized (R10.84) - Lower abdominal pain rated 5/10, intermittent, present for one week; no dysuria, no sensation of incomplete bladder emptying, and no irregular bowel movements. - Referred to GI specialist within the System for further evaluation; appointment scheduled for tomorrow at 2:00 PM in [place]. - Discussed that further imaging may be necessary to determine the cause of abdominal pain. and Recording using ambient [employer] software for draft documentation of the visit was discussed with the patient/authorized canvas products sales representative; all questions welcomed and answered. Patient/authorized canvas products sales representative agreed to proceed Disposition The patient was discharged. Transfer to ED was considered. Reason for not transferring: Abdominal exam normal, patient declined ER tranfer disucssed risk and benefits and if worsening to seek emergency care. [1] Social History Tobacco Use Smoking status: Never Smokeless tobacco: Never Vaping Use Vaping status: Never Used Substance Use Topics Alcohol use: No Drug use: No [facility] 05-15-2025 Telephone encounter Note The following approved medication requests have been transmitted electronically. Requested Prescriptions Pending Prescriptions Disp Refills PARoxetine (PAXIL) 20 mg tablet 90 tablet 1 Sig: Take 1 tablet by mouth once daily. Farhat Mcwilliams APRN.CNP 05-15-2025 Miscellaneous Notes The following approved medication requests have been transmitted electronically. Requested Prescriptions Pending Prescriptions Disp Refills PARoxetine (PAXIL) 20 mg tablet 90 tablet 1 Sig: Take 1 tablet by mouth once daily. Farhat Mcwilliams APRN.CNP The patient has been identified by name and date of : Yes Caregiver verified no other encounters exist for this prescription request: Yes Caregiver confirmed with patient/requestor that no other refills are due, in the near future, with this provider at this time: Yes The last office visit in the department: 03/31/2025 Does the patient have a future office visit with this provider/department: Yes 10/04/2025 Requested Prescriptions Pending Prescriptions Disp Refills PARoxetine (PAXIL) 20 mg tablet 90 tablet 1 Sig: Take 1 tablet by mouth once daily. Radha Contreras RN May 11, 2025 9:23 AM documented in this encounter 05-11-2025 Telephone encounter Note The patient has been identified by name and date of : Yes Caregiver verified no other encounters exist for this prescription request: Yes Caregiver confirmed with patient/requestor that no other refills are due, in the near future, with this provider at this time: Yes The last office visit in the department: 03/31/2025 Does the patient have a future office visit with this provider/department: Yes 10/04/2025 Requested Prescriptions Pending Prescriptions Disp Refills PARoxetine (PAXIL) 20 mg tablet 90 tablet 1 Sig: Take 1 tablet by mouth once daily. Radha Contreras RN May 11, 2025 9:23 AM 03-31-2025 Instructions Chris Serrato MD - 03/31/2025 2:20 PM EDT May get Rani to use for allergies rather than Claritin documented in this encounter 03-31-2025 History of Presen t illness Narrative Chief Complaint Patient presents with: 6 Month Exam HPI TOYA Doll is a 84-year-old female presenting for a 6-month follow-up visit. TOYA reports a decline in balance, noting that if she begins to fall, she is unable to stop herself. She has experienced falls at home, including one incident where she tripped over a loose object on a stable in the dark, resulting in minor injuries. She attributes her balance issues to aging and the need to be more cautious of her surroundings, including the shoes she wears and the presence of her cat, which she has nearly tripped over several times. She denies performing specific balance exercises but does ride a stationary bike at home and can get up and down from the floor without difficulty. She is currently taking Paxil 20 mg for anxiety, which she has been on since experiencing a severe anxiety attack in the 1980s. She reports that the medication is effective in managing her anxiety. She is also taking nadolol for heart-related issues and colestipol for cholesterol and diarrhea, noting that the colestipol is effective in managing her bowel movements, which occur approximately four times a day. She recently experienced food poisoning, which caused significant illness for a day. She was previously taking Claritin for allergies but was unable to obtain it from her new pharmacy and did not know which alternative to choose. She has a sweet tooth but does eat vegetables and salads. She has recently gained weight and is pleased with this. She has recently started using hearing aids, which she finds very helpful. Past medical history, appointments, medications, allergies reviewed. [...] on File Prior to Visit Medication Sig colestipol (COLESTID) 1 gram tablet Take 1 tablet by mouth two times a day. nadolol (CORGARD) 20 mg tablet Take 1 tablet by mouth once daily. loratadine (CLARITIN) 10 mg tablet Take 1 tablet by mouth once daily. PARoxetine (PAXIL) 20 mg tablet Take 1 tablet by mouth once daily. bismuth subsalicylate (PEPTO-BISMOL) 262 mg chewable tablet Take 1 tablet by mouth four times daily for 10 days. (Patient not taking: Reported on 01/15/2025) No current facility-administered medications on file prior to visit. Social History Social History Tobacco Use Smoking status: Never Smokeless tobacco: Never Vaping Use Vaping status: Never Used Substance Use Topics Alcohol use: No Drug use: No EXAM: BP 122/70 Pulse 78 Resp 14 Wt 62.5 kg (137 lb 12.6 oz) BMI 23.65 kg/m General Appearance: Well appearing, alert, in no acute distress, well-hydrated, well nourished.. Lungs: Lungs clear to auscultation. No wheezing, rhonchi, rales.. Heart: RRR without murmur, gallop, or rubs. No ectopy. Health Maintenance List Shingrix Vaccine(1 of 2) Never done RSV Vaccine(1 - 1-dose 75+ series) Never done DTaP,Tdap,Td Vaccine(2 - Tdap) due on 01/08/2017 Advance Directive Discussion Never done Influenza Vaccine(1) due on 05/01/2025 Depression Screening due on 09/27/2025 Diabetes Screening due on 09/22/2027 Bone Density Screening Completed Medicare Advantage Annual Wellness Visit Completed Pneumococcal Vaccine: 50+ Completed Colorectal Cancer Screening Discontinued Data reviewed none 1. Other hyperlipidemia (E78.49) Clinically stable on colestipol. Continue colestipol as prescribed. 2. Anxiety (F41.9) Well-controlled on Paxil 20 mg daily. Continue Paxil 20 mg daily. 3. Palpitations (R00.2) Well-controlled on nadolol. Continue nadolol as prescribed. 4. Diarrhea, unspecified type (R19.7) Well-controlled on colestipol. Continue colestipol as prescribed. 5. Elevated glucose (R73.09) Reduce sweets Check labs in 6 months Follow up in 6 months I agree with the Chief Complaint, ROS, and Past Histories independently gathered by the clinical field support representative and the remaining scribed note accurately describes my personal service to the patient. Recording using [employer] software for draft documentation of the visit was discussed with the patient/authorized canvas products sales representative; all questions welcomed and answered. Patient/authorized [employer] products sales representative agreed to proceed Medical Decision Making: Problems: Moderate: 2+ stable chronic illnesses Data: Unique test(s) ordered: 3+ Risk: Moderate: Drug management Medical Decision Making Level: 4 - Moderate Chris Serrato MD The documentation for this note was completed by Millicent Smith MA acting as scribe for Chris Serrato MD. March 31, 2025 2:03 PM. Millicent Smith MA documented in this encounter 03-31-2025 Note HNO ID: [id number] Author: CHRIS SERRATO MD Service: ? Author Type: Physician Type: Progress Notes Filed: 03/31/2025 14:31 Note Text: Chief Complaint Patient presents with: 6 Month Exam HPI TOYA Doll is a 84-year-old female presenting for a 6-month follow-up visit. TOYA reports a decline in balance, noting that if she begins to fall, she is unable to stop herself. She has experienced falls at home, including one incident where she tripped over a loose object on a stable in the dark, resulting in minor injuries. She attributes her balance issues to aging and the need to be more cautious of her surroundings, including the shoes she wears and the presence of her cat, which she has nearly tripped over several times. She denies performing specific balance exercises but does ride a stationary bike at home and can get up and down from the floor without difficulty. She is currently taking Paxil 20 mg for anxiety, which she has been on since experiencing a severe anxiety attack in the . She reports that the medication is effective in managing her anxiety. She is also taking nadolol for heart-related issues and colestipol for cholesterol and diarrhea, noting that the colestipol is effective in managing her bowel movements, which occur approximately four times a day. She recently experienced food poisoning, which caused significant illness for a day. She was previously taking Claritin for allergies but was unable to obtain it from her new pharmacy and did not know which alternative to choose. She has a sweet tooth but does eat vegetables and salads. She has recently gained weight and is pleased with this. She has recently started using hearing aids, which she finds very helpful. Past medical history, appointments, medications, allergies reviewed. [...] on File Prior to Visit Medication Sig colestipol (COLESTID) 1 gram tablet Take 1 tablet by mouth two times a day. nadolol (CORGARD) 20 mg tablet Take 1 tablet by mouth once daily. loratadine (CLARITIN) 10 mg tablet Take 1 tablet by mouth once daily. PARoxetine (PAXIL) 20 mg tablet Take 1 tablet by mouth once daily. bismuth subsalicylate (PEPTO-BISMOL) 262 mg chewable tablet Take 1 tablet by mouth four times daily for 10 days. (Patient not taking: Reported on 01/15/2025) No current facility-administered medications on file prior to visit. Social History Social History Tobacco Use Smoking status: Never Smokeless tobacco: Never Vaping Use Vaping status: Never Used Substance Use Topics Alcohol use: No Drug use: No EXAM: BP 122/70 Pulse 78 Resp 14 Wt 62.5 kg (137 lb 12.6 oz) BMI 23.65 kg/m? General Appearance: Well appearing, alert, in no acute distress, well-hydrated, well nourished.. Lungs: Lungs clear to auscultation. No wheezing, rhonchi, rales.. Heart: RRR without murmur, gallop, or rubs. No ectopy. Health Maintenance List Shingrix Vaccine(1 of 2) Never done RSV Vaccine(1 - 1-dose 75+ series) Never done DTaP,Tdap,Td Vaccine(2 - Tdap) due on 01/08/2017 Advance Directive Discussion Never done Influenza Vaccine(1) due on 05/01/2025 Depression Screening due on 09/27/2025 Diabetes Screening due on 09/22/2027 Bone Density Screening Completed Medicare Advantage Annual Wellness Visit Completed Pneumococcal Vaccine: 50+ Completed Colorectal Cancer Screening Discontinued Data reviewed none 1. Other hyperlipidemia (E78.49) Clinically stable on colestipol. Continue colestipol as prescribed. 2. Anxiety (F41.9) Well-controlled on Paxil 20 mg daily. Continue Paxil 20 mg daily. 3. Palpitations (R00.2) Well-controlled on nadolol. Continue nadolol as prescribed. 4. Diarrhe (more content not included)... [facility] 02-27-2025 Telephone encounter Note OK to refill as ordered Chris Serrato MD 02-27-2025 Miscellaneous Notes OK to refill as ordered Chris Serrato MD The patient has been identified by name and date of : Yes Caregiver verified no other encounters exist for this prescription request: Yes Caregiver confirmed with patient/requestor that no other refills are due, in the near future, with this provider at this time: Yes The last office visit in the department: 09/27/2024 Does the patient have a future office visit with this provider/department: 03/31/2025 Requested Prescriptions Pending Prescriptions Disp Refills colestipol (COLESTID) 1 gram tablet 180 tablet 3 Sig: Take 1 tablet by mouth two times a day. nadolol (CORGARD) 20 mg tablet 90 tablet 3 Sig: Take 1 tablet by mouth once daily. Irma Vasquez RN February 27, 2025 11:36 AM documented in this encounter 02-27-2025 Telephone encounter Note The patient has been identified by name and date of : Yes Caregiver verified no other encounters exist for this prescription request: Yes Caregiver confirmed with patient/requestor that no other refills are due, in the near future, with this provider at this time: Yes The last office visit in the department: 09/27/2024 Does the patient have a future office visit with this provider/department: 03/31/2025 Requested Prescriptions Pending Prescriptions Disp Refills colestipol (COLESTID) 1 gram tablet 180 tablet 3 Sig: Take 1 tablet by mouth two times a day. nadolol (CORGARD) 20 mg tablet 90 tablet 3 Sig: Take 1 tablet by mouth once daily. Irma Vasquez RN February 27, 2025 11:36 AM 01-16-2025 History of Presen t illness Narrative Radiology Service Progress Note PATIENT NAME: Rupert Doll DATE OF SERVICE: January 16, 2025 TIME: 8:25 AM PATIENT IDENTITY VERIFICATION COMPLETED USING TWO (2) IDENTIFIERS: Name and Date of confirmed by patient verbally. FALL SCREENING: Has the patient had 2 falls in the last year or 1 fall with injury or currently using an Ambulatory Assistive Device (Walker, Cane, Wheelchair, Crutches, etc.)? No PATIENT GENDER DATA: Assigned female at . status: : No status: NO. PATIENT RELEVANT IMPLANT DATA REVIEWED: Not Applicable PATIENT PRESENTS WITH AN IMPLANTABLE OR ATTACHED DRY COLOR TESTER: No RADIOLOGY DEPARTMENT: General X-ray: Exam(s) Completed: Lower Extremity X-Ray(s): Knee, AP / Lat / Tunne / Merchant Left PERIPHERAL IV DATA: Not applicable SIGNED BY: Emely Moss January 16, 2025 8:25 AM documented in this encounter 01-16-2025 Note HNO ID: [id number] Author: MARCELINA LEWIS Tech Service: ? Author Type: Technologist Type: Progress Notes Filed: 01/16/2025 08:42 Note Text: Radiology Service Progress Note PATIENT NAME: Rupert Doll DATE OF SERVICE: January 16, 2025 TIME: 8:25 AM PATIENT IDENTITY VERIFICATION COMPLETED USING TWO (2) IDENTIFIERS: Name and Date of confirmed by patient verbally. FALL SCREENING: Has the patient had 2 falls in the last year or 1 fall with injury or currently using an Ambulatory Assistive Device (Walker, Cane, Wheelchair, Crutches, etc.)? No PATIENT GENDER DATA: Assigned female at . status: : No status: NO. PATIENT RELEVANT IMPLANT DATA REVIEWED: Not Applicable PATIENT PRESENTS WITH AN IMPLANTABLE OR ATTACHED DRY COLOR TESTER: No RADIOLOGY DEPARTMENT: General X-ray: Exam(s) Completed: Lower Extremity X-Ray(s): Knee, AP / Lat / Tunne / Merchant Left PERIPHERAL IV DATA: Not applicable SIGNED BY: Emely Moss January 16, 2025 8:25 AM [facility] 01-15-2025 Note HNO ID: [id number] Author: MIMI GROSS APRN.TOLL COLLECTOR SUPERVISOR Service: ? Author Type: Nurse Practitioner Type: Progress Notes Filed: 01/15/2025 11:35 Note Text: [facility] Subjective Rupert Doll is a 84 year old female. Patient presents with: Fall: States she fell last night and L knee twisted, pain, swelling in area HPI Left Knee Pain: - Fell last night at 23:00 while wearing Crocs, tripping on carpet. - Landed on left knee, twisting it during the fall. - Reports severe pain in the left knee, especially in the posterior aspect. - Pain is exacerbated by both extension and flexion, with flexion causing more discomfort. - No pain in the right knee. - Denies numbness, tingling, or weakness in the legs. - No hip pain; able to sit cross-legged without discomfort. - Denies having loose rugs in the house. Review of Systems Musculoskeletal: (+) left knee pain, (+) left knee swelling, (+) back pain, (-) hip pain Neurological: (+) gait imbalance, (-) numbness, (-) tingling, (-) weakness Objective BP 134/71 Pulse 81 Temp 37.2 ?C (98.9 ?F) Resp 20 Wt 63 kg (138 lb 14.2 oz) SpO2 98% BMI 23.84 kg/m? Physical Exam General: No acute distress. MSK/Ext: Left knee swelling; tenderness in posterior and inferior anterior aspects of left knee; pain with flexion and extension of left knee, worse with flexion; negative anterior drawer test. {1. Fall on same level from slipping, tripping and stumbling without subsequent striking against object, initial encounter (W01.0XXA) - Patient experienced a fall at home last night, resulting in left knee pain and swelling, particularly in the posterior aspect. No numbness, tingling, or weakness reported. - Physical exam reveals mild swelling on the left knee, with tenderness primarily in the posterior region. Pain is exacerbated by both extension and flexion, with greater discomfort during flexion. - Anterior drawer test elicited significant pain, raising concern for potential ligament or tendon involvement. - Ordered X-ray of the left knee to be performed tomorrow morning at 08:00 at the current facility. - Referral to orthopedics for further evaluation and management of potential ligament or tendon injury. - Advised patient on the importance of wearing sturdy, well-fitting shoes to prevent future falls. - Patient understands and agrees with the treatment plan. and Recording using ambient [employer] software for draft documentation of the visit was discussed with the patient/authorized canvas products sales representative; all questions welcomed and answered. Patient/authorized canvas products sales representative agreed to proceed I did put an orthopedic referral and patient will make her own appointment. Patient will come in on Thursday and get the x-ray of the knee. If anything is wrong and requires treatment sooner than her follow-up is scheduled please treat accordingly. MDM Procedures [facility] 01-15-2025 History of Presen t illness Narrative [facility] Subjective Rupert Doll is a 84 year old female. Patient presents with: Fall: States she fell last night and L knee twisted, pain, swelling in area HPI Left Knee Pain: - Fell last night at 23:00 while wearing Crocs, tripping on carpet. - Landed on left knee, twisting it during the fall. - Reports severe pain in the left knee, especially in the posterior aspect. - Pain is exacerbated by both extension and flexion, with flexion causing more discomfort. - No pain in the right knee. - Denies numbness, tingling, or weakness in the legs. - No hip pain; able to sit cross-legged without discomfort. - Denies having loose rugs in the house. Review of Systems Musculoskeletal: (+) left knee pain, (+) left knee swelling, (+) back pain, (-) hip pain Neurological: (+) gait imbalance, (-) numbness, (-) tingling, (-) weakness Objective BP 134/71 Pulse 81 Temp 37.2 C (98.9 F) Resp 20 Wt 63 kg (138 lb 14.2 oz) SpO2 98% BMI 23.84 kg/m Physical Exam General: No acute distress. MSK/Ext: Left knee swelling; tenderness in posterior and inferior anterior aspects of left knee; pain with flexion and extension of left knee, worse with flexion; negative anterior drawer test. {1. Fall on same level from slipping, tripping and stumbling without subsequent striking against object, initial encounter (W01.0XXA) - Patient experienced a fall at home last night, resulting in left knee pain and swelling, particularly in the posterior aspect. No numbness, tingling, or weakness reported. - Physical exam reveals mild swelling on the left knee, with tenderness primarily in the posterior region. Pain is exacerbated by both extension and flexion, with greater discomfort during flexion. - Anterior drawer test elicited significant pain, raising concern for potential ligament or tendon involvement. - Ordered X-ray of the left knee to be performed tomorrow morning at 08:00 at the current facility. - Referral to orthopedics for further evaluation and management of potential ligament or tendon injury. - Advised patient on the importance of wearing sturdy, well-fitting shoes to prevent future falls. - Patient understands and agrees with the treatment plan. and Recording using ambient [employer] software for draft documentation of the visit was discussed with the patient/authorized canvas products sales representative; all questions welcomed and answered. Patient/authorized canvas products sales representative agreed to proceed I did put an orthopedic referral and patient will make her own appointment. Patient will come in on Thursday and get the x-ray of the knee. If anything is wrong and requires treatment sooner than her follow-up is scheduled please treat accordingly. MDM Procedures documented in this encounter 01-11-2025 Telephone encounter Note Patient returns call and reviewed message below again. Patient reports Urinary Symptoms are resolving and will continue antibiotic. Mentions mild neck pain and headache. Feels it might be related to recent changing of pillows. Patient going to try adjusting them again and if feels pain is from more than that will give us a call back to schedule an appointment. Did review OTC medication and care patient could try with verbalized understanding. Irma Vasquez RN 01-11-2025 Miscellaneous Notes Patient returns call and reviewed message below again. Patient reports Urinary Symptoms are resolving and will continue antibiotic. Mentions mild neck pain and headache. Feels it might be related to recent changing of pillows. Patient going to try adjusting them again and if feels pain is from more than that will give us a call back to schedule an appointment. Did review OTC medication and care patient could try with verbalized understanding. Irma Vasquez RN Patient given results and verbalized understanding of instructions given. Justina Carbone MA Please contact patient let her know urine culture reveals no UTI. Please follow-up with PCP to ensure resolution of blood in the urine documented in this encounter 01-11-2025 Telephone encounter Note Patient given results and verbalized understanding of instructions given. Justina Carbone MA 01-11-2025 Telephone encounter Note Please contact patient let her know urine culture reveals no UTI. Please follow-up with PCP to ensure resolution of blood in the urine Work Phone: 01-09-2025 Note HNO ID: [id number] Author: VIKTORIYA IGLESIAS APRN.TOLL COLLECTOR SUPERVISOR Service: ? Author Type: Nurse Practitioner Type: Progress Notes Filed: 01/09/2025 18:46 Note Text: Subjective Patient ID: TOYA is a 84 year old female who presents for Urinary Frequency (Frequency, lower back pain and pressure x 2 days). Patient presents to clinic with UTI s/s x2d h/o HLD, HTN and anxiety/panic attack The history is provided by the patient. No reverberatory skimmer was used. +burning with urination +frequency +tenderness in lower abd and lower back Denies OTC meds, N/V/D LBM today Denies sexual activity Denies fever, chills nor body aches PAST MEDICAL HISTORY Diagnosis Date Anxiety state, [...] Hcl], Keflex [Cephalexin], and Trimpex [Trimethoprim] MEDICATIONS loratadine (CLARITIN) 10 mg tablet Take 1 tablet by mouth once daily. PARoxetine (PAXIL) 20 mg tablet Take 1 tablet by mouth once daily. colestipol (COLESTID) 1 gram tablet Take 1 tablet by mouth two times a day. (Patient taking differently: Take 1 g by mouth once daily.) nadolol (CORGARD) 20 mg tablet Take 1 tablet by mouth once daily. bismuth subsalicylate (PEPTO-BISMOL) 262 mg chewable tablet Take 1 tablet by mouth four times daily for 10 days. FAMILY HISTORY Problem Relation Age of Onset Breast Cancer Mother Ovarian Heart Father Pacemaker Stroke Father Bowel Blockage () Social History Tobacco Use Smoking status: Never Smokeless tobacco: Never Vaping Use Vaping status: Never Used Substance Use Topics Alcohol use: No Drug use: No Objective BP 142/82 Pulse 80 Temp 37.1 ?C (98.8 ?F) (Tympanic) Resp 18 Wt 64.1 kg (141 lb 5 oz) SpO2 98% BMI 24.26 kg/m? Physical Exam Constitutional: Appearance: Normal appearance. She is normal weight. HENT: Head: Normocephalic. Nose: Nose normal. Mouth/Throat: Mouth: Mucous membranes are moist. Eyes: Extraocular Movements: Extraocular movements intact. Conjunctiva/sclera: Conjunctivae normal. Pupils: Pupils are equal, round, and reactive to light. Cardiovascular: Rate and Rhythm: Normal rate. Pulses: Normal pulses. Heart sounds: Normal heart sounds. Pulmonary: Effort: Pulmonary effort is normal. Breath sounds: Normal breath sounds and air entry. Abdominal: General: Bowel sounds are normal. Palpations: Abdomen is soft. Tenderness: There is abdominal tenderness in the right lower quadrant, suprapubic area and left lower quadrant. Genitourinary: Vagina: No vaginal discharge. Musculoskeletal: General: Normal range of motion. Cervical back: Normal range of motion. Skin: General: Skin is warm and dry. Capillary Refill: Capillary refill takes less than 2 seconds. Neurological: General: No focal deficit present. Mental Status: She is alert and oriented to person, place, and time. Psychiatric: Mood and Affect: Mood normal. Behavior: Behavior normal. Thought Content: Thought content normal. Judgment: Judgment normal. Assessment AND Plan Urinary frequency Orders: UA DIP, URINE (POC) Urinary tract infection with hematuria, site unspecified ASSESSMENT/PLAN: 1. Urinary frequency - ICD9: 788.41, ICD10: R35.0 (primary diagnosis) acute - UA positive for hematuria and proteinuria - Patient education for prevention given - UA DIP, URINE (POC) - BACTERIAL CULTURE, URINE 2. Urinary tract infection with hematuria, site unspecified - ICD9: 599.0, 599.70, ICD10: N39.0, R31.9 acute - UA positive for bilirubin, hematuria and proteinuria - Begin treatment with Macrobid 100 mg BID for 5 days - Patient education for prevention given Yeny Martínez TEACHING PROVIDER (Physician/PA/MITER SAW OPERATOR) NOTE OF PERSONAL INVOLVEMENT IN CARE: I have personally seen and examined the patient and performed the medical decision-making components. I have reviewed the Advanced Practice Registered Nurse (MITER SAW OPERATOR) Student's documentation and verified the findings in the note as written. Any additions or changes are noted in bold/italics. Signature: Viktoriya Iglesias Date: 01/09/2025 Time: 6:45 PM [facility] 01-09-2025 History of Presen t illness Narrative Subjective Patient ID: TOYA is a 84 year old female who presents for Urinary Frequency (Frequency, lower back pain and pressure x 2 days). Patient presents to clinic with UTI s/s x2d h/o HLD, HTN and anxiety/panic attack The history is provided by the patient. No reverberatory skimmer was used. +burning with urination +frequency +tenderness in lower abd and lower back Denies OTC meds, N/V/D LBM today Denies sexual activity Denies fever, chills nor body aches PAST MEDICAL HISTORY Diagnosis Date Anxiety state, [...] Hcl], Keflex [Cephalexin], and Trimpex [Trimethoprim] MEDICATIONS loratadine (CLARITIN) 10 mg tablet Take 1 tablet by mouth once daily. PARoxetine (PAXIL) 20 mg tablet Take 1 tablet by mouth once daily. colestipol (COLESTID) 1 gram tablet Take 1 tablet by mouth two times a day. (Patient taking differently: Take 1 g by mouth once daily.) nadolol (CORGARD) 20 mg tablet Take 1 tablet by mouth once daily. bismuth subsalicylate (PEPTO-BISMOL) 262 mg chewable tablet Take 1 tablet by mouth four times daily for 10 days. FAMILY HISTORY Problem Relation Age of Onset Breast Cancer Mother Ovarian Heart Father Pacemaker Stroke Father Bowel Blockage () Social History Tobacco Use Smoking status: Never Smokeless tobacco: Never Vaping Use Vaping status: Never Used Substance Use Topics Alcohol use: No Drug use: No Objective BP 142/82 Pulse 80 Temp 37.1 C (98.8 F) (Tympanic) Resp 18 Wt 64.1 kg (141 lb 5 oz) SpO2 98% BMI 24.26 kg/m Physical Exam Constitutional: Appearance: Normal appearance. She is normal weight. HENT: Head: Normocephalic. Nose: Nose normal. Mouth/Throat: Mouth: Mucous membranes are moist. Eyes: Extraocular Movements: Extraocular movements intact. Conjunctiva/sclera: Conjunctivae normal. Pupils: Pupils are equal, round, and reactive to light. Cardiovascular: Rate and Rhythm: Normal rate. Pulses: Normal pulses. Heart sounds: Normal heart sounds. Pulmonary: Effort: Pulmonary effort is normal. Breath sounds: Normal breath sounds and air entry. Abdominal: General: Bowel sounds are normal. Palpations: Abdomen is soft. Tenderness: There is abdominal tenderness in the right lower quadrant, suprapubic area and left lower quadrant. Genitourinary: Vagina: No vaginal discharge. Musculoskeletal: General: Normal range of motion. Cervical back: Normal range of motion. Skin: General: Skin is warm and dry. Capillary Refill: Capillary refill takes less than 2 seconds. Neurological: General: No focal deficit present. Mental Status: She is alert and oriented to person, place, and time. Psychiatric: Mood and Affect: Mood normal. Behavior: Behavior normal. Thought Content: Thought content normal. Judgment: Judgment normal. Assessment & Plan Urinary frequency Orders: UA DIP, URINE (POC) Urinary tract infection with hematuria, site unspecified ASSESSMENT/PLAN: 1. Urinary frequency - ICD9: 788.41, ICD10: R35.0 (primary diagnosis) acute - UA positive for hematuria and proteinuria - Patient education for prevention given - UA DIP, URINE (POC) - BACTERIAL CULTURE, URINE 2. Urinary tract infection with hematuria, site unspecified - ICD9: 599.0, 599.70, ICD10: N39.0, R31.9 acute - UA positive for bilirubin, hematuria and proteinuria - Begin treatment with Macrobid 100 mg BID for 5 days - Patient education for prevention given Yeny Martínez TEACHING PROVIDER (Physician/PA/MITER SAW OPERATOR) NOTE OF PERSONAL INVOLVEMENT IN CARE: I have personally seen and examined the patient and performed the medical decision-making components. I have reviewed the Advanced Practice Registered Nurse (MITER SAW OPERATOR) Student's documentation and verified the findings in the note as written. Any additions or changes are noted in bold/italics. Signature: Viktoriya Iglesias Date: 01/09/2025 Time: 6:45 PM documented in this encounter 01-09-2025 Telephone encounter Note Pt reports s/s UTI for 1 1/2 days. Protocol recommends see provider in 24 hours. Pt states she will go to [facility] for evaluation after work today. Reason for Disposition Urinating more frequently than usual (i.e., frequency) OR new-onset of the feeling of an urgent need to urinate (i.e., urgency) Answer Assessment - Initial Assessment Questions 1. SYMPTOM: Pt thinks she has a UTI for 1 1/2 days having urgency, frequency, pressure in lower abdomen and lower back, incontinence of urine. 2. ONSET: 1 1/2 days ago 3. PAIN: Pressure in lower abdomen and lower back. No pain or burning with urination. 4. CAUSE: UTI 5. OTHER SYMPTOMS: Pressure, urgency, frequency, urinary incontinence. 6. : N/A Protocols used: Urinary [id number] 01-09-2025 Miscellaneous Notes Pt reports s/s UTI for 1 1/2 days. Protocol recommends see provider in 24 hours. Pt states she will go to [facility] for evaluation after work today. Reason for Disposition Urinating more frequently than usual (i.e., frequency) OR new-onset of the feeling of an urgent need to urinate (i.e., urgency) Answer Assessment - Initial Assessment Questions 1. SYMPTOM: Pt thinks she has a UTI for 1 1/2 days having urgency, frequency, pressure in lower abdomen and lower back, incontinence of urine. 2. ONSET: 1 1/2 days ago 3. PAIN: Pressure in lower abdomen and lower back. No pain or burning with urination. 4. CAUSE: UTI 5. OTHER SYMPTOMS: Pressure, urgency, frequency, urinary incontinence. 6. : N/A Protocols used: Urinary [id number] documented in this encounter 09-27-2024 Instructions Millicent Smith MA - 09/27/2024 1:58 PM EST Finish the Zpak. Continue with the allergy pill and the nasal spray. May try using a humidifier. Start Prednisone taper dosage today. Follow up if not improving. documented in this encounter 09-27-2024 History of Presen t illness Narrative Images from the original note were not included. Rupert Doll is a 84 year old female here for a Medicare wellness visit. Medicare Health Risk Assessment General Health Good Exercise: Minutes/Day 10 min Exercise: Days/Week 7 days Alcohol: Daily Use Never Alcohol: Drinks/Day Patient does not drink Alcohol: 6 or more drinks Never Feel off balance No Concerns: Teeth/Dentures No Concerns: Sexual function No Troubled by feelings Lonely Frequency: Eating healthy diet Several days ADLs requiring help None of the above Safety precautions in home/vehicle Yes Smoke, vape, chews tobacco No Difficulty hearing Yes, I wear a hearing aid Difficulty seeing No Current Providers Specialists: I have reviewed specialist-related care of the patient in the medical record. Current care team: Patient Care Team: Chris Serrato MD as PCP - General (Family Medicine) Shaista Calabrese APRN.CNP as Activities Attendant (Family Medicine) Farhat Mcwilliams APRN.CNP as Activities Attendant (Family Medicine) Outside specialists seen: Dr. Pham-Derm and Dr. Malik-Eye Medical/Family history review Reviewed and updated problem list, medical/surgical/family/social history, medications, and allergies. Opioid use review Opioid Medications (last 90 days) No data to display Anxiety/Depression screening PHQ-2 Score: 0 (Lower risk for depression) Recommendation: no further intervention at this time Cognitive screening Mini Cog Score: 3 Cognitive screening reviewed and No further action needed (score 3-5). Functional Observation Was the patient's Timed Up & Go test unsteady or >= 12 seconds? No Advance Care Planning Surrogate decision maker and/or advance care plan documented Measurements BP 130/80 Pulse 70 Resp 16 Ht 162.6 cm (5' 4) Wt 62.3 kg (137 lb 5.6 oz) SpO2 96% BMI 23.58 kg/m Vision Screening: Follows with optometry/ophthalmology Assessment/Plan Medicare annual wellness visit, initial (Z00.00) - Counseled on healthy diet and regular exercise - Fall avoidance information provided - Personalized prevention plan provided Chief Complaint Medicare Wellness and follow up HPI Rupert Doll is a 84 year old female who presents here today for follow up, cough/sinus. No bowel, Gi, or urinary issues. She feels that the Colestid helps with the loose stools, better controlled when taking 2 a day. Pt states she has been ill x 1 month. Pt was in UC on 09/23/24 for sore throat, tested for strep. No covid, flu, or RSV test was done. She was treated with zpak which she will finish today, allergy pill, and nasal spray. Saw Farhat David on 09/16/24, was treated with Prednisone 20 mg 2 pills once daily x 5 days and Doxycycline 100 mg 1 pill BID x 10 days. She stated that she didn't realize she was supposed to take Doxycycline twice a day, was only taking it once a day. She was feeling better up until this morning. Started with sore throat but has not had any further issues with that. She has some head congestion, headache, facial pressure, cough, ear popping but no pain. She denies any fevers. She states that the air is dry in her house and at night she seems to get worse with the coughing. Wonders if she should use a humidifier. She doesn't really feel sick but doesn't have much energy. Pt felt that the prednisone did help. Lipid: Has been taking Colestid 1 gram once a day, she cut back from twice a day about 4 months ago. Is trying to watch diet. She does like sweets but she tries to eat healthy. Drinks Gatorade. Could drink more water. She admits she should eat more fruit. She eats frozen meals that have portions of vegetables and fruits. Depression/VADIM: Stable, taking Paxil 20 mg daily. Comfortable at this dose, would like to stay on this. Taking Nadolol 20 mg daily. Denies any chest pains, dizziness, SOB, Palpitations. Past medical history, appointments, medications, allergies reviewed. [...] on File Prior to Visit Medication Sig budesonide (RHINOCORT AQ) 32 mcg/actuation nasal spray Use 2 Sprays in each nostril once daily for 14 days. Rinse mouth after use. loratadine (CLARITIN) 10 mg tablet Take 1 tablet by mouth once daily. azithromycin (ZITHROMAX) 250 mg tablet Take 2 tablets by mouth once daily for 1 day, THEN 1 tablet once daily for 4 days. PARoxetine (PAXIL) 20 mg tablet Take 1 tablet by mouth once daily. colestipol (COLESTID) 1 gram tablet Take 1 tablet by mouth two times a day. (Patient taking differently: Take 1 g by mouth once daily.) nadolol (CORGARD) 20 mg tablet Take 1 tablet by mouth once daily. bismuth subsalicylate (PEPTO-BISMOL) 262 mg chewable tablet Take 1 tablet by mouth four times daily for 10 days. No current facility-administered medications on file prior to visit. Social History Social History Tobacco Use Smoking status: Never Smokeless tobacco: Never Vaping Use Vaping status: Never Used Substance Use Topics Alcohol use: No Drug use: No EXAM: BP 130/80 Pulse 70 Resp 16 Ht 162.6 cm (5' 4) Wt 62.3 kg (137 lb 5.6 oz) SpO2 96% BMI 23.58 kg/m General Appearance: Well appearing, alert, in no acute distress, well-hydrated, well nourished.. Head: Normocephalic, no masses, lesions, tenderness or abnormalities. Ears: External ears normal, canals clear. Oropharynx: Lips, mucosa, and tongue normal, teeth and gums normal, oropharynx normal. Neck: Supple, no adenopathy; thyroid symmetric, normal size. Lungs: Lungs clear to auscultation. No wheezing, rhonchi, rales.. Heart: RRR without murmur, gallop, or rubs. No ectopy. Health Maintenance List Depression Screening Never done Shingrix Vaccine(1 of 2) Never done RSV Vaccine(1 - 1-dose 75+ series) Never done DTaP,Tdap,Td Vaccine(2 - Tdap) due on 01/08/2017 Covid-19 Vaccine() due on 05/01/2024 Advance Directive Discussion Never done Diabetes Screening due on 09/22/2027 Bone Density Screening Completed Influenza Vaccine Completed Pneumococcal Vaccine: 50+ Completed Colorectal Cancer Screening Discontinued Data reviewed Office Visit on 09/23/2024 Component Date Value Strep A (POCT) 09/23/2024 Negative Procedural Control 09/23/2024 Valid Appointment on 09/22/2024 Component Date Value Protein, Total 09/22/2024 7.2 Albumin 09/22/2024 4.2 Calcium, Total 09/22/2024 9.4 Bilirubin, Total 09/22/2024 0.6 Alkaline Phosphatase 09/22/2024 61 AST 09/22/2024 13 ALT 09/22/2024 14 Glucose 09/22/2024 110 (H) BUN 09/22/2024 21 Creatinine 09/22/2024 1.17 (H) Sodium 09/22/2024 140 Potassium 09/22/2024 4.2 Chloride 09/22/2024 101 CO2 09/22/2024 27 Anion Gap 09/22/2024 12 Estimated Glomerular Kenny* 09/22/2024 46 (L) Cholesterol, Total 09/22/2024 258 (H) Triglyceride 09/22/2024 227 (H) HDL Cholesterol 09/22/2024 66 Non HDL Cholesterol 09/22/2024 192 (H) Fasting Time 09/22/2024 12 VLDL Cholesterol 09/22/2024 45 (H) TC:HDL Ratio 09/22/2024 3.91 LDL Cholesterol 09/22/2024 147 (H) LDL:HDL Ratio 09/22/2024 2.23 Hemoglobin A1C 09/22/2024 6.1 (H) Estimated Average Glucose 09/22/2024 128 ASSESSMENT/PLAN: 1. Medicare annual wellness visit, initial - ICD9: V70.0, ICD10: Z00.00 (primary diagnosis) - Counseled on healthy diet and regular exercise - Follow up for annual exam in one year 2. Screening for depression - ICD9: V79.0, ICD10: Z13.31 - DEPRESSION SCREENING 3. Anxiety - ICD9: 300.00, ICD10: F41.9 Stable Continue current medications. 4. Palpitations - ICD9: 785.1, ICD10: R00.2 Controlled Continue current medications. 5. Other hyperlipidemia - ICD9: 272.4, ICD10: E78.49 Continue current medications. Recommend healthy diet 6. Diarrhea, unspecified type - ICD9: 787.91, ICD10: R19.7 Controlled Continue current medications. 7. Acute non-recurrent frontal sinusitis - ICD9: 461.1, ICD10: J01.10 - Will begin treatment with Prednisone - Use Flonase nasal spray - Supportive care with plenty of fluids, rest, and analgesia prn. - Call if not improving in 7-9 days Follow up in 6 months. I agree with the Chief Complaint, ROS, and Past Histories independently gathered by the clinical field support representative and the remaining scribed note accurately describes my personal service to the patient. Medical Decision Making: Problems: Low: Acute, uncomplicated illness or injury Moderate: 2+ stable chronic illnesses Data: Unique test result(s) reviewed: 2 Risk: Moderate: Drug management Medical Decision Making Level: 4 - Moderate Chris Serrato MD The documentation for this note was completed by Millicent Smith MA acting as scribe for Chris Serrato MD. September 27, 2024 1:41 PM. Millicent Smith MA documented in this encounter 09-27-2024 Note HNO ID: [id number] Author: CHRIS SERRATO MD Service: ? Author Type: Physician Type: Progress Notes Filed: 09/27/2024 14:08 Note Text: Rupert Doll is a 84 year old female here for a Medicare wellness visit. Medicare Health Risk Assessment General Health Good Exercise: Minutes/Day 10 min Exercise: Days/Week 7 days Alcohol: Daily Use Never Alcohol: Drinks/Day Patient does not drink Alcohol: 6 or more drinks Never Feel off balance No Concerns: Teeth/Dentures No Concerns: Sexual function No Troubled by feelings Lonely Frequency: Eating healthy diet Several days ADLs requiring help None of the above Safety precautions in home/vehicle Yes Smoke, vape, chews tobacco No Difficulty hearing Yes, I wear a hearing aid Difficulty seeing No Current Providers Specialists: I have reviewed specialist-related care of the patient in the medical record. Current care team: Patient Care Team: Chris Serrato MD as PCP - General (Family Medicine) Shaista Calabrese APRN.CNP as Activities Attendant (Family Medicine) Farhat Mcwilliams APRN.CNP as Activities Attendant (Family Medicine) Outside specialists seen: Dr. Pham-[facility] and Dr. Malik-Eye Medical/Family history review Reviewed and updated problem list, medical/surgical/family/social history, medications, and allergies. Opioid use review Opioid Medications (last 90 days) No data to display Anxiety/Depression screening PHQ-2 Score: 0 (Lower risk for depression) Recommendation: no further intervention at this time Cognitive screening Mini Cog Score: 3 Cognitive screening reviewed and No further action needed (score 3-5). Functional Observation Was the patient's Timed Up AND Go test unsteady or >= 12 seconds? No Advance Care Planning Surrogate decision maker and/or advance care plan documented Measurements BP 130/80 Pulse 70 Resp 16 Ht 162.6 cm (5' 4) Wt 62.3 kg (137 lb 5.6 oz) SpO2 96% BMI 23.58 kg/m? Vision Screening: Follows with optometry/ophthalmology Assessment/Plan Medicare annual wellness visit, initial (Z00.00) - Counseled on healthy diet and regular exercise - Fall avoidance information provided - Personalized prevention plan provided Chief Complaint Medicare Wellness and follow up HPI Rupert Doll is a 84 year old female who presents here today for follow up, cough/sinus. No bowel, Gi, or urinary issues. She feels that the Colestid helps with the loose stools, better controlled when taking 2 a day. Pt states she has been ill x 1 month. Pt was in UC on 09/23/24 for sore throat, tested for strep. No covid, flu, or RSV test was done. She was treated with zpak which she will finish today, allergy pill, and nasal spray. Saw Farhat Mcwilliams on 09/16/24, was treated with Prednisone 20 mg 2 pills once daily x 5 days and Doxycycline 100 mg 1 pill BID x 10 days. She stated that she didn't realize she was supposed to take Doxycycline twice a day, was only taking it once a day. She was feeling better up until this morning. Started with sore throat but has not had any further issues with that. She has some head congestion, headache, facial pressure, cough, ear popping but no pain. She denies any fevers. She states that the air is dry in her house and at night she seems to get worse with the coughing. Wonders if she should use a humidifier. She doesn't really feel sick but doesn't have much energy. Pt felt that the prednisone did help. Lipid: Has been taking Colestid 1 gram once a day, she cut back from twice a day about 4 months ago. Is trying to watch diet. She does like sweets but she tries to eat healthy. Drinks Gatorade. Could drink more water. She admits she should eat more fruit. She eats frozen meals that have portions of vegetables and fruits. Depression/VADIM: Stable, taking Paxil 20 mg daily. Comfortable at this dose, would like to stay on this. Taking Nadolol 20 mg daily. Denies any chest pains, dizziness, SOB, Palpitations. Past medical history, appointments, medications, allergies reviewed. [...] FAMILY HISTORY Problem Relation Age of Onset (more content not included)... [facility] 09-23-2024 Note Addended by: MIMI GROSS on: 09/23/2024 04:56 PM Modules accepted: Orders 09-23-2024 Miscellaneous Notes Addended by: MIMI GROSS on: 09/23/2024 04:56 PM Modules accepted: Orders documented in this encounter 09-23-2024 Note HNO ID: [id number] Author: MIMI GROSS APRN.CNP Service: ? Author Type: Nurse Practitioner Type: Progress Notes Filed: 09/23/2024 16:56 Note Text: CC: Patient presents with: Cough: With sinus pressure AND congestion x2 weeks HPI: Rupert Doll is a 84 year old female who presents to the office with complaint of head congestion, sore throat, and sinus symptoms for 2 weeks. Symptoms are worsening Associated symptoms includes nasal congestion and facial pain/pressure. Denies wheezing, dyspnea, nausea, vomiting , and diarrhea. Treatments tried include nothing so far. with no relief of symptoms. Sick contacts: unknown. History of asthma, frequent episodes of bronchitis, chronic bronchitis, bronchiectasis or COPD: No Smoker: No Seasonal/environmental allergies: No The ROS is otherwise negative. The patient's pmh, medications, allergies, and past visits are reviewed. PHYSICAL EXAM: BP 147/84 Pulse 86 Temp 36.2 ?C (97.2 ?F) (Left Tympanic) Resp 16 Wt 62.1 kg (136 lb 14.5 oz) SpO2 97% BMI 22.78 kg/m? General appearance: alert, cooperative, pleasant, in no acute distress Head: Normocephalic Eyes: EOM's intact, conjunctiva pink and moist, no icterus, sclera white, non-injected Ears: Right ear: External ear/canal- Normal, TM - clear with good landmarks. Left ear: External ear/canal- Normal, TM - clear with good landmarks Oropharynx:mild erythema, without exudates present Heart: Negative. RRR without obvious murmur, gallop, or rubs. No ectopy. Lungs: clear to auscultation, without rales or wheeze, good air exchange PAST MEDICAL HISTORY Diagnosis Date Anxiety state, [...] Hcl], Keflex [Cephalexin], and Trimpex [Trimethoprim] MEDICATIONS doxycycline (VIBRA-TABS) 100 mg tablet Take 1 tablet by mouth two times a day for 10 days. PARoxetine (PAXIL) 20 mg tablet Take 1 tablet by mouth once daily. colestipol (COLESTID) 1 gram tablet Take 1 tablet by mouth two times a day. (Patient taking differently: Take 1 g by mouth once daily.) nadolol (CORGARD) 20 mg tablet Take 1 tablet by mouth once daily. bismuth subsalicylate (PEPTO-BISMOL) 262 mg chewable tablet Take 1 tablet by mouth four times daily for 10 days. FAMILY HISTORY Problem Relation Age of Onset Breast Cancer Mother Ovarian Heart Father Pacemaker Stroke Father Bowel Blockage () Social History Tobacco Use Smoking status: Never Smokeless tobacco: Never Vaping Use Vaping status: Never Used Substance Use Topics Alcohol use: No Drug use: No ASSESSMENT/PLAN: 1. Sore throat - ICD9: 462, ICD10: J02.9 (primary diagnosis) - STREP A MOLECULAR (POC) - neg 2. Rhinosinusitis - ICD9: 473.9, ICD10: J32.9 - BUDESONIDE 32 MCG/ACTUATION NASAL SPRAY - LORATADINE 10 MG TABLET Changed her antibiotic to a Z-David. Patient had only been taking the doxycycline once a day. I believe this is why she has not had significant improvement. Hopefully the Z-David will be a little more simple. Prescription instructions reviewed with patient as applicable. Potential red flag symptoms discussed with the patient. Reviewed appropriate action plan to take if red flag symptoms occur. Patient agreeable to treatment plan. Mimi Gross APRN.[facility] 09-23-2024 History of Presen t illness Narrative CC: Patient presents with: Cough: With sinus pressure & congestion x2 weeks HPI: Rupert Doll is a 84 year old female who presents to the office with complaint of head congestion, sore throat, and sinus symptoms for 2 weeks. Symptoms are worsening Associated symptoms includes nasal congestion and facial pain/pressure. Denies wheezing, dyspnea, nausea, vomiting , and diarrhea. Treatments tried include nothing so far. with no relief of symptoms. Sick contacts: unknown. History of asthma, frequent episodes of bronchitis, chronic bronchitis, bronchiectasis or COPD: No Smoker: No Seasonal/environmental allergies: No The ROS is otherwise negative. The patient's pmh, medications, allergies, and past visits are reviewed. PHYSICAL EXAM: BP 147/84 Pulse 86 Temp 36.2 C (97.2 F) (Left Tympanic) Resp 16 Wt 62.1 kg (136 lb 14.5 oz) SpO2 97% BMI 22.78 kg/m General appearance: alert, cooperative, pleasant, in no acute distress Head: Normocephalic Eyes: EOM's intact, conjunctiva pink and moist, no icterus, sclera white, non-injected Ears: Right ear: External ear/canal- Normal, TM - clear with good landmarks. Left ear: External ear/canal- Normal, TM - clear with good landmarks Oropharynx:mild erythema, without exudates present Heart: Negative. RRR without obvious murmur, gallop, or rubs. No ectopy. Lungs: clear to auscultation, without rales or wheeze, good air exchange PAST MEDICAL HISTORY Diagnosis Date Anxiety state, [...] Hcl], Keflex [Cephalexin], and Trimpex [Trimethoprim] MEDICATIONS doxycycline (VIBRA-TABS) 100 mg tablet Take 1 tablet by mouth two times a day for 10 days. PARoxetine (PAXIL) 20 mg tablet Take 1 tablet by mouth once daily. colestipol (COLESTID) 1 gram tablet Take 1 tablet by mouth two times a day. (Patient taking differently: Take 1 g by mouth once daily.) nadolol (CORGARD) 20 mg tablet Take 1 tablet by mouth once daily. bismuth subsalicylate (PEPTO-BISMOL) 262 mg chewable tablet Take 1 tablet by mouth four times daily for 10 days. FAMILY HISTORY Problem Relation Age of Onset Breast Cancer Mother Ovarian Heart Father Pacemaker Stroke Father Bowel Blockage () Social History Tobacco Use Smoking status: Never Smokeless tobacco: Never Vaping Use Vaping status: Never Used Substance Use Topics Alcohol use: No Drug use: No ASSESSMENT/PLAN: 1. Sore throat - ICD9: 462, ICD10: J02.9 (primary diagnosis) - STREP A MOLECULAR (POC) - neg 2. Rhinosinusitis - ICD9: 473.9, ICD10: J32.9 - BUDESONIDE 32 MCG/ACTUATION NASAL SPRAY - LORATADINE 10 MG TABLET Changed her antibiotic to a Z-David. Patient had only been taking the doxycycline once a day. I believe this is why she has not had significant improvement. Hopefully the Z-David will be a little more simple. Prescription instructions reviewed with patient as applicable. Potential red flag symptoms discussed with the patient. Reviewed appropriate action plan to take if red flag symptoms occur. Patient agreeable to treatment plan. Mimi Gross APRN.[employer] documented in this encounter 09-16-2024 History of Presen t illness Narrative Chief Complaint Patient presents with: Cough: With sinus issues, PAULINO, no energy, fatigue x 1 week HPI Rupert Doll is a 84 year old female who presents here today for above complaints. ENT: Patient complains of sinus pressure. Duration: 1 week Fever: No. Headache: Yes. Pressure behind/below both eyes Sore throat: No. Ear pain: No. Nasal drainage: Yes. Cough: Yes Shortness of breath: No. Nausea: No. Vomiting: No. Diarrhea: No. Previous treatment: No. Treating at home with Coricidin and Mucinex DM Co-worker came to work with similar symptoms last week and then she developed symptoms. Past medical history, appointments, medications, allergies reviewed. EXAM: BP 140/88 Pulse 93 Temp 37 C (98.6 F) Resp 18 Wt 62.6 kg (138 lb) SpO2 98% BMI 22.96 kg/m General Appearance: Well appearing, alert, in no acute distress, well-hydrated, well nourished.. Head: Normocephalic, no masses, lesions, tenderness or abnormalities. Eyes: Anicteric sclera. Pupils are equally round and reactive to light. Extraocular movements are intact. . Ears: External ears normal, canals clear. Nose/Sinuses: Positive findings: mucosa erythematous and swollen, tenderness of the maxillary sinus . Oropharynx: Lips, mucosa, and tongue normal, teeth and gums normal, oropharynx normal. Neck: Supple, no adenopathy Lungs: Lungs clear to auscultation. No wheezing, rhonchi, rales.. Cough Heart: RRR without murmur, gallop, or rubs. No ectopy. ASSESSMENT/PLAN: 1. Sinobronchitis - ICD9: 473.9, 490, ICD10: J32.9, J40 - Will begin treatment with Doxycycline - The patient should also be given OTC decongestants prn, OTC cough and cold meds as needed, and warm salt water gargles, throat lozenges and/or OTC throat spray as needed for the first 5-7 days of treatment. - Supportive care with plenty of fluids, rest, and analgesia prn. - DOXYCYCLINE HYCLATE 100 MG TABLET - PREDNISONE 20 MG TABLET Farhat Mcwilliams APRN.[employer] RTO as scheduled on 09/27 for routine care. Sooner if needed. This note was partly generated using [employer] voice recognition dictation and may contain some misspelled or inaccurate words missed on review. documented in this encounter 09-16-2024 Note HNO ID: [id number] Author: FARHAT MCWILLIAMS APRN.[facility]E Service: ? Author Type: Nurse Practitioner Type: Progress Notes Filed: 09/16/2024 13:38 Note Text: Chief Complaint Patient presents with: Cough: With sinus issues, PAULINO, no energy, fatigue x 1 week HPI Rupert Doll is a 84 year old female who presents here today for above complaints. ENT: Patient complains of sinus pressure. Duration: 1 week Fever: No. Headache: Yes. Pressure behind/below both eyes Sore throat: No. Ear pain: No. Nasal drainage: Yes. Cough: Yes Shortness of breath: No. Nausea: No. Vomiting: No. Diarrhea: No. Previous treatment: No. Treating at home with Coricidin and Mucinex DM Co-worker came to work with similar symptoms last week and then she developed symptoms. Past medical history, appointments, medications, allergies reviewed. EXAM: BP 140/88 Pulse 93 Temp 37 ?C (98.6 ?F) Resp 18 Wt 62.6 kg (138 lb) SpO2 98% BMI 22.96 kg/m? General Appearance: Well appearing, alert, in no acute distress, well-hydrated, well nourished.. Head: Normocephalic, no masses, lesions, tenderness or abnormalities. Eyes: Anicteric sclera. Pupils are equally round and reactive to light. Extraocular movements are intact. . Ears: External ears normal, canals clear. Nose/Sinuses: Positive findings: mucosa erythematous and swollen, tenderness of the maxillary sinus . Oropharynx: Lips, mucosa, and tongue normal, teeth and gums normal, oropharynx normal. Neck: Supple, no adenopathy Lungs: Lungs clear to auscultation. No wheezing, rhonchi, rales.. Cough Heart: RRR without murmur, gallop, or rubs. No ectopy. ASSESSMENT/PLAN: 1. Sinobronchitis - ICD9: 473.9, 490, ICD10: J32.9, J40 - Will begin treatment with Doxycycline - The patient should also be given OTC decongestants prn, OTC cough and cold meds as needed, and warm salt water gargles, throat lozenges and/or OTC throat spray as needed for the first 5-7 days of treatment. - Supportive care with plenty of fluids, rest, and analgesia prn. - DOXYCYCLINE HYCLATE 100 MG TABLET - PREDNISONE 20 MG TABLET Farhat Mcwilliams APRN.[employer] RTO as scheduled on 09/27 for routine care. Sooner if needed. This note was partly generated using [employer] voice recognition dictation and may contain some misspelled or inaccurate words missed on review. [facility] 09-14-2024 Telephone encounter Note Patient calls for sinus pressure and cough. Nurse triage recommends see provider within 3 days. Appt scheduled. Care advice reviewed. Patient verbalizes understanding. Reason for Disposition Lots of coughing Answer Assessment - Initial Assessment Questions 1. LOCATION: Patient reports sinus pressure/congestion below both eyes. Patient has been taking Coricidin and Mucinex DM with no help since Thursday. 2. ONSET: Thursday 3. SEVERITY: - MODERATE (4-7): Interferes with normal activities (e.g., work or school) or awakens from sleep. 4. RECURRENT SYMPTOM: Yes, previously needed antibiotics. 5. NASAL CONGESTION: Yes but able to breathe ok. 6. NASAL DISCHARGE: No 7. FEVER: No 8. OTHER SYMPTOMS: Non-productive cough. No sore throat, earache, or difficulty breathing Protocols used: Sinus Pain or [id number] 09-14-2024 Miscellaneous Notes Patient calls for sinus pressure and cough. Nurse triage recommends see provider within 3 days. Appt scheduled. Care advice reviewed. Patient verbalizes understanding. Reason for Disposition Lots of coughing Answer Assessment - Initial Assessment Questions 1. LOCATION: Patient reports sinus pressure/congestion below both eyes. Patient has been taking Coricidin and Mucinex DM with no help since Thursday. 2. ONSET: Thursday 3. SEVERITY: - MODERATE (4-7): Interferes with normal activities (e.g., work or school) or awakens from sleep. 4. RECURRENT SYMPTOM: Yes, previously needed antibiotics. 5. NASAL CONGESTION: Yes but able to breathe ok. 6. NASAL DISCHARGE: No 7. FEVER: No 8. OTHER SYMPTOMS: Non-productive cough. No sore throat, earache, or difficulty breathing Protocols used: Sinus Pain or [id number] documented in this encounter 09-07-2024 Telephone encounter Note The patient has been identified by name and date of : Yes Caregiver verified no other encounters exist for this prescription request: Yes Caregiver confirmed with patient/requestor that no other refills are due, in the near future, with this provider at this time: Yes The last office visit in the department: 02/20/2024 Does the patient have a future office visit with this provider/department: Yes 09/27/2024 Requested Prescriptions Pending Prescriptions Disp Refills PARoxetine (PAXIL) 20 mg tablet 90 tablet 1 Sig: Take 1 tablet by mouth once daily. Allyson Pineda RN September 07, 2024 2:13 PM 09-07-2024 Miscellaneous Notes The patient has been identified by name and date of : Yes Caregiver verified no other encounters exist for this prescription request: Yes Caregiver confirmed with patient/requestor that no other refills are due, in the near future, with this provider at this time: Yes The last office visit in the department: 02/20/2024 Does the patient have a future office visit with this provider/department: Yes 09/27/2024 Requested Prescriptions Pending Prescriptions Disp Refills PARoxetine (PAXIL) 20 mg tablet 90 tablet 1 Sig: Take 1 tablet by mouth once daily. Allyson Pineda RN September 07, 2024 2:13 PM documented in this encounter 07-05-2024 Telephone encounter Note Pt notified of results and provider message. June Chase LPN 07-05-2024 Miscellaneous Notes Pt notified of results and provider message. June Chase LPN Message left for pt to call back for results. Millicent Smith MA Please notify patient that her bone density test looks OK; some thinning of her bones but not quite to the point of osteoporosis. Nothing further needs done at this time. Chris Serrato MD documented in this encounter 07-05-2024 Telephone encounter Note Message left for pt to call back for results. Millicent Smith MA 07-04-2024 Telephone encounter Note Please notify patient that her bone density test looks OK; some thinning of her bones but not quite to the point of osteoporosis. Nothing further needs done at this time. Chris Serrato MD 06-27-2024 History of Presen t illness Narrative Radiology Service Progress Note PATIENT NAME: Rupert Doll DATE OF SERVICE: June 27, 2024 TIME: 8:52 AM PATIENT IDENTITY VERIFICATION COMPLETED USING TWO (2) IDENTIFIERS: Name and Date of confirmed by patient verbally. FALL SCREENING: Has the patient had 2 falls in the last year or 1 fall with injury or currently using an Ambulatory Assistive Device (Walker, Cane, Wheelchair, Crutches, etc.)? No PATIENT GENDER DATA: Female. status: : No status: NO. PATIENT RELEVANT IMPLANT DATA REVIEWED: Not Applicable PATIENT PRESENTS WITH AN IMPLANTABLE OR ATTACHED DRY COLOR TESTER: No RADIOLOGY DEPARTMENT: Bone Density PERIPHERAL IV DATA: Not applicable SIGNED BY: RT Daisy(R) June 27, 2024 8:52 AM documented in this encounter 05-16-2024 Telephone encounter Note Patient calls to report she tested positive for Covid-19 yesterday. Symptoms started yesterday. Nurse triage completed. Protocol recommends call provider within 24 hours. Patient not requesting appointment or anti-viral medication. Reviewed care advice and OTC medications. Patient aware of red flag symptoms to go to ER with. Will call back if any further questions. Reason for Disposition [1] HIGH RISK patient (e.g., weak immune system, age > 64 years, obesity with BMI 30 or higher, , chronic lung disease or other chronic medical condition) AND [2] COVID symptoms (e.g., cough, fever) (Exceptions: Already seen by PCP and no new or worsening symptoms.) Answer Assessment - Initial Assessment Questions 1. COVID-19 DIAGNOSIS: At home test yesterday after coming home from [employer]. 2. COVID-19 EXPOSURE: Believes she probably was exposed at the Hospital as she works there in the [employer] or at [employer]. 3. ONSET:Yesterday 4. WORST SYMPTOM: Head congestion. Cough. Body Aches. Chills. 5. COUGH: Yes, Bothersome. 6. FEVER:Not sure. Chills last night. Figures she probably had a fever at that point. 7. RESPIRATORY STATUS: No shortness of breath except for with coughing, wheezing, unable to speak 8. [id number]-[id number]-ZRAAY: Same 9. OTHER SYMPTOMS:chills and body aches. No fatigue, headache, loss of smell or taste or, sore throat. 10. HIGH RISK DISEASE: No asthma, heart or lung disease, weak immune system, obesity 11. VACCINE: last 2020 12. : NA 13. O2 SATURATION MONITOR: Hasn't been monitoring Protocols used: COVID-19 - Diagnosed or [id number] 05-16-2024 Miscellaneous Notes Patient calls to report she tested positive for Covid-19 yesterday. Symptoms started yesterday. Nurse triage completed. Protocol recommends call provider within 24 hours. Patient not requesting appointment or anti-viral medication. Reviewed care advice and OTC medications. Patient aware of red flag symptoms to go to ER with. Will call back if any further questions. Reason for Disposition [1] HIGH RISK patient (e.g., weak immune system, age > 64 years, obesity with BMI 30 or higher, , chronic lung disease or other chronic medical condition) AND [2] COVID symptoms (e.g., cough, fever) (Exceptions: Already seen by PCP and no new or worsening symptoms.) Answer Assessment - Initial Assessment Questions 1. COVID-19 DIAGNOSIS: At home test yesterday after coming home from [employer]. 2. COVID-19 EXPOSURE: Believes she probably was exposed at the Hospital as she works there in the [employer] or at [employer]. 3. ONSET:Yesterday 4. WORST SYMPTOM: Head congestion. Cough. Body Aches. Chills. 5. COUGH: Yes, Bothersome. 6. FEVER:Not sure. Chills last night. Figures she probably had a fever at that point. 7. RESPIRATORY STATUS: No shortness of breath except for with coughing, wheezing, unable to speak 8. [id number]: Same 9. OTHER SYMPTOMS:chills and body aches. No fatigue, headache, loss of smell or taste or, sore throat. 10. HIGH RISK DISEASE: No asthma, heart or lung disease, weak immune system, obesity 11. VACCINE: last 2020 12. : NA 13. O2 SATURATION MONITOR: Hasn't been monitoring Protocols used: COVID-19 - Diagnosed or [id number] documented in this encounter 03-18-2024 Telephone encounter Note Patient reports moderate headache for 3 days that is constant. Protocol reviewed with patient and recommends to provider in 24 hours. No openings in pcp office. Patient agreeable to follow protocol recommendations and go to [facility] for evaluation. Reason for Disposition [1] MODERATE headache (e.g., interferes with normal activities) AND [2] present > 24 hours AND [3] unexplained (Exceptions: analgesics not tried, typical migraine, or headache part of viral illness) Answer Assessment - Initial Assessment Questions 1. LOCATION: Headache all over forehead for 3 days. Half of nose feels full. Used netti pot once which made headache feel better. Slept well but this morning still had headache and feels a little lightheaded. 2. ONSET: 3 days ago 3. PATTERN: Constant since started 4. SEVERITY: Moderate 5. RECURRENT SYMPTOM: Has had headaches, but not for 3 days. 6. CAUSE: Thinks it might be related to sinus's 7. MIGRAINE: Never diagnosed but has had migraines in the past. This headache is not like a migraine. 8. HEAD INJURY: No 9. OTHER SYMPTOMS: No fever. No eye pain. No sore throat. Half of nose is stuffy. No cold symptoms. 10. : No Protocols used: [id number] 03-18-2024 Miscellaneous Notes Patient reports moderate headache for 3 days that is constant. Protocol reviewed with patient and recommends to provider in 24 hours. No openings in pcp office. Patient agreeable to follow protocol recommendations and go to [facility] for evaluation. Reason for Disposition [1] MODERATE headache (e.g., interferes with normal activities) AND [2] present > 24 hours AND [3] unexplained (Exceptions: analgesics not tried, typical migraine, or headache part of viral illness) Answer Assessment - Initial Assessment Questions 1. LOCATION: Headache all over forehead for 3 days. Half of nose feels full. Used netti pot once which made headache feel better. Slept well but this morning still had headache and feels a little lightheaded. 2. ONSET: 3 days ago 3. PATTERN: Constant since started 4. SEVERITY: Moderate 5. RECURRENT SYMPTOM: Has had headaches, but not for 3 days. 6. CAUSE: Thinks it might be related to sinus's 7. MIGRAINE: Never diagnosed but has had migraines in the past. This headache is not like a migraine. 8. HEAD INJURY: No 9. OTHER SYMPTOMS: No fever. No eye pain. No sore throat. Half of nose is stuffy. No cold symptoms. 10. : No Protocols used: [id number] documented in this encounter 03-11-2024 Telephone encounter Note Pt called in to confirm she was inside the date her insurance gave her to get the appointment scheduled. I let her know that her appointment was 04/29/24 and she needed to get it done before 06/28/24. 03-11-2024 Miscellaneous Notes Pt called in to confirm she was inside the date her insurance gave her to get the appointment scheduled. I let her know that her appointment was 04/29/24 and she needed to get it done before 06/28/24. Pt notified of insurance recommendations and Dr. Serrato's approval and order. Pt agreeable to have test done. Transferred to scheduling to set up appt. Message left for pt to call back. Millicent Smith MA Ok to get bone density test as ordered Chris Serrato MD Bren with [employer] pt's insurnce wanted you to know regarding pt's recent fracture pt is eligible to have a dexascan done. This needs to be done before 06/28/24. Please review and advise pt. If any questions please call Bren at [phone]. Arelis Cornejo LPN documented in this encounter 03-11-2024 Telephone encounter Note Pt notified of insurance recommendations and Dr. Serrato's approval and order. Pt agreeable to have test done. Transferred to scheduling to set up appt. 03-10-2024 Telephone encounter Note Message left for pt to call back. Millicent Smith MA 03-10-2024 Telephone encounter Note Ok to get bone density test as ordered Chris Serrato MD 03-10-2024 Telephone encounter Note Bren with [employer] pt's insurnce wanted you to know regarding pt's recent fracture pt is eligible to have a dexascan done. This needs to be done before 06/28/24. Please review and advise pt. If any questions please call Bren at [phone]. Arelis Cornejo LPN 02-26-2024 Telephone encounter Note Patient notified of results and provider's instructions. Patient verbalizes understanding. Radha Contreras RN 02-26-2024 Miscellaneous Notes Patient notified of results and provider's instructions. Patient verbalizes understanding. Radha Contreras RN Called and left message on patients voicemail to return call to the office and ask to speak with a FM triage nurse. Please relay information below to pt from Provider. Raya Bennett MA Please notify patient that her lab results look OK; blood sugar just slightly high, and cholesterol slightly high also. I would not change any medications; would recommend recheck labs in 6 months. Chris Serrato MD documented in this encounter 02-26-2024 Telephone encounter Note Called and left message on patients voicemail to return call to the office and ask to speak with a FM triage nurse. Please relay information below to pt from Provider. Raya Bennett MA 02-26-2024 Telephone encounter Note Please notify patient that her lab results look OK; blood sugar just slightly high, and cholesterol slightly high also. I would not change any medications; would recommend recheck labs in 6 months. Chris Serrato MD 02-20-2024 History of Presen t illness Narrative Chief Complaint Follow up HPI Rupert Doll is a 83 year old female who presents here today for physical. Pt hast not been seen by PCP since October 2020. Overall doing well. Living alone, lost her one year ago. Has a cat. 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 Exercises with stationary bike 10 minutes daily; tries to watch diet. No bowel, Gi, or urinary issues. HTN/palpitations: Taking Nadolol 20 mg once daily. No cardiac symptoms. Lipid: Taking Colestid 1 gram BID. Also helps with bowels, has loose stools when she does not take the medication. Depression/VADIM: Stable with Paxil 20 mg daily. Would like to stay on this dose. Recent right arm forearm fracture from fall. Past medical history, appointments, medications, allergies reviewed. [...] on File Prior to Visit Medication Sig nadolol (CORGARD) 20 mg tablet Take 1 tablet by mouth once daily. PARoxetine (PAXIL) 20 mg tablet Take 1 tablet by mouth once daily. pantoprazole DR (PROTONIX) 40 mg tablet Take 1 tablet by mouth two times a day for 10 days. bismuth subsalicylate (PEPTO-BISMOL) 262 mg chewable tablet Take 1 tablet by mouth four times daily for 10 days. colestipol (COLESTID) 1 gram tablet Take 1 tablet by mouth twice daily. No current facility-administered medications on file prior to visit. Social History Social History Tobacco Use Smoking status: Never Smokeless tobacco: Never Vaping Use Vaping Use: Never used Substance Use Topics Alcohol use: No Drug use: No EXAM: There were no vitals taken for this visit. General Appearance: Well appearing, alert, in no acute distress, well-hydrated, well nourished.. Lungs: Lungs clear to auscultation. No wheezing, rhonchi, rales.. Heart: RRR without murmur, gallop, or rubs. No ectopy. Health Maintenance List Advance Directive Discussion Never done Behavioral Health Screening Never done DTaP,Tdap,Td Vaccine(2 - Tdap) due on 07/27/2024 RSV Vaccine(1 - 1-dose 60+ series) due on 07/27/2024 Shingrix Vaccine(1 of 2) due on 07/27/2024 Covid-19 Vaccine(2022- season) due on 07/27/2024 Diabetes Screening due on 11/08/2024 Bone Density Screening Completed Influenza Vaccine Completed Pneumococcal Vaccine: 65+ Completed Colorectal Cancer Screening Discontinued Data reviewed none ASSESSMENT/PLAN: 1. Other hyperlipidemia - ICD9: 272.4, ICD10: E78.49 (primary diagnosis) Check labs - COMPREHENSIVE METABOLIC PANEL - LIPID PANEL BASIC 2. Palpitations - ICD9: 785.1, ICD10: R00.2 Continue current medications. 3. Anxiety with depression - ICD9: 300.4, ICD10: F41.8 Continue paxil 20 mg daily 4. Elevated glucose - ICD9: 790.29, ICD10: R73.09 Check labs - COMPREHENSIVE METABOLIC PANEL - HEMOGLOBIN A1C Notify of lab results Follow up in 6 months Medical Decision Making: Problems: Moderate: 2+ stable chronic illnesses Data: Unique test(s) ordered: 3+ Risk: Moderate: Drug management Medical Decision Making Level: 4 - Moderate Chris Serrato MD documented in this encounter 02-15-2024 Telephone encounter Note The following approved medication requests have been transmitted electronically. Requested Prescriptions Pending Prescriptions Disp Refills nadolol (CORGARD) 20 mg tablet 90 tablet 3 Sig: Take 1 tablet by mouth once daily. PARoxetine (PAXIL) 20 mg tablet 90 tablet 1 Sig: Take 1 tablet by mouth once daily. Farhat Mcwilliams APRN.ROBBIE 02-15-2024 Miscellaneous Notes The following approved medication requests have been transmitted electronically. Requested Prescriptions Pending Prescriptions Disp Refills nadolol (CORGARD) 20 mg tablet 90 tablet 3 Sig: Take 1 tablet by mouth once daily. PARoxetine (PAXIL) 20 mg tablet 90 tablet 1 Sig: Take 1 tablet by mouth once daily. Farhat Mcwilliams APRN.CNP Patient returns call and follow up scheduled as requested below for 02/20/2024. Irma Vasquez RN Message left for patient to call PCP office to schedule appointment with PCP Team, for refills. After appt has been made, please send refill request to PCP. Thank you. The patient has been identified by name and date of : Yes Caregiver verified no other encounters exist for this prescription request: Yes Caregiver confirmed with patient/requestor that no other refills are due, in the near future, with this provider at this time: Yes The last office visit in the department: 07/27/2023 Does the patient have a future office visit with this provider/department: No Visit date not found Requested Prescriptions Pending Prescriptions Disp Refills nadolol (CORGARD) 20 mg tablet 90 tablet 3 Sig: Take 1 tablet by mouth once daily. PARoxetine (PAXIL) 20 mg tablet 90 tablet 1 Sig: Take 1 tablet by mouth once daily. Preethi Apple RN documented in this encounter 02-12-2024 Telephone encounter Note Patient returns call and follow up scheduled as requested below for 02/20/2024. Irma Vasquez RN 02-12-2024 Telephone encounter Note Message left for patient to call PCP office to schedule appointment with PCP Team, for refills. After appt has been made, please send refill request to PCP. Thank you. The patient has been identified by name and date of : Yes Caregiver verified no other encounters exist for this prescription request: Yes Caregiver confirmed with patient/requestor that no other refills are due, in the near future, with this provider at this time: Yes The last office visit in the department: 07/27/2023 Does the patient have a future office visit with this provider/department: No Visit date not found Requested Prescriptions Pending Prescriptions Disp Refills nadolol (CORGARD) 20 mg tablet 90 tablet 3 Sig: Take 1 tablet by mouth once daily. PARoxetine (PAXIL) 20 mg tablet 90 tablet 1 Sig: Take 1 tablet by mouth once daily. Preethi Apple RN 01-11-2024 Telephone encounter Note Pharmacy request denied. Patient needs to contact office for refills. Yuliana Edwards MA 01-11-2024 Miscellaneous Notes Pharmacy request denied. Patient needs to contact office for refills. Yuliana Edwards MA documented in this encounter 12-23-2023 History of Presen t illness Narrative Patient presents with: Pain, Sinus: Sinus pain and pressure, ST, head congestion and drainage x 8 days HPI: Feeling sick for 9 days. Positive symptoms: Cough, initial Sore throat, worsening Sinus pressure, Nasal Congestion, Rhinorrhea, Post nasal drainage Negative symptoms: Shortness of breath, Fever, OTC: Sudafed, zyrtec MEDICATIONS: Current Outpatient Medications Medication Sig pantoprazole DR (PROTONIX) 40 mg tablet Take 1 tablet by mouth two times a day for 10 days. bismuth subsalicylate (PEPTO-BISMOL) 262 mg chewable tablet Take 1 tablet by mouth four times daily for 10 days. PARoxetine (PAXIL) 20 mg tablet Take 1 tablet by mouth once daily. colestipol (COLESTID) 1 gram tablet Take 1 tablet by mouth twice daily. nadolol (CORGARD) 20 mg tablet Take 1 tablet by mouth once daily. amoxicillin-clavulanate potassium (AUGMENTIN) 875-125 mg per tablet Take 1 tablet by mouth two times a day for 5 days. No current facility-administered medications for this visit. ALLERGIES: ALLERGIES Allergen Reactions Phenergan [Prometha* Mental Status Change Oculogyric Crisis Keflex [Cephalexin] Intolerance Trimpex [Trimethopr* Intolerance VITALS: BP 142/82 Pulse 89 Temp 36.6 C (97.8 F) (Tympanic) Resp 18 Wt 63.5 kg (139 lb 15.9 oz) SpO2 98% BMI 23.30 kg/m PHYSICAL EXAM: GEN: Pleasant, in no acute distress. Hard of hearing. HEENT: PERRL, EOMI, conjunctiva clear Ears: canals clear. TMs without erythema, bulge, or effusion Sinuses: non-tender frontal sinus, non-tender maxillary sinuses Throat: moist mucous membranes, mild erythema, no exudate Neck: supple, no thyromegaly, no lymphadenopathy HEART: regular rate and rhythm, no murmurs LUNGS: clear to auscultation, no wheezes or crackles, no increased WOB ASSESSMENT/PLAN: 1. Acute non-recurrent sinusitis, unspecified location - ICD9: 461.9, ICD10: J01.90 - Will begin treatment with augmentin. Continue antihistamine and decongestant. Printed instructions for nasal saline rinse with neti pot. Salvador Daniels MD documented in this encounter 12-23-2023 Instructions Salvador Daniels MD - 12/23/2023 7:21 PM EDT NASAL SALINE IRRIGATION Sinus rinses can help with the nasal congestion and discomfort associated with sinusitis. They can clear or thin excessive mucus, remove crusting, and even remove allergy causing particles such as pollen from the nose. You can purchase commercially prepared salt mixtures or prepare your own rinse with the recipe below: INSTRUCTIONS FOR THE PREPARATION OF ISOTONIC NASAL IRRIGATION SOLUTION Fill one bottle with 8 ounces of distilled water. If you use tap water, boil it first and let it cool to room temperature. Add 1/2 teaspoon non-iodized table salt. Add 1/2 teaspoon baking soda. Mix well until dissolved. Irrigate each nostril with solution Use a commercial squeeze bottle or bulb syringe. Use of the bottle or one full syringe in each nostril. Squeeze saline into the upper nostril gently with your head rotated and tilted down and over a sink. Breathe through your mouth. The saline solution should come out the other nostril. A small amount may get into your mouth. Repeat the process with the other nostril. You may use these salt water rinses one to four times a day. If your nose is severely blocked do not use rinses. If you experience pain, nose bleeds, or other difficulties with the rinses, DO NOT use them. Contact your health care provider with any problems. documented in this encounter 12-18-2023 Miscellaneous Notes Patient reports she has a cough and sore throat, that started yesterday. Reviewed home care protocol with patient, and patient agrees to try home care recommendations. Patient agreeable to EC if symptoms do not improve with home care measures. Reason for Disposition Cough with cold symptoms (e.g., runny nose, postnasal drip, throat clearing) Answer Assessment - Initial Assessment Questions 1. ONSET: Cough started yesterday. Started getting deeper as day went on. 2. SEVERITY: Today cough comes and goes and deep. 3. SPUTUM: Did not look. 4. HEMOPTYSIS: Doesn't know but it was thick. 5. DIFFICULTY BREATHING: No SOB. 6. FEVER: No fever. 7. CARDIAC HISTORY: No heart history. 8. LUNG HISTORY: No lung history. 9. PE RISK FACTORS: No hx of clots. Knows through testing of circulation in lower legs, her circulation is not as good in lower legs. 10. OTHER SYMPTOMS: Sore throat. No wheeze. Chest is sore from coughing. 11. : Post menopause. 12. TRAVEL: No travel. No exposures. Works at [employer] [address] and at [employer]. Protocols used: Cough - Acute [id number] documented in this encounter 08-10-2023 Miscellaneous Notes Spoke with patient. Given message from provider's office. Patient verbalizes understanding. Transferred to rehabilitation aide/scheduler for CT scan. Made patient aware lab [...] Needs creatinine as ordered first. Thank you, Flores Esparza APRN.TOLL COLLECTOR SUPERVISOR Pt called in and reports she has [...] her and wanted to know. Pt states Flores Esparza SHOE CEMENTER had also talked about doing a CT when she had seen her. Please call and advise. documented in this encounter 08-04-2023 Miscellaneous Notes Detailed message left on pt identified VM. Millicent Smith Ma I would recommend using OTC Imodium for tht diarrhea and see if it improves in the next 3-4 days Chris Serrato MD Pt seen by Flores Esparza CNP on 07/27/23. Provider out of the office today. Please advise. Raya Bennett Ma Patient is calling in to let provider know sharp pain is gone but she does still have the diarrhea and is asking what she should do. Please advise the patient. documented in this encounter 07-13-2023 Miscellaneous Notes The following approved medication requests have been transmitted electronically. Requested Prescriptions Pending Prescriptions Disp Refills PARoxetine (PAXIL) 20 mg tablet 90 tablet 1 Sig: Take 1 tablet by mouth once daily. Farhat Mcwilliams APRN.CNP Last office visit: 12/01/22 F/u scheduled: none Millicent Smith Ma Patient has been identified by name and date of : Yes Requested Prescriptions Pending Prescriptions Disp Refills PARoxetine (PAXIL) 20 mg tablet 90 tablet 1 Sig: Take 1 tablet by mouth once daily. RX INSTRUCTIONS: Patient aware RX will be sent to pharmacy. No need to notify patient. Gracie Cohen Pss documented in this encounter 03-05-2023 Miscellaneous Notes The following approved medication requests have been transmitted electronically. Requested Prescriptions Signed Prescriptions Disp Refills colestipol (COLESTID) 1 gram tablet 180 tablet 3 Sig: Take 1 tablet by mouth twice daily. Authorizing Provider: CHRIS SERRATO MA OK to refill as ordered Chris Serrato MD Medication refill requested by Patient Please [...] Preethi Apple RN documented in this encounter 12-26-2022 Miscellaneous Notes Pt notified via identified VM. Millicent Smith Ma OK for Questran powder as ordered Chris Serrato MD Pt called in and reports [facility] is out of Colestipol until mid-December and had called in to have a short term supply sent to [facility], but it was sent to [facility], and now [facility] is out until mid-December. She is asking if there is something that could be substituted for it and sent to [facility] for 30 days, until they have it back in stock. Pt asking if a message can be left on her cell # if she doesn't answer. documented in this encounter 12-23-2022 Miscellaneous Notes OK to refill as ordered Chris Serrato MD Last OV: 11/06/22 Pt calls to [...] pharmacy. No need to notify patient. June Chase LPN documented in this encounter 12-01-2022 Instructions Delroy Katz APRN.CNP - 12/01/2022 3:48 PM EDT Start augmentin Follow up if no improvement in 5 days documented in this encounter 12-01-2022 History of Presen t illness Narrative Chief Complaint Patient presents with: Sinusitis HPI Rupert Doll is a 82 year old female [...] AMOXICILLIN 875 MG-POTASSIUM CLAVULANATE 125 MG TABLET Delroy Katz APRN.ROBBIE documented in this encounter 11-06-2022 Instructions Shaista Calabrese APRN.CNP - 11/06/2022 12:54 PM EST Increase Paxil 20 mg daily. Continue with counseling with hospice. Follow up in 1 month, may be a phone or virtual visit. documented in this encounter 11-06-2022 History of Presen t illness Narrative This is a 82 year old female who presents today with: No chief complaint on file. HISTORY OF PRESENT ILLNESS: Rupert Doll is a 82 year old female. [...] effects were discussed and patient voices understanding. Shaista Calabrese APRN.ROBBIE This note was partially generated using Accera voice recognition system. Note was reviewed for accuracy. There may be minor misspellings or grammar miscues with Accera voice recognition. documented in this encounter 11-05-2022 Miscellaneous Notes Spoke to patient an appointment made Emily Schuster Ma Patient called to report that she has been experiencing increased anxiety in the evenings since her spouse one week ago. Please notify the patient of plan of care. documented in this encounter 08-22-2022 Miscellaneous Notes Patient returned call and went over results, notes from Delroy Katz SHOE CEMENTER with understanding. Patient said her abdominal pain is not as bad, rated at a 2 today. Left message for patient to return call to office Naty Ramos Cma Please let patient know that her abdominal CT is negative. Has her pain resolved? documented in this encounter 08-18-2022 Instructions Delroy Katz APRN.CNP - 08/18/2022 2:[address] Complete lab work documented in this encounter 08-18-2022 History of Presen t illness Narrative Chief Complaint Patient presents with: RLQ pain HPI Rupert Doll is a 82 year old female [...] fever would indicate need for ER evaluation. Delroy Katz APRN.TOLL COLLECTOR SUPERVISOR documented in this encounter 08-18-2022 Miscellaneous Notes Patient call in for [...] or gets worse. Patient has appointment with Delroy garcia 08/18/2022. Reason for Disposition [1] MODERATE [...] Back pain Protocols used: Abdominal Pain - [id number] documented in this encounter 05-26-2022 Miscellaneous Notes The following approved medication requests have been transmitted electronically. Requested Prescriptions Pending Prescriptions Disp Refills VITAMIN D2 1,250 mcg (50,000 unit) capsule [Pharmacy Med Name: VITAMIN D2 1.25MG(50,000 UNIT)] 12 capsule 3 Sig: take 1 capsule by mouth every week Farhat Mcwilliams APRN.ROBBIE Patient phones requesting refills as follows: Requested Prescriptions Pending Prescriptions Disp Refills VITAMIN D2 1,250 mcg (50,000 unit) capsule [Pharmacy Med Name: VITAMIN D2 1.25MG(50,000 UNIT)] 12 capsule 3 Sig: take 1 capsule by mouth every week [facility]-12/19/21 Labs-11/08/21 NOV-none med filled 06/24/21 Please review and advise. Allyson Nicholas LPN documented in this encounter 05-08-2022 Miscellaneous Notes The following approved medication requests have been transmitted electronically. Requested Prescriptions Pending Prescriptions Disp Refills PARoxetine (PAXIL) 10 mg tablet [Pharmacy Med Name: PAROXETINE HCL 10 MG TABLET] 90 tablet 3 Sig: take 1 tablet by mouth once daily Farhat Mcwilliams APRN.ROBBIE Patient phones requesting refills as follows: Requested Prescriptions Pending Prescriptions Disp Refills PARoxetine (PAXIL) 10 mg tablet [Pharmacy Med Name: PAROXETINE HCL 10 MG TABLET] 90 tablet 3 Sig: take 1 tablet by mouth once daily [facility]-12/19/21 Labs-11/08/21 NOV-none med filled 04/18/21 Please review and advise. Allyson Nicholas LPN documented in this encounter 05-02-2022 Miscellaneous Notes Noted Chris Serrato MD Patient calling she had done a [...] to her PCP. documented in this encounter 03-25-2022 Miscellaneous Notes Pt called in and reported that her Colestipol went up to $170 through her insurance. Look up Pts medication on [facility] and it was $67.95 at [facility]. Pt is going to go over to her sons and have him help her print the coupon and go this route at this time. She is also going to look at the other medication coupon companies to see if any are cheaper. documented in this encounter 12-19-2021 Instructions Shaista Calabrese APRN.TOLL COLLECTOR SUPERVISOR - 12/19/2021 1:59 PM EDT 1.) Schedule appointment with orthopedics to evaluate left elbow. 2.) May try NSAIDs (Ibuprofen) to help with pain/swelling, may try elbow sleeve, reduce pressure to the area. 3.) Follow up as needed. documented in this encounter 12-19-2021 History of Presen t illness Narrative This is a 81 year old female who presents today with: Patient presents with: Acute Visit: fluid filled bump on left elbow HISTORY OF PRESENT ILLNESS: Rupert Doll is a 81 year old female. Patient presents with: Acute Visit: fluid filled bump on left elbow Here in the office for complaints of left elbow pain and swelling. Noticed tenderness yesterday. No injury to the area. Has not tried any treatments. Pain only with pressure on the area. No difficulty with business taxes specialist strength. PAST MEDICAL HISTORY: PAST MEDICAL HISTORY [...] effects were discussed and patient voices understanding. Shaista Calabrese APRN.CNP This note was partially generated using Accera voice recognition system. Note was reviewed for accuracy. There may be minor misspellings or grammar miscues with Dragon voice recognition. documented in this encounter 11-29-2021 History of Past i llness Narrative Problem Noted Date Resolved Date Dermatochalasis of [...] of this encounter (statuses as of 12/19/2021) 04-01-2022 History of Past illness Narrative* Problem Noted [...] of this encounter (statuses as of 03/25/2022) 04-01-2022 History of Past illness Narrative* Problem Noted [...] of this encounter (statuses as of 05/02/2022) 04-01-2022 History of Past illness Narrative* Problem Noted [...] of this encounter (statuses as of 05/08/2022) 04-01-2022 History of Past illness Narrative* Problem Noted [...] of this encounter (statuses as of 05/26/2022) 04-01-2022 History of Past illness Narrative* Problem Noted [...] of this encounter (statuses as of 08/18/2022) 04-01-2022 History of Past illness Narrative* Problem Noted [...] of this encounter (statuses as of 08/20/2022) 04-01-2022 History of Past illness Narrative* Problem Noted [...] of this encounter (statuses as of 08/21/2022) 04-01-2022 History of Past illness Narrative* Problem Noted [...] of this encounter (statuses as of 08/21/2022) 04-01-2022 History of Past illness Narrative* Problem Noted [...] of this encounter (statuses as of 08/23/2022) 04-01-2022 History of Past illness Narrative* Problem Noted [...] of this encounter (statuses as of 11/05/2022) 04-01-2022 History of Past illness Narrative* Problem Noted [...] of this encounter (statuses as of 11/06/2022) 04-01-2022 History of Past illness Narrative* Problem Noted [...] of this encounter (statuses as of 12/02/2022) 04-01-2022 History of Past illness Narrative* Problem Noted [...] of this encounter (statuses as of 12/24/2022) 04-01-2022 History of Past illness Narrative* Problem Noted [...] of this encounter (statuses as of 12/26/2022) 04-01-2022 History of Past illness Narrative* Problem Noted [...] of this encounter (statuses as of 03/05/2023) 04-01-2022 History of Past illness Narrative* Problem Noted [...] of this encounter (statuses as of 07/13/2023) 04-01-2022 History of Past illness Narrative* Problem Noted [...] of this encounter (statuses as of 08/05/2023) 04-01-2022 History of Past illness Narrative* Problem Noted [...] of this encounter (statuses as of 08/11/2023) 04-01-2022 History of Past illness Narrative* Problem Noted [...] as of this encounter (statuses as of 12/18/2023) 01-14-2021 History of Present illness Narrative* Lizbeth Winn (Tech), Tech - 09/13/2020 4:20 PM EST Radiology Service Progress Note PATIENT NAME: Rupert Doll DATE OF SERVICE: September 13, 2020 TIME: 4:16 PM PATIENT IDENTITY VERIFICATION COMPLETED USING TWO (2) IDENTIFIERS: Name and Date of confirmedby patient verbally. FALL SCREENING: Has the patient had 2 falls in the last year or 1 fall with injury or currently using an Ambulatory Assistive Device (Walker, Cane, Wheelchair, Crutches, etc.)? No PATIENT GENDER DATA: Female. status: : No status: NO. PATIENT RELEVANT IMPLANT DATA REVIEWED: Not Applicable RADIOLOGY DEPARTMENT: General X-ray: Exam(s) Completed: Lower Extremity X- Ray(s): Knee, AP / Lat / Tunne / Merchant Left and Wt. Bearing: PERIPHERAL IV DATA: Not applicable SIGNED BY: Emely Beckman September 13, 2020 4:16 PM [facility] Diagnosis Olecranon bursitis of left elbow- Primary Olecranon bursitis documented in this encounter [facility]* Diagnosis Vitamin D deficiency Unspecified vitamin D deficiency documented in this encounter [facility]* Diagnosis Right lower quadrant abdominal pain- Primary Abdominal pain, right lower quadrant documented in this encounter [facility]* Diagnosis Right lower quadrant abdominal pain Abdominal pain, right lower quadrant documented in this encounter [facility]* Diagnosis Anxiety with depression- Primary documented in this encounter [facility]* Diagnosis Acute non-recurrent frontal sinusitis- Primary documented in this encounter [facility]* Diagnosis Anxiety with depression documented in this encounter [facility]* Diagnosis Diarrhea, unspecified type- Primary LLQ abdominal pain Abdominal pain, left lower quadrant Left lower quadrant abdominal pain documented in this encounter [facility] noteNo assessment information availableWCity Hospital Work Phone: Evaluation note* Diagnosis Acute non-recurrent sinusitis, unspecified location- Primary documented in this encounter [facility]* Diagnosis Anxiety with depression documented in this encounter [facility]* Diagnosis Palpitations Anxiety with depression documented in this encounter [facility]* Diagnosis Other hyperlipidemia- Primary Palpitations Anxiety with depression Elevated glucose Other abnormal glucose documented in this encounter [facility]* Diagnosis Other hyperlipidemia- Primary Elevated glucose Other abnormal glucose documented in this encounter [facility]* Diagnosis Screening for osteoporosis- Primary Special screening for osteoporosis documented in this encounter [facility]* Diagnosis Palpitations- Primary Special screening for malignant neoplasms, colon Breast screening, unspecified Left knee injury, initial encounter documented in this encounter [facility]* Diagnosis Palpitations- Primary Special screening for malignant neoplasms, colon Breast screening, unspecified Screening for osteoporosis Special screening for osteoporosis documented in this encounter [facility]* Diagnosis Palpitations- Primary Special screening for malignant neoplasms, colon Breast screening, unspecified Anxiety with depression documented in this encounter [facility]* Diagnosis Palpitations- Primary Special screening for malignant neoplasms, colon Breast screening, unspecified Sinobronchitis- Primary Unspecified sinusitis (chronic) documented in this encounter [facility] note* Diagnosis Palpitations- Primary Special screening for malignant neoplasms, colon Breast screening, unspecified Sore throat- Primary Acute pharyngitis Rhinosinusitis Unspecified sinusitis (chronic) documented in this encounter [facility] note* Diagnosis Palpitations- Primary Special screening for malignant neoplasms, colon Breast screening, unspecified Encounter for Medicare annual wellness exam- Primary Routine general medical examination at a health care facility Screening for depression Anxiety Anxiety state, unspecified Palpitations Other hyperlipidemia Diarrhea, unspecified type Acute non-recurrent frontal sinusitis documented in this encounter [facility] note* Diagnosis Palpitations- Primary Special screening for malignant neoplasms, colon Breast screening, unspecified Urinary frequency- Primary Urinary tract infection with hematuria, site unspecified documented in this encounter [facility] note* Diagnosis Palpitations- Primary Special screening for malignant neoplasms, colon Breast screening, unspecified Fall on same level from slipping, tripping and stumbling without subsequent striking against object, initial encounter documented in this encounter [facility] note* Diagnosis Palpitations- Primary Special screening for malignant neoplasms, colon Breast screening, unspecified Fall on same level from slipping, tripping and stumbling without subsequent striking against object, initial encounter documented in this encounter [facility] note* Diagnosis Palpitations- Primary Special screening for malignant neoplasms, colon Breast screening, unspecified Palpitations documented in this encounter [facility] note* Diagnosis Palpitations- Primary Special screening for malignant neoplasms, colon Breast screening, unspecified Other hyperlipidemia- Primary Anxiety Anxiety state, unspecified Palpitations Diarrhea, unspecified type Elevated glucose Other abnormal glucose documented in this encounter [facility] note* Diagnosis Palpitations- Primary Special screening for malignant neoplasms, colon Breast screening, unspecified Anxiety with depression [facility] Additional Instructions Follow-up with orthopedics. You can take 650 mg Tylenol as needed for your pain every 6 hours. You can take the oxycodone every 8 hours as needed. Keep your arm elevated, return for any worsening of your symptoms.[facility] Work Phone: Reason for referral (narrative)* Diagnostic Procedure Only (Routine) - Authorized Specialty Diagnoses / Procedures Referred By Contac t Referred To Contact XR IMAGING Diagnoses Screening for osteoporosis Procedures DXA-AXIAL SKELETON Chris Serrato MD [address] [place] [address] [place] [address] Referral ID Status Reason Start Date Expiration Date Visits Requested Visits Authorized [id number] Authorized Auto-Generat ed Referral 03/10/2024 04/09/2025 1 1 [facility] for visit Narrative* Diagnostic Procedure Only (Routine) - Closed Specialty Diagnoses / Procedures Referred By Contac t Referred To Contact XR IMAGING Diagnoses Screening for osteoporosis Procedures DXA-AXIAL SKELETON Chris Serrato MD [address] [place] [address] [place] [address] Referral ID Status Reason Start Date Expiration Date V isits Requested Visits Authorized [id number] Closed Auto-Generate d Referral 03/10/2024 04/09/2025 1 1 [facility] for visit Narrative* Diagnostic Procedure Only (Urgent) - Closed Specialty Diagnoses / Procedures Referred By Contac t Referred To Contact XR IMAGING Diagnoses Fall on same level from slipping, tripping and stumbling without subsequent striking against object, initial encounter Procedures XR KNEE GENERAL 4V AP BOTH/PA BOTH/LAT/MERC LEFT RADIOLOGIC EXAM KNEE COMPLETE 4/MORE VIEWS Mimi Gross APRN.TOLL COLLECTOR SUPERVISOR [address] [place] [address] Phone: tel: fax: [place] [address] Referral ID Status Reason Start Date Expiration Date V isits Requested Visits Authorized [id number] Closed Auto-Generate d Referral 01/15/2025 02/14/2026 1 1 Summary Purpose Family History No Family History Records Found Relationship Condition Age at Onset Recorded Date/T brissa Unknown Family History?Cancer Unknown November 12, 2020 7:19pm Family History?Heart Disease Unknown November 12, 2020 7:19pm Relationship Condition Age at Onset Recorded Date/T brissa Unknown Family History?Cancer Unknown November 12, 2020 8:19pm Family History?Heart Disease Unknown November 12, 2020 8:19pm Advance Directives No Advanced Directives Records FoundDocuments on File Type Date Recorded Patient Card Cutter Helper Expl anation Advance Directive(s) 11/29/2021 10:57 AM Documents on File Type Date Recorded Patient Card Cutter Helper Expl anation Advance Directive(s) 11/29/2021 10:57 AM Advance Directive Response Recorded Date/ Time Living Will Yes November 12, 2020 7:15pm Power of Budget Assistant Yes November 12 7:15pm Advance Directive Response Recorded Date/ Time Name of Medical Power of Budget Assistant marlys stuart y-son December 31, 2023 1:29pm Living Will Yes December 31, 2023 1: 29pm Power of Budget Assistant Yes December 31, 2023 1:29pm Reason for Referral Specialty Diagnoses / Procedures Referred By Contac t Referred To Contact Orthopedics Diagnoses Olecranon bursitis of left elbow Procedures CONSULT TO ORTHOPAEDICS OFFICE/OUTPATIENT [facility] 60-74 MINUTES Shaista Calabrese, MITER SAW OPERATOR.TOLL COLLECTOR SUPERVISOR [address] [place] [address] Referral ID Status Reason Start Date Expiration Date Visits Requested Visits Authorized [id number] Authorized PCP Requested Referral 12/19/2021 12/19/2022 1 1 Specialty Diagnoses / Procedures Referred By Contac t Referred To Contact CT IMAGING Diagnoses Right lower quadrant abdominal pain Procedures CT ABD/PEL W IVCON CT ABD & PELVIS W/CONTRAST Delroy Katz, MITER SAW OPERATOR.TOLL COLLECTOR SUPERVISOR [address] [place] [address] Ct Imaging Referral ID Status Reason Start Date Expiration Date Visits Requested Visits Authorized [id number] Pending Review Auto-Genera brianne Referral Patient Cleared - Admin/Chair man/Directo r advise to proceed 2 09/17/2023 1 1 Referral ID Status Reason Start Date Expiration Date Visits Requested Visits Authorized [id number] Authorized Auto-Generat ed Referral Patient Cleared - Admin/Chairm an/Director advise to proceed 2 10/03/2022 4 4 Specialty Diagnoses / Procedures Referred By Claire ruiz Referred To Contact CT IMAGING Diagnoses Left lower quadrant abdominal pain Procedures CT ABD/PEL W IVCON CT ABD & PELVIS W/CONTRAST Flores Esparza, MITER SAW OPERATOR.TOLL COLLECTOR SUPERVISOR [address] [place] [address] [place] [address] Referral ID Status Reason Start Date Expiration Date Visits Requested Visits Authorized [id number] Pending Review Auto-Generat ed Referral 3 09/08/2024 1 1 Chief Complaint and Reason for Visit Chief Complaint PAIN IN LEFT LEG; PA IN IN RIGHT LEG; PVD Chief Complaint PAIN IN LEFT LEG; PA IN IN RIGHT LEG; PVD WRIST INJURY Additional Source Comments INFORMATION SOURCE (unrecogn ized section and content) DATE CREATED AUTHOR 12/02/2021 [facility] DATE CREATED AUTHOR AUTHOR'S ORGANIZ ATION 08/23/2022 [facility] DATE CREATED AUTHOR AUTHOR'S ORGANIZ ATION 01/10/2024 [facility] DATE CREATED AUTHOR AUTHOR'S ORGANIZ ATION 07/03/2025 [facility] Source Comments (unrecognize d section and content) In the event this informatio n is protected by the Federal Confidentiality of Alcohol and Drug Abuse Patient Records regulations: The Federal rules restrict any use of the information to criminally investigate or prosecute any alcohol or drug abuse patient.In the event this information is protected by the Federal Confidentiality of Alcohol and Drug Abuse Patient Records regulations: The Federal rules restrict any use of the information to criminally investigate or prosecute any alcohol or drug abuse patient.In the event this information is protected by the Federal Confidentiality of Alcohol and Drug Abuse Patient Records regulations: The Federal rules restrict any use of the information to criminally investigate or prosecute any alcohol or drug abuse patient.In the event this information is protected by the Federal Confidentiality of Alcohol and Drug Abuse Patient Records regulations: The Federal rules restrict any use of the information to criminally investigate or prosecute any alcohol or drug abuse patient.In the event this information is protected by the Federal Confidentiality of Alcohol and Drug Abuse Patient Records regulations: The Federal rules restrict any use of the information to criminally investigate or prosecute any alcohol or drug abuse patient.In the event this information is protected by the Federal Confidentiality of Alcohol and Drug Abuse Patient Records regulations: The Federal rules restrict any use of the information to criminally investigate or prosecute any alcohol or drug abuse patient.In the event this information is protected by the Federal Confidentiality of Alcohol and Drug Abuse Patient Records regulations: The Federal rules restrict any use of the information to criminally investigate or prosecute any alcohol or drug abuse patient.In the event this information is protected by the Federal Confidentiality of Alcohol and Drug Abuse Patient Records regulations: The Federal rules restrict any use of the information to criminally investigate or prosecute any alcohol or drug abuse patient.In the event this information is protected by the Federal Confidentiality of Alcohol and Drug Abuse Patient Records regulations: The Federal rules restrict any use of the information to criminally investigate or prosecute any alcohol or drug abuse patient.In the event this information is protected by the Federal Confidentiality of Alcohol and Drug Abuse Patient Records regulations: The Federal rules restrict any use of the information to criminally investigate or prosecute any alcohol or drug abuse patient.In the event this information is protected by the Federal Confidentiality of Alcohol and Drug Abuse Patient Records regulations: The Federal rules restrict any use of the information to criminally investigate or prosecute any alcohol or drug abuse patient.In the event this information is protected by the Federal Confidentiality of Alcohol and Drug Abuse Patient Records regulations: The Federal rules restrict any use of the information to criminally investigate or prosecute any alcohol or drug abuse patient.In the event this information is protected by the Federal Confidentiality of Alcohol and Drug Abuse Patient Records regulations: The Federal rules restrict any use of the information to criminally investigate or prosecute any alcohol or drug abuse patient.In the event this information is protected by the Federal Confidentiality of Alcohol and Drug Abuse Patient Records regulations: The Federal rules restrict any use of the information to criminally investigate or prosecute any alcohol or drug abuse patient.In the event this information is protected by the Federal Confidentiality of Alcohol and Drug Abuse Patient Records regulations: The Federal rules restrict any use of the information to criminally investigate or prosecute any alcohol or drug abuse patient.In the event this information is protected by the Federal Confidentiality of Alcohol and Drug Abuse Patient Records regulations: The Federal rules restrict any use of the information to criminally investigate or prosecute any alcohol or drug abuse patient.In the event this information is protected by the Federal Confidentiality of Alcohol and Drug Abuse Patient Records regulations: The Federal rules restrict any use of the information to criminally investigate or prosecute any alcohol or drug abuse patient.In the event this information is protected by the Federal Confidentiality of Alcohol and Drug Abuse Patient Records regulations: The Federal rules restrict any use of the information to criminally investigate or prosecute any alcohol or drug abuse patient.In the event this information is protected by the Federal Confidentiality of Alcohol and Drug Abuse Patient Records regulations: The Federal rules restrict any use of the information to criminally investigate or prosecute any alcohol or drug abuse patient.In the event this information is protected by the Federal Confidentiality of Alcohol and Drug Abuse Patient Records regulations: The Federal rules restrict any use of the information to criminally investigate or prosecute any alcohol or drug abuse patient.In the event this information is protected by the Federal Confidentiality of Alcohol and Drug Abuse Patient Records regulations: The Federal rules restrict any use of the information to criminally investigate or prosecute any alcohol or drug abuse patient.In the event this information is protected by the Federal Confidentiality of Alcohol and Drug Abuse Patient Records regulations: The Federal rules restrict any use of the information to criminally investigate or prosecute any alcohol or drug abuse patient.In the event this information is protected by the Federal Confidentiality of Alcohol and Drug Abuse Patient Records regulations: The Federal rules restrict any use of the information to criminally investigate or prosecute any alcohol or drug abuse patient.In the event this information is protected by the Federal Confidentiality of Alcohol and Drug Abuse Patient Records regulations: The Federal rules restrict any use of the information to criminally investigate or prosecute any alcohol or drug abuse patient.In the event this information is protected by the Federal Confidentiality of Alcohol and Drug Abuse Patient Records regulations: The Federal rules restrict any use of the information to criminally investigate or prosecute any alcohol or drug abuse patient.In the event this information is protected by the Federal Confidentiality of Alcohol and Drug Abuse Patient Records regulations: The Federal rules restrict any use of the information to criminally investigate or prosecute any alcohol or drug abuse patient.In the event this information is protected by the Federal Confidentiality of Alcohol and Drug Abuse Patient Records regulations: The Federal rules restrict any use of the information to criminally investigate or prosecute any alcohol or drug abuse patient.In the event this information is protected by the Federal Confidentiality of Alcohol and Drug Abuse Patient Records regulations: The Federal rules restrict any use of the information to criminally investigate or prosecute any alcohol or drug abuse patient.In the event this information is protected by the Federal Confidentiality of Alcohol and Drug Abuse Patient Records regulations: The Federal rules restrict any use of the information to criminally investigate or prosecute any alcohol or drug abuse patient.In the event this information is protected by the Federal Confidentiality of Alcohol and Drug Abuse Patient Records regulations: The Federal rules restrict any use of the information to criminally investigate or prosecute any alcohol or drug abuse patient.In the event this information is protected by the Federal Confidentiality of Alcohol and Drug Abuse Patient Records regulations: The Federal rules restrict any use of the information to criminally investigate or prosecute any alcohol or drug abuse patient.In the event this information is protected by the Federal Confidentiality of Alcohol and Drug Abuse Patient Records regulations: The Federal rules restrict any use of the information to criminally investigate or prosecute any alcohol or drug abuse patient.In the event this information is protected by the Federal Confidentiality of Alcohol and Drug Abuse Patient Records regulations: The Federal rules restrict any use of the information to criminally investigate or prosecute any alcohol or drug abuse patient.In the event this information is protected by the Federal Confidentiality of Alcohol and Drug Abuse Patient Records regulations: The Federal rules restrict any use of the information to criminally investigate or prosecute any alcohol or drug abuse patient.In the event this information is protected by the Federal Confidentiality of Alcohol and Drug Abuse Patient Records regulations: The Federal rules restrict any use of the information to criminally investigate or prosecute any alcohol or drug abuse patient.In the event this information is protected by the Federal Confidentiality of Alcohol and Drug Abuse Patient Records regulations: The Federal rules restrict any use of the information to criminally investigate or prosecute any alcohol or drug abuse patient.In the event this information is protected by the Federal Confidentiality of Alcohol and Drug Abuse Patient Records regulations: The Federal rules restrict any use of the information to criminally investigate or prosecute any alcohol or drug abuse patient.In the event this information is protected by the Federal Confidentiality of Alcohol and Drug Abuse Patient Records regulations: The Federal rules restrict any use of the information to criminally investigate or prosecute any alcohol or drug abuse patient.In the event this information is protected by the Federal Confidentiality of Alcohol and Drug Abuse Patient Records regulations: The Federal rules restrict any use of the information to criminally investigate or prosecute any alcohol or drug abuse patient.In the event this information is protected by the Federal Confidentiality of Alcohol and Drug Abuse Patient Records regulations: The Federal rules restrict any use of the information to criminally investigate or prosecute any alcohol or drug abuse patient.In the event this information is protected by the Federal Confidentiality of Alcohol and Drug Abuse Patient Records regulations: The Federal rules restrict any use of the information to criminally investigate or prosecute any alcohol or drug abuse patient.In the event this information is protected by the Federal Confidentiality of Alcohol and Drug Abuse Patient Records regulations: The Federal rules restrict any use of the information to criminally investigate or prosecute any alcohol or drug abuse patient.In the event this information is protected by the Federal Confidentiality of Alcohol and Drug Abuse Patient Records regulations: The Federal rules restrict any use of the information to criminally investigate or prosecute any alcohol or drug abuse patient.In the event this information is protected by the Federal Confidentiality of Alcohol and Drug Abuse Patient Records regulations: The Federal rules restrict any use of the information to criminally investigate or prosecute any alcohol or drug abuse patient. Reason for Visit (unrecogniz ed section and content) Reason Comments Acute Visit fluid filled bump on left elbow Reason Comments Medication Problem Reason Comments Patient Update Reason Comments Refill Request Reason Comments RLQ pain Reason Comments Right Lower abdomen Pain Specialty Diagnoses / Procedures Referred By Contac t Referred To Contact CT IMAGING Diagnoses Right lower quadrant abdominal pain Procedures CT ABD/PEL W IVCON CT ABD & PELVIS W/CONTRAST Delroy Ktaz, MITER SAW OPERATOR.TOLL COLLECTOR SUPERVISOR [address] [place] [address] Ct Imaging Referral ID Status Reason Start Date Expiration Date Visits Requested Visits Authorized [id number] Authorized Auto-Generat ed Referral Patient Cleared - Admin/Chairm an/Director advise to proceed 2 10/03/2022 4 4 Reason Comments Results Reason Comments Medication Request Reason Comments Acute Visit anxiety, Reason Comments Sinusitis Reason Onset Date Comments Refill Request 12/23/2022 Reason Onset Date Comments Refill Request 03/04/2023 Reason Onset Date Comments Refill Request 07/13/2023 SEE RX NOTES Reason Comments Patient Update Patient Question Reason Comments Cough Reason Comments Pain, Sinus Sinus pain and press ure, ST, head congestion and drainage x 8 days Reason Onset Date Comments Refill Request 02/12/2024 Reason Comments Follow Up med follow up Reason Comments Information re: Dexascan Pt's insurance calling. Reason Comments Headache Reason Comments Covid19 Concern Reason Comments Radiology XR Specialty Diagnoses / Procedures Referred By Contac t Referred To Contact Radiology / [facility] Diagnoses Behind Curtain Procedures XR GENERAL 7 Jaci Garza, MITER SAW OPERATOR.TOLL COLLECTOR SUPERVISOR [address] [place] [address] [facility] [address] [place] [address] Referral ID Status Reason Start Date Expiration Date V isits Requested Visits Authorized [id number] Closed Patient Cleared - INN Insurance Found 09/13/2020 09/13/2020 1 1 Reason Onset Date Comments Refill Request 09/07/2024 Reason Comments Sinus Congestion Reason Comments Cough With sinus issues, H A, no energy, fatigue x 1 week Reason Comments Cough With sinus pressure & congestion x2 weeks Reason Comments Physical Specialty Diagnoses / Procedures Referred By Claire ruiz Referred To Contact Family Medicine / FAMILY MEDICINE Diagnoses Physical Procedures OFFICE/OUTPATIENT [facility] HIGH MDM 60 MINUTES 4C EST WELL Chris Serrato MD [address] [place] [address] [place] [address] [place] [address] Referral ID Status Reason Start Date Expiration Date Visits Re quested Visits Authorized [id number] Closed 09/27/2024 08/30/2025 1 1 Reason Comments UTI Reason Comments Urinary Frequency Frequency, lower julius k pain and pressure x 2 days Reason Onset Date Comments Results 01/11/2025 Reason Comments Fall States she fell last night and L knee twisted, pain, swelling in area Reason Onset Date Comments Refill Request 02/27/2025 Reason Comments 6 Month Exam Reason Onset Date Comments Refill Request 05/11/2025 Care Teams (unrecognized sec tion and content) Construction Manager Relationship Specialty Start Date End Date Chris Serrato MD [address], [place] [phone] PCP - General Family Practice 10/07/16 Construction Manager Relationship Specialty Start Date End Date Chris Serrato MD [address], [place] [phone] PCP - General Family Practice 10/07/16 Construction Manager Relationship Specialty Start Date End Date Chris Serrato MD [address], [place] [phone] PCP - General Family Practice 10/07/16 Construction Manager Relationship Specialty Start Date End Date Chris Serrato MD [address], [place] [phone] PCP - General Family Medicine 10/07/16 Construction Manager Relationship Specialty Start Date End Date Chris Serrato MD [address] [place] [address] PCP - General Family Medicine 10/07/16 Construction Manager Relationship Specialty Start Date End Date Chris Serrato MD [address] [place] [address] PCP - General Family Medicine 10/07/16 Construction Manager Relationship Specialty Start Date End Date Chris Serrato MD [address] [place] [address] PCP - General Family Medicine 10/07/16 Construction Manager Relationship Specialty Start Date End Date Chris Serrato MD [address] [place] [address] PCP - General Family Medicine 10/07/16 Construction Manager Relationship Specialty Start Date End Date Chris Serrato MD [address] [place] [address] PCP - General Family Medicine 10/07/16 Construction Manager Relationship Specialty Start Date End Date Chris Serrato MD [address] [place] [address] PCP - General Family Medicine 10/07/16 Construction Manager Relationship Specialty Start Date End Date Chris Serrato MD [address] [place] [address] PCP - General Family Medicine 10/07/16 Construction Manager Relationship Specialty Start Date End Date Chris Serrato MD [address] [place] [address] PCP - General Family Medicine 10/07/16 Construction Manager Relationship Specialty Start Date End Date Chris Serrato MD [address] [place] [place] [address] PCP - General Family Medicine 10/07/16 Construction Manager Relationship Specialty Start Date End Date Chris Serrato MD [address] [place] [address] PCP - General Family Medicine 10/07/16 Construction Manager Relationship Specialty Start Date End Date Chris Serrato MD [address] [place] [address] PCP - General Family Medicine 10/07/16 Team Status: Active Member Role Status Dates Dr. Chris Serrato MD Family Provider Active Dr. Chris Serrato MD Primary Care Provider Active Team Status: Active Member Role Status Dates Dr. Chris Serrato MD Primary Care Provider Active Dr. Gagandeep Stinson MD Attending Provider Active Team Status: Inactive Member Role Status Dates Dr. Chris Serrato MD Primary Care Provider Active Dr. Tonny Ramirez DPM Attending Provider, Referring Provider Active Construction Manager Relationship Specialty Start Date End Date Chris Serrato MD [address] [place] [address] PCP - General Family Medicine 10/07/16 Construction Manager Relationship Specialty Start Date End Date Chris Serrato MD [address] [place] [address] PCP - General Family Medicine 10/07/16 Team Status: Active Member Role Status Dates Dr. Chris Serrato MD Primary Care Provider Active Dr. Gagandeep Stinson MD Attending Provider Active Dr. Tonny Ramirez DPM Referring Provider Active Team Status: Inactive Member Role Status Dates Dr. Chris Serrato MD Primary Care Provider Active Dr. Cass Rose MD Emergency Provider Active Construction Manager Relationship Specialty Start Date End Date Chris Serrato MD [address] [place] [address] PCP - General Family Medicine 10/07/16 Construction Manager Relationship Specialty Start Date End Date Chris Serrato MD [address] [place] [address] PCP - General Family Medicine 10/07/16 Construction Manager Relationship Specialty Start Date End Date Chris Serrato MD [address] [place] [address] PCP - General Family Medicine 10/07/16 Construction Manager Relationship Specialty Start Date End Date Chris Serrato MD [address] [place] [address] PCP - General Family Medicine 10/07/16 Construction Manager Relationship Specialty Start Date End Date Chris Serrato MD [address] [place] [address] PCP - General Family Medicine 10/07/16 Construction Manager Relationship Specialty Start Date End Date Chris Serrato MD [address] [place] [address] PCP - General Family Medicine 10/07/16 Construction Manager Relationship Specialty Start Date End Date Chris Serrato MD [address] [place] [address] PCP - General Family Medicine 10/07/16 Construction Manager Relationship Specialty Start Date End Date Chris Serrato MD [address] [place] [address] PCP - General Family Medicine 10/07/16 Shaista Calabrese APRN.CNP [address] [place] [address] Activities Attendant Family Medicine 08/07/24 Farhat Mcwilliams APRN.TOLL COLLECTOR SUPERVISOR [address] [place] [address] Activities Attendant [facility] 08/16/24 Construction Manager Relationship Specialty Start Date End Date Chris Serrato MD [address] [place] [address] PCP - General Family Medicine 10/07/16 Shaista Calabrese APRN.TOLL COLLECTOR SUPERVISOR [address] [place] [address] [facility]/24 Farhat Mcwilliams APRN.TOLL COLLECTOR SUPERVISOR [address] [place] [address] [facility] 08/16/24 Construction Manager Relationship Specialty Start Date End Date Chris Serrato MD [address] [place] [address] PCP - General Family Medicine 10/07/16 Shaista Calabrese APRN.TOLL COLLECTOR SUPERVISOR [address] [place] [address] Activities Attendant Family Medicine 08/07/24 Farhat Mcwilliams APRN.TOLL COLLECTOR SUPERVISOR [address] [place] [address] Activities Attendant Family Medicine 08/16/24 Construction Manager Relationship Specialty Start Date End Date Chris Serrato MD [address] [place] [address] PCP - General Family Medicine 10/07/16 Shaista Calabrese APRN.TOLL COLLECTOR SUPERVISOR [address] [place] [address] Activities Attendant Family Medicine 08/07/24 Farhat Mcwilliams APRN.TOLL COLLECTOR SUPERVISOR [address] [place] [address] Activities Attendant Family Medicine 08/16/24 Construction Manager Relationship Specialty Start Date End Date Chris Serrato MD [address] [place] [address] PCP - General Family Medicine 10/07/16 Shaista Calabrese APRN.TOLL COLLECTOR SUPERVISOR [address] [place] [address] Activities Attendant Family Medicine 08/07/24 Farhat Mcwilliams APRN.TOLL COLLECTOR SUPERVISOR [address] [place] [address] [facility] 08/16/24 Construction Manager Relationship Specialty Start Date End Date Chris Serrato MD [address] [place] [address] PCP - General Family Medicine 10/07/16 Shaista Calabrese APRN.TOLL COLLECTOR SUPERVISOR [address] [place] [address] Activities Attendant Family Medicine 08/07/24 Farhat Mcwilliams APRN.TOLL COLLECTOR SUPERVISOR [address] [place] [address] Activities Attendant Family Medicine 08/16/24 Construction Manager Relationship Specialty Start Date End Date Chris Serrato MD [address] [place] [address] PCP - General Family Medicine 10/07/16 Shaista Calabrese APRN.TOLL COLLECTOR SUPERVISOR [address] [facility] [address] Activities Attendant Family Medicine 08/07/24 Farhat Mcwilliams APRN.TOLL COLLECTOR SUPERVISOR [address] [facility] [place] [address] Activities Attendant Family Medicine 08/16/24 Construction Manager Relationship Specialty Start Date End Date Chris Serrato MD [address] [facility] [place] [address] PCP - General Family Medicine 10/07/16 hSaista Calabrese MITER SAW OPERATOR.TOLL COLLECTOR SUPERVISOR [address] [facility] [place] [address] Activities Attendant Family Medicine 08/07/24 Farhat Mcwilliams MITER SAW OPERATOR.TOLL COLLECTOR SUPERVISOR [address] [facility] [place] [address] Activities Attendant Family Medicine 08/16/24 Construction Manager Relationship Specialty Start Date End Date Chris Serrato MD [address] [facility] [place] [address] PCP - General Family Medicine 10/07/16 Farhat Mcwilliams MITER SAW OPERATOR.TOLL COLLECTOR SUPERVISOR [address] [facility] [place] [address] Activities Attendant Family Medicine 08/16/24 Construction Manager Relationship Specialty Start Date End Date Chris Serrato MD [address] [facility] [place] [address] PCP - General Family Medicine 10/07/16 Farhat Mcwilliams APRN.TOLL COLLECTOR SUPERVISOR [address] [place] [address] [facility] Construction Manager Relationship Specialty Start Date End Date Chris Serrato MD [address] [place] [address] PCP - General Family Medicine 10/07/16 Farhat Mcwilliams APRN.TOLL COLLECTOR SUPERVISOR [address] [place] [address] [facility] 08/16/24 Construction Manager Relationship Specialty Start Date End Date Chris Serrato MD [address] [place] [address] PCP - General Family Medicine 10/07/16 Farhat Mcwilliams, JEN.TOLL COLLECTOR SUPERVISOR [address] [place] [address] [facility] 08/16/24 Construction Manager Relationship Specialty Start Date End Date Chris Serrato MD [address] [place] [address] PCP - General Family Medicine 10/07/16 Farhat Mcwilliams APRN.TOLL COLLECTOR SUPERVISOR [address] [place] [address] [facility] 08/16/24 Goals (unrecognized section and content) Goals may be documented in a n alternate sectionGoals may be documented in an alternate section FOR RECORDS PERTAINING TO PATIENTS WHO ARE [...] BE BASED ON THE PRIMARY CLINICAL RECORDS. [facility] [employer] [facility]. provides no warranty or guarantee of the accuracy or completeness of information in this document.
[2025-07-18 22:01] VITALS: BP 153/81; PULSE 64; RESP 18; O2SAT 96
[2025-07-18 22:38] LABS: Hematocrit 36.0 % (37-47); Hemoglobin 11.9 g/dL (12.0-15.0); Immature Granulocytes Count 0.010 X10^3/uL (0.0-0.0); Mean Corp Hgb Conc 33.1 g/dL (32-36); Mean Corpuscular Volume 93.8 fL (81-99); Mean Platelet Vol. 9.8 fl (6.2-12.0); NRBC Flagged by Analyzer 0 % (0-5); Platelet Count 223 K/mm3 (150-450); RBC Distribution Width CV 12.4 % (11.6-14.6); RBC Distribution Width SD 42.7 fl (35.1-43.9); Red Blood Count 3.84 M/mm3 (4.2-5.4); White Blood Count 6.3 K/mm3 (4.4-11.0)
[2025-07-18 23:04] LABS: Troponin T High Sensitivity < 6 ng/L (<=14)
[2025-07-18 23:31] LABS: Partial Thromboplast Time 25.2 Seconds (24.1-36.2); Prothrombin Time (Protime)PT. 13.4 SECONDS (11.7-14.9)
[2025-07-18 23:54] LABS: Anion Gap 12 (5-15); BUN 17 mg/dL (4-19); BUN/Creat Ratio 18.0 RATIO (10-20); Calcium,Total 8.8 mg/dL (7.6-11.0); Carbon Dioxide 21.9 mmol/L (21.0-32.0); Chloride 103 mmol/L (98-108); Estimated Creatinine Clearance 39.67 ml/min (50-250); Glucose 99 mg/dL (70-99); Potassium 4.4 mmol/L (3.3-5.1)
[2025-07-19] VITALS: BP 162/85; PULSE 70; RESP 18; TEMP 36.6; O2SAT 97
== END 2025-07-19 00:32 | disposition home or self-care (01) ==
PROVIDERS: Emergency Provider Emergency Medicine; PCP Family Medicine; Visit Provider Emergency Medicine
DX: R42 Dizziness and giddiness (principal); I10 Essential (primary) hypertension; F41.9 Anxiety disorder, unspecified
CPT/HCPCS: 70450; 70496; 70498; 80048; 84484; 85025; 85610; 85730; 93005; 96374; 99284; Q9967; A4216; J2405